=== PATIENT | male | born 1940 | race Hispanic/Latino ===

== ENCOUNTER 2016-09-11 21:43 | Observation (INO) | payer MEDICARE ==
[2016-09-11 21:44] VITALS: BMI 22.4
[2016-09-11] MEDS ORDERED: Sodium Chloride 0.9% 1,000 ML IV STA (21:53)
[2016-09-11 22:41] LABS: BASO % 0.3 % (0.0-2.0); EOS # 0.2 K/uL (0.0-0.7); EOS % 1.5 % (0.0-4.0); HEMATOCRIT 33.7 % (35.0-51.0); LYMPH # 1.1 K/uL (1.0-4.3); MEAN CELL VOLUME 92.2 fl (80.0-94.0); MEAN CORPUSCULAR HEMOGLOBIN 29.7 pg (27.0-31.0); MEAN CORPUSCULAR HGB CONC 32.2 g/dL (33.0-37.0); MEAN PLATELET VOLUME 7.9 fl (7.2-11.7); MONO # 0.4 K/uL (0.0-0.8); MONO % 3.5 % (0.0-10.0); NEUT # 10.5 K/uL (1.8-7.0); NEUT % 85.7 % (50.0-75.0); PLATELET COUNT 216 K/uL (130-400); RED CELL DISTRIBUTION WIDTH 13.9 % (11.5-14.5); WHITE BLOOD COUNT 12.2 K/uL (4.8-10.8)
--- NOTE | 2016-09-11 22:47 | ED PDOC ---
HPI: General Adult Time Seen by Provider: 09/11/16 21:46 Chief Complaint (Nursing): Syncope Chief Complaint (Provider): Syncope History Per: Patient History/Exam Limitations: no limitations Additional Complaint(s): Jonathan Neal is a 75 y/o male with a past medical history of bipolar disorder and vasovagal syncope who presents to the ED via EMS accompanied by his daughter with a chief complaint of a syncope episode that lasted about 3 minutes after using the bathroom. Associated symptoms includes constipation, headache, and some light headedness. Of note, patient reports he attempted to have a bow movement on the toilet earlier today due to constipation and states he took Advil daily for the past 2 weeks to treat the headache. PMD: Dr. Renaldo Pablo Past Medical History Reviewed: Historical Data, Nursing Documentation, Vital Signs Vital Signs: Last Vital Signs Temp 98.1 F 09/11/16 23:56 Pulse 72 09/11/16 23:56 Resp 16 09/11/16 23:56 BP 119/65 09/11/16 23:56 Pulse Ox 96 09/12/16 00:12 - Medical History PMH: Arthritis, Bipolar Disorder, Dementia, Hypercholesterolemia (hyperlipidemia ), Hyperlipidemia Denies: HIV, Chronic Kidney Disease - Surgical History Surgical History: Hernia Repair - Family History Family History: States: Unknown Family Hx - Social History Current smoker - smoking cessation education provided: No Ex-Smoker (has not smoked in the last 12 months): No Alcohol: None Drugs: Denies - Home Medications Home Medications: Ambulatory Orders Medication Instructions Recorded [place] Carbonate [Rapids 150 mg PO TID #90 cap 03/22/15 Carbonate 150MG] Risperidone [Risperdal] 0.25 mg PO BID 09/11/16 - Allergies Allergies/Adverse Reactions: Allergies Allergy/AdvReac Type Severity Reaction Status Date / Time meperidine Allergy Mild RASH Verified 08/15/15 06:33 Review of Systems ROS Statement: Except As Marked, All Systems Reviewed And Found Negative Constitutional: Negative for: Fever Cardiovascular: Negative for: Chest Pain Respiratory: Negative for: Cough, Shortness of Breath Gastrointestinal: Positive for: Constipation. Negative for: Nausea, Vomiting, Diarrhea Neurological: Positive for: Headache, Other (Syncope) Physical Exam - Reviewed Nursing Documentation Reviewed: Yes Vital Signs Reviewed: Yes - Physical Exam Appears: Positive for: Well, Non-toxic, No Acute Distress Head Exam: Positive for: ATRAUMATIC, NORMAL INSPECTION, NORMOCEPHALIC Skin: Positive for: Warm, Dry, Pallor. Negative for: Normal Color Eye Exam: Positive for: Normal appearance, EOMI, PERRL ENT: Positive for: Normal ENT Inspection Neck: Positive for: Normal, Painless ROM, Supple Cardiovascular/Chest: Positive for: Regular Rate, Rhythm. Negative for: Murmur , Tachycardia Respiratory: Positive for: Normal Breath Sounds. Negative for: Wheezing, Respiratory Distress Gastrointestinal/Abdominal: Positive for: Normal Exam, Soft. Negative for: Tenderness Back: Positive for: Other (Kyphosis) Rectal: Positive for: Deferred Extremity: Positive for: Normal ROM Lymphatic: Positive for: Deferred Neurologic/Psych: Positive for: Alert (Awake), Oriented (x3) - Laboratory Results Result Diagrams: 09/11/16 22:14 09/11/16 22:41 - ECG O2 Sat by Pulse Oximetry: 96 (RA) Pulse Ox Interpretation: Normal Medical Decision Making Medical Decision Making: Time : 2145: Initial Impression: 75 y/o male with syncope event in setting of known vasovagal syncope and headache. Initial Plan: * Head CT W/o contrast * EKG * CMP * Lact acid, Plasma * Troponin I Stat * ED U-Dip * EKG-ED * CBC with differentials * PTT * Prothrombin Time COAG Stat * Sodium chloride 1000ml * Heplock insertion IV * Admit to hospital routine * Re-Eval 2334: CT head impression: No CT evidence of acute intracranial abnormality. 0008: Labs reviewed, show no clinically significant abnormalities. Patient will be placed on obs status given age and other risk factors. Case discussed with Dr. Aviles (family practice resident on-call) covering for Dr. Pablo. Dx: syncope fair Scribe Attestation: Documented by Bryanna Casillas acting as a scribe for Kanu Coombs MD. Provider Scribe Attestation: All medical record entries made by the Scribe were at my direction and personally dictated by me. I have reviewed the chart and agree that the record accurately reflects my personal performance of the history, physical exam, medical decision making, and the department course for this patient. I have also personally directed, reviewed, and agree with the discharge instructions and disposition. Time Disposition - Clinical Impression Clinical Impression: Syncope Discussed With : Emilia Aviles - Disposition Disposition Time: 00:08 Condition: FAIR - Pt Status Changed To: Hospital Disposition Of: Observation
[2016-09-11 22:51] LABS: ALB/GLOB RATIO 1.5 (1.0-2.1); ALKALINE PHOSPHATASE 53 U/L (38-126); ALT/SGPT 32 U/L (21-72); AST/SGOT 20 U/L (17-59); BILIRUBIN,TOTAL 0.2 mg/dl (0.2-1.3); BLOOD UREA NITROGEN 30 mg/dl (9-20); CALCIUM 9.8 mg/dL (8.4-10.2); CARBON DIOXIDE 24 mmol/L (22-30); CHLORIDE 107 mmol/L (98-107); GFR AFRICAN-AMERICAN 55; GLUCOSE,RANDOM 116 mg/dL (75-110); POTASSIUM 4.3 MMOL/L (3.6-5.0); SODIUM 137 mmol/l (132-148)
[2016-09-11 23:33] LABS: NEUTROPHIL 87 % (42-75); TOTAL CELLS COUNTED 100
--- NOTE | 2016-09-11 23:35 | CT ---
EXAM: CT Head Without Intravenous Contrast CLINICAL HISTORY: 75 years old, male; Signs and symptoms; Other: Syncopeal episode; Additional info: Headache TECHNIQUE: Axial computed tomography images of the head/brain without intravenous contrast. This CT exam was performed using one or more of the following dose reduction techniques: automated exposure control, adjustment of the mA and/or kV according to patient size, and/or use of iterative reconstruction technique. Coronal and sagittal reformatted images were created and reviewed. COMPARISON: CT - HEAD W/O (CODE STROKE) 03/18/2015 4:04:18 PM FINDINGS: Brain: Atrophy. Evidence of chronic ischemic small vessel changes. Vascular calcification. No hemorrhage. No edema. Ventricles: No hydrocephalus. Bones: Skull is intact. Sinuses: No acute sinusitis. Mastoid air cells: Partial opacification left mastoid air cells. IMPRESSION: No CT evidence of acute intracranial abnormality. Please see additional details/findings as above.
--- NOTE | 2016-09-12 00:23 | CP.PCM.HP ---
History of Present Illness - History of Present Illness History of Present Illness: CC: Unresponsive and daughter present at bedside 75M with a repeat episode of near syncope after straining for a BM. Daughter was present at the time and describes the patient's color changing, eyes rolling up, but continued to mumble incoherently, and that he continued to have respirations. Pt denies SOB or chest pain prior to event. Of note family describes prior event occurring in 2014. 2015 Echo: Borderline LVH, EF wnl, mild septal hypokinesis Holter: No etiology identified for syncope Carotid Duplex: No significant stenosis Adelia Note: not neurological, but recommended ASA/Statin PMH: Arthritis, Hiatal Hernia, Bipolar DO, Dementia (mild), Splenic Aneurysm PSH: LIH Repair, b/l foot surgeries, TURP x2 Smoke: Denies ALL: Meperidine FRANKIE: See Med Rec ED COURSE VSS: 36.9- 63- 95/57- 16- 96% CBC: 12.2>10.8/33.7<216, MCV- 92.2 CMP: 137/4.3- 107/24- 30/1.5, Glu- 116H, TBili- 0.2, AST/ALT- 20/32, ALP- 53, TProt/Alb- 6.0L/3.6 Troponin #1: Neg Lactic Acid: 1.2 Li+: 1.2 CT Head: Negative for ICH, masses, shift NS 1L bolus x1 Present on Admission - Present on Admission Any Indicators Present on Admission: No Review of Systems - Review of Systems All systems: reviewed and no additional remarkable complaints except - Constitutional Constitutional: Headache (chronic) - Cardiovascular Cardiovascular: Lightheadedness Past Patient History - Past Medical History & Family History Past Medical History?: Yes - Past Social History Alcohol: None Drugs: Denies - CARDIAC Hx Hypercholesterolemia: Yes (hyperlipidemia) - PULMONARY Hx Respiratory Disorders: No Other/Comment: COPD? as per Luanne. denies pt having COPD - NEUROLOGICAL Hx Dementia: Yes - HEENT Hx HEENT Problems: No - RENAL Hx Chronic Kidney Disease: No - ENDOCRINE/METABOLIC Hx Endocrine Disorders: No - HEMATOLOGICAL/ONCOLOGICAL Hx Human Immunodeficiency Virus (HIV): No - INTEGUMENTARY Hx Dermatological Problems: No - MUSCULOSKELETAL/RHEUMATOLOGICAL Hx Arthritis: Yes - GASTROINTESTINAL Hx Gastrointestinal Disorders: No - GENITOURINARY/GYNECOLOGICAL Hx Genitourinary Disorders: Yes Other/Comment: BPH with TURP x2 - PSYCHIATRIC Hx Bipolar Disorder: Yes - SURGICAL HISTORY Hx Surgeries: Yes Hx Herniorrhaphy: Yes Other/Comment: TURP X2, small spleen aneurysm. Feet surgery([place] and hammer toes sx) - ANESTHESIA Hx Anesthesia: Yes Hx Anesthesia Reactions: No Hx Malignant Hyperthermia: No Meds Allergies/Adverse Reactions: Allergies Allergy/AdvReac Type Severity Reaction Status Date / Time meperidine Allergy Mild RASH Verified 08/15/15 06:33 Physical Exam - Constitutional Appears: Well, Non-toxic, No Acute Distress - Head Exam Head Exam: ATRAUMATIC, NORMAL INSPECTION - Eye Exam Eye Exam: EOMI (Intact but cannot sustain eye position), Normal appearance ( eyelids are red), PERRL - ENT Exam ENT Exam: Mucous Membranes Moist, Normal Exam - Neck Exam Neck exam: Negative for: Full Rom (Limited due to kyphosis), Normal Inspection - Respiratory Exam Respiratory Exam: Clear to Auscultation Bilateral, NORMAL BREATHING PATTERN. absent: Rales, Wheezes - Cardiovascular Exam Cardiovascular Exam: REGULAR RHYTHM. absent: JVD - GI/Abdominal Exam GI & Abdominal Exam: Normal Bowel Sounds, Soft. absent: Tenderness - Extremities Exam Extremities exam: Positive for: normal capillary refill, pedal pulses present. Negative for: calf tenderness, normal inspection (multiple b/l foot sugeries), pedal edema - Neurological Exam Neurological exam: Alert - Psychiatric Exam Psychiatric exam: Normal Affect, Normal Mood - Skin Skin Exam: Normal Color, Warm Results - Vital Signs Recent Vital Signs: Last Vital Signs Temp 36.7 C 09/11/16 23:56 Pulse 72 09/11/16 23:56 Resp 16 09/11/16 23:56 BP 119/65 09/11/16 23:56 Pulse Ox 96 09/12/16 00:12 - Labs Result Diagrams: 09/11/16 22:14 09/11/16 22:41 Labs: Laboratory Results - last 24 hr 09/11/16 09/11/16 09/11/16 22:14 22:41 22:41 WBC 12.2 H D RBC 3.65 L Hgb 10.8 L Hct 33.7 L MCV 92.2 D MCH 29.7 MCHC 32.2 L RDW 13.9 Plt Count 216 MPV 7.9 Neut % (Auto) 85.7 H Lymph % (Auto) 9.0 L [place] % (Auto) 3.5 Eos % (Auto) 1.5 Baso % (Auto) 0.3 Neut # 10.5 H Lymph # 1.1 [place] # 0.4 Eos # 0.2 Baso # 0.0 Neutrophils % (Manual) 87 H Lymphocytes % (Manual) 10 L Monocytes % (Manual) 3 Platelet Estimate Normal PT 11.2 INR 1.0 APTT 26.0 Sodium 137 Potassium 4.3 Chloride 107 Carbon Dioxide 24 Anion Gap 9 L BUN 30 H Creatinine 1.5 Est GFR ( Amer) 55 Est GFR (Non-Af Amer) 45 Random Glucose 116 H Lactic Acid Calcium 9.8 Total Bilirubin 0.2 AST 20 ALT 32 Alkaline Phosphatase 53 Troponin I < 0.0120 Total Protein 6.0 L Albumin 3.6 Globulin 2.5 Albumin/Globulin Ratio 1.5 09/11/16 22:41 WBC RBC Hgb Hct MCV MCH MCHC RDW Plt Count MPV Neut % (Auto) Lymph % (Auto) [place] % (Auto) Eos % (Auto) Baso % (Auto) Neut # Lymph # [place] # Eos # Baso # Neutrophils % (Manual) Lymphocytes % (Manual) Monocytes % (Manual) Platelet Estimate PT INR APTT Sodium Potassium Chloride Carbon Dioxide Anion Gap BUN Creatinine Est GFR ( Amer) Est GFR (Non-Af Amer) Random Glucose Lactic Acid 1.2 Calcium Total Bilirubin AST ALT Alkaline Phosphatase Troponin I Total Protein Albumin Globulin Albumin/Globulin Ratio Assessment & Plan (1) Syncope Assessment and Plan: Recurrent and history c/w likely vasovagal syncope may be exacerbated by anemia. CT negative for acute ICH or shift. Prior work-up in 2014 was negative for neurological and cardiac etiology. - Admit to Telemetry - Bedside swallow as a precaution Status: Acute (2) Anemia Assessment and Plan: This appears to be new as last H/H was 13.3/41.3, however no noted hematuria or dark stools. - Iron and B12 work-up - Fecal occult blood Status: Acute (3) LEA (acute kidney injury) Assessment and Plan: Most c/w pre-renal secondary to volume depletion. Likely contributing to pseudo leukocytosis due to hemoconcentration, but will continue to monitor. - IVF overnight - Repeat BMP in AM Status: Acute (4) Bipolar disorder Assessment and Plan: Chronic, stable. [place]- 1.2 (wnl) - Resume Risperidone - Resume [place] Status: Chronic Priority: Low (5) DVT prophylaxis Assessment and Plan: Lovenox 40mg, SC, Daily Status: Acute
[2016-09-12 04:52] LABS: RBC URINE < 1 /hpf (0-3); URINE BILIRUBIN NEGATIVE (NEGATIVE); URINE BLOOD NEGATIVE (NEGATIVE); URINE COLOR STRAW (YELLOW); URINE GLUCOSE (UA) NEG (Normal); URINE KETONE NEGATIVE (NEGATIVE); URINE LEUKOCYTE ESTERASE NEG Leu/uL (Negative); URINE PROTEIN NEGATIVE (NEGATIVE); URINE UROBILINOGEN 0.2-1.0 mg/dL (0.2-1.0); WBC URINE 2 /hpf (0-5)
[2016-09-12 07:21] LABS: BASO % 0.6 % (0.0-2.0); EOS # 0.2 K/uL (0.0-0.7); HEMATOCRIT 35.5 % (35.0-51.0); LYMPH # 1.7 K/uL (1.0-4.3); LYMPH % 23.5 % (20.0-40.0); MEAN CELL VOLUME 91.7 fl (80.0-94.0); MEAN CORPUSCULAR HEMOGLOBIN 29.9 pg (27.0-31.0); MEAN CORPUSCULAR HGB CONC 32.6 g/dL (33.0-37.0); MEAN PLATELET VOLUME 7.8 fl (7.2-11.7); MONO # 0.4 K/uL (0.0-0.8); MONO % 6.3 % (0.0-10.0); NEUT # 4.7 K/uL (1.8-7.0); NEUT % 66.6 % (50.0-75.0); RED CELL DISTRIBUTION WIDTH 13.5 % (11.5-14.5); WHITE BLOOD COUNT 7.1 K/uL (4.8-10.8)
[2016-09-12 07:37] LABS: BLOOD UREA NITROGEN 26 mg/dl (9-20); CALCIUM 10.5 mg/dL (8.4-10.2); CARBON DIOXIDE 25 mmol/L (22-30); CHLORIDE 111 mmol/L (98-107); GFR AFRICAN-AMERICAN > 60; GLUCOSE,RANDOM 88 mg/dL (75-110); POTASSIUM 4.6 MMOL/L (3.6-5.0); SODIUM 142 mmol/l (132-148)
[2016-09-12 07:42] LABS: IRON 51 ug/dL (49-181)
[2016-09-12] MEDS ORDERED: Enoxaparin 40 mg Syringe SC SCH (09:00)
[2016-09-12] MEDS: Lithium Carbonate 150 MG CAP PO SCH ×2 (09:20→12:37)
[2016-09-12 11:50] LABS: THYROID STIMULATING HORMONE 3.27 mIU/ML (0.46-4.68)
[2016-09-12 12:32] VITALS: BP 138/76; PULSE 67; RESP 20; TEMP 97.6; O2SAT 95
--- NOTE | 2016-09-12 13:47 | CP.PCM.DIS ---
<Archie Stout - Last Filed: 09/12/16 13:57> Provider - Provider Date of Admission: 09/11/16 22:09 Attending physician: Renaldo Pablo MD Time Spent in preparation of Discharge (in minutes): 35 Diagnosis - Discharge Diagnosis (1) Vasovagal syncope Status: Acute Hospital Course - Lab Results Lab Results: Most Recent Lab Values WBC 7.1 K/uL (4.8-10.8) 09/12/16 06:30 RBC 3.87 Mil/uL (4.40-5.90) L 09/12/16 06:30 Hgb 11.6 g/dL (12.0-18.0) L 09/12/16 06:30 Hct 35.5 % (35.0-51.0) 09/12/16 06:30 MCV 91.7 fl (80.0-94.0) 09/12/16 06:30 MCH 29.9 pg (27.0-31.0) 09/12/16 06:30 MCHC 32.6 g/dL (33.0-37.0) L 09/12/16 06:30 RDW 13.5 % (11.5-14.5) 09/12/16 06:30 Plt Count 215 K/uL (130-400) 09/12/16 06:30 MPV 7.8 fl (7.2-11.7) 09/12/16 06:30 Neut % (Auto) 66.6 % (50.0-75.0) 09/12/16 06:30 Lymph % (Auto) 23.5 % (20.0-40.0) 09/12/16 06:30 [place] % (Auto) 6.3 % (0.0-10.0) 09/12/16 06:30 Eos % (Auto) 3.0 % (0.0-4.0) 09/12/16 06:30 Baso % (Auto) 0.6 % (0.0-2.0) 09/12/16 06:30 Neut # 4.7 K/uL (1.8-7.0) 09/12/16 06:30 Lymph # 1.7 K/uL (1.0-4.3) 09/12/16 06:30 [place] # 0.4 K/uL (0.0-0.8) 09/12/16 06:30 Eos # 0.2 K/uL (0.0-0.7) 09/12/16 06:30 Baso # 0.0 K/uL (0.0-0.2) 09/12/16 06:30 Neutrophils % (Manual) 87 % (42-75) H 09/11/16 22:14 Lymphocytes % (Manual) 10 % (20-50) L 09/11/16 22:14 Monocytes % (Manual) 3 % (0-10) 09/11/16 22:14 Platelet Estimate Normal (NORMAL) 09/11/16 22:14 Retic Count 0.5 % (0.5-1.5) 09/12/16 06:30 PT 11.2 Seconds (9.8-13.1) 09/11/16 22:41 INR 1.0 (0.9-1.2) 09/11/16 22:41 APTT 26.0 Seconds (25.6-37.1) 09/11/16 22:41 Sodium 142 mmol/l (132-148) 09/12/16 06:30 Potassium 4.6 MMOL/L (3.6-5.0) 09/12/16 06:30 Chloride 111 mmol/L (98-107) H 09/12/16 06:30 Carbon Dioxide 25 mmol/L (22-30) 09/12/16 06:30 Anion Gap 11 (10-20) 09/12/16 06:30 BUN 26 mg/dl (9-20) H 09/12/16 06:30 Creatinine 1.3 mg/dL (0.8-1.5) 09/12/16 06:30 Est GFR ( Amer) > 60 09/12/16 06:30 Est GFR (Non-Af Amer) 54 09/12/16 06:30 Random Glucose 88 mg/dL (75-110) 09/12/16 06:30 Lactic Acid 1.2 MMOL/L (0.7-2.1) 09/11/16 22:41 Calcium 10.5 mg/dL (8.4-10.2) H 09/12/16 06:30 Iron 51 ug/dL (49-181) 09/12/16 06:30 TIBC 269 ug/dL (250-450) 09/12/16 06:30 % Saturation 19 % (20-55) L 09/12/16 06:30 Ferritin 174.0 ng/mL 09/12/16 06:30 Total Bilirubin 0.2 mg/dl (0.2-1.3) 09/11/16 22:41 AST 20 U/L (17-59) 09/11/16 22:41 ALT 32 U/L (21-72) 09/11/16 22:41 Alkaline Phosphatase 53 U/L (38-126) 09/11/16 22:41 Troponin I 0.0130 ng/mL (0.00-0.120) 09/12/16 12:15 Total Protein 6.0 G/DL (6.3-8.2) L 09/11/16 22:41 Albumin 3.6 g/dL (3.5-5.0) 09/11/16 22:41 Globulin 2.5 gm/dL (2.2-3.9) 09/11/16 22:41 Albumin/Globulin Ratio 1.5 (1.0-2.1) 09/11/16 22:41 Vitamin B12 661 pg/mL (239-931) 09/12/16 06:30 TSH 3rd Generation 3.27 mIU/ML (0.46-4.68) 09/12/16 06:30 Urine Color Straw (YELLOW) 09/12/16 03:30 Urine Clarity Clear (Clear) 09/12/16 03:30 Urine pH 6.0 (5.0-8.0) 09/12/16 03:30 Ur Specific [place] 1.010 (1.003-1.030) 09/12/16 03:30 Urine Protein Negative mg/dL (NEGATIVE) 09/12/16 03:30 Urine Glucose (UA) Neg mg/dL (Normal) 09/12/16 03:30 Urine Ketones Negative mg/dL (NEGATIVE) 09/12/16 03:30 Urine Blood Negative (NEGATIVE) 09/12/16 03:30 Urine Nitrate Negative (NEGATIVE) 09/12/16 03:30 Urine Bilirubin Negative (NEGATIVE) 09/12/16 03:30 Urine Urobilinogen 0.2-1.0 mg/dL (0.2-1.0) 09/12/16 03:30 Ur Leukocyte Esterase Neg [place]/uL (Negative) 09/12/16 03:30 Urine RBC (Auto) < 1 /hpf (0-3) 09/12/16 03:30 Urine Microscopic WBC 2 /hpf (0-5) 09/12/16 03:30 Ur Squamous Epith Cells < 1 /hpf (0-5) 09/12/16 03:30 [place] 1.2 MMOL/L (0.6-1.2) 09/11/16 23:59 - Hospital Course Hospital Course: 75 year old male with pmh of arthritis, Hiatal Hernia, Bipolar DO, Dementia, patient suffered vasovagal syncopal episode, admitted for observation. Patient has hx of constipation and reports symptoms occurred after straining to have BM. Patients labs revealed mild anemia, hg 11.6, TSH WNL, [place] within therapeutic range. CT Head: No CT evidence of acute intracranial abnormality. Patient is stable for discharge home. Start colace 100mg daily, hold for diarrhea. - Date & Time of H&P Date of H&P: 09/12/16 Time of H&P: 00:22 Discharge Exam - Head Exam Head Exam: ATRAUMATIC, NORMAL INSPECTION - Eye Exam Pupil Exam: PERRL - Respiratory Exam Respiratory Exam: UNREMARKABLE - Cardiovascular Exam Cardiovascular Exam: REGULAR RHYTHM, +S1, +S2 - GI/Abdominal Exam GI & Abdominal Exam: Distended (mildly, +BS). absent: Tenderness - Neurological Exam Neurological exam: Alert, CN II-XII Intact - Psychiatric Exam Psychiatric exam: Normal Affect, Normal Mood - Skin Skin Exam: Dry, Intact, Normal Color Discharge Plan - Discharge Medications Prescriptions: Docusate Sodium [Colace] 100 mg PO DAILY #30 capsule - Follow Up Plan Condition: FAIR Disposition: HOME/ ROUTINE Instructions: Constipation (DC), High Fiber Diet (DC), Syncope (DC) <Sean Weber - Last Filed: 09/14/16 06:51> Provider - Provider Date of Admission: 09/11/16 22:09 Attending physician: Renaldo Pablo MD Hospital Course - Lab Results Lab Results: Most Recent Lab Values WBC 7.1 K/uL (4.8-10.8) 09/12/16 06:30 RBC 3.87 Mil/uL (4.40-5.90) L 09/12/16 06:30 Hgb 11.6 g/dL (12.0-18.0) L 09/12/16 06:30 Hct 35.5 % (35.0-51.0) 09/12/16 06:30 MCV 91.7 fl (80.0-94.0) 09/12/16 06:30 MCH 29.9 pg (27.0-31.0) 09/12/16 06:30 MCHC 32.6 g/dL (33.0-37.0) L 09/12/16 06:30 RDW 13.5 % (11.5-14.5) 09/12/16 06:30 Plt Count 215 K/uL (130-400) 09/12/16 06:30 MPV 7.8 fl (7.2-11.7) 09/12/16 06:30 Neut % (Auto) 66.6 % (50.0-75.0) 09/12/16 06:30 Lymph % (Auto) 23.5 % (20.0-40.0) 09/12/16 06:30 [place] % (Auto) 6.3 % (0.0-10.0) 09/12/16 06:30 Eos % (Auto) 3.0 % (0.0-4.0) 09/12/16 06:30 Baso % (Auto) 0.6 % (0.0-2.0) 09/12/16 06:30 Neut # 4.7 K/uL (1.8-7.0) 09/12/16 06:30 Lymph # 1.7 K/uL (1.0-4.3) 09/12/16 06:30 [place] # 0.4 K/uL (0.0-0.8) 09/12/16 06:30 Eos # 0.2 K/uL (0.0-0.7) 09/12/16 06:30 Baso # 0.0 K/uL (0.0-0.2) 09/12/16 06:30 Neutrophils % (Manual) 87 % (42-75) H 09/11/16 22:14 Lymphocytes % (Manual) 10 % (20-50) L 09/11/16 22:14 Monocytes % (Manual) 3 % (0-10) 09/11/16 22:14 Platelet Estimate Normal (NORMAL) 09/11/16 22:14 Retic Count 0.5 % (0.5-1.5) 09/12/16 06:30 PT 11.2 Seconds (9.8-13.1) 09/11/16 22:41 INR 1.0 (0.9-1.2) 09/11/16 22:41 APTT 26.0 Seconds (25.6-37.1) 09/11/16 22:41 Sodium 142 mmol/l (132-148) 09/12/16 06:30 Potassium 4.6 MMOL/L (3.6-5.0) 09/12/16 06:30 Chloride 111 mmol/L (98-107) H 09/12/16 06:30 Carbon Dioxide 25 mmol/L (22-30) 09/12/16 06:30 Anion Gap 11 (10-20) 09/12/16 06:30 BUN 26 mg/dl (9-20) H 09/12/16 06:30 Creatinine 1.3 mg/dL (0.8-1.5) 09/12/16 06:30 Est GFR ( Amer) > 60 09/12/16 06:30 Est GFR (Non-Af Amer) 54 09/12/16 06:30 Random Glucose 88 mg/dL (75-110) 09/12/16 06:30 Lactic Acid 1.2 MMOL/L (0.7-2.1) 09/11/16 22:41 Calcium 10.5 mg/dL (8.4-10.2) H 09/12/16 06:30 Iron 51 ug/dL (49-181) 09/12/16 06:30 TIBC 269 ug/dL (250-450) 09/12/16 06:30 % Saturation 19 % (20-55) L 09/12/16 06:30 Ferritin 174.0 ng/mL 09/12/16 06:30 Total Bilirubin 0.2 mg/dl (0.2-1.3) 09/11/16 22:41 AST 20 U/L (17-59) 09/11/16 22:41 ALT 32 U/L (21-72) 09/11/16 22:41 Alkaline Phosphatase 53 U/L (38-126) 09/11/16 22:41 Troponin I 0.0130 ng/mL (0.00-0.120) 09/12/16 12:15 Total Protein 6.0 G/DL (6.3-8.2) L 09/11/16 22:41 Albumin 3.6 g/dL (3.5-5.0) 09/11/16 22:41 Globulin 2.5 gm/dL (2.2-3.9) 09/11/16 22:41 Albumin/Globulin Ratio 1.5 (1.0-2.1) 09/11/16 22:41 Vitamin B12 661 pg/mL (239-931) 09/12/16 06:30 Folate > 20.0 ng/mL 09/12/16 06:30 TSH 3rd Generation 3.27 mIU/ML (0.46-4.68) 09/12/16 06:30 Urine Color Straw (YELLOW) 09/12/16 03:30 Urine Clarity Clear (Clear) 09/12/16 03:30 Urine pH 6.0 (5.0-8.0) 09/12/16 03:30 Ur Specific [place] 1.010 (1.003-1.030) 09/12/16 03:30 Urine Protein Negative mg/dL (NEGATIVE) 09/12/16 03:30 Urine Glucose (UA) Neg mg/dL (Normal) 09/12/16 03:30 Urine Ketones Negative mg/dL (NEGATIVE) 09/12/16 03:30 Urine Blood Negative (NEGATIVE) 09/12/16 03:30 Urine Nitrate Negative (NEGATIVE) 09/12/16 03:30 Urine Bilirubin Negative (NEGATIVE) 09/12/16 03:30 Urine Urobilinogen 0.2-1.0 mg/dL (0.2-1.0) 09/12/16 03:30 Ur Leukocyte Esterase Neg [place]/uL (Negative) 09/12/16 03:30 Urine RBC (Auto) < 1 /hpf (0-3) 09/12/16 03:30 Urine Microscopic WBC 2 /hpf (0-5) 09/12/16 03:30 Ur Squamous Epith Cells < 1 /hpf (0-5) 09/12/16 03:30 [place] 1.2 MMOL/L (0.6-1.2) 09/11/16 23:59 Attending/Attestation - Attestation I have fully participated in the care of the patient.: Yes I have reviewed all pertinent clinical information, including history, physical exam and plan: Yes
[2016-09-12 19:13] LABS: FOLATE > 20.0 ng/mL
--- NOTE | 2016-09-13 14:47 | CARD ---
APPROVED REPORT EKG Measurement Heart [id number] <Conclusion> Wide QRS rhythm Left axis deviation Nonspecific intraventricular block Abnormal ECG
== END 2016-09-12 14:20 | disposition home or self-care (01) ==
LOC: H.ER 21:43 → H.ERHOLD 22:09 → H.TEL 09-12 00:32
PROVIDERS: ADMIT Family Medicine; ATTEND Family Medicine
DX: R55 Syncope and collapse (principal); D64.9 Anemia, unspecified; E78.00 Pure hypercholesterolemia, unspecified; E78.5 Hyperlipidemia, unspecified; F03.90 Unspecified dementia, unspecified severity, without behavioral disturbance, psychotic disturbance, mood disturbance, and anxiety; M19.90 Unspecified osteoarthritis, unspecified site; F31.9 Bipolar disorder, unspecified; K59.00 Constipation, unspecified; N17.9 Acute kidney failure, unspecified
CPT/HCPCS: 36415; 70450; 80048; 80053; 80178; 81003; 82607; 82728; 82746; 83540; 83550; 83605; 84443; 84484; 85025; 85044; 85610; 85730; 93005; 96360; 96361; 99285; G0378; J1650; J7040

== ENCOUNTER 2016-11-20 15:09 | Inpatient (IN) | payer MEDICARE ==
[2016-11-20 15:09] VITALS: BMI 22.4
[2016-11-20] MEDS ORDERED: Sodium Chloride 0.9% 1,000 ML IV STA (15:49)
--- NOTE | 2016-11-20 15:53 | ED PDOC ---
Syncope/Near Syncope/Dizziness Time Seen by Provider: 11/20/16 15:29 Chief Complaint (Nursing): Dizziness/Lightheaded Chief Complaint (Provider): Dizziness History Per: Patient History/Exam Limitations: no limitations Current Symptoms Are (Timing): Still Present Number Of Syncopal Episodes: 1 Additional Complaint(s): Patient is a 76 year old male with a past medical history of vasovagal syncope, hernia, spinal stenosis, and arthritis who was brought to the emergency department for dizziness, headache, and near-syncope associated with having a bowel movement. Also reports mild abdominal cramps, shoulder, neck, and leg pain. Denies chest pain, shortness of breath, or history of cardiac disease. Of note, patient presented to the ED in September 2016 for a complaint of syncope associated with a bowel movement, for which he was kept overnight. PCP: Dr. Blake Pablo. Past Medical History Reviewed: Historical Data, Nursing Documentation, Vital Signs Vital Signs: Last Vital Signs Temp 98.3 F 11/20/16 15:11 Pulse 72 11/20/16 15:11 Resp 18 11/20/16 15:11 BP 104/61 11/20/16 15:11 Pulse Ox 97 11/20/16 15:11 - Medical History PMH: Arthritis, Bipolar Disorder, Dementia, Hypercholesterolemia (hyperlipidemia ), Hyperlipidemia Denies: HIV, Chronic Kidney Disease Other PMH: Spinal stenosis, vasovagal syncope - Surgical History Surgical History: Hernia Repair Other surgeries: Foot operations - Family History Family History: States: Unknown Family Hx - Social History Current smoker - smoking cessation education provided: No Ex-Smoker (has not smoked in the last 12 months): No Alcohol: None Drugs: Denies - Home Medications Home Medications: Ambulatory Orders Medication Instructions Recorded Risperidone [Risperdal] 0.25 mg PO BID 09/11/16 Ferrous Sulfate [Feosol] 1 tab PO DAILY 11/20/16 [place] Carbonate [[place] 150 mg PO TID 11/20/16 Carbonate 150MG] Multivitamin/Iron/Folic Acid 1 tab PO DAILY 11/20/16 [Centrum Complete Multivit Tab] Vitamin B Complex [Super B-50 1 cap PO DAILY 11/20/16 Complex] - Allergies Allergies/Adverse Reactions: Allergies Allergy/AdvReac Type Severity Reaction Status Date / Time meperidine Allergy Mild RASH Verified 08/15/15 06:33 Review of Systems ROS Statement: Except As Marked, All Systems Reviewed And Found Negative Constitutional: Positive for: Other (near syncope) Cardiovascular: Negative for: Chest Pain Respiratory: Negative for: Shortness of Breath Gastrointestinal: Positive for: Abdominal Pain (mild abdominal cramps) Musculoskeletal: Positive for: Neck Pain, Shoulder Pain, Leg Pain Neurological: Positive for: Headache, Dizziness Physical Exam - Reviewed Nursing Documentation Reviewed: Yes Vital Signs Reviewed: Yes - Physical Exam Appears: Positive for: Well, Non-toxic, No Acute Distress Head Exam: Positive for: ATRAUMATIC, NORMAL INSPECTION, NORMOCEPHALIC Skin: Positive for: Normal Color, Warm, Dry Eye Exam: Positive for: Normal appearance, PERRL. Negative for: Scleral icterus ENT: Positive for: Normal ENT Inspection, Other (Moist mucous membranes) Neck: Positive for: Normal, Painless ROM, Supple Cardiovascular/Chest: Positive for: Regular Rate, Rhythm. Negative for: Murmur Respiratory: Positive for: Normal Breath Sounds. Negative for: Accessory Muscle Use, Respiratory Distress Gastrointestinal/Abdominal: Positive for: Tenderness (RUQ abdominal tenderness) Extremity: Negative for: Pedal Edema, Swelling Neurologic/Psych: Positive for: Alert, Oriented. Negative for: Motor/Sensory Deficits - Laboratory Results Result Diagrams: 11/20/16 16:00 11/20/16 16:00 - ECG ECG: Positive for: Interpreted By Me Interpretation Of ECG: Normal sinus rhythm and normal axis at a rate of 72 bpm. O2 Sat by Pulse Oximetry: 97 (RA) Pulse Ox Interpretation: Normal Medical Decision Making Medical Decision Making: Time: 15:47 Initial impression: Dizziness Initial plan: EKG Labs Normal Saline 1 L IV Insertion Glucose, blood, and POC stat Reevaluation 16:48 EKG reviewed and findings noted in Course/Tx. 5.00p - labs reviewed. mildly abnormal CO2. Patient is still feeling dizzy. His is worried that he will fall again. Also there has been a change in his dosing of lithium and risperdal. Will admit for observation and monitoring. Scribe Attestation: Documented by Becca Waddell, acting as a scribe for Radha Goldberg MD. Provider Scribe Attestation: All medical record entries made by the Scribe were at my direction and personally dictated by me. I have reviewed the chart and agree that the record accurately reflects my personal performance of the history, physical exam, medical decision making, and the department course for this patient. I have also personally directed, reviewed, and agree with the discharge instructions and disposition. ED OBSERVATION Date of observation admission: 11/20/16 Time of observation admission: 16:45 Disposition - Clinical Impression Clinical Impression: Near syncope, Dizziness - Patient ED Disposition Is Patient to be Admitted: Yes Doctor Will See Patient In The: Hospital - Disposition Disposition: Transfer of Care Disposition Time: 16:45 Condition: GUARDED Forms: [employer] (Gabonese) - Pt Status Changed To: Hospital Disposition Of: Observation - POA Present On Arrival: None
[2016-11-20 16:17] LABS: BASO % 0.7 % (0.0-2.0); EOS # 0.1 K/uL (0.0-0.7); EOS % 1.8 % (0.0-4.0); HEMATOCRIT 33.4 % (35.0-51.0); LYMPH # 1.2 K/uL (1.0-4.3); MEAN CELL VOLUME 91.7 fl (80.0-94.0); MEAN CORPUSCULAR HEMOGLOBIN 31.2 pg (27.0-31.0); MEAN CORPUSCULAR HGB CONC 34.1 g/dL (33.0-37.0); MONO # 0.3 K/uL (0.0-0.8); MONO % 4.6 % (0.0-10.0); NEUT # 4.1 K/uL (1.8-7.0); NEUT % 71.9 % (50.0-75.0); NRBC % 0.1 % (0.0-0.0); RED CELL DISTRIBUTION WIDTH 13.8 % (11.5-14.5); WHITE BLOOD COUNT 5.8 K/uL (4.8-10.8)
[2016-11-20 16:20] LABS: BLOOD UREA NITROGEN 27 mg/dl (9-20); CALCIUM 10.4 mg/dL (8.4-10.2); CARBON DIOXIDE 21 mmol/L (22-30); CHLORIDE 109 mmol/L (98-107); GFR AFRICAN-AMERICAN > 60; GLUCOSE,RANDOM 138 mg/dL (75-110); POTASSIUM 4.4 MMOL/L (3.6-5.0); SODIUM 138 mmol/l (132-148)
--- NOTE | 2016-11-20 19:07 | CP.PCM.HP ---
History of Present Illness - History of Present Illness History of Present Illness: 76 year old male with a past medical history of vasovagal syncope, hernia, spinal stenosis, and arthritis presented to [facility] with an episode of near- syncope associated with the valsalva maneuver. No previous h/o cardiac dx, stroke reported. Ambulates with cane out of home but able to walk without assistance at home. Denies recent trauma, hospitalizations, did not start any new medications, no dyspnea, chest pain, parasthesias or focal weakness. Of note, patient presented to the ED in September 2016 for a complaint of syncope associated with a bowel movement, for which he was kept overnight. PCP: Dr. Blake Pablo Psych: Dr Campbell PMH: depression, schizoaffective dx PSH: hernia repair Meds: risperdal, lithuim Allergies: meperidine ED Course: EKG - NSR, labs, lithuim level, IVF Present on Admission - Present on Admission Any Indicators Present on Admission: No Review of Systems - Review of Systems Review of Systems: see hpi Past Patient History - Past Medical History & Family History Past Medical History?: Yes - Past Social History Alcohol: None Drugs: Denies - CARDIAC Hx Hypercholesterolemia: Yes (hyperlipidemia) - PULMONARY Hx Respiratory Disorders: Yes - NEUROLOGICAL Hx Dementia: Yes - HEENT Hx HEENT Problems: No - RENAL Hx Chronic Kidney Disease: No - ENDOCRINE/METABOLIC Hx Endocrine Disorders: No - HEMATOLOGICAL/ONCOLOGICAL Hx Human Immunodeficiency Virus (HIV): No - INTEGUMENTARY Hx Dermatological Problems: No - MUSCULOSKELETAL/RHEUMATOLOGICAL Hx Arthritis: Yes - GASTROINTESTINAL Hx Gastrointestinal Disorders: No - GENITOURINARY/GYNECOLOGICAL Hx Genitourinary Disorders: Yes - PSYCHIATRIC Hx Bipolar Disorder: Yes - SURGICAL HISTORY Hx Surgeries: Yes Hx Herniorrhaphy: Yes Other/Comment: TURP X2, small spleen aneurysm. Feet surgery(Bunnion and hammer toes sx) - ANESTHESIA Hx Anesthesia: Yes Hx Anesthesia Reactions: No Hx Malignant Hyperthermia: No Meds Allergies/Adverse Reactions: Allergies Allergy/AdvReac Type Severity Reaction Status Date / Time meperidine Allergy Mild RASH Verified 08/15/15 06:33 Physical Exam - Constitutional Appears: Non-toxic, No Acute Distress, Older Than Stated Age - Head Exam Head Exam: ATRAUMATIC, NORMOCEPHALIC - Eye Exam Eye Exam: EOMI Pupil Exam: PERRL - ENT Exam ENT Exam: Mucous Membranes Moist - Neck Exam Neck exam: Positive for: Full Rom - Respiratory Exam Respiratory Exam: Clear to Auscultation Bilateral - Cardiovascular Exam Cardiovascular Exam: +S1, +S2 - GI/Abdominal Exam GI & Abdominal Exam: Normal Bowel Sounds, Soft. absent: Tenderness - Extremities Exam Extremities exam: Positive for: normal inspection, pedal pulses present. Negative for: pedal edema - Neurological Exam Neurological exam: Alert, CN II-XII Intact, Oriented x3 - Psychiatric Exam Psychiatric exam: Normal Affect, Normal Mood - Skin Skin Exam: Dry, Normal Color, Warm Results - Vital Signs Recent Vital Signs: Last Vital Signs Temp 98.3 F 11/20/16 15:11 Pulse 72 11/20/16 15:11 Resp 18 11/20/16 15:11 BP 104/61 11/20/16 15:11 Pulse Ox 97 11/20/16 17:37 - Labs Result Diagrams: 11/20/16 16:00 11/20/16 16:00 Assessment & Plan - Assessment and Plan (Free Text) Plan: 76 year old male with a past medical history of vasovagal syncope, hernia, spinal stenosis, and arthritis presented to [facility] with an episode of near- syncope associated with the valsalva maneuver. Near Syncope ED Course: EKG - NSR, labs, troponin x 1 negative, lithuim level WNL, IVF admit to telemetry IVF - NS at 100ml/hr gambling monitor cont. repeat labs in AM Schizoaffective Dx c/w home meds lithium and risperdal as directed DVT PPx SCDs Diet Heart Healthy
[2016-11-20] MEDS: Lithium Carbonate 150 MG CAP PO SCH (21:15)
[2016-11-20] MEDS: Sodium Chloride 0.9% 1,000 ML IV SCH (21:18)
[2016-11-21 08:10] LABS: BLOOD UREA NITROGEN 19 mg/dl (9-20); CALCIUM 10.6 mg/dL (8.4-10.2); CARBON DIOXIDE 22 mmol/L (22-30); CHLORIDE 113 mmol/L (98-107); GFR AFRICAN-AMERICAN > 60; GLUCOSE,RANDOM 87 mg/dL (75-110); MAGNESIUM 2.1 MG/DL (1.6-2.3); PHOSPHOROUS 2.4 mg/dl (2.5-4.5); POTASSIUM 4.1 MMOL/L (3.6-5.0); SODIUM 144 mmol/l (132-148)
[2016-11-21 08:15] LABS: HEMATOCRIT 37.3 % (35.0-51.0); MEAN CELL VOLUME 91.9 fl (80.0-94.0); MEAN CORPUSCULAR HEMOGLOBIN 30.5 pg (27.0-31.0); MEAN CORPUSCULAR HGB CONC 33.1 g/dL (33.0-37.0); RED CELL DISTRIBUTION WIDTH 13.6 % (11.5-14.5); WHITE BLOOD COUNT 7.2 K/uL (4.8-10.8)
[2016-11-21] MEDS ORDERED: Multivitamin Vitamin B Complex (Nephro-Vite) Tab PO SCH (09:00)
[2016-11-21] MEDS: Sodium Chloride 0.9% 1,000 ML IV SCH (09:12)
[2016-11-21] MEDS: Multivitamin With Minerals Tab PO SCH (09:15)
[2016-11-21] MEDS: Lithium Carbonate 150 MG CAP PO SCH ×3 (09:15→16:57)
--- NOTE | 2016-11-21 09:56 | CARD ---
APPROVED REPORT EKG Measurement Heart [id number] <Conclusion> Baseline artefacts P waves difficult to identifySinus rhythm with 1st degree AV block Left axis deviation LBBB Abnormal ECG
--- NOTE | 2016-11-21 10:42 | CP.PCM.PN ---
Subjective - Date & Time of Evaluation Date of Evaluation: 11/21/16 Time of Evaluation: 08:30 - Subjective Subjective: No acute events overnight. Patient seen and examined bedside with senior resident. Feels better would like to go home. is bedside, notes patient is weaker since PT stopped 2 weeks ago. She stopped colace due to diarrhea. Will get PT/OT eval. Will restart colace to avoid straining. Psych consult due to recent change in medications as well as SI and increase in auditory/visual hallucinations. Objective - Vital Signs/Intake and Output Vital Signs (last 24 hours): Temp Pulse Resp BP Pulse Ox 98.1 F 79 18 152/82 H 96 11/21/16 08:00 11/21/16 08:00 11/21/16 08:00 11/21/16 08:00 11/21/16 08:00 - Medications Medications: Current Medications Ferrous Sulfate (Feosol) 325 mg PO DAILY [facility] Last Admin: 11/21/16 09:54 Dose: 325 mg Home Med (Vitamin B Complex [Super B-50 Complex]) 1 cap PO DAILY [facility] Sodium Chloride (Sodium Chloride 0.9%) 1,000 mls @ 100 mls/hr IV .Q10H [facility] Stop: 11/21/16 19:22 Last Admin: 11/21/16 09:12 Dose: 100 mls/hr [place] Carbonate ([place] Carbonate 150mg) 150 mg PO TID [facility] Last Admin: 11/21/16 09:15 Dose: 150 mg Multivitamins/Minerals (Therapeutic-M Tab) 1 tab PO DAILY [facility] Last Admin: 11/21/16 09:15 Dose: 1 tab Risperidone (Risperdal Tab) 0.25 mg PO TID [facility] Last Admin: 11/21/16 09:15 Dose: 0.25 mg - Labs Labs: 11/21/16 06:00 11/21/16 06:00 - Constitutional Appears: Non-toxic, In Acute Distress, Other (thin elderly male ) - Head Exam Head Exam: NORMOCEPHALIC - Eye Exam Eye Exam: Normal appearance - ENT Exam ENT Exam: Mucous Membranes Moist - Respiratory Exam Respiratory Exam: Clear to Ausculation Bilateral, NORMAL BREATHING PATTERN. absent: Rales, Rhonchi, Wheezes - Cardiovascular Exam Cardiovascular Exam: REGULAR RHYTHM, +S1, +S2 - GI/Abdominal Exam GI & Abdominal Exam: Soft, Hypoactive Bowel Sounds. absent: Distended, Guarding , Rebound - Rectal Exam Rectal Exam: absent: Deferred - Back Exam Additional comments: very kyphotic - Neurological Exam Neurological Exam: Alert, Awake, CN II-XII Intact Additional comments: gait not assessed - Psychiatric Exam Psychiatric exam: Flat Affect - Skin Skin Exam: Dry, Intact, Warm Assessment and Plan - Assessment and Plan (Free Text) Assessment: 76 year old male with a past medical history of vasovagal syncope, hernia, spinal stenosis and schizoaffective disorder, presented to [facility] ER with an episode of near-syncope associated with the valsalva maneuver while straining during a bowel movement. Patient reported dizziness at that time, no LOC. Patient is bedside. He was discharged previously on Colace but endorses that she stopped it due to loose stools. This is likely secondary to vasovagal response vs medication, unlikely cardiac in etiology given no changes noted on EKG, first troponin was negative. Will repeat troponin. Continue monitoring on telemetry for now Psychiatry consult due to SI and auditory and visual hallucinations despite current medical management. Near Syncope -likley vasovagal possibly secondary to recent change in medication -1st degree block on EKG, noted on multiple previous ekgs. troponin negative x 1 , will repeat. Last echo in 2014 did not reveal any aortic stenosis, and EF was WNL, unlikely cardiac in nature. Schizoaffective Dx c/w home meds lithium and risperdal as directed -psych consult, recommendations appreciated. Bone pain -hx of elevated Ca, rule out multiple myeloma -follow up SPEP/UPEP DVT PPx SCDs
--- NOTE | 2016-11-21 11:48 | CP.PCM.CON ---
History of Present Illness - History of Present Illness History of Present Illness: This is a 76 year old male with h/o bipolar disorder and admitted medically for vasovagal syncope and dizziness and psych consult called for adjustment of psych meds.pt is on lithium 150 mg bid and level is 1.1and risperdal 0.25 mg bid As per pt's psychiatric condition deteriorated due to medical problems and pt has been having the visions seeing people committing suicide .pt denies suicidal ideation.pt's meds were adjusted and increased to 150 mg tid but the lithium level has gone up and dose decreased to 150 mg bid Past Patient History - Past Medical History & Family History Past Medical History?: Yes - Past Social History Smoking Status: Never Smoked - CARDIAC Hx Hypercholesterolemia: Yes (hyperlipidemia) - PULMONARY Hx Respiratory Disorders: Yes - NEUROLOGICAL Hx Dementia: Yes - HEENT Hx HEENT Problems: No - RENAL Hx Chronic Kidney Disease: No - ENDOCRINE/METABOLIC Hx Endocrine Disorders: No - HEMATOLOGICAL/ONCOLOGICAL Hx Human Immunodeficiency Virus (HIV): No - INTEGUMENTARY Hx Dermatological Problems: No - MUSCULOSKELETAL/RHEUMATOLOGICAL Hx Falls: No - GASTROINTESTINAL Hx Gastrointestinal Disorders: No - GENITOURINARY/GYNECOLOGICAL Hx Genitourinary Disorders: Yes - PSYCHIATRIC Hx Substance Use: No - SURGICAL HISTORY Hx Surgeries: Yes Hx Herniorrhaphy: Yes Other/Comment: TURP X2, small spleen aneurysm. Feet surgery(Bunnion and hammer toes sx) - ANESTHESIA Hx Anesthesia: Yes Hx Anesthesia Reactions: No Hx Malignant Hyperthermia: No Meds Allergies/Adverse Reactions: Allergies Allergy/AdvReac Type Severity Reaction Status Date / Time meperidine Allergy Mild RASH Verified 08/15/15 06:33 - Medications Medications: Current Medications Ferrous Sulfate (Feosol) 325 mg PO DAILY [facility] Last Admin: 11/21/16 09:54 Dose: 325 mg Home Med (Vitamin B Complex [Super B-50 Complex]) 1 cap PO DAILY [facility] Sodium Chloride (Sodium Chloride 0.9%) 1,000 mls @ 100 mls/hr IV .Q10H [facility] Stop: 11/21/16 19:22 Last Admin: 11/21/16 09:12 Dose: 100 mls/hr [place] Carbonate ([place] Carbonate 150mg) 150 mg PO TID [facility] Last Admin: 11/21/16 09:15 Dose: 150 mg Multivitamins/Minerals (Therapeutic-M Tab) 1 tab PO DAILY [facility] Last Admin: 11/21/16 09:15 Dose: 1 tab Risperidone (Risperdal Tab) 0.25 mg PO TID [facility] Last Admin: 11/21/16 09:15 Dose: 0.25 mg Physical Exam - Psychiatric Exam Psychiatric exam: Anxious Additional comments: pt is anxious with irritible mood.pt c/o vusual hallucinations seeing visions seeing people committing suicide ..pt denies suicudal and homicidal ideation pt is alert and orientedx2 with poor concentation and poor insight and poor judgement - Expanded Psychiatric Exam Expanded Focused psych exam: Internal Stimuli, Paranoid Results - Vital Signs Recent Vital Signs: Last Vital Signs Temp 98.1 F 11/21/16 08:00 Pulse 79 11/21/16 09:00 Resp 18 11/21/16 08:00 BP 152/82 H 11/21/16 08:00 Pulse Ox 96 11/21/16 08:00 - Labs Result Diagrams: 11/21/16 06:00 11/21/16 06:00 Labs: Laboratory Results - last 24 hr 11/21/16 11/21/16 06:00 06:00 WBC 7.2 RBC 4.06 L Hgb 12.4 Hct 37.3 MCV 91.9 MCH 30.5 MCHC 33.1 RDW 13.6 Plt Count 217 Sodium 144 Potassium 4.1 Chloride 113 H Carbon Dioxide 22 Anion Gap 13 BUN 19 Creatinine 1.1 Est GFR ( Amer) > 60 Est GFR (Non-Af Amer) > 60 Random Glucose 87 Calcium 10.6 H Phosphorus 2.4 L Magnesium 2.1 Assessment & Plan - Assessment and Plan (Free Text) Assessment: Bipolar disorder ,most recent mixed type with psychosis Plan: plan : pt and agreed to increase risperdal to 0.5 mg hs and 0.25 mg in am to address the psychosis will check the lithium level in am and titrate the dose nephrology consult to see if pt can continue lithium as it is causing renal isufficiency leading to higher blood evel with smaller dose with higher risk of lithium toxicity and decrease in the efficacy of lithium . call psychiatry for reevaluation when pt is more medically stable for disposition
--- NOTE | 2016-11-21 17:39 | CP.PCM.PN ---
Subjective - Date & Time of Evaluation Date of Evaluation: 11/21/16 Time of Evaluation: 17:38 - Subjective Subjective: consult dictated creat down to normal at 1.1 ok to continue lithium work up ckd 3 eval hypercalcemia. Objective - Vital Signs/Intake and Output Vital Signs (last 24 hours): Temp Pulse Resp BP Pulse Ox 98.4 F 98 H 20 133/68 99 11/21/16 17:09 11/21/16 17:09 11/21/16 17:09 11/21/16 17:09 11/21/16 17:09 - Medications Medications: Current Medications Docusate Sodium (Colace) 100 mg PO DAILY [facility] Ferrous Sulfate (Feosol) 325 mg PO DAILY [facility] Last Admin: 11/21/16 09:54 Dose: 325 mg [place] Carbonate ([place] Carbonate 150mg) 150 mg PO TID [facility] Last Admin: 11/21/16 16:57 Dose: 150 mg Multivitamins/Minerals (Therapeutic-M Tab) 1 tab PO DAILY [facility] Last Admin: 11/21/16 09:15 Dose: 1 tab Risperidone (Risperdal Tab) 0.25 mg PO TID [facility] Last Admin: 11/21/16 16:57 Dose: 0.25 mg
[2016-11-22] MEDS: Lithium Carbonate 150 MG CAP PO SCH ×3 (08:27→16:56)
[2016-11-22] MEDS: Multivitamin With Minerals Tab PO SCH (08:28)
--- NOTE | 2016-11-22 09:06 | CP.PCM.PN ---
Subjective - Date & Time of Evaluation Date of Evaluation: 11/22/16 Time of Evaluation: 08:04 - Subjective Subjective: Patient seen and examined at bedside. Spoke with nursing staff. Patient sitting upright in preparation of breakfast. Patient accompanied by daughter. Patient states he feels well though sleepless overnight due to telemetry floor. Patient participated in PT yesterday. Psych and Nephro evaluated patient yesterday as well. No complaints at this time. No complaints of abdominal pain, constipation , urinary symptoms, chest pain, sob, or fever/chills. Objective - Vital Signs/Intake and Output Vital Signs (last 24 hours): Temp Pulse Resp BP Pulse Ox 98.1 F 82 18 163/88 H 100 11/22/16 08:00 11/22/16 08:00 11/22/16 08:00 11/22/16 08:00 11/22/16 08:00 - Medications Medications: Current Medications Camphor/Menthol ([place]) 1 applic TOP QID PRN PRN Reason: Muscleaches Docusate Sodium (Colace) 100 mg PO DAILY [facility] Last Admin: 11/22/16 08:27 Dose: 100 mg Ferrous Sulfate (Feosol) 325 mg PO DAILY [facility] Last Admin: 11/22/16 08:27 Dose: 325 mg [place] Carbonate ([place] Carbonate 150mg) 150 mg PO TID [facility] Last Admin: 11/22/16 08:27 Dose: 150 mg Multivitamins/Minerals (Therapeutic-M Tab) 1 tab PO DAILY [facility] Last Admin: 11/22/16 08:28 Dose: 1 tab Risperidone (Risperdal Tab) 0.25 mg PO TID [facility] Last Admin: 11/22/16 08:28 Dose: 0.25 mg - Constitutional Appears: Non-toxic, No Acute Distress - Head Exam Head Exam: NORMAL INSPECTION - Eye Exam Eye Exam: Normal appearance - Respiratory Exam Respiratory Exam: Clear to Ausculation Bilateral, NORMAL BREATHING PATTERN. absent: Decreased Breath Sounds, Rhonchi, Wheezes - Cardiovascular Exam Cardiovascular Exam: REGULAR RHYTHM, +S1, +S2 - GI/Abdominal Exam GI & Abdominal Exam: Soft, Normal Bowel Sounds. absent: Tenderness - Extremities Exam Extremities Exam: Normal Inspection - Back Exam Additional comments: kyphotic - Neurological Exam Neurological Exam: Alert, Awake - Psychiatric Exam Psychiatric exam: Normal Affect, Normal Mood - Skin Skin Exam: Dry, Normal Color, Warm Assessment and Plan - Assessment and Plan (Free Text) Assessment: 76 year old male with a past medical history of vasovagal syncope, hernia, spinal stenosis and schizoaffective disorder, presented to [facility] ER with an episode of near-syncope associated with the valsalva maneuver while straining during a bowel movement. Patient reported dizziness at that time, no LOC. This is likely secondary to vasovagal response vs medication, unlikely cardiac in etiology given no changes noted on EKG, troponin x2 negative. Near Syncope -likley vasovagal possibly secondary to recent change in medication -1st degree block on EKG, noted on multiple previous ekgs. troponin negative x 2. Last echo in 2014 did not reveal any aortic stenosis, and EF was WNL, unlikely cardiac in nature. -PT/OT eval, recommends TCU Schizoaffective Dx -psych consult, due to SI and auditory and visual hallucinations despite current medical management. Recommendations appreciated. -Dr. Walt Campbell (outpt psych) [phone], called for further clarification of medication/dosage and possible changes Bone pain -hx of elevated Ca, rule out multiple myeloma -follow up SPEP/UPEP DVT PPx SCDs
--- NOTE | 2016-11-22 13:00 | CON ---
DATE: 11/21/2016 REQUESTING PHYSICIAN: Renaldo Pablo MD HISTORY OF PRESENT ILLNESS: This 76-year-old gentleman is being seen in renal consultation because of increased serum creatinine of 1.3 giving him an MDRD clearance of 53 mL per minute, stage III CKD. The history is obtained from review of the present chart, interviewing the patient and his at the bedside. The patient has a longstanding history of bipolar disease and has been on lithium for over 30 years. He has been well-controlled on this medication along with Risperdal. His psychiatrist is Dr. Campbell, who is following him closely. Further chemistry shows mild metabolic acidosis on admission with a bicarbonate of 21, BUN of 27, calcium 10.4, which is elevated. The patient's family noted no other prior history or knowledge of kidney disease. They denied any history of nephritis, nephrosis, disease. They deny chronic urinary tract infection, bladder infection, cystitis, or pyelonephritis. They deny frequency, urgency, or hesitancy, but does have nocturia 2 times per night. He has had some problems with urinary flow, better after TURP. There is no history of hypertension or diabetes mellitus, but there is a family history diabetes. He has had 1 to 2 urinary tract infections in the past also. He presented with an episode of near syncope associated with Valsalva. He has a history of hernias, spinal stenosis, and arthritis. He ambulates with assistance, but very slowly. He also carries a diagnosis of schizoaffective disorder. ALLERGIES: MEPERIDINE. FAMILY HISTORY: No family history of kidney disease. SOCIAL HISTORY: Nonsmoker and nondrinker. PHYSICAL EXAMINATION: GENERAL: Shows a thin, frail, chronically ill-appearing male, quite stiff, but ambulates with assistance. HEENT: Head is normocephalic, atraumatic. Eyes: Ocular field movements full and well-visualized fundi.. NECK: Supple. Neck veins flat from above. No bruits. Thyroid is not enlarged. Thorax symmetric. LUNGS: Decreased breath sounds, but clear to percussion and auscultation. CARDIAC: Also decreased heart sounds, distant, without significant murmur, gallop, or rub. ABDOMEN: Soft, scaphoid, nontender. No gross organomegaly. No mass. No bruits. EXTREMITIES: No edema. Pulses equal and intact. NEUROLOGIC: Oriented to time, place, and person. Gross motor, sensory, and coordination within normal limits. No focal findings. IMPRESSION AND PLAN: Further chart review shows improvement in the serum creatinine with some IV hydration. Indeed serum creatinine has come down to normal at 1.1. As outlined with his , there have been studies and literature indicating that lithium may lead to chronic kidney disease, but further followup studies have shown that there may be less of a cause and effect than previously noted. Presently, with the serum creatinine coming down to 1.1, I see no reason to change medications at this time. I will continue along with the lithium therapy along with assessing and adjusting lithium levels. I would be careful with nephrotoxic drugs that may worsen kidney function. We will keep him well hydrated. We will follow serial chemistries. Outpatient followup can also be done as per family wishes. He might need assessment for metabolic derangements associated with stage III chronic kidney disease. He will also need workup and evaluation for the hypercalcemia that was initiated today. Thank you for involving me in the patient's care. Olaf Fraser MD
[2016-11-22] MEDS: Menthol/Methyl Salicylate Oinment TOP PRN (13:13)
[2016-11-23 03:51] VITALS: RESP 20
[2016-11-23] MEDS: Multivitamin With Minerals Tab PO SCH (08:27)
[2016-11-23] MEDS: Lithium Carbonate 150 MG CAP PO SCH ×3 (08:27→17:14)
--- NOTE | 2016-11-23 10:56 | CP.PCM.PN ---
<Nickolas Stoutda - Last Filed: 11/23/16 16:16> Subjective - Date & Time of Evaluation Date of Evaluation: 11/23/16 Time of Evaluation: 16:07 - Subjective Subjective: No acute overnight events. Patient seen and examined bedside, seen lying in bed comfortably. Asking for his . No complaints offered. Patient is partcipating in physical therapy. Continues to have visual hallucinations, denies auditory hallucinations. Patients risperdal recently increased to TID, patient follows up with outpatient psychiatrist. Dr. Campbell: ([phone]). Left voicemail. Will try to reach out again this afternoon. Objective - Vital Signs/Intake and Output Vital Signs (last 24 hours): Temp Pulse Resp BP Pulse Ox 98.2 F 79 20 115/77 97 11/23/16 08:01 11/23/16 08:01 11/23/16 08:01 11/23/16 08:01 11/23/16 08:01 - Medications Medications: Current Medications Acetaminophen (Tylenol 325mg Tab) 650 mg PO Q4 PRN PRN Reason: Headache Camphor/Menthol (Bengay) 1 applic TOP QID PRN PRN Reason: Muscleaches Last Admin: 11/22/16 13:13 Dose: 1 applic Docusate Sodium (Colace) 100 mg PO DAILY [facility] Last Admin: 11/23/16 08:26 Dose: 100 mg Ferrous Sulfate (Feosol) 325 mg PO DAILY [facility] Last Admin: 11/23/16 08:27 Dose: 325 mg [place] Carbonate ([place] Carbonate 150mg) 150 mg PO TID [facility] Last Admin: 11/23/16 08:27 Dose: 150 mg Multivitamins/Minerals (Therapeutic-M Tab) 1 tab PO DAILY [facility] Last Admin: 11/23/16 08:27 Dose: 1 tab Risperidone (Risperdal Tab) 0.25 mg PO TID [facility] Last Admin: 11/23/16 08:27 Dose: 0.25 mg - Constitutional Appears: No Acute Distress, Chronically Ill - Head Exam Head Exam: NORMAL INSPECTION - Eye Exam Eye Exam: Normal appearance - ENT Exam ENT Exam: Mucous Membranes Moist - Respiratory Exam Respiratory Exam: NORMAL BREATHING PATTERN. absent: Rales, Rhonchi, Wheezes, Respiratory Distress - Cardiovascular Exam Cardiovascular Exam: REGULAR RHYTHM. absent: Tachycardia, Clicks, Gallop, Rubs - GI/Abdominal Exam GI & Abdominal Exam: absent: Distended, Guarding, Tenderness - Extremities Exam Extremities Exam: absent: Pedal Edema, Tenderness - Back Exam Additional comments: severe kyphosis. - Neurological Exam Additional comments: muscle weakness, difficulty standing, needs assistance. - Psychiatric Exam Psychiatric exam: Flat Affect - Skin Skin Exam: Dry, Intact, Normal Color Assessment and Plan - Assessment and Plan (Free Text) Assessment: 76 year old male with a past medical history of vasovagal syncope, hernia, spinal stenosis and schizoaffective disorder admitted for near syncopal episode likely vasovagal response to straining. Patient would benefit from continued PT/ OT. Psych consult appreciated. Nephro consult appreciated. Near Syncope -likely vasovagal possibly secondary to recent change in medication -no episodes since admission -continue with colace to prevent straining Schizoaffective Dx -psych consult, due to SI and auditory and visual hallucinations despite current medical management. Recommendations appreciated. -Dr. Walt Campbell (outpt psych) [phone], called for further clarification of medication/dosage and possible changes. -will try and reach out again tomorrow. Bone pain -hx of elevated Ca, rule out multiple myeloma -workup ordered by nephro -follow results. DVT PPx SCDs, ambulation with assistance <Renaldo Pablo - Last Filed: 11/25/16 07:03> Objective - Vital Signs/Intake and Output Vital Signs (last 24 hours): Temp Pulse Resp BP Pulse Ox 97.3 F L 72 20 108/63 97 11/24/16 09:00 11/24/16 09:00 11/24/16 09:00 11/24/16 09:00 11/24/16 09:00 Attending/Attestation - Attestation I have personally seen and examined this patient.: Yes I have fully participated in the care of the patient.: Yes I have reviewed all pertinent clinical information, including history, physical exam and plan: Yes
[2016-11-23 19:22] LABS: CALCIUM 10.2 mg/dL (8.6-10.3)
[2016-11-24 01:26] VITALS: O2SAT 97
[2016-11-24] MEDS: Menthol/Methyl Salicylate Oinment TOP PRN ×2 (03:53→10:37)
[2016-11-24 07:55] VITALS: BP 108/63; PULSE 72; TEMP 97.3
[2016-11-24] MEDS: Lithium Carbonate 150 MG CAP PO SCH ×2 (08:59→12:39)
[2016-11-24] MEDS: Multivitamin With Minerals Tab PO SCH (09:00)
--- NOTE | 2016-11-24 13:20 | CP.PCM.DIS ---
<Archie Stout - Last Filed: 11/24/16 13:22> Provider - Provider Date of Admission: 11/21/16 12:16 Attending physician: Renaldo Pablo MD Primary care physician: Fritz Vasquez Time Spent in preparation of Discharge (in minutes): 35 Diagnosis - Discharge Diagnosis (1) Near syncope Status: Resolved Comment: Likely vasovagal due to straining during BM. Orthostatics negative. Patient stable for transfer to TCU and for participation in rehabilitation. (2) Psychiatric disorder Status: Chronic Comment: continue lithium 150mg TID and risperdal 0.25mg TID. Pt follows up outpatient with Dr. Campbell, will try and speak to Dr. Campbell regarding managment (3) Musculoskeletal pain Status: Acute Comment: workup for multiple myeloma pending Hospital Course - Lab Results Lab Results: Most Recent Lab Values WBC 7.2 K/uL (4.8-10.8) 11/21/16 06:00 RBC 4.06 Mil/uL (4.40-5.90) L 11/21/16 06:00 Hgb 12.4 g/dL (12.0-18.0) 11/21/16 06:00 Hct 37.3 % (35.0-51.0) 11/21/16 06:00 MCV 91.9 fl (80.0-94.0) 11/21/16 06:00 MCH 30.5 pg (27.0-31.0) 11/21/16 06:00 MCHC 33.1 g/dL (33.0-37.0) 11/21/16 06:00 RDW 13.6 % (11.5-14.5) 11/21/16 06:00 Plt Count 217 K/uL (130-400) 11/21/16 06:00 MPV 9.0 fl (7.2-11.7) 11/20/16 16:00 Neut % (Auto) 71.9 % (50.0-75.0) 11/20/16 16:00 Lymph % (Auto) 21.0 % (20.0-40.0) 11/20/16 16:00 [place] % (Auto) 4.6 % (0.0-10.0) 11/20/16 16:00 Eos % (Auto) 1.8 % (0.0-4.0) 11/20/16 16:00 Baso % (Auto) 0.7 % (0.0-2.0) 11/20/16 16:00 Neut # 4.1 K/uL (1.8-7.0) 11/20/16 16:00 Lymph # 1.2 K/uL (1.0-4.3) 11/20/16 16:00 [place] # 0.3 K/uL (0.0-0.8) 11/20/16 16:00 Eos # 0.1 K/uL (0.0-0.7) 11/20/16 16:00 Baso # 0.0 K/uL (0.0-0.2) 11/20/16 16:00 Sodium 144 mmol/l (132-148) 11/21/16 06:00 Potassium 4.1 MMOL/L (3.6-5.0) 11/21/16 06:00 Chloride 113 mmol/L (98-107) H 11/21/16 06:00 Carbon Dioxide 22 mmol/L (22-30) 11/21/16 06:00 Anion Gap 13 (10-20) 11/21/16 06:00 BUN 19 mg/dl (9-20) 11/21/16 06:00 Creatinine 1.1 mg/dL (0.8-1.5) 11/21/16 06:00 Est GFR ( Amer) > 60 11/21/16 06:00 Est GFR (Non-Af Amer) > 60 11/21/16 06:00 POC Glucose (mg/dL) 183 mg/dL (65-110) H 11/20/16 15:53 Random Glucose 87 mg/dL (75-110) 11/21/16 06:00 Calcium 10.6 mg/dL (8.4-10.2) H 11/21/16 06:00 Phosphorus 2.4 mg/dl (2.5-4.5) L 11/21/16 06:00 Magnesium 2.1 MG/DL (1.6-2.3) 11/21/16 06:00 Troponin I < 0.0120 ng/mL (0.00-0.120) 11/21/16 14:30 25-OH Vitamin D Total 30.4 NG/ML (30.0-100.0) 11/21/16 20:00 Calcium (PTH Intact) 10.2 mg/dL (8.6-10.3) 11/21/16 20:00 PTH w/Ion &Tot Calcium 97 pg/mL (14-64) H 11/21/16 20:00 [place] 0.7 MMOL/L (0.6-1.2) 11/22/16 06:00 - Hospital Course Hospital Course: 76 year old male admitted for near syncope likely secondary to vasovagal episode due to straining during a bowel movement. Patient restarted on colace, has not had syncopal episode here in the hospital. Orthostatics this afternoon were within normal limits. He is able to participate in physical therapy. He was seen and evaluated by psychiatry and nephrology. He is being worked up for multiple myeloma. His renal function has improved and there is no evidence of LEA. Patient to be transferred to TCU for further rehabilitation. - Date & Time of H&P Date of H&P: 11/20/16 Time of H&P: 19:06 Discharge Exam - Head Exam Head Exam: NORMAL INSPECTION - Eye Exam Eye Exam: Conjunctival injection - ENT Exam ENT Exam: Mucous Membranes Moist - Respiratory Exam Respiratory Exam: NORMAL BREATHING PATTERN - Cardiovascular Exam Cardiovascular Exam: REGULAR RHYTHM, +S1, +S2 - GI/Abdominal Exam GI & Abdominal Exam: Unremarkable - Extremities Exam Additional comments: no pedal edema or tenderness, very thin lower extremities - Neurological Exam Neurological exam: Abnormal Gait (difficulty with standing or walking), Alert, CN II-XII Intact, Oriented x3 - Psychiatric Exam Psychiatric exam: Flat Affect - Skin Skin Exam: Dry, Intact Discharge Plan - Follow Up Plan Condition: GUARDED Disposition: TRANSF TO SNF Instructions: Near Syncope (ED) <Sean Weber - Last Filed: 11/26/16 06:38> Provider - Provider Date of Admission: 11/21/16 12:16 Attending physician: Renaldo Pablo MD Hospital Course - Lab Results Lab Results: Most Recent Lab Values WBC 7.2 K/uL (4.8-10.8) 11/21/16 06:00 RBC 4.06 Mil/uL (4.40-5.90) L 11/21/16 06:00 Hgb 12.4 g/dL (12.0-18.0) 11/21/16 06:00 Hct 37.3 % (35.0-51.0) 11/21/16 06:00 MCV 91.9 fl (80.0-94.0) 11/21/16 06:00 MCH 30.5 pg (27.0-31.0) 11/21/16 06:00 MCHC 33.1 g/dL (33.0-37.0) 11/21/16 06:00 RDW 13.6 % (11.5-14.5) 11/21/16 06:00 Plt Count 217 K/uL (130-400) 11/21/16 06:00 MPV 9.0 fl (7.2-11.7) 11/20/16 16:00 Neut % (Auto) 71.9 % (50.0-75.0) 11/20/16 16:00 Lymph % (Auto) 21.0 % (20.0-40.0) 11/20/16 16:00 [place] % (Auto) 4.6 % (0.0-10.0) 11/20/16 16:00 Eos % (Auto) 1.8 % (0.0-4.0) 11/20/16 16:00 Baso % (Auto) 0.7 % (0.0-2.0) 11/20/16 16:00 Neut # 4.1 K/uL (1.8-7.0) 11/20/16 16:00 Lymph # 1.2 K/uL (1.0-4.3) 11/20/16 16:00 [place] # 0.3 K/uL (0.0-0.8) 11/20/16 16:00 Eos # 0.1 K/uL (0.0-0.7) 11/20/16 16:00 Baso # 0.0 K/uL (0.0-0.2) 11/20/16 16:00 Sodium 144 mmol/l (132-148) 11/21/16 06:00 Potassium 4.1 MMOL/L (3.6-5.0) 11/21/16 06:00 Chloride 113 mmol/L (98-107) H 11/21/16 06:00 Carbon Dioxide 22 mmol/L (22-30) 11/21/16 06:00 Anion Gap 13 (10-20) 11/21/16 06:00 BUN 19 mg/dl (9-20) 11/21/16 06:00 Creatinine 1.1 mg/dL (0.8-1.5) 11/21/16 06:00 Est GFR ( Amer) > 60 11/21/16 06:00 Est GFR (Non-Af Amer) > 60 11/21/16 06:00 POC Glucose (mg/dL) 183 mg/dL (65-110) H 11/20/16 15:53 Random Glucose 87 mg/dL (75-110) 11/21/16 06:00 Calcium 10.6 mg/dL (8.4-10.2) H 11/21/16 06:00 Phosphorus 2.4 mg/dl (2.5-4.5) L 11/21/16 06:00 Magnesium 2.1 MG/DL (1.6-2.3) 11/21/16 06:00 Troponin I < 0.0120 ng/mL (0.00-0.120) 11/21/16 14:30 Total Protein (PEP) 5.9 g/dL (6.1-8.1) L 11/21/16 14:30 25-OH Vitamin D Total 30.4 NG/ML (30.0-100.0) 11/21/16 20:00 Calcium (PTH Intact) 10.2 mg/dL (8.6-10.3) 11/21/16 20:00 PTH w/Ion &Tot Calcium 97 pg/mL (14-64) H 11/21/16 20:00 [place] 0.7 MMOL/L (0.6-1.2) 11/22/16 06:00 Urine Immunofixation Not detected (Not Detected) 11/21/16 21:45 Attending/Attestation - Attestation I have personally seen and examined this patient.: Yes I have fully participated in the care of the patient.: Yes I have reviewed all pertinent clinical information, including history, physical exam and plan: Yes
[2016-11-25 06:23] LABS: TOTAL PROTEIN, SERUM 5.9 g/dL (6.1-8.1)
[2016-11-27 11:55] LABS: BETA 1 GLOBULIN 0.4 g/dL (0.4-0.6); BETA 2 GLOBULIN 0.2 g/dL (0.2-0.5); GAMMA GLOBULIN 0.6 g/dL (0.8-1.7)
== END 2016-11-24 15:49 | DRG 312 ==
LOC: H.ER 15:09 → H.ERHOLD 17:17 → H.TEL 20:23 → OBSVTOIN 11-21 12:16 → H.MEDSURG1 11-22 14:42
PROVIDERS: ADMIT Family Medicine; ATTEND Family Medicine
DX: R55 Syncope and collapse (principal); E87.2 Acidosis; F03.90 Unspecified dementia, unspecified severity, without behavioral disturbance, psychotic disturbance, mood disturbance, and anxiety; N18.3 Chronic kidney disease, stage 3 (moderate); F31.60 Bipolar disorder, current episode mixed, unspecified; E78.00 Pure hypercholesterolemia, unspecified; E83.52 Hypercalcemia; E78.5 Hyperlipidemia, unspecified; F28 Other psychotic disorder not due to a substance or known physiological condition; F25.9 Schizoaffective disorder, unspecified; F32.9 Major depressive disorder, single episode, unspecified; M19.90 Unspecified osteoarthritis, unspecified site; M48.00 Spinal stenosis, site unspecified; M79.1 Myalgia; R35.1 Nocturia; Z87.440 Personal history of urinary (tract) infections; T43.595A Adverse effect of other antipsychotics and neuroleptics, initial encounter; Y92.9 Unspecified place or not applicable

== ENCOUNTER 2016-11-24 15:55 | Inpatient (IN) | payer OTHER, BC ==
[2016-11-24 16:33] VITALS: BMI 21.4
[2016-11-24] MEDS ORDERED: Menthol/Methyl Salicylate Oinment TOP PRN (16:54)
[2016-11-24] MEDS ORDERED: Lactulose 10 gm/15 ml Syrup PO ONE (16:56)
[2016-11-24] MEDS: Lithium Carbonate 150 MG CAP PO SCH (17:38)
[2016-11-24 20:14] VITALS: RESP 20
--- NOTE | 2016-11-25 06:53 | CP.PCM.HP ---
<Stout,Nickolasda - Last Filed: 11/25/16 11:27> History of Present Illness - History of Present Illness History of Present Illness: 76 year old male with hx of schizoaffective disorrder and constipation admitted to TCU for rehabilitation. Patient was initially admitted for vasovagal episode while straining during a bowel movement. He is on lithium and risperdal for his schizoaffective disorder. For his constipation he is on colace. Asking for his eye drops this AM. Difficulty getting out of bed. Encouraged participation in PT. No headache, chest pain, dyspnea, abdominal pain, nausea, vomiting or pedal edema. Present on Admission - Present on Admission Any Indicators Present on Admission: No Review of Systems - Constitutional Constitutional: absent: Fever, Headache - EENT Eyes: absent: Blurred Vision, Change in Vision, Loss of Vision Ears: absent: Decreased Hearing Nose/Mouth/Throat: absent: Epistaxis, Nasal Congestion - Cardiovascular Cardiovascular: absent: Chest Pain, Chest Pain at Rest, Diaphoresis, Dyspnea, Dyspnea on Exertion, Leg Edema, Palpitations - Respiratory Respiratory: absent: Cough, Dyspnea - Gastrointestinal Gastrointestinal: Constipation - Genitourinary Genitourinary: absent: Difficulty Urinating, Dysuria, Hematuria, Urinary Incontinence - Psychiatric Psychiatric: Visual Hallucinations. absent: Auditory Hallucinations - Hematologic/Lymphatic Hematologic: absent: Easy Bleeding, Easy Bruising Past Patient History - Past Medical History & Family History Past Medical History?: Yes - Past Social History Smoking Status: Never Smoked - CARDIAC Hx Hypercholesterolemia: Yes (hyperlipidemia) - PULMONARY Hx Respiratory Disorders: Yes - NEUROLOGICAL Hx Dementia: Yes - HEENT Hx HEENT Problems: No - RENAL Hx Chronic Kidney Disease: No - ENDOCRINE/METABOLIC Hx Endocrine Disorders: No - HEMATOLOGICAL/ONCOLOGICAL Hx Human Immunodeficiency Virus (HIV): No - INTEGUMENTARY Hx Dermatological Problems: No - MUSCULOSKELETAL/RHEUMATOLOGICAL Hx Arthritis: Yes Hx Falls: Yes Hx Spinal Stenosis: Yes - GASTROINTESTINAL Hx Gastrointestinal Disorders: No Other/Comment: Spleen aneurysm - GENITOURINARY/GYNECOLOGICAL Hx Genitourinary Disorders: Yes - PSYCHIATRIC Hx Bipolar Disorder: Yes Hx Depression: Yes Hx Substance Use: No - SURGICAL HISTORY Hx Surgeries: Yes Hx Herniorrhaphy: Yes Other/Comment: TURP X2, small spleen aneurysm. Feet surgery(Bunnion and hammer toes sx) - ANESTHESIA Hx Anesthesia: Yes Hx Anesthesia Reactions: No Hx Malignant Hyperthermia: No Meds Allergies/Adverse Reactions: Allergies Allergy/AdvReac Type Severity Reaction Status Date / Time meperidine Allergy Mild RASH Verified 11/24/16 16:33 Physical Exam - Constitutional Appears: Non-toxic, No Acute Distress, Chronically Ill - Head Exam Head Exam: ATRAUMATIC, NORMAL INSPECTION, NORMOCEPHALIC - Eye Exam Eye Exam: Conjunctival injection - ENT Exam ENT Exam: Mucous Membranes Moist, Normal Exam - Neck Exam Neck exam: Positive for: Normal Inspection - Respiratory Exam Respiratory Exam: Decreased Breath Sounds, Clear to Auscultation Bilateral, NORMAL BREATHING PATTERN - Cardiovascular Exam Cardiovascular Exam: REGULAR RHYTHM, +S1, +S2 - GI/Abdominal Exam GI & Abdominal Exam: Normal Bowel Sounds, Soft. absent: Tenderness - Rectal Exam Rectal Exam: Deferred - Extremities Exam Extremities exam: Positive for: normal inspection - Back Exam Additional comments: kyphotic - Neurological Exam Neurological exam: Alert, CN II-XII Intact, Reflexes Normal - Psychiatric Exam Psychiatric exam: Normal Affect, Normal Mood - Skin Skin Exam: Dry, Intact, Normal Color, Warm Results - Vital Signs Recent Vital Signs: Last Vital Signs Temp 97.5 F L 11/24/16 20:14 Pulse 74 11/24/16 20:14 Resp 20 11/24/16 20:14 BP 108/64 11/24/16 20:14 Pulse Ox 98 11/24/16 20:14 Assessment & Plan - Assessment and Plan (Free Text) Assessment: 76 year old male admitted to TCU for rehabilitation due to deconditioning. Continue with PT as tolerated. Monitor for constipation, BID colace. Deconditioning PT/OT Constipation -avoid straining -colace bid Schizoaffective Dx -psych consult, due to SI and auditory and visual hallucinations despite current medical management. Recommendations appreciated. -Dr. Walt Campbell (outpt psych) [phone] unable to reach. -will monitor. Bone pain -hx of elevated Ca, rule out multiple myeloma -workup ordered by nephro: Dr. Fraser -follow results. DVT Prophylaxis SCDS and lovenox <Renaldo Pablo - Last Filed: 11/27/16 06:54> Results - Vital Signs Recent Vital Signs: Last Vital Signs Temp 98.1 F 11/26/16 21:01 Pulse 84 11/26/16 21:01 Resp 20 11/26/16 21:01 BP 128/57 L 11/26/16 21:01 Pulse Ox 97 11/26/16 21:01 Attending/Attestation - Attestation I have personally seen and examined this patient.: Yes I have fully participated in the care of the patient.: Yes I have reviewed all pertinent clinical information: Yes
[2016-11-25] MEDS ORDERED: Patient's Own Med (Vitamin B Complex [Super B-50 Complex] 1 CAP) PO SCH (09:00)
[2016-11-25] MEDS: Multivitamin With Minerals Tab PO SCH (09:24)
[2016-11-25] MEDS: Lithium Carbonate 150 MG CAP PO SCH ×3 (09:25→17:48)
[2016-11-25] MEDS ORDERED: Benzocaine/Menthol SPRAY TOP PRN (17:29)
--- NOTE | 2016-11-26 08:30 | CP.PCM.PN ---
<Archie Stout - Last Filed: 11/26/16 16:24> Subjective - Date & Time of Evaluation Date of Evaluation: 11/26/16 Time of Evaluation: 07:05 - Subjective Subjective: PAtient seen and examined bedside. Patient states he needs eye drops, his was supposed to bring in eye drops. Artificial tears ordered. Complaining of rectal irritation secondary to multiple bowel movements. Proctofoam ordered. Continue with PT. will check iron level given patients constipation and hg is stable, no anemia. Objective - Vital Signs/Intake and Output Vital Signs (last 24 hours): Temp Pulse Resp BP Pulse Ox 97.9 F 69 20 120/64 99 11/26/16 08:18 11/26/16 08:18 11/26/16 08:18 11/26/16 08:18 11/26/16 08:18 - Medications Medications: Current Medications Acetaminophen (Tylenol 325mg Tab) 650 mg PO Q4 [facility] Benzocaine/Menthol (Dermoplast) 1 sprays TOP PRN PRN PRN Reason: Hemorrhoids Camphor/Menthol (Bengay) 1 applic TOP QID [facility] Docusate Sodium (Colace) 100 mg PO BID [facility] Last Admin: 11/25/16 17:48 Dose: 100 mg Ferrous Sulfate (Feosol) 325 mg PO DAILY [facility] Last Admin: 11/25/16 09:25 Dose: 325 mg Hydrocortisone/Pramoxine (Proctofoam) 1 applic EXT Q6 [facility] Blyn Carbonate (Blyn Carbonate 150mg) 150 mg PO TID [facility] Last Admin: 11/25/16 17:48 Dose: 150 mg Multivitamins/Minerals (Therapeutic-M Tab) 1 tab PO DAILY [facility] Last Admin: 11/25/16 09:24 Dose: 1 tab Risperidone (Risperdal Tab) 0.25 mg PO TID [facility] Last Admin: 11/25/16 17:48 Dose: 0.25 mg - Constitutional Appears: Non-toxic - Head Exam Head Exam: ATRAUMATIC, NORMAL INSPECTION, NORMOCEPHALIC - Eye Exam Eye Exam: Conjunctival injection, EOMI, Normal appearance, PERRL - ENT Exam ENT Exam: Mucous Membranes Moist, Normal Exam - Neck Exam Neck Exam: Full ROM, Normal Inspection. absent: Lymphadenopathy - Respiratory Exam Respiratory Exam: Decreased Breath Sounds, NORMAL BREATHING PATTERN - Cardiovascular Exam Cardiovascular Exam: REGULAR RHYTHM, +S1, +S2, Murmur - GI/Abdominal Exam GI & Abdominal Exam: Soft, Normal Bowel Sounds. absent: Tenderness - Extremities Exam Extremities Exam: absent: Pedal Edema, Tenderness - Neurological Exam Neurological Exam: Awake, CN II-XII Intact, Oriented x3 - Psychiatric Exam Psychiatric exam: Flat Affect - Skin Skin Exam: Dry, Intact Assessment and Plan - Assessment and Plan (Free Text) Assessment: 76 year old male admitted to TCU for rehabilitation due to deconditioning. Continue with PT as tolerated. Monitor for constipation, BID colace. Has eye irritation, monitor, start natural tears prn Monitor bowel movements. Deconditioning PT/OT Constipation -avoid straining, on feosol once daily -colace bid -enema Schizoaffective Dx -continue with home medications lithium/risperdal -will monitor. Bone pain -hx of elevated Ca, rule out multiple myeloma -workup ordered by nephro: Dr. Fraser -PTH slightly elevated ca nl, await further input DVT Prophylaxis SCDs/ambulation <Sean Weber - Last Filed: 11/30/16 06:47> Objective - Vital Signs/Intake and Output Vital Signs (last 24 hours): Temp Pulse Resp BP Pulse Ox 97.3 F L 79 20 120/71 98 11/29/16 17:05 11/29/16 17:05 11/29/16 17:05 11/29/16 17:05 11/29/16 17:05 - Medications Medications: Current Medications Acetaminophen (Tylenol 325mg Tab) 650 mg PO Q4 [facility] Last Admin: 11/30/16 02:14 Dose: Not Given Al Hydrox/Mg Hydrox/Simethicone (Maalox Plus 30 Ml) 30 ml PO Q6 PRN PRN Reason: Indigestion / Heartburn Last Admin: 11/29/16 16:58 Dose: 30 ml Artificial Tears (Artificial Tears) 2 drop OU Q4 PRN PRN Reason: Dry eyes Last Admin: 11/28/16 05:59 Dose: 2 drop Camphor/Menthol (Bengay) 1 applic TOP QID [facility] Last Admin: 11/29/16 22:20 Dose: 1 applic Docusate Sodium (Colace) 100 mg PO BID [facility] Last Admin: 11/29/16 16:58 Dose: 100 mg Glycerin (Glycerin Adult Suppository) 1 sup MT DAILY PRN PRN Reason: Constipation Hydrocortisone/Pramoxine (Proctofoam) 1 applic EXT Q6 [facility] Last Admin: 11/30/16 04:23 Dose: Not Given Blyn Carbonate (Blyn Carbonate 150mg) 150 mg PO TID [facility] Last Admin: 11/29/16 16:58 Dose: 150 mg Multivitamins/Minerals (Therapeutic-M Tab) 1 tab PO DAILY [facility] Last Admin: 11/29/16 09:31 Dose: 1 tab Neomycin/Polymyxin/Dexamethasone (Maxitrol Opth Oint) 1 applic OU TID [facility] Last Admin: 11/29/16 17:07 Dose: 1 applic Risperidone (Risperdal Tab) 0.25 mg PO TID [facility] Last Admin: 11/29/16 16:58 Dose: 0.25 mg Tobramycin Sulfate (Tobrex 0.3% Oph Soln) 1 drop OU QID [facility] Last Admin: 11/29/16 21:30 Dose: 1 drop Attending/Attestation - Attestation I have personally seen and examined this patient.: Yes I have fully participated in the care of the patient.: Yes I have reviewed all pertinent clinical information, including history, physical exam and plan: Yes
[2016-11-26] MEDS ORDERED: Hydrocortisone-Pramoxine(Proctofoam HC) EXT SCH (09:00)
[2016-11-26] MEDS: Lithium Carbonate 150 MG CAP PO SCH ×3 (09:05→17:22)
[2016-11-26] MEDS: Multivitamin With Minerals Tab PO SCH (09:05)
[2016-11-26] MEDS: Menthol/Methyl Salicylate Oinment TOP SCH ×4 (10:16→21:17)
[2016-11-26] MEDS: Hydrocortisone-Pramoxine(Proctofoam HC) EXT SCH ×3 (10:16→21:18)
[2016-11-26] MEDS: Alum-Mag Hydrox-Simethicone Susp (30 mL) PO PRN (15:56)
[2016-11-26] MEDS: Artificial Tears Opht Soln OU PRN (17:22)
[2016-11-27] MEDS: Hydrocortisone-Pramoxine(Proctofoam HC) EXT SCH ×4 (05:10→23:21)
[2016-11-27] MEDS: Artificial Tears Opht Soln OU PRN ×2 (05:16→16:59)
[2016-11-27] MEDS: Menthol/Methyl Salicylate Oinment TOP SCH ×4 (08:29→23:20)
[2016-11-27] MEDS: Lithium Carbonate 150 MG CAP PO SCH ×3 (08:31→16:59)
[2016-11-27] MEDS: Multivitamin With Minerals Tab PO SCH (08:31)
--- NOTE | 2016-11-27 13:46 | CP.PCM.PN ---
<Archie Stout - Last Filed: 11/27/16 14:54> Subjective - Date & Time of Evaluation Date of Evaluation: 11/27/16 Time of Evaluation: 07:25 - Subjective Subjective: No acute events overnight. Patient feels well. Eyes are less irritated today. Tolerating diet well. Complaining of pain on foot callus. Continue with PT. Seen and examined with Dr. Ojeda. Objective - Vital Signs/Intake and Output Vital Signs (last 24 hours): Temp Pulse Resp BP Pulse Ox 97.3 F L 71 20 111/64 97 11/27/16 09:04 11/27/16 09:04 11/27/16 09:04 11/27/16 09:04 11/27/16 09:04 - Medications Medications: Current Medications Acetaminophen (Tylenol 325mg Tab) 650 mg PO Q4 [facility] Last Admin: 11/27/16 12:08 Dose: 650 mg Al Hydrox/Mg Hydrox/Simethicone (Maalox Plus 30 Ml) 30 ml PO Q6 PRN PRN Reason: Indigestion / Heartburn Last Admin: 11/26/16 15:56 Dose: 30 ml Artificial Tears (Artificial Tears) 2 drop OU Q4 PRN PRN Reason: Dry eyes Last Admin: 11/27/16 05:16 Dose: 2 drop Camphor/Menthol (Bengay) 1 applic TOP QID [facility] Last Admin: 11/27/16 12:05 Dose: 1 applic Docusate Sodium (Colace) 100 mg PO BID [facility] Last Admin: 11/27/16 08:31 Dose: Not Given Hydrocortisone/Pramoxine (Proctofoam) 1 applic EXT Q6 [facility] Last Admin: 11/27/16 10:05 Dose: Not Given [place] Carbonate ([place] Carbonate 150mg) 150 mg PO TID [facility] Last Admin: 11/27/16 12:05 Dose: 150 mg Multivitamins/Minerals (Therapeutic-M Tab) 1 tab PO DAILY [facility] Last Admin: 11/27/16 08:31 Dose: 1 tab Risperidone (Risperdal Tab) 0.25 mg PO TID [facility] Last Admin: 11/27/16 12:05 Dose: 0.25 mg - Constitutional Appears: Well - Head Exam Head Exam: ATRAUMATIC, NORMAL INSPECTION, NORMOCEPHALIC - Eye Exam Eye Exam: Conjunctival injection (mild), EOMI, PERRL - Respiratory Exam Respiratory Exam: Decreased Breath Sounds, Clear to Ausculation Bilateral, NORMAL BREATHING PATTERN - Cardiovascular Exam Cardiovascular Exam: REGULAR RHYTHM, +S1, +S2 - GI/Abdominal Exam GI & Abdominal Exam: Soft. absent: Tenderness - Extremities Exam Extremities Exam: absent: Pedal Edema, Tenderness - Neurological Exam Neurological Exam: Alert, Awake, Oriented x3 - Psychiatric Exam Psychiatric exam: Flat Affect Assessment and Plan - Assessment and Plan (Free Text) Assessment: 76 year old male admitted to TCU for rehabilitation due to deconditioning. Continue with PT as tolerated. Iron d/c due to constipation. Will monitor. Stable Hg. Podiatry to see pt. Deconditioning PT/OT Constipation -avoid straining, d/c feosol - colace bid Schizoaffective Dx -continue with home medications lithium/risperdal Bone pain -hx of elevated Ca, rule out multiple myeloma -workup ordered by nephro: Dr. Fraser -PTH slightly elevated ca nl, await further input DVT Prophylaxis SCDs/ambulation <Renaldo Ojeda - Last Filed: 12/02/16 07:03> Objective - Vital Signs/Intake and Output Vital Signs (last 24 hours): Temp Pulse Resp BP Pulse Ox 97.9 F 80 20 119/63 96 12/01/16 21:13 12/01/16 21:13 12/01/16 21:13 12/01/16 21:13 12/01/16 21:13 - Medications Medications: Current Medications Acetaminophen (Tylenol 325mg Tab) 650 mg PO Q4 [facility] Last Admin: 12/02/16 05:00 Dose: Not Given Al Hydrox/Mg Hydrox/Simethicone (Maalox Plus 30 Ml) 30 ml PO Q6 PRN PRN Reason: Indigestion / Heartburn Last Admin: 11/29/16 16:58 Dose: 30 ml Artificial Tears (Artificial Tears) 2 drop OU Q4 PRN PRN Reason: Dry eyes Last Admin: 11/28/16 05:59 Dose: 2 drop Bisacodyl (Dulcolax) 5 mg PO DAILY [facility] Last Admin: 12/01/16 17:08 Dose: 5 mg Camphor/Menthol (Bengay) 1 applic TOP QID [facility] Last Admin: 12/01/16 21:54 Dose: 1 applic Docusate Sodium (Colace) 100 mg PO BID [facility] Last Admin: 12/01/16 17:04 Dose: 100 mg Glycerin (Glycerin Adult Suppository) 1 sup [place] DAILY PRN PRN Reason: Constipation Hydrocortisone/Pramoxine (Proctofoam) 1 applic EXT Q6 PRN PRN Reason: Inflammation [place] Carbonate ([place] Carbonate 150mg) 150 mg PO TID [facility] Last Admin: 12/01/16 17:03 Dose: 150 mg Meclizine HCl (Antivert) 12.5 mg PO DAILY PRN PRN Reason: Dizziness Multivitamins/Minerals (Therapeutic-M Tab) 1 tab PO DAILY [facility] Last Admin: 12/01/16 08:53 Dose: 1 tab Neomycin/Polymyxin/Dexamethasone (Maxitrol Opth Oint) 1 applic OU TID [facility] Last Admin: 12/01/16 17:03 Dose: 1 applic Risperidone (Risperdal Tab) 0.25 mg PO TID [facility] Last Admin: 12/01/16 17:04 Dose: 0.25 mg Tobramycin Sulfate (Tobrex 0.3% [facility]) 1 drop OU QID [facility] Last Admin: 12/01/16 21:54 Dose: 1 drop - Labs Labs: 12/01/16 14:24 12/01/16 14:24 Attending/Attestation - Attestation I have personally seen and examined this patient.: Yes I have fully participated in the care of the patient.: Yes I have reviewed all pertinent clinical information, including history, physical exam and plan: Yes
[2016-11-27] MEDS: Alum-Mag Hydrox-Simethicone Susp (30 mL) PO PRN (16:59)
--- NOTE | 2016-11-27 21:05 | CP.PCM.CON ---
History of Present Illness - History of Present Illness History of Present Illness: Patient is a 76 year old male seen for b/l foot pain. Patient states that he sees Dr. Odonnell regularly. He states that he has been walking regularly with physical therapy but still experiences pain to both feet with walking. Patient clementina any further pedal complaints at this time. Patient denies N/V/F/C/CP/SOB Review of Systems - Review of Systems Review of Systems: ROS unremarkable outside of HPI Past Patient History - Past Medical History & Family History Past Medical History?: Yes - Past Social History Smoking Status: Never Smoked - CARDIAC Hx Hypercholesterolemia: Yes - PULMONARY Hx Respiratory Disorders: Yes - NEUROLOGICAL Hx Dementia: Yes - HEENT Hx HEENT Problems: No - RENAL Hx Chronic Kidney Disease: No - ENDOCRINE/METABOLIC Hx Endocrine Disorders: No - HEMATOLOGICAL/ONCOLOGICAL Hx Human Immunodeficiency Virus (HIV): No - INTEGUMENTARY Hx Dermatological Problems: No - MUSCULOSKELETAL/RHEUMATOLOGICAL Hx Arthritis: Yes - GASTROINTESTINAL Hx Gastrointestinal Disorders: No Other/Comment: Spleen aneurysm - GENITOURINARY/GYNECOLOGICAL Hx Genitourinary Disorders: Yes - PSYCHIATRIC Hx Bipolar Disorder: Yes Hx Depression: Yes Hx Substance Use: No - SURGICAL HISTORY Hx Surgeries: Yes Hx Herniorrhaphy: Yes Other/Comment: TURP X2, small spleen aneurysm. Feet surgery(Bunnion and hammer toes sx) - ANESTHESIA Hx Anesthesia: Yes Hx Anesthesia Reactions: No Hx Malignant Hyperthermia: No Meds Allergies/Adverse Reactions: Allergies Allergy/AdvReac Type Severity Reaction Status Date / Time meperidine Allergy Mild RASH Verified 11/24/16 16:33 - Medications Medications: Current Medications Acetaminophen (Tylenol 325mg Tab) 650 mg PO Q4 [facility] Last Admin: 11/27/16 17:07 Dose: 650 mg Al Hydrox/Mg Hydrox/Simethicone (Maalox Plus 30 Ml) 30 ml PO Q6 PRN PRN Reason: Indigestion / Heartburn Last Admin: 11/27/16 16:59 Dose: 30 ml Artificial Tears (Artificial Tears) 2 drop OU Q4 PRN PRN Reason: Dry eyes Last Admin: 11/27/16 16:59 Dose: 2 drop Camphor/Menthol (Bengay) 1 applic TOP QID [facility] Last Admin: 11/27/16 16:59 Dose: 1 applic Docusate Sodium (Colace) 100 mg PO BID [facility] Last Admin: 11/27/16 16:52 Dose: Not Given Hydrocortisone/Pramoxine (Proctofoam) 1 applic EXT Q6 [facility] Last Admin: 11/27/16 16:59 Dose: 1 applic [place] Carbonate ([place] Carbonate 150mg) 150 mg PO TID [facility] Last Admin: 11/27/16 16:59 Dose: 150 mg Multivitamins/Minerals (Therapeutic-M Tab) 1 tab PO DAILY [facility] Last Admin: 11/27/16 08:31 Dose: 1 tab Risperidone (Risperdal Tab) 0.25 mg PO TID [facility] Last Admin: 11/27/16 16:59 Dose: 0.25 mg Physical Exam - Constitutional Appears: Well, Non-toxic, No Acute Distress - Extremities Exam Additional comments: LE focused exam: Vasc: DP/PT pulses 2/4 b/l. CFT < 3 seconds to all digits b/l. Skin temperature warm to warm from proximal to distal. Neuro: Epicritic and protective sensation grossly intact b/l Derm: No open lesions, wounds, maceration, xerosis, abnormal pigmentation or abnormal growths noted at this time MSK: Prominently plantarflexed metatarsal heads seen b/l. B/l plantar fat pad atrophy appreciated b/l - Neurological Exam Neurological exam: Alert, Oriented x3 - Psychiatric Exam Psychiatric exam: Normal Affect, Normal Mood Results - Vital Signs Recent Vital Signs: Last Vital Signs Temp 90.5 F L 11/27/16 17:24 Pulse 81 11/27/16 17:24 Resp 20 11/27/16 17:24 BP 100/68 11/27/16 17:24 Pulse Ox 99 11/27/16 17:24 Assessment & Plan - Assessment and Plan (Free Text) Assessment: 76 year old male wiht b/l foot pain secondary to plantarflexed metatarsals and plantar fat pad atrophy Plan: Patient seen and evaluated Foam padding applied to plantar bony prominences Padding taped into place Patient advised to continue with PT Podiatry will sign off at this time Thank you for consult, please reconsult as needed - Date & Time Date: 11/27/16 Time: 19:12
[2016-11-28] MEDS: Hydrocortisone-Pramoxine(Proctofoam HC) EXT SCH ×4 (05:52→22:04)
[2016-11-28] MEDS: Artificial Tears Opht Soln OU PRN (05:59)
[2016-11-28] MEDS: Menthol/Methyl Salicylate Oinment TOP SCH ×4 (09:01→22:03)
[2016-11-28] MEDS: Lithium Carbonate 150 MG CAP PO SCH ×3 (09:02→17:12)
[2016-11-28] MEDS: Multivitamin With Minerals Tab PO SCH (09:03)
--- NOTE | 2016-11-28 12:08 | CP.PCM.PN ---
<Archie Stout - Last Filed: 11/28/16 13:02> Subjective - Date & Time of Evaluation Date of Evaluation: 11/28/16 Time of Evaluation: 10:45 - Subjective Subjective: No acute overnight events. Patient complaining of eye irritation, more than usual, with crusting of his eyes. Uses natural tears. No other complaints offered. Seen by podiatry. Continue with PT/OT. Last BM 2 days ago, unable to have BM today. Will give glycerin suppository PRN. Objective - Vital Signs/Intake and Output Vital Signs (last 24 hours): Temp Pulse Resp BP Pulse Ox 97.7 F 81 20 117/68 98 11/28/16 08:59 11/28/16 08:59 11/28/16 08:59 11/28/16 08:59 11/28/16 08:59 - Medications Medications: Current Medications Acetaminophen (Tylenol 325mg Tab) 650 mg PO Q4 [facility] Last Admin: 11/28/16 09:01 Dose: Not Given Al Hydrox/Mg Hydrox/Simethicone (Maalox Plus 30 Ml) 30 ml PO Q6 PRN PRN Reason: Indigestion / Heartburn Last Admin: 11/27/16 16:59 Dose: 30 ml Artificial Tears (Artificial Tears) 2 drop OU Q4 PRN PRN Reason: Dry eyes Last Admin: 11/28/16 05:59 Dose: 2 drop Camphor/Menthol (Bengay) 1 applic TOP QID [facility] Last Admin: 11/28/16 09:01 Dose: 1 applic Docusate Sodium (Colace) 100 mg PO BID [facility] Last Admin: 11/28/16 09:03 Dose: 100 mg Hydrocortisone/Pramoxine (Proctofoam) 1 applic EXT Q6 [facility] Last Admin: 11/28/16 09:03 Dose: 1 applic [place] Carbonate ([place] Carbonate 150mg) 150 mg PO TID [facility] Last Admin: 11/28/16 09:02 Dose: 150 mg Multivitamins/Minerals (Therapeutic-M Tab) 1 tab PO DAILY [facility] Last Admin: 11/28/16 09:03 Dose: 1 tab Risperidone (Risperdal Tab) 0.25 mg PO TID [facility] Last Admin: 11/28/16 09:02 Dose: 0.25 mg - Constitutional Appears: Well - Eye Exam Eye Exam: Conjunctival injection, PERRL. absent: Nystagmus - ENT Exam ENT Exam: Mucous Membranes Moist - Neck Exam Neck Exam: Full ROM - Respiratory Exam Respiratory Exam: Decreased Breath Sounds, NORMAL BREATHING PATTERN. absent: Rales, Rhonchi, Wheezes, Respiratory Distress - Cardiovascular Exam Cardiovascular Exam: REGULAR RHYTHM, +S1, +S2 - GI/Abdominal Exam GI & Abdominal Exam: Normal Bowel Sounds. absent: Distended, Guarding, Tenderness - Extremities Exam Extremities Exam: absent: Pedal Edema - Back Exam Additional comments: kyphotic - Neurological Exam Neurological Exam: Alert, Awake, CN II-XII Intact, Oriented x3 - Psychiatric Exam Psychiatric exam: Flat Affect - Skin Skin Exam: Dry, Intact, Normal Color Assessment and Plan - Assessment and Plan (Free Text) Assessment: 76 year old male admitted to TCU for rehabilitation due to deconditioning. Continue with PT as tolerated. Glycerin suppository PRN Complaints of more irritation of eyes and crusting. Will consult ophthalmology : Dr. Larsen, recommendations appreciated ?Blepharitis vs conjunctivitis -optho consult -warm compresses -artificial tears Deconditioning PT/OT Constipation - colace bid Schizoaffective Dx -continue with home medications lithium/risperdal Bone pain -hx of elevated Ca, rule out multiple myeloma -workup ordered by nephro: Dr. Fraser -PTH slightly elevated ca nl, await further input, pending recommendations DVT Prophylaxis SCDs/ambulation <Katelynn Horton - Last Filed: 11/29/16 09:22> Objective - Vital Signs/Intake and Output Vital Signs (last 24 hours): Temp Pulse Resp BP Pulse Ox 97.3 F L 81 20 123/76 98 11/29/16 09:08 11/29/16 09:08 11/29/16 09:08 11/29/16 09:08 11/29/16 09:08 - Medications Medications: Current Medications Acetaminophen (Tylenol 325mg Tab) 650 mg PO Q4 [facility] Last Admin: 11/29/16 05:12 Dose: 650 mg Al Hydrox/Mg Hydrox/Simethicone (Maalox Plus 30 Ml) 30 ml PO Q6 PRN PRN Reason: Indigestion / Heartburn Last Admin: 11/28/16 23:42 Dose: 30 ml Artificial Tears (Artificial Tears) 2 drop OU Q4 PRN PRN Reason: Dry eyes Last Admin: 11/28/16 05:59 Dose: 2 drop Camphor/Menthol (Bengay) 1 applic TOP QID [facility] Last Admin: 11/28/16 22:03 Dose: 1 applic Docusate Sodium (Colace) 100 mg PO BID [facility] Last Admin: 11/28/16 17:12 Dose: 100 mg Glycerin (Glycerin Adult Suppository) 1 sup [place] DAILY PRN PRN Reason: Constipation Hydrocortisone/Pramoxine (Proctofoam) 1 applic EXT Q6 [facility] Last Admin: 11/29/16 04:15 Dose: Not Given [place] Carbonate ([place] Carbonate 150mg) 150 mg PO TID [facility] Last Admin: 11/28/16 17:12 Dose: 150 mg Multivitamins/Minerals (Therapeutic-M Tab) 1 tab PO DAILY [facility] Last Admin: 11/28/16 09:03 Dose: 1 tab Neomycin/Polymyxin/Dexamethasone (Maxitrol Opth Oint) 1 applic OU TID [facility] Last Admin: 11/28/16 17:12 Dose: 1 applic Risperidone (Risperdal Tab) 0.25 mg PO TID [facility] Last Admin: 11/28/16 17:12 Dose: 0.25 mg Tobramycin Sulfate (Tobrex 0.3% Oph Soln) 1 drop OU QID [facility] Last Admin: 11/28/16 22:05 Dose: 1 drop - Skin Additional comments: ADDENDUM ATTENDING NOTE PATIENT SEEN AND EXAMINED. CASE DISCUSSED WITH RESIDENT. AGREE WITH FINDINGS AND PLAN.
[2016-11-28] MEDS: Tobramycin 0.3% OPHT SOLN OU SCH ×2 (17:13→22:05)
[2016-11-28] MEDS: Alum-Mag Hydrox-Simethicone Susp (30 mL) PO PRN (23:42)
[2016-11-29] MEDS: Hydrocortisone-Pramoxine(Proctofoam HC) EXT SCH ×4 (04:15→22:22)
[2016-11-29] MEDS: Multivitamin With Minerals Tab PO SCH (09:31)
[2016-11-29] MEDS: Menthol/Methyl Salicylate Oinment TOP SCH ×4 (09:31→22:20)
[2016-11-29] MEDS: Lithium Carbonate 150 MG CAP PO SCH ×3 (09:31→16:58)
[2016-11-29] MEDS: Tobramycin 0.3% OPHT SOLN OU SCH ×4 (09:47→21:30)
--- NOTE | 2016-11-29 13:03 | CP.PCM.PN ---
<Inocencio Claire - Last Filed: 11/29/16 13:01> Subjective - Date & Time of Evaluation Date of Evaluation: 11/29/16 Time of Evaluation: 11:00 - Subjective Subjective: Patient seen and examined at bedside. No acute overnight events. Seen by optho yesterday, started on eye drops. Patient states minimal improvement of discomfort. Denies fever, chills, abdominal pain, chest pain, or sob. No eye discharge or crusting. Therapy going well, no complaints. Objective - Vital Signs/Intake and Output Vital Signs (last 24 hours): Temp Pulse Resp BP Pulse Ox 97.3 F L 81 20 123/76 98 11/29/16 09:08 11/29/16 09:08 11/29/16 09:08 11/29/16 09:08 11/29/16 09:08 - Medications Medications: Current Medications Acetaminophen (Tylenol 325mg Tab) 650 mg PO Q4 [facility] Last Admin: 11/29/16 12:38 Dose: 650 mg Al Hydrox/Mg Hydrox/Simethicone (Maalox Plus 30 Ml) 30 ml PO Q6 PRN PRN Reason: Indigestion / Heartburn Last Admin: 11/28/16 23:42 Dose: 30 ml Artificial Tears (Artificial Tears) 2 drop OU Q4 PRN PRN Reason: Dry eyes Last Admin: 11/28/16 05:59 Dose: 2 drop Camphor/Menthol (Bengay) 1 applic TOP QID [facility] Last Admin: 11/29/16 12:44 Dose: 1 applic Docusate Sodium (Colace) 100 mg PO BID [facility] Last Admin: 11/29/16 09:31 Dose: 100 mg Glycerin (Glycerin Adult Suppository) 1 sup [place] DAILY PRN PRN Reason: Constipation Hydrocortisone/Pramoxine (Proctofoam) 1 applic EXT Q6 [facility] Last Admin: 11/29/16 09:32 Dose: 1 applic [place] Carbonate ([place] Carbonate 150mg) 150 mg PO TID [facility] Last Admin: 11/29/16 12:36 Dose: 150 mg Multivitamins/Minerals (Therapeutic-M Tab) 1 tab PO DAILY [facility] Last Admin: 11/29/16 09:31 Dose: 1 tab Neomycin/Polymyxin/Dexamethasone (Maxitrol Opth Oint) 1 applic OU TID [facility] Last Admin: 11/29/16 09:32 Dose: 1 applic Risperidone (Risperdal Tab) 0.25 mg PO TID [facility] Last Admin: 11/29/16 12:36 Dose: 0.25 mg Tobramycin Sulfate (Tobrex 0.3% Ophth Soln) 1 drop OU QID [facility] Last Admin: 11/29/16 12:39 Dose: 1 drop - Constitutional Appears: Well, Non-toxic - Head Exam Head Exam: ATRAUMATIC, NORMAL INSPECTION, NORMOCEPHALIC - Eye Exam Eye Exam: Normal appearance - Neck Exam Neck Exam: Normal Inspection - Respiratory Exam Respiratory Exam: NORMAL BREATHING PATTERN. absent: Rhonchi, Wheezes - Cardiovascular Exam Cardiovascular Exam: RRR, +S1, +S2 - GI/Abdominal Exam GI & Abdominal Exam: Soft, Normal Bowel Sounds. absent: Tenderness - Extremities Exam Extremities Exam: Normal Inspection. absent: Pedal Edema - Back Exam Additional comments: kyphotic - Neurological Exam Neurological Exam: Alert, Awake, Oriented x3 - Psychiatric Exam Psychiatric exam: Flat Affect, Normal Mood - Skin Skin Exam: Dry, Normal Color, Warm Assessment and Plan - Assessment and Plan (Free Text) Assessment: 76 year old male admitted to TCU for rehabilitation due to deconditioning. ?Blepharitis vs conjunctivitis -Improving -optho consulted, Dr. Larsen, recommendations appreciated -warm compresses -artificial tears -cont abx drops as prescribed Deconditioning PT/OT Constipation - colace bid - glycerin prn Schizoaffective Dx -continue with home medications lithium/risperdal Bone pain -hx of elevated Ca, rule out multiple myeloma -workup ordered by nephro: Dr. Fraser -PTH slightly elevated ca nl, await further input, pending recommendations DVT Prophylaxis SCDs/ambulation <Katelynn Horton - Last Filed: 11/30/16 07:05> Objective - Vital Signs/Intake and Output Vital Signs (last 24 hours): Temp Pulse Resp BP Pulse Ox 97.3 F L 79 20 120/71 98 11/29/16 17:05 11/29/16 17:05 11/29/16 17:05 11/29/16 17:05 11/29/16 17:05 - Medications Medications: Current Medications Acetaminophen (Tylenol 325mg Tab) 650 mg PO Q4 [facility] Last Admin: 11/30/16 02:14 Dose: Not Given Al Hydrox/Mg Hydrox/Simethicone (Maalox Plus 30 Ml) 30 ml PO Q6 PRN PRN Reason: Indigestion / Heartburn Last Admin: 11/29/16 16:58 Dose: 30 ml Artificial Tears (Artificial Tears) 2 drop OU Q4 PRN PRN Reason: Dry eyes Last Admin: 11/28/16 05:59 Dose: 2 drop Camphor/Menthol (Bengay) 1 applic TOP QID [facility] Last Admin: 11/29/16 22:20 Dose: 1 applic Docusate Sodium (Colace) 100 mg PO BID [facility] Last Admin: 11/29/16 16:58 Dose: 100 mg Glycerin (Glycerin Adult Suppository) 1 sup [place] DAILY PRN PRN Reason: Constipation Hydrocortisone/Pramoxine (Proctofoam) 1 applic EXT Q6 [facility] Last Admin: 11/30/16 04:23 Dose: Not Given [place] Carbonate ([place] Carbonate 150mg) 150 mg PO TID [facility] Last Admin: 11/29/16 16:58 Dose: 150 mg Multivitamins/Minerals (Therapeutic-M Tab) 1 tab PO DAILY [facility] Last Admin: 11/29/16 09:31 Dose: 1 tab Neomycin/Polymyxin/Dexamethasone (Maxitrol Opth Oint) 1 applic OU TID [facility] Last Admin: 11/29/16 17:07 Dose: 1 applic Risperidone (Risperdal Tab) 0.25 mg PO TID [facility] Last Admin: 11/29/16 16:58 Dose: 0.25 mg Tobramycin Sulfate (Tobrex 0.3% Ophth Soln) 1 drop OU QID [facility] Last Admin: 11/29/16 21:30 Dose: 1 drop - Skin Additional comments: ADDENDUM ATTENDING NOTE PATIENT SEEN AND EXAMINED. CASE DISCUSSED WITH RESIDENT. AGREE WITH FINDINGS AND PLAN.
[2016-11-29] MEDS: Alum-Mag Hydrox-Simethicone Susp (30 mL) PO PRN (16:58)
[2016-11-30] MEDS: Hydrocortisone-Pramoxine(Proctofoam HC) EXT SCH ×4 (04:23→22:19)
[2016-11-30] MEDS: Multivitamin With Minerals Tab PO SCH (09:04)
[2016-11-30] MEDS: Lithium Carbonate 150 MG CAP PO SCH ×3 (09:05→17:51)
[2016-11-30] MEDS: Menthol/Methyl Salicylate Oinment TOP SCH ×4 (09:05→22:18)
[2016-11-30] MEDS: Tobramycin 0.3% OPHT SOLN OU SCH ×4 (09:05→22:19)
--- NOTE | 2016-11-30 09:35 | CON ---
DATE: HISTORY OF PRESENT ILLNESS: Mr. Rubi is a 76-year-old white male who was admitted to the [facility] for syncope. I was called in for consultation for red eyes. PHYSICAL EXAMINATION: On physical examination, his visual acuity is 20/40 in both eyes. Lens exam reveals moderate cataracts in both eyes. Lid exam shows blepharitis in both eyes and slight ectropion in both eyes. Conjunctival exam reveals conjunctivitis in both eyes. Fundus exam is normal. Pupillary exam is normal. ASSESSMENT: My assessment is that Mr. Rubi has blepharoconjunctivitis in both eyes. I put him on Maxitrol ointment one application to both lids 3 times a day, TobraDex ophthalmic solution one drop to both eyes 4 times a day and I instructed them to do lid scrubs with Leon's Baby shampoo twice a day. I told the that if there is any problem at the discharge she could call her primary multiskill operator or call my office for followup appointment. Roby Larsen MD
--- NOTE | 2016-11-30 15:15 | CP.PCM.PN ---
<Archie Stout - Last Filed: 11/30/16 16:06> Subjective - Date & Time of Evaluation Date of Evaluation: 11/30/16 Time of Evaluation: 15:09 - Subjective Subjective: No acute events overnight. Patient seen sleeping in bed, comfortably. Patients eyes improved today. No erythema noted. Complaints of dizziness with PT. Has not had BM Encouraged increase of PO fluid intake. VS have been stable during PT. thinks patient appears more fatigued. Objective - Vital Signs/Intake and Output Vital Signs (last 24 hours): Temp Pulse Resp BP Pulse Ox 97.7 F 81 20 109/69 97 11/30/16 08:16 11/30/16 08:16 11/30/16 08:16 11/30/16 08:16 11/30/16 08:16 - Medications Medications: Current Medications Acetaminophen (Tylenol 325mg Tab) 650 mg PO Q4 [facility] Last Admin: 11/30/16 12:57 Dose: Not Given Al Hydrox/Mg Hydrox/Simethicone (Maalox Plus 30 Ml) 30 ml PO Q6 PRN PRN Reason: Indigestion / Heartburn Last Admin: 11/29/16 16:58 Dose: 30 ml Artificial Tears (Artificial Tears) 2 drop OU Q4 PRN PRN Reason: Dry eyes Last Admin: 11/28/16 05:59 Dose: 2 drop Camphor/Menthol (Bengay) 1 applic TOP QID [facility] Last Admin: 11/30/16 13:02 Dose: 1 applic Docusate Sodium (Colace) 100 mg PO BID [facility] Last Admin: 11/30/16 09:05 Dose: 100 mg Glycerin (Glycerin Adult Suppository) 1 sup [place] DAILY PRN PRN Reason: Constipation Hydrocortisone/Pramoxine (Proctofoam) 1 applic EXT Q6 [facility] Last Admin: 11/30/16 09:06 Dose: 1 applic [place] Carbonate ([place] Carbonate 150mg) 150 mg PO TID [facility] Last Admin: 11/30/16 12:58 Dose: 150 mg Multivitamins/Minerals (Therapeutic-M Tab) 1 tab PO DAILY [facility] Last Admin: 11/30/16 09:04 Dose: 1 tab Neomycin/Polymyxin/Dexamethasone (Maxitrol Opth Oint) 1 applic OU TID [facility] Last Admin: 11/30/16 13:26 Dose: 1 applic Risperidone (Risperdal Tab) 0.25 mg PO TID [facility] Last Admin: 11/30/16 12:58 Dose: 0.25 mg Tobramycin Sulfate (Tobrex 0.3% Ophth Soln) 1 drop OU QID [facility] Last Admin: 11/30/16 12:58 Dose: 1 drop - Constitutional Appears: No Acute Distress - Head Exam Head Exam: NORMAL INSPECTION - Eye Exam Eye Exam: Normal appearance. absent: Conjunctival injection - ENT Exam ENT Exam: Mucous Membranes Moist - Respiratory Exam Respiratory Exam: Decreased Breath Sounds, NORMAL BREATHING PATTERN - Cardiovascular Exam Cardiovascular Exam: REGULAR RHYTHM, +S1, +S2 Additional comments: distant heart sound - GI/Abdominal Exam GI & Abdominal Exam: Normal Bowel Sounds. absent: Distended, Tenderness - Extremities Exam Extremities Exam: absent: Pedal Edema, Tenderness - Back Exam Additional comments: kyphosis - Neurological Exam Neurological Exam: CN II-XII Intact, Oriented x3 - Psychiatric Exam Psychiatric exam: Flat Affect - Skin Skin Exam: Dry, Intact, Warm Assessment and Plan - Assessment and Plan (Free Text) Assessment: 76 year old male admitted to TCU for rehabilitation due to deconditioning, now with fatigue. Will monitor. CBC in AM. Blepharoconjunctivitis -Improved -Optho consulted, Dr. Larsen, recommendations appreciated -warm compresses -artificial tears -cont abx drops as prescribed Deconditioning PT/OT Constipation - colace bid - glycerin prn Schizoaffective Dx -continue with home medications lithium/risperdal Bone pain -hx of elevated Ca, rule out multiple myeloma -workup ordered by nephro: Dr. Fraser -PTH slightly elevated ca nl, await further input, pending recommendations DVT Prophylaxis SCDs/ambulation <Renaldo Pablo - Last Filed: 12/02/16 07:05> Objective - Vital Signs/Intake and Output Vital Signs (last 24 hours): Temp Pulse Resp BP Pulse Ox 97.9 F 80 20 119/63 96 12/01/16 21:13 12/01/16 21:13 12/01/16 21:13 12/01/16 21:13 12/01/16 21:13 - Medications Medications: Current Medications Acetaminophen (Tylenol 325mg Tab) 650 mg PO Q4 [facility] Last Admin: 12/02/16 05:00 Dose: Not Given Al Hydrox/Mg Hydrox/Simethicone (Maalox Plus 30 Ml) 30 ml PO Q6 PRN PRN Reason: Indigestion / Heartburn Last Admin: 11/29/16 16:58 Dose: 30 ml Artificial Tears (Artificial Tears) 2 drop OU Q4 PRN PRN Reason: Dry eyes Last Admin: 11/28/16 05:59 Dose: 2 drop Bisacodyl (Dulcolax) 5 mg PO DAILY [facility] Last Admin: 12/01/16 17:08 Dose: 5 mg Camphor/Menthol (Bengay) 1 applic TOP QID [facility] Last Admin: 12/01/16 21:54 Dose: 1 applic Docusate Sodium (Colace) 100 mg PO BID [facility] Last Admin: 12/01/16 17:04 Dose: 100 mg Glycerin (Glycerin Adult Suppository) 1 sup [place] DAILY PRN PRN Reason: Constipation Hydrocortisone/Pramoxine (Proctofoam) 1 applic EXT Q6 PRN PRN Reason: Inflammation [place] Carbonate ([place] Carbonate 150mg) 150 mg PO TID [facility] Last Admin: 12/01/16 17:03 Dose: 150 mg Meclizine HCl (Antivert) 12.5 mg PO DAILY PRN PRN Reason: Dizziness Multivitamins/Minerals (Therapeutic-M Tab) 1 tab PO DAILY [facility] Last Admin: 12/01/16 08:53 Dose: 1 tab Neomycin/Polymyxin/Dexamethasone (Maxitrol Opth Oint) 1 applic OU TID [facility] Last Admin: 12/01/16 17:03 Dose: 1 applic Risperidone (Risperdal Tab) 0.25 mg PO TID [facility] Last Admin: 12/01/16 17:04 Dose: 0.25 mg Tobramycin Sulfate (Tobrex 0.3% Oph Soln) 1 drop OU QID [facility] Last Admin: 12/01/16 21:54 Dose: 1 drop - Labs Labs: 12/01/16 14:24 12/01/16 14:24 Attending/Attestation - Attestation I have personally seen and examined this patient.: Yes I have fully participated in the care of the patient.: Yes I have reviewed all pertinent clinical information, including history, physical exam and plan: Yes
[2016-12-01] MEDS: Hydrocortisone-Pramoxine(Proctofoam HC) EXT SCH ×2 (04:00→12:22)
[2016-12-01] MEDS: Multivitamin With Minerals Tab PO SCH (08:53)
[2016-12-01] MEDS: Lithium Carbonate 150 MG CAP PO SCH ×3 (08:54→17:03)
[2016-12-01] MEDS: Menthol/Methyl Salicylate Oinment TOP SCH ×4 (08:54→21:54)
[2016-12-01] MEDS: Tobramycin 0.3% OPHT SOLN OU SCH ×4 (08:57→21:54)
--- NOTE | 2016-12-01 11:05 | CP.PCM.PN ---
Addendum entered and electronically signed by Archie Stout MD 12/01/16 14: 10: Pt continues to have dizzness, will check CBC, BMP, [place] level. Start meclizine 12.5mg PRN dizziness. Neurology consult: Dr. Abarca for continued dizziness. Dulcolax started for constipation. Case discussed with Dr. Weber, who agrees with the plan delineated above. Original Note: <Archie Stout - Last Filed: 12/01/16 11:11> Subjective - Date & Time of Evaluation Date of Evaluation: 12/01/16 Time of Evaluation: 07:15 - Subjective Subjective: No overnight events. Patient seen and examined bedside with Dr. Weber. No complaints offered. Patient to continue with PT/OT. Dietary referral to educate on high fiber diet, adequate PO intake of fluid to help with constipation. Eyes improved. Continue with present management. Objective - Vital Signs/Intake and Output Vital Signs (last 24 hours): Temp Pulse Resp BP Pulse Ox 97.7 F 74 20 131/75 98 12/01/16 08:23 12/01/16 08:23 12/01/16 08:23 12/01/16 08:23 12/01/16 08:23 - Medications Medications: Current Medications Acetaminophen (Tylenol 325mg Tab) 650 mg PO Q4 [facility] Last Admin: 12/01/16 08:59 Dose: 650 mg Al Hydrox/Mg Hydrox/Simethicone (Maalox Plus 30 Ml) 30 ml PO Q6 PRN PRN Reason: Indigestion / Heartburn Last Admin: 11/29/16 16:58 Dose: 30 ml Artificial Tears (Artificial Tears) 2 drop OU Q4 PRN PRN Reason: Dry eyes Last Admin: 11/28/16 05:59 Dose: 2 drop Camphor/Menthol (Bengay) 1 applic TOP QID [facility] Last Admin: 12/01/16 08:54 Dose: 1 applic Docusate Sodium (Colace) 100 mg PO BID [facility] Last Admin: 12/01/16 08:54 Dose: 100 mg Glycerin (Glycerin Adult Suppository) 1 sup [place] DAILY PRN PRN Reason: Constipation Hydrocortisone/Pramoxine (Proctofoam) 1 applic EXT Q6 [facility] Last Admin: 12/01/16 04:00 Dose: Not Given [place] Carbonate ([place] Carbonate 150mg) 150 mg PO TID [facility] Last Admin: 12/01/16 08:54 Dose: 150 mg Multivitamins/Minerals (Therapeutic-M Tab) 1 tab PO DAILY [facility] Last Admin: 12/01/16 08:53 Dose: 1 tab Neomycin/Polymyxin/Dexamethasone (Maxitrol Opth Oint) 1 applic OU TID [facility] Last Admin: 12/01/16 08:55 Dose: 1 applic Risperidone (Risperdal Tab) 0.25 mg PO TID [facility] Last Admin: 12/01/16 08:53 Dose: 0.25 mg Tobramycin Sulfate (Tobrex 0.3% Ophth Soln) 1 drop OU QID [facility] Last Admin: 12/01/16 08:57 Dose: 1 drop - Constitutional Appears: Well - Head Exam Head Exam: ATRAUMATIC, NORMAL INSPECTION, NORMOCEPHALIC - Eye Exam Eye Exam: Normal appearance, PERRL. absent: Conjunctival injection - ENT Exam ENT Exam: Mucous Membranes Moist, Normal Exam - Respiratory Exam Respiratory Exam: Decreased Breath Sounds, NORMAL BREATHING PATTERN - Cardiovascular Exam Cardiovascular Exam: REGULAR RHYTHM - GI/Abdominal Exam Additional comments: unremarkable - Rectal Exam Rectal Exam: Deferred - Extremities Exam Extremities Exam: absent: Pedal Edema - Neurological Exam Neurological Exam: Awake, CN II-XII Intact - Psychiatric Exam Psychiatric exam: Flat Affect, Normal Affect - Skin Skin Exam: Dry, Intact Assessment and Plan - Assessment and Plan (Free Text) Assessment: 76 year old male admitted to TCU for rehabilitation due to deconditioning. High fiber diet, encourage po intake of fluid. Continue with present management. Blepharoconjunctivitis -resolving -Optho consulted, Dr. Larsen, recommendations appreciated -warm compresses -artificial tears -cont abx drops as prescribed Deconditioning PT/OT as tolerated Constipation - colace bid - glycerin prn - high fiber diet Schizoaffective Dx -continue with home medications lithium/risperdal Bone pain -hx of elevated Ca, rule out multiple myeloma -workup ordered by nephro: Dr. Fraser -PTH slightly elevated ca nl, await further input, pending recommendations DVT Prophylaxis SCDs/ambulation <Sean Weber - Last Filed: 12/03/16 06:19> Objective - Vital Signs/Intake and Output Vital Signs (last 24 hours): Temp Pulse Resp BP Pulse Ox 97.2 F L 86 20 126/72 97 12/02/16 22:00 12/02/16 22:00 12/02/16 22:00 12/02/16 22:00 12/02/16 22:00 - Medications Medications: Current Medications Acetaminophen (Tylenol 325mg Tab) 650 mg PO Q4 [facility] Last Admin: 12/03/16 01:57 Dose: 650 mg Al Hydrox/Mg Hydrox/Simethicone (Maalox Plus 30 Ml) 30 ml PO Q6 PRN PRN Reason: Indigestion / Heartburn Last Admin: 11/29/16 16:58 Dose: 30 ml Artificial Tears (Artificial Tears) 2 drop OU Q4 PRN PRN Reason: Dry eyes Last Admin: 11/28/16 05:59 Dose: 2 drop Bisacodyl (Dulcolax) 5 mg PO DAILY [facility] Last Admin: 12/02/16 12:42 Dose: 5 mg Camphor/Menthol (Bengay) 1 applic TOP QID [facility] Last Admin: 12/02/16 21:42 Dose: 1 applic Docusate Sodium (Colace) 100 mg PO BID [facility] Last Admin: 12/02/16 16:45 Dose: 100 mg Glycerin (Glycerin Adult Suppository) 1 sup [place] DAILY PRN PRN Reason: Constipation Hydrocortisone/Pramoxine (Proctofoam) 1 applic EXT Q6 PRN PRN Reason: Inflammation [place] Carbonate ([place] Carbonate 150mg) 150 mg PO TID [facility] Last Admin: 12/02/16 16:44 Dose: 150 mg Meclizine HCl (Antivert) 12.5 mg PO DAILY PRN PRN Reason: Dizziness Multivitamins/Minerals (Therapeutic-M Tab) 1 tab PO DAILY [facility] Last Admin: 12/02/16 08:26 Dose: 1 tab Neomycin/Polymyxin/Dexamethasone (Maxitrol Opth Oint) 1 applic OU TID [facility] Last Admin: 12/02/16 16:44 Dose: 1 applic Risperidone (Risperdal Tab) 0.25 mg PO TID [facility] Last Admin: 12/02/16 16:44 Dose: 0.25 mg Tobramycin Sulfate (Tobrex 0.3% Ophth Soln) 1 drop OU QID [facility] Last Admin: 12/02/16 21:41 Dose: 1 drop - Labs Labs: 12/01/16 14:24 12/01/16 14:24 Attending/Attestation - Attestation I have personally seen and examined this patient.: Yes I have fully participated in the care of the patient.: Yes I have reviewed all pertinent clinical information, including history, physical exam and plan: Yes
[2016-12-01] MEDS ORDERED: Hydrocortisone-Pramoxine(Proctofoam HC) EXT PRN (13:31)
[2016-12-01] MEDS ORDERED: Bisacodyl 5mg EC Tab PO PRN (13:54)
[2016-12-01 14:27] LABS: HEMATOCRIT 39.5 % (35.0-51.0); MEAN CELL VOLUME 92.2 fl (80.0-94.0); MEAN CORPUSCULAR HEMOGLOBIN 30.5 pg (27.0-31.0); RED CELL DISTRIBUTION WIDTH 14.2 % (11.5-14.5); WHITE BLOOD COUNT 8.9 K/uL (4.8-10.8)
[2016-12-01 14:40] LABS: POTASSIUM 4.3 MMOL/L (3.6-5.0)
[2016-12-01] MEDS: Bisacodyl 5mg EC Tab PO SCH (17:08)
--- NOTE | 2016-12-01 17:49 | CP.PCM.CON ---
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 / PARANEOPLASTIC MRI CERVICAL SPINE AND BRAIN BLOOD WORK UP PT FALL PRECAUTION HYDRATION Past Patient History - Past Medical History & Family History Past Medical History?: Yes - Past Social History Smoking Status: Never Smoked - CARDIAC Hx Hypercholesterolemia: Yes - PULMONARY Hx Respiratory Disorders: Yes - NEUROLOGICAL Hx Dementia: Yes - HEENT Hx HEENT Problems: No - RENAL Hx Chronic Kidney Disease: No - ENDOCRINE/METABOLIC Hx Endocrine Disorders: No - HEMATOLOGICAL/ONCOLOGICAL Hx Human Immunodeficiency Virus (HIV): No - INTEGUMENTARY Hx Dermatological Problems: No - MUSCULOSKELETAL/RHEUMATOLOGICAL Hx Arthritis: Yes - GASTROINTESTINAL Hx Gastrointestinal Disorders: No Other/Comment: Spleen aneurysm - GENITOURINARY/GYNECOLOGICAL Hx Genitourinary Disorders: Yes - PSYCHIATRIC Hx Bipolar Disorder: Yes Hx Depression: Yes Hx Substance Use: No - SURGICAL HISTORY Hx Surgeries: Yes Hx Herniorrhaphy: Yes Other/Comment: TURP X2, small spleen aneurysm. Feet surgery(Bunnion and hammer toes sx) - ANESTHESIA Hx Anesthesia: Yes Hx Anesthesia Reactions: No Hx Malignant Hyperthermia: No Meds Allergies/Adverse Reactions: Allergies Allergy/AdvReac Type Severity Reaction Status Date / Time meperidine Allergy Mild RASH Verified 11/24/16 16:33 - Medications Medications: Current Medications Acetaminophen (Tylenol 325mg Tab) 650 mg PO Q4 [facility] Last Admin: 12/01/16 17:07 Dose: 650 mg Al Hydrox/Mg Hydrox/Simethicone (Maalox Plus 30 Ml) 30 ml PO Q6 PRN PRN Reason: Indigestion / Heartburn Last Admin: 11/29/16 16:58 Dose: 30 ml Artificial Tears (Artificial Tears) 2 drop OU Q4 PRN PRN Reason: Dry eyes Last Admin: 11/28/16 05:59 Dose: 2 drop Bisacodyl (Dulcolax) 5 mg PO DAILY [facility] Last Admin: 12/01/16 17:08 Dose: 5 mg Camphor/Menthol (Bengay) 1 applic TOP QID [facility] Last Admin: 12/01/16 17:03 Dose: 1 applic Docusate Sodium (Colace) 100 mg PO BID [facility] Last Admin: 12/01/16 17:04 Dose: 100 mg Glycerin (Glycerin Adult Suppository) 1 sup [place] DAILY PRN PRN Reason: Constipation Hydrocortisone/Pramoxine (Proctofoam) 1 applic EXT Q6 PRN PRN Reason: Inflammation [place] Carbonate ([place] Carbonate 150mg) 150 mg PO TID [facility] Last Admin: 12/01/16 17:03 Dose: 150 mg Meclizine HCl (Antivert) 12.5 mg PO DAILY PRN PRN Reason: Dizziness Multivitamins/Minerals (Therapeutic-M Tab) 1 tab PO DAILY [facility] Last Admin: 12/01/16 08:53 Dose: 1 tab Neomycin/Polymyxin/Dexamethasone (Maxitrol Opth Oint) 1 applic OU TID [facility] Last Admin: 12/01/16 17:03 Dose: 1 applic Risperidone (Risperdal Tab) 0.25 mg PO TID [facility] Last Admin: 12/01/16 17:04 Dose: 0.25 mg Tobramycin Sulfate (Tobrex 0.3% Oph Soln) 1 drop OU QID [facility] Last Admin: 12/01/16 17:05 Dose: 1 drop Results - Vital Signs Recent Vital Signs: Last Vital Signs Temp 98.4 F 12/01/16 16:25 Pulse 80 12/01/16 16:25 Resp 20 12/01/16 16:25 BP 112/60 12/01/16 16:25 Pulse Ox 96 12/01/16 16:25 - Labs Result Diagrams: 12/01/16 14:24 12/01/16 14:24 Labs: Laboratory Results - last 24 hr 12/01/16 12/01/16 12/01/16 14:24 14:24 14:24 WBC 8.9 RBC 4.28 L Hgb 13.0 Hct 39.5 MCV 92.2 MCH 30.5 MCHC 33.0 RDW 14.2 Plt Count 220 Sodium 140 Potassium 4.3 Chloride 107 Carbon Dioxide 23 Anion Gap 14 BUN 23 H Creatinine 1.4 Est GFR ( Amer) 59 Est GFR (Non-Af Amer) 49 Random Glucose 136 H Calcium 11.0 H [place] 1.1
--- NOTE | 2016-12-02 02:57 | CON ---
DATE: 12/01/2016 ATTENDING PHYSICIAN: Renaldo Pablo MD LOCATION: The patient's room number is 708, bed 1. REASON FOR THE CONSULTATION: Dizziness. HISTORY OF PRESENT ILLNESS: The patient was admitted with history of syncopal attack following a bowel movement at home. From neurologic point of view, I was called in to evaluate him because of his persistent dizziness. The patient is a 76-year-old right-handed male being presenting with dizziness that he described that when he was walking and sometimes he is sitting after taking rest. He feels like he is floating and unsteady in his legs. No history of vertiginous feeling. No history of double vision. No history of loss of vision. No history of bulbar dysfunction. No history of headache. He has been presenting with chronic neck pain with no history of preceding fall or any trauma in the past. No history of bowel or bladder incontinence. No history of seizure activities. PAST MEDICAL HISTORY: Schizoaffective disorder. The patient had a history of respiratory problem, arthritis. PSYCHIATRIC PROBLEM: He has bipolar disorder and schizoaffective disorder. PERSONAL HISTORY: Denies smoking or alcohol use. ALLERGIES: NO KNOWN ALLERGIES. REVIEW OF SYSTEMS: A 12-point review of systems have been reviewed. From neurologic point of view, neurological system, the patient had recurrent dizziness. MEDICATIONS: Meclizine, Bengay, Colace, Dulcolax, glycerin suppositories, lithium, Risperdal, neomycin, hydrocortisone. PHYSICAL EXAMINATION VITAL SIGNS: Blood pressure 112/60, mean arterial pressure of 77, respiratory rate is 16, temperature afebrile. NECK: Supple. Neck has flexed deformity presenting with anterocollis. No carotid bruit. HEART: Sounds irregular. CHEST: Fair air entry. EXTREMITIES: Significant distal muscle atrophy. NEUROLOGIC: MENTAL STATUS EXAMINATION: He is awake, alert, oriented to person, place and time. Speech is clear. Naming, repetition, fluency, comprehension all within normal. No sign of hallucination. No sign of suicidal ideation. CRANIAL NERVE EXAMINATION: Visual field is intact. Pupils reactive to light. Extraocular movement normal. No nystagmus. No facial sensory deficit. No facial asymmetry. Hearing seems to be intact. Tongue is moist and midline. MOTOR EXAMINATION: Outstretched hand with eyes closed, no drift is noted. Significant tremor. No asterixis. Muscle strength is symmetric on either side,m hand territory account executive is 5-/5, all proximal distal muscle groups are 5-/5. Both lower extremities, he could able to bend his leg and keep his leg against the gravity for limited time. Both feet intrinsic muscle groups are atrophied. DEEP TENDON REFLEXES: Biceps, brachialis, and triceps 3+. Left knee 3+, right knee 2+. Both ankles are present. Plantars are upgoing on both sides. SENSORY EXAMINATION: Significantly affected his posterior column. Sensory dysfunction including pinprick, vibration, temperature sense also decreased. COORDINATION: [id number] test is intact. GAIT: Deferred at this time. WORKUP: WBC 8.9, hemoglobin 13.3, hematocrit 39.5, and platelets are 220. Sodium 140, potassium 4.3, chloride 107, bicarbonate 23, BUN 23, creatinine 1.4, GFR of 49,calcium 11, lithium level 1.1. CONCLUSION: 1. 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 2. 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 This is probably secondary to his lithium; however, other possible causes including collagen vascular disease, paraneoplastic, metabolic causes and immunological process. RECOMMENDATIONS: 1. The patient's blood workup as per the order has been requested. 2. MRI of the cervical spine and brain is also scheduled. 3. I do not think meclizine is working empirically, can be continued. If the patient feels sleepy, that should be discontinued. Physical therapy should be entertained, should be kept on fall precaution. The patient was also recommended to have proper hydration. The patient's condition has been well discussed. The patient will be followed with you. Addison Abarca MD
[2016-12-02] MEDS: Lithium Carbonate 150 MG CAP PO SCH ×3 (08:25→16:44)
[2016-12-02] MEDS: Tobramycin 0.3% OPHT SOLN OU SCH ×4 (08:26→21:41)
[2016-12-02] MEDS: Multivitamin With Minerals Tab PO SCH (08:26)
[2016-12-02] MEDS: Menthol/Methyl Salicylate Oinment TOP SCH ×4 (08:27→21:42)
--- NOTE | 2016-12-02 11:51 | CP.PCM.PN ---
<Archie Stout - Last Filed: 12/02/16 11:52> Subjective - Date & Time of Evaluation Date of Evaluation: 12/02/16 Time of Evaluation: 07:05 - Subjective Subjective: Patient seen and examined with Dr. Pablo. Patient continues to have dizziness even while supine. Will change Meclizine to qHS dose. Continues to have mild chronic shoulder pain. Eyes have improved substantially. Patient seen and evaluated by Neurology, Dr. Abarca. Recommendations appreciated , for MRI c-spine and brain today. Objective - Vital Signs/Intake and Output Vital Signs (last 24 hours): Temp Pulse Resp BP Pulse Ox 97.7 F 85 20 140/77 99 12/02/16 08:06 12/02/16 08:06 12/02/16 08:06 12/02/16 08:06 12/02/16 08:06 - Medications Medications: Current Medications Acetaminophen (Tylenol 325mg Tab) 650 mg PO Q4 [facility] Last Admin: 12/02/16 08:29 Dose: 650 mg Al Hydrox/Mg Hydrox/Simethicone (Maalox Plus 30 Ml) 30 ml PO Q6 PRN PRN Reason: Indigestion / Heartburn Last Admin: 11/29/16 16:58 Dose: 30 ml Artificial Tears (Artificial Tears) 2 drop OU Q4 PRN PRN Reason: Dry eyes Last Admin: 11/28/16 05:59 Dose: 2 drop Bisacodyl (Dulcolax) 5 mg PO DAILY [facility] Last Admin: 12/01/16 17:08 Dose: 5 mg Camphor/Menthol (Bengay) 1 applic TOP QID [facility] Last Admin: 12/02/16 08:27 Dose: 1 applic Docusate Sodium (Colace) 100 mg PO BID [facility] Last Admin: 12/02/16 08:26 Dose: 100 mg Glycerin (Glycerin Adult Suppository) 1 sup [place] DAILY PRN PRN Reason: Constipation Hydrocortisone/Pramoxine (Proctofoam) 1 applic EXT Q6 PRN PRN Reason: Inflammation [place] Carbonate ([place] Carbonate 150mg) 150 mg PO TID [facility] Last Admin: 12/02/16 08:25 Dose: 150 mg Meclizine HCl (Antivert) 12.5 mg PO DAILY PRN PRN Reason: Dizziness Multivitamins/Minerals (Therapeutic-M Tab) 1 tab PO DAILY [facility] Last Admin: 12/02/16 08:26 Dose: 1 tab Neomycin/Polymyxin/Dexamethasone (Maxitrol Opth Oint) 1 applic OU TID [facility] Last Admin: 12/02/16 08:26 Dose: 1 applic Risperidone (Risperdal Tab) 0.25 mg PO TID [facility] Last Admin: 12/02/16 08:25 Dose: 0.25 mg Tobramycin Sulfate (Tobrex 0.3% Ophth Soln) 1 drop OU QID [facility] Last Admin: 12/02/16 08:26 Dose: 1 drop - Labs Labs: 12/01/16 14:24 12/01/16 14:24 - Constitutional Appears: Well, No Acute Distress - Head Exam Head Exam: ATRAUMATIC, NORMAL INSPECTION, NORMOCEPHALIC - Eye Exam Eye Exam: EOMI, Normal appearance, PERRL - ENT Exam ENT Exam: Mucous Membranes Moist, Normal Exam - Neck Exam Additional comments: severe kyphosis - Respiratory Exam Respiratory Exam: Decreased Breath Sounds, NORMAL BREATHING PATTERN - Cardiovascular Exam Cardiovascular Exam: REGULAR RHYTHM, +S1, +S2 - GI/Abdominal Exam GI & Abdominal Exam: Soft, Normal Bowel Sounds. absent: Distended, Guarding, Tenderness - Rectal Exam Rectal Exam: Deferred - Extremities Exam Extremities Exam: absent: Pedal Edema, Tenderness - Neurological Exam Neurological Exam: Alert, Awake, CN II-XII Intact, Oriented x3 - Psychiatric Exam Psychiatric exam: Flat Affect - Skin Skin Exam: Dry, Intact, Normal Color Assessment and Plan - Assessment and Plan (Free Text) Assessment: 76 year old male admitted to TCU for rehabilitation due to deconditioning. High fiber diet, encourage PO intake of fluid. Follow MRI, follow pending labs. continue with antibiotic drops as ordered. Meclizine started qhs. Dizziness -Neuro consult: Dr. Abarca -Valentinne -MRI c-spine/brain -follow labs Blepharoconjunctivitis -resolved -Optho consulted, Dr. Larsen, recommendations appreciated -warm compresses -artificial tears -cont abx drops as prescribed Deconditioning improving strength with therapy, but c/o of weaness. PT/OT as tolerated Constipation - colace bid - glycerin prn - high fiber diet Schizoaffective Dx -continue with home medications lithium/risperdal -lithium level WNL Bone pain -hx of elevated Ca, rule out multiple myeloma -workup ordered by nephro: Dr. Fraser -PTH slightly elevated ca nl, await further input, pending recommendations DVT Prophylaxis SCDs/ambulation <Renaldo Pablo - Last Filed: 12/04/16 06:58> Objective - Vital Signs/Intake and Output Vital Signs (last 24 hours): Temp Pulse Resp BP Pulse Ox 98.2 F 92 H 20 114/66 97 12/03/16 20:08 12/03/16 20:08 12/03/16 20:08 12/03/16 20:08 12/03/16 20:08 - Medications Medications: Current Medications Acetaminophen (Tylenol 325mg Tab) 650 mg PO Q4 [facility] Last Admin: 12/04/16 05:00 Dose: Not Given Al Hydrox/Mg Hydrox/Simethicone (Maalox Plus 30 Ml) 30 ml PO Q6 PRN PRN Reason: Indigestion / Heartburn Last Admin: 11/29/16 16:58 Dose: 30 ml Artificial Tears (Artificial Tears) 2 drop OU Q4 PRN PRN Reason: Dry eyes Last Admin: 11/28/16 05:59 Dose: 2 drop Bisacodyl (Dulcolax) 5 mg PO DAILY [facility] Last Admin: 12/03/16 08:59 Dose: 5 mg Camphor/Menthol (Bengay) 1 applic TOP QID [facility] Last Admin: 12/03/16 21:33 Dose: 1 applic Docusate Sodium (Colace) 100 mg PO BID [facility] Last Admin: 12/03/16 17:27 Dose: 100 mg Glycerin (Glycerin Adult Suppository) 1 sup AR DAILY PRN PRN Reason: Constipation Last Admin: 12/03/16 18:09 Dose: 1 sup Hydrocortisone/Pramoxine (Proctofoam) 1 applic EXT Q6 PRN PRN Reason: Inflammation [place] Carbonate ([place] Carbonate 150mg) 150 mg PO TID [facility] Last Admin: 12/03/16 17:28 Dose: 150 mg Meclizine HCl (Antivert) 12.5 mg PO HS [facility] Last Admin: 12/03/16 21:34 Dose: 12.5 mg Multivitamins/Minerals (Therapeutic-M Tab) 1 tab PO DAILY [facility] Last Admin: 12/03/16 08:56 Dose: 1 tab Neomycin/Polymyxin/Dexamethasone (Maxitrol Opth Oint) 1 applic OU TID [facility] Last Admin: 12/03/16 17:28 Dose: 1 applic Risperidone (Risperdal Tab) 0.25 mg PO TID [facility] Last Admin: 12/03/16 17:28 Dose: 0.25 mg Tobramycin Sulfate (Tobrex 0.3% Oph Soln) 1 drop OU QID [facility] Last Admin: 12/03/16 21:34 Dose: 1 drop - Labs Labs: 12/01/16 14:24 12/01/16 14:24 Attending/Attestation - Attestation I have personally seen and examined this patient.: Yes I have fully participated in the care of the patient.: Yes I have reviewed all pertinent clinical information, including history, physical exam and plan: Yes
[2016-12-02] MEDS: Bisacodyl 5mg EC Tab PO SCH (12:42)
--- NOTE | 2016-12-03 07:44 | CP.PCM.PN ---
<Archie Stout - Last Filed: 12/03/16 11:14> Subjective - Date & Time of Evaluation Date of Evaluation: 12/03/16 Time of Evaluation: 06:50 - Subjective Subjective: No overnight events. Patient seen and examined with Dr. Weber. No new complaints offered. Encouraged participation in PT. Awaiting neurology recommendations. MRI brain/c-spine reviewed. Continue with present management. Objective - Vital Signs/Intake and Output Vital Signs (last 24 hours): Temp Pulse Resp BP Pulse Ox 97.2 F L 86 20 126/72 97 12/02/16 22:00 12/02/16 22:00 12/02/16 22:00 12/02/16 22:00 12/02/16 22:00 - Medications Medications: Current Medications Acetaminophen (Tylenol 325mg Tab) 650 mg PO Q4 [facility] Last Admin: 12/03/16 05:00 Dose: Not Given Al Hydrox/Mg Hydrox/Simethicone (Maalox Plus 30 Ml) 30 ml PO Q6 PRN PRN Reason: Indigestion / Heartburn Last Admin: 11/29/16 16:58 Dose: 30 ml Artificial Tears (Artificial Tears) 2 drop OU Q4 PRN PRN Reason: Dry eyes Last Admin: 11/28/16 05:59 Dose: 2 drop Bisacodyl (Dulcolax) 5 mg PO DAILY [facility] Last Admin: 12/02/16 12:42 Dose: 5 mg Camphor/Menthol (Bengay) 1 applic TOP QID [facility] Last Admin: 12/02/16 21:42 Dose: 1 applic Docusate Sodium (Colace) 100 mg PO BID [facility] Last Admin: 12/02/16 16:45 Dose: 100 mg Glycerin (Glycerin Adult Suppository) 1 sup [place] DAILY PRN PRN Reason: Constipation Hydrocortisone/Pramoxine (Proctofoam) 1 applic EXT Q6 PRN PRN Reason: Inflammation [place] Carbonate ([place] Carbonate 150mg) 150 mg PO TID [facility] Last Admin: 12/02/16 16:44 Dose: 150 mg Meclizine HCl (Antivert) 12.5 mg PO DAILY PRN PRN Reason: Dizziness Multivitamins/Minerals (Therapeutic-M Tab) 1 tab PO DAILY [facility] Last Admin: 12/02/16 08:26 Dose: 1 tab Neomycin/Polymyxin/Dexamethasone (Maxitrol Opth Oint) 1 applic OU TID [facility] Last Admin: 12/02/16 16:44 Dose: 1 applic Risperidone (Risperdal Tab) 0.25 mg PO TID [facility] Last Admin: 12/02/16 16:44 Dose: 0.25 mg Tobramycin Sulfate (Tobrex 0.3% Ophth Soln) 1 drop OU QID [facility] Last Admin: 12/02/16 21:41 Dose: 1 drop - Labs Labs: 12/01/16 14:24 12/01/16 14:24 - Constitutional Appears: Non-toxic - Eye Exam Eye Exam: Normal appearance. absent: Conjunctival injection - ENT Exam ENT Exam: Mucous Membranes Moist - Respiratory Exam Respiratory Exam: Decreased Breath Sounds, NORMAL BREATHING PATTERN - Cardiovascular Exam Cardiovascular Exam: REGULAR RHYTHM - GI/Abdominal Exam GI & Abdominal Exam: Soft. absent: Distended, Tenderness - Back Exam Additional comments: severe kyphosis - Neurological Exam Neurological Exam: Alert, Awake, CN II-XII Intact, Oriented x3 - Psychiatric Exam Psychiatric exam: Normal Affect, Normal Mood - Skin Skin Exam: Normal Color, Pallor Assessment and Plan - Assessment and Plan (Free Text) Assessment: 76 year old male admitted to TCU for rehabilitation due to deconditioning. Pt is on high fiber diet, encourage PO intake of fluid for constipation. Awaiting neurology recommendaitons. Patient seen by optho for blepharoconjunctivitis started on abx drops. Pt can follow up outpatient with Dr. Larsen. Start meclizine qhs for dizziness. MRI reviewed: C-spine: Multilevel degenerative disc disease, worse at C5-6, foraminal disc protrustions, spinal canal stenosis, severe b/l nerual foraminal stenosis. No evidence of cord compression. Reversal of normal cervical lordosis with moderate cervical kyphosis. Brain:Mild chronic microangiopathic changes and mild age-related global parenchymal volume loss. 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 Dizziness -Neuro consult: Dr. Abarca, awaiting recs -Meclizine qhs -MRI c-spine/brain -labs: cea/ammonia/lithium wnl Blepharoconjunctivitis -resolved, continue drops as per optho -Optho: Dr. Larsen, recommendations appreciated -warm compresses/artificial tears -cont abx drops as prescribed Deconditioning improving strength with therapy, but continues to c/o he is weak PT/OT as tolerated Constipation - colace bid - glycerin prn - high fiber diet Schizoaffective Dx -continue with home medications lithium/risperdal -lithium level WNL Bone pain -hx of elevated Ca, rule out multiple myeloma -workup ordered by nephro: Dr. Fraser -PTH slightly elevated ca nl, await further input, pending recommendations DVT Prophylaxis SCDs/ambulation <Sean Weber - Last Filed: 12/08/16 06:54> Objective - Vital Signs/Intake and Output Vital Signs (last 24 hours): Temp Pulse Resp BP Pulse Ox 97.7 F 73 20 105/57 L 96 12/07/16 20:31 12/07/16 20:31 12/07/16 20:31 12/07/16 20:31 12/07/16 20:31 - Medications Medications: Current Medications Acetaminophen (Tylenol 325mg Tab) 650 mg PO Q4 [facility] Last Admin: 12/08/16 04:03 Dose: 650 mg Al Hydrox/Mg Hydrox/Simethicone (Maalox Plus 30 Ml) 30 ml PO Q6 PRN PRN Reason: Indigestion / Heartburn Last Admin: 12/07/16 20:35 Dose: 30 ml Artificial Tears (Artificial Tears) 2 drop OU Q4 PRN PRN Reason: Dry eyes Last Admin: 11/28/16 05:59 Dose: 2 drop Camphor/Menthol (Bengay) 1 applic TOP QID [facility] Last Admin: 12/07/16 21:01 Dose: 1 applic Glycerin (Glycerin Adult Suppository) 1 sup LA QOTHERDAY [facility] Last Admin: 12/07/16 13:03 Dose: Not Given Hydrocortisone/Pramoxine (Proctofoam) 1 applic EXT Q6 PRN PRN Reason: Inflammation Lactulose (Enulose) 10 gm PO BID [facility] Last Admin: 12/07/16 17:02 Dose: Not Given Lidocaine (Lidoderm) 1 ea TD DAILY [facility] Last Admin: 12/07/16 08:47 Dose: 1 ea [place] Carbonate ([place] Carbonate 150mg) 150 mg PO TID [facility] Last Admin: 12/07/16 16:57 Dose: 150 mg Meclizine HCl (Antivert) 12.5 mg PO HS [facility] Last Admin: 12/07/16 21:01 Dose: 12.5 mg Multivitamins/Minerals (Therapeutic-M Tab) 1 tab PO DAILY [facility] Last Admin: 12/07/16 08:46 Dose: 1 tab Neomycin/Polymyxin/Dexamethasone (Maxitrol Opth Oint) 1 applic OU TID [facility] Last Admin: 12/07/16 16:57 Dose: 1 applic Risperidone (Risperdal Tab) 0.25 mg PO TID [facility] Last Admin: 12/07/16 16:58 Dose: 0.25 mg Tobramycin Sulfate (Tobrex 0.3% [facility] Soln) 1 drop OU QID [facility] Last Admin: 12/07/16 21:02 Dose: 1 drop - Labs Labs: 12/07/16 06:50 12/06/16 06:00 Attending/Attestation - Attestation I have personally seen and examined this patient.: Yes I have fully participated in the care of the patient.: Yes I have reviewed all pertinent clinical information, including history, physical exam and plan: Yes
[2016-12-03] MEDS: Tobramycin 0.3% OPHT SOLN OU SCH ×4 (08:56→21:34)
[2016-12-03] MEDS: Lithium Carbonate 150 MG CAP PO SCH ×3 (08:56→17:28)
[2016-12-03] MEDS: Multivitamin With Minerals Tab PO SCH (08:56)
[2016-12-03] MEDS: Menthol/Methyl Salicylate Oinment TOP SCH ×4 (08:57→21:33)
[2016-12-03] MEDS: Bisacodyl 5mg EC Tab PO SCH (08:59)
[2016-12-03 18:52] LABS: TOTAL PSA 1.2 ng/mL (<=4.0)
--- NOTE | 2016-12-03 20:39 | CP.PCM.PN ---
Subjective - Date & Time of Evaluation Date of Evaluation: 12/03/16 Time of Evaluation: 20:39 - Subjective Subjective: ALL WORK UP HAVE BEEN REVIEWED HIS DIZZINESS IS PROBABLY RELATED TO EXTENSIVE NEUROPATHY SUPERIMPOSED POSSIBLE DYSAUTONOMIA NEEDS EMG/NCV THAT CAN BE DONE AN OP CONTINUE PHYSICAL THERAPY AND GAIT TRAINING SUGGEST TO SWITCH LITHIUM Objective - Vital Signs/Intake and Output Vital Signs (last 24 hours): Temp Pulse Resp BP Pulse Ox 98.2 F 92 H 20 114/66 97 12/03/16 20:08 12/03/16 20:08 12/03/16 20:08 12/03/16 20:08 12/03/16 20:08 - Medications Medications: Current Medications Acetaminophen (Tylenol 325mg Tab) 650 mg PO Q4 [facility] Last Admin: 12/03/16 17:30 Dose: 650 mg Al Hydrox/Mg Hydrox/Simethicone (Maalox Plus 30 Ml) 30 ml PO Q6 PRN PRN Reason: Indigestion / Heartburn Last Admin: 11/29/16 16:58 Dose: 30 ml Artificial Tears (Artificial Tears) 2 drop OU Q4 PRN PRN Reason: Dry eyes Last Admin: 11/28/16 05:59 Dose: 2 drop Bisacodyl (Dulcolax) 5 mg PO DAILY [facility] Last Admin: 12/03/16 08:59 Dose: 5 mg Camphor/Menthol (Bengay) 1 applic TOP QID [facility] Last Admin: 12/03/16 17:28 Dose: 1 applic Docusate Sodium (Colace) 100 mg PO BID [facility] Last Admin: 12/03/16 17:27 Dose: 100 mg Glycerin (Glycerin Adult Suppository) 1 sup [place] DAILY PRN PRN Reason: Constipation Last Admin: 12/03/16 18:09 Dose: 1 sup Hydrocortisone/Pramoxine (Proctofoam) 1 applic EXT Q6 PRN PRN Reason: Inflammation [place] Carbonate ([place] Carbonate 150mg) 150 mg PO TID [facility] Last Admin: 12/03/16 17:28 Dose: 150 mg Meclizine HCl (Antivert) 12.5 mg PO HS [facility] Multivitamins/Minerals (Therapeutic-M Tab) 1 tab PO DAILY [facility] Last Admin: 12/03/16 08:56 Dose: 1 tab Neomycin/Polymyxin/Dexamethasone (Maxitrol Opth Oint) 1 applic OU TID [facility] Last Admin: 12/03/16 17:28 Dose: 1 applic Risperidone (Risperdal Tab) 0.25 mg PO TID [facility] Last Admin: 12/03/16 17:28 Dose: 0.25 mg Tobramycin Sulfate (Tobrex 0.3% Oph Soln) 1 drop OU QID [facility] Last Admin: 12/03/16 17:28 Dose: 1 drop - Labs Labs: 12/01/16 14:24 12/01/16 14:24
[2016-12-04] MEDS: Menthol/Methyl Salicylate Oinment TOP SCH ×4 (08:48→21:36)
[2016-12-04] MEDS: Lithium Carbonate 150 MG CAP PO SCH ×3 (08:49→17:22)
[2016-12-04] MEDS: Multivitamin With Minerals Tab PO SCH (08:49)
[2016-12-04] MEDS: Tobramycin 0.3% OPHT SOLN OU SCH ×4 (09:17→22:00)
--- NOTE | 2016-12-04 15:58 | CP.PCM.PN ---
<Geetha Rodriguezth - Last Filed: 12/04/16 15:48> Subjective - Date & Time of Evaluation Date of Evaluation: 12/04/16 Time of Evaluation: 07:15 - Subjective Subjective: patient seen and examined with attending in TCU patient still c/o diffuse body aches, and constipation. Patient reports that the last time he had a good bowel movement was 4 days ago. Denies cp, SOB, N/V, abdominal pain afebrile, no events overnight Objective - Vital Signs/Intake and Output Vital Signs (last 24 hours): Temp Pulse Resp BP Pulse Ox 97.9 F 96 H 20 123/94 H 94 L 12/04/16 09:45 12/04/16 09:45 12/04/16 09:45 12/04/16 09:45 12/04/16 09:45 - Medications Medications: Current Medications Acetaminophen (Tylenol 325mg Tab) 650 mg PO Q4 [facility] Last Admin: 12/04/16 13:21 Dose: 650 mg Al Hydrox/Mg Hydrox/Simethicone (Maalox Plus 30 Ml) 30 ml PO Q6 PRN PRN Reason: Indigestion / Heartburn Last Admin: 11/29/16 16:58 Dose: 30 ml Artificial Tears (Artificial Tears) 2 drop OU Q4 PRN PRN Reason: Dry eyes Last Admin: 11/28/16 05:59 Dose: 2 drop Camphor/Menthol ([place]) 1 applic TOP QID [facility] Last Admin: 12/04/16 13:16 Dose: 1 applic Glycerin (Glycerin Adult Suppository) 1 sup [place] DAILY PRN PRN Reason: Constipation Last Admin: 12/03/16 18:09 Dose: 1 sup Hydrocortisone/Pramoxine (Proctofoam) 1 applic EXT Q6 PRN PRN Reason: Inflammation Lactulose (Enulose) 10 gm PO BID [facility] Last Admin: 12/04/16 13:22 Dose: 10 gm [place] Carbonate ([place] Carbonate 150mg) 150 mg PO TID [facility] Last Admin: 12/04/16 13:16 Dose: 150 mg Meclizine HCl (Antivert) 12.5 mg PO HS [facility] Last Admin: 12/03/16 21:34 Dose: 12.5 mg Multivitamins/Minerals (Therapeutic-M Tab) 1 tab PO DAILY [facility] Last Admin: 12/04/16 08:49 Dose: 1 tab Neomycin/Polymyxin/Dexamethasone (Maxitrol Opth Oint) 1 applic OU TID [facility] Last Admin: 12/04/16 13:16 Dose: 1 applic Risperidone (Risperdal Tab) 0.25 mg PO TID [facility] Last Admin: 12/04/16 13:17 Dose: 0.25 mg Tobramycin Sulfate (Tobrex 0.3% Ophth Soln) 1 drop OU QID [facility] Last Admin: 12/04/16 09:17 Dose: Not Given - Labs Labs: 12/01/16 14:24 12/01/16 14:24 - Constitutional Appears: No Acute Distress - ENT Exam ENT Exam: Mucous Membranes Moist - Respiratory Exam Respiratory Exam: Clear to Ausculation Bilateral, NORMAL BREATHING PATTERN. absent: Wheezes, Respiratory Distress - Cardiovascular Exam Cardiovascular Exam: REGULAR RHYTHM, +S1, +S2 - GI/Abdominal Exam GI & Abdominal Exam: Soft, Normal Bowel Sounds. absent: Distended, Guarding, Rigid, Tenderness - Extremities Exam Extremities Exam: Normal Inspection. absent: Calf Tenderness, Pedal Edema - Neurological Exam Neurological Exam: Alert, Awake, Oriented x3 Assessment and Plan - Assessment and Plan (Free Text) Assessment: 76 year old male admitted to TCU for rehabilitation due to deconditioning. Plan: Dizziness as per Neuro,Dr. Abarca, pt's dizziness is probably related to extensive neuropathy superimposed possible dysautonomia -Neuro recommends : EMG/NCV as outpatient -c/w PT and gait training, and to switch lithium -Meclizine qhs -MRI c-spine/brain -labs: cea/ammonia/lithium wnl Blepharoconjunctivitis -resolved, continue drops as per optho -Optho: Dr. Larsen, recommendations appreciated -warm compresses/artificial tears -cont abx drops as prescribed Deconditioning improving strength with therapy, but continues to c/o he is weak PT/OT as tolerated Constipation -start Lactulose 15 ml BID -DC colace and dulcolax - c/w glycerin prn - high fiber diet Schizoaffective Dx -continue with home medications lithium/risperdal -lithium level WNL Bone pain -hx of elevated Ca, rule out multiple myeloma -workup ordered by nephro: Dr. Fraser -PTH slightly elevated ca nl, await further input, pending recommendations DVT Prophylaxis SCDs/ambulation <Blake Pabloaureliano Robles - Last Filed: 12/08/16 07:11> Objective - Vital Signs/Intake and Output Vital Signs (last 24 hours): Temp Pulse Resp BP Pulse Ox 97.7 F 73 20 105/57 L 96 12/07/16 20:31 12/07/16 20:31 12/07/16 20:31 12/07/16 20:31 12/07/16 20:31 - Medications Medications: Current Medications Acetaminophen (Tylenol 325mg Tab) 650 mg PO Q4 [facility] Last Admin: 12/08/16 04:03 Dose: 650 mg Al Hydrox/Mg Hydrox/Simethicone (Maalox Plus 30 Ml) 30 ml PO Q6 PRN PRN Reason: Indigestion / Heartburn Last Admin: 12/07/16 20:35 Dose: 30 ml Artificial Tears (Artificial Tears) 2 drop OU Q4 PRN PRN Reason: Dry eyes Last Admin: 11/28/16 05:59 Dose: 2 drop Camphor/Menthol ([place]) 1 applic TOP QID [facility] Last Admin: 12/07/16 21:01 Dose: 1 applic Glycerin (Glycerin Adult Suppository) 1 sup [place] QOTHERDAY [facility] Last Admin: 12/07/16 13:03 Dose: Not Given Hydrocortisone/Pramoxine (Proctofoam) 1 applic EXT Q6 PRN PRN Reason: Inflammation Lactulose (Enulose) 10 gm PO BID [facility] Last Admin: 12/07/16 17:02 Dose: Not Given Lidocaine (Lidoderm) 1 ea TD DAILY [facility] Last Admin: 12/07/16 08:47 Dose: 1 ea [place] Carbonate ([place] Carbonate 150mg) 150 mg PO TID [facility] Last Admin: 12/07/16 16:57 Dose: 150 mg Meclizine HCl (Antivert) 12.5 mg PO HS [facility] Last Admin: 12/07/16 21:01 Dose: 12.5 mg Multivitamins/Minerals (Therapeutic-M Tab) 1 tab PO DAILY [facility] Last Admin: 12/07/16 08:46 Dose: 1 tab Neomycin/Polymyxin/Dexamethasone (Maxitrol Opth Oint) 1 applic OU TID [facility] Last Admin: 12/07/16 16:57 Dose: 1 applic Risperidone (Risperdal Tab) 0.25 mg PO TID [facility] Last Admin: 12/07/16 16:58 Dose: 0.25 mg Tobramycin Sulfate (Tobrex 0.3% Ophth Soln) 1 drop OU QID [facility] Last Admin: 12/07/16 21:02 Dose: 1 drop - Labs Labs: 12/07/16 06:50 12/06/16 06:00 Attending/Attestation - Attestation I have personally seen and examined this patient.: Yes I have fully participated in the care of the patient.: Yes I have reviewed all pertinent clinical information, including history, physical exam and plan: Yes
[2016-12-05] MEDS: Tobramycin 0.3% OPHT SOLN OU SCH ×4 (08:57→22:11)
[2016-12-05] MEDS: Lithium Carbonate 150 MG CAP PO SCH ×3 (08:58→16:33)
[2016-12-05] MEDS: Multivitamin With Minerals Tab PO SCH (08:59)
[2016-12-05] MEDS: Menthol/Methyl Salicylate Oinment TOP SCH ×4 (08:59→22:11)
[2016-12-05] MEDS: Lidocaine 5% Patch TD SCH (13:29)
[2016-12-05] MEDS: Lactulose 10 gm/15 ml Syrup PO SCH (16:33)
--- NOTE | 2016-12-05 18:04 | CP.PCM.PN ---
Subjective - Date & Time of Evaluation Date of Evaluation: 12/05/16 Time of Evaluation: 09:00 - Subjective Subjective: Patient was seen and examined this morning in TCU unit Denies Cp, SOB, N/V, abdominal pain still c/o constipations and multiple chronic joint pain had an uneventful night Objective - Vital Signs/Intake and Output Vital Signs (last 24 hours): Temp Pulse Resp BP Pulse Ox 97.2 F L 73 20 118/63 97 12/05/16 17:27 12/05/16 17:27 12/05/16 17:27 12/05/16 17:27 12/05/16 17:27 - Medications Medications: Current Medications Acetaminophen (Tylenol 325mg Tab) 650 mg PO Q4 [facility] Last Admin: 12/05/16 16:35 Dose: 650 mg Al Hydrox/Mg Hydrox/Simethicone (Maalox Plus 30 Ml) 30 ml PO Q6 PRN PRN Reason: Indigestion / Heartburn Last Admin: 11/29/16 16:58 Dose: 30 ml Artificial Tears (Artificial Tears) 2 drop OU Q4 PRN PRN Reason: Dry eyes Last Admin: 11/28/16 05:59 Dose: 2 drop Camphor/Menthol (Bengay) 1 applic TOP QID JENNIE Last Admin: 12/05/16 16:33 Dose: 1 applic Glycerin (Glycerin Adult Suppository) 1 sup [place] DAILY PRN PRN Reason: Constipation Last Admin: 12/03/16 18:09 Dose: 1 sup Hydrocortisone/Pramoxine (Proctofoam) 1 applic EXT Q6 PRN PRN Reason: Inflammation Lactulose (Enulose) 10 gm PO BID JENNIE Last Admin: 12/05/16 16:33 Dose: 10 gm Lidocaine (Lidoderm) 1 ea TD DAILY [facility] Last Admin: 12/05/16 13:29 Dose: 1 ea [place] Carbonate ([place] Carbonate 150mg) 150 mg PO TID JENNIE Last Admin: 12/05/16 16:33 Dose: 150 mg Meclizine HCl (Antivert) 12.5 mg PO HS [facility] Last Admin: 12/04/16 22:00 Dose: 12.5 mg Multivitamins/Minerals (Therapeutic-M Tab) 1 tab PO DAILY JENNIE Last Admin: 12/05/16 08:59 Dose: 1 tab Neomycin/Polymyxin/Dexamethasone (Maxitrol Opth Oint) 1 applic OU TID JENNIE Last Admin: 12/05/16 16:33 Dose: 1 applic Risperidone (Risperdal Tab) 0.25 mg PO TID JENNIE Last Admin: 12/05/16 16:33 Dose: 0.25 mg Tobramycin Sulfate (Tobrex 0.3% Ophth Soln) 1 drop OU QID JENNIE Last Admin: 12/05/16 16:34 Dose: 1 drop - Labs Labs: 12/01/16 14:24 12/01/16 14:24 - Constitutional Appears: No Acute Distress - ENT Exam ENT Exam: Mucous Membranes Moist - Respiratory Exam Respiratory Exam: Clear to Ausculation Bilateral, NORMAL BREATHING PATTERN - Cardiovascular Exam Cardiovascular Exam: REGULAR RHYTHM, +S1, +S2 - GI/Abdominal Exam GI & Abdominal Exam: Soft, Normal Bowel Sounds. absent: Distended, Guarding, Rigid, Tenderness - Extremities Exam Extremities Exam: Normal Inspection. absent: Calf Tenderness, Pedal Edema - Neurological Exam Neurological Exam: Alert, Awake, Oriented x3 Assessment and Plan - Assessment and Plan (Free Text) Assessment: 76 year old male admitted to TCU for rehabilitation due to deconditioning. Plan: Dizziness as per Neuro,Dr. Abarca, pt's dizziness is probably related to extensive neuropathy superimposed possible dysautonomia -Neuro recommends : EMG/NCV as outpatient -c/w PT and gait training, and to switch lithium -Meclizine qhs -MRI c-spine/brain -labs: cea/ammonia/lithium wnl Blepharoconjunctivitis -resolved, continue drops as per optho -Optho: Dr. Larsen, recommendations appreciated -warm compresses/artificial tears -cont abx drops as prescribed Deconditioning improving strength with therapy, but continues to c/o he is weak PT/OT as tolerated Constipation -start Lactulose 15 ml BID -DC colace and dulcolax - c/w glycerin prn - high fiber diet Schizoaffective Dx -continue with home medications lithium/risperdal -lithium level WNL Bone pain -hx of elevated Ca, rule out multiple myeloma -workup ordered by nephro: Dr. Fraser -PTH slightly elevated ca nl, await further input, pending recommendations
[2016-12-06 08:26] LABS: HEMATOCRIT 32.1 % (35.0-51.0); MEAN CELL VOLUME 92.3 fl (80.0-94.0); MEAN CORPUSCULAR HEMOGLOBIN 30.7 pg (27.0-31.0); MEAN CORPUSCULAR HGB CONC 33.3 g/dL (33.0-37.0); RED CELL DISTRIBUTION WIDTH 13.8 % (11.5-14.5); WHITE BLOOD COUNT 9.6 K/uL (4.8-10.8)
[2016-12-06 08:31] LABS: BLOOD UREA NITROGEN 22 mg/dl (9-20); CALCIUM 10.7 mg/dL (8.4-10.2); CARBON DIOXIDE 25 mmol/L (22-30); CHLORIDE 109 mmol/L (98-107); GFR AFRICAN-AMERICAN > 60; GLUCOSE,RANDOM 91 mg/dL (75-110); POTASSIUM 4.2 MMOL/L (3.6-5.0); SODIUM 140 mmol/l (132-148)
[2016-12-06] MEDS: Tobramycin 0.3% OPHT SOLN OU SCH ×4 (09:10→21:15)
[2016-12-06] MEDS: Menthol/Methyl Salicylate Oinment TOP SCH ×4 (09:10→21:15)
[2016-12-06] MEDS: Lactulose 10 gm/15 ml Syrup PO SCH ×2 (09:10→17:17)
[2016-12-06] MEDS: Lidocaine 5% Patch TD SCH (09:11)
[2016-12-06] MEDS: Lithium Carbonate 150 MG CAP PO SCH ×3 (09:11→17:15)
[2016-12-06] MEDS: Multivitamin With Minerals Tab PO SCH (09:12)
[2016-12-06] MEDS ORDERED: Chlorhexidine Gluconate 1 APPL/PKT TP ONE (14:59)
[2016-12-07 08:16] LABS: HEMATOCRIT 35.1 % (35.0-51.0); MEAN CELL VOLUME 94.3 fl (80.0-94.0); MEAN CORPUSCULAR HEMOGLOBIN 30.7 pg (27.0-31.0); MEAN CORPUSCULAR HGB CONC 32.5 g/dL (33.0-37.0); WHITE BLOOD COUNT 9.6 K/uL (4.8-10.8)
--- NOTE | 2016-12-07 08:31 | CP.PCM.PN ---
Subjective - Date & Time of Evaluation Date of Evaluation: 12/07/16 Time of Evaluation: 07:55 - Subjective Subjective: Patient seen and examined in TCU units this morning patient sleeping, easy arousable, alert and oriented x 3 Denies Cp, SOB, N/V, abdominal pain Had a large bowel movement yesterday Afebrile Objective - Vital Signs/Intake and Output Vital Signs (last 24 hours): Temp Pulse Resp BP Pulse Ox 98.2 F 76 20 112/57 L 96 12/07/16 07:49 12/07/16 07:49 12/07/16 07:49 12/07/16 07:49 12/07/16 07:49 - Medications Medications: Current Medications Acetaminophen (Tylenol 325mg Tab) 650 mg PO Q4 [facility] Last Admin: 12/07/16 04:16 Dose: 650 mg Al Hydrox/Mg Hydrox/Simethicone (Maalox Plus 30 Ml) 30 ml PO Q6 PRN PRN Reason: Indigestion / Heartburn Last Admin: 11/29/16 16:58 Dose: 30 ml Artificial Tears (Artificial Tears) 2 drop OU Q4 PRN PRN Reason: Dry eyes Last Admin: 11/28/16 05:59 Dose: 2 drop Camphor/Menthol (Bengay) 1 applic TOP QID [facility] Last Admin: 12/06/16 21:15 Dose: 1 applic Glycerin (Glycerin Adult Suppository) 1 sup [place] DAILY PRN PRN Reason: Constipation Last Admin: 12/03/16 18:09 Dose: 1 sup Hydrocortisone/Pramoxine (Proctofoam) 1 applic EXT Q6 PRN PRN Reason: Inflammation Lactulose (Enulose) 10 gm PO BID [facility] Last Admin: 12/06/16 17:17 Dose: 10 gm Lidocaine (Lidoderm) 1 ea TD DAILY [facility] Last Admin: 12/06/16 09:11 Dose: 1 ea [place] Carbonate ([place] Carbonate 150mg) 150 mg PO TID [facility] Last Admin: 12/06/16 17:15 Dose: 150 mg Meclizine HCl (Antivert) 12.5 mg PO HS [facility] Last Admin: 12/06/16 21:06 Dose: 12.5 mg Multivitamins/Minerals (Therapeutic-M Tab) 1 tab PO DAILY [facility] Last Admin: 12/06/16 09:12 Dose: 1 tab Neomycin/Polymyxin/Dexamethasone (Maxitrol Opth Oint) 1 applic OU TID [facility] Last Admin: 12/06/16 17:20 Dose: 1 applic Risperidone (Risperdal Tab) 0.25 mg PO TID [facility] Last Admin: 12/06/16 17:15 Dose: 0.25 mg Tobramycin Sulfate (Tobrex 0.3% Ophth Soln) 1 drop OU QID [facility] Last Admin: 12/06/16 21:15 Dose: 1 drop - Labs Labs: 12/07/16 06:50 12/06/16 06:00 - Constitutional Appears: No Acute Distress - ENT Exam ENT Exam: Mucous Membranes Moist - Respiratory Exam Respiratory Exam: Clear to Ausculation Bilateral, NORMAL BREATHING PATTERN - Cardiovascular Exam Cardiovascular Exam: REGULAR RHYTHM, +S1, +S2 - GI/Abdominal Exam GI & Abdominal Exam: Soft, Normal Bowel Sounds. absent: Guarding, Rigid, Tenderness - Extremities Exam Extremities Exam: Normal Inspection. absent: Calf Tenderness, Pedal Edema - Neurological Exam Neurological Exam: Alert, Awake, Oriented x3 Assessment and Plan - Assessment and Plan (Free Text) Assessment: 76 year old male admitted to TCU for rehabilitation due to deconditioning. Plan: Deconditioning As per PT patient is not making to much progress in physical therapy, and will need subacute rehab patient's continues to c/o he is weaker than previous admission PT/OT as tolerated PT recommends Subacute reahb vs home w/ services Patient's agreed with subacute rehab: [facility] or [facility] ? clinical admissions manager consult for final disposition Dizziness as per Neuro,Dr. Abarca, pt's dizziness is probably related to extensive neuropathy superimposed possible dysautonomia -Neuro recommends : EMG/NCV as outpatient -c/w PT and gait training, and to switch lithium -Meclizine qhs -labs: cea/ammonia/lithium wnl Blepharoconjunctivitis -resolved, continue drops as per optho -Optho: Dr. Larsen, recommendations appreciated -warm compresses/artificial tears -cont abx drops as prescribed Constipation -c/w Lactulose 15 ml BID -Glycerin supp every other day - high fiber diet Schizoaffective Dx -continue with home medications lithium/risperdal -lithium level WNL Bone pain -hx of elevated Ca, rule out multiple myeloma -workup ordered by nephro: Dr. Fraser -PTH slightly elevated ca nl, await further input, pending recommendations DVT Prophylaxis SCDs/ambulation
[2016-12-07] MEDS: Lithium Carbonate 150 MG CAP PO SCH ×3 (08:45→16:57)
[2016-12-07] MEDS: Multivitamin With Minerals Tab PO SCH (08:46)
[2016-12-07] MEDS: Menthol/Methyl Salicylate Oinment TOP SCH ×4 (08:46→21:01)
[2016-12-07] MEDS: Lactulose 10 gm/15 ml Syrup PO SCH ×2 (08:47→17:02)
[2016-12-07] MEDS: Lidocaine 5% Patch TD SCH (08:47)
[2016-12-07] MEDS: Tobramycin 0.3% OPHT SOLN OU SCH ×4 (08:48→21:02)
[2016-12-07] MEDS: Alum-Mag Hydrox-Simethicone Susp (30 mL) PO PRN (20:35)
[2016-12-08] MEDS: Menthol/Methyl Salicylate Oinment TOP SCH ×4 (08:53→21:14)
[2016-12-08] MEDS: Tobramycin 0.3% OPHT SOLN OU SCH ×4 (08:53→21:15)
[2016-12-08] MEDS: Lithium Carbonate 150 MG CAP PO SCH ×3 (08:54→17:19)
[2016-12-08] MEDS: Lidocaine 5% Patch TD SCH (08:54)
[2016-12-08] MEDS: Multivitamin With Minerals Tab PO SCH (08:54)
[2016-12-08] MEDS: Lactulose 10 gm/15 ml Syrup PO SCH ×2 (08:56→17:20)
--- NOTE | 2016-12-08 14:21 | CP.PCM.PN ---
<Nicole Rodriguez - Last Filed: 12/08/16 14:17> Subjective - Date & Time of Evaluation Date of Evaluation: 12/08/16 Time of Evaluation: 07:15 - Subjective Subjective: Patient was seen and examined at bedside this morning with attending Patient denies Cp, SOB, N/V, abdominal pain, diarrheas Last BM was reported on Wednesday Tolerating PO Afebrile, VS stable WNL Objective - Vital Signs/Intake and Output Vital Signs (last 24 hours): Temp Pulse Resp BP Pulse Ox 98.1 F 89 20 137/74 97 12/08/16 08:33 12/08/16 08:33 12/08/16 08:33 12/08/16 08:33 12/08/16 08:33 - Medications Medications: Current Medications Acetaminophen (Tylenol 325mg Tab) 650 mg PO Q4 [facility] Last Admin: 12/08/16 13:15 Dose: 650 mg Al Hydrox/Mg Hydrox/Simethicone (Maalox Plus 30 Ml) 30 ml PO Q6 PRN PRN Reason: Indigestion / Heartburn Last Admin: 12/07/16 20:35 Dose: 30 ml Artificial Tears (Artificial Tears) 2 drop OU Q4 PRN PRN Reason: Dry eyes Last Admin: 11/28/16 05:59 Dose: 2 drop Camphor/Menthol (Bengay) 1 applic TOP QID [facility] Last Admin: 12/08/16 13:12 Dose: 1 applic Glycerin (Glycerin Adult Suppository) 1 sup DC QOTHERDAY [facility] Last Admin: 12/07/16 13:03 Dose: Not Given Hydrocortisone/Pramoxine (Proctofoam) 1 applic EXT Q6 PRN PRN Reason: Inflammation Lactulose (Enulose) 10 gm PO BID [facility] Last Admin: 12/08/16 08:56 Dose: 10 gm Lidocaine (Lidoderm) 1 ea TD DAILY [facility] Last Admin: 12/08/16 08:54 Dose: 1 ea [place] Carbonate ([place] Carbonate 150mg) 150 mg PO TID [facility] Last Admin: 12/08/16 13:12 Dose: 150 mg Meclizine HCl (Antivert) 12.5 mg PO HS [facility] Last Admin: 12/07/16 21:01 Dose: 12.5 mg Multivitamins/Minerals (Therapeutic-M Tab) 1 tab PO DAILY [facility] Last Admin: 12/08/16 08:54 Dose: 1 tab Neomycin/Polymyxin/Dexamethasone (Maxitrol Opth Oint) 1 applic OU TID JENNIE Last Admin: 12/08/16 13:12 Dose: 1 applic Risperidone (Risperdal Tab) 0.25 mg PO TID JENNIE Last Admin: 12/08/16 13:12 Dose: 0.25 mg Tobramycin Sulfate (Tobrex 0.3% Ophth Soln) 1 drop OU QID JENNIE Last Admin: 12/08/16 13:12 Dose: 1 drop - Labs Labs: 12/07/16 06:50 12/06/16 06:00 - Constitutional Appears: No Acute Distress - ENT Exam ENT Exam: Mucous Membranes Moist - Respiratory Exam Respiratory Exam: Clear to Ausculation Bilateral, NORMAL BREATHING PATTERN - Cardiovascular Exam Cardiovascular Exam: REGULAR RHYTHM, +S1, +S2 - GI/Abdominal Exam GI & Abdominal Exam: Soft, Normal Bowel Sounds. absent: Distended, Guarding, Rigid, Tenderness - Extremities Exam Extremities Exam: Normal Inspection. absent: Calf Tenderness, Pedal Edema - Neurological Exam Neurological Exam: Alert, Awake, Oriented x3 Assessment and Plan - Assessment and Plan (Free Text) Assessment: 76 year old male admitted to TCU for rehabilitation due to deconditioning. Plan: Deconditioning As per PT patient is not making to much progress in physical therapy, and will need subacute rehab patient's continues to c/o he is weaker than previous admission PT recommends Subacute reahb vs home w/ services Patient's agreed with subacute rehab: [facility] or [facility] ? visual manager consult for final disposition Dizziness as per Neuro,Dr. Abarca, pt's dizziness is probably related to extensive neuropathy superimposed possible dysautonomia -Neuro recommends : EMG/NCV as outpatient -c/w PT and gait training, and to switch lithium -Meclizine qhs -labs: cea/ammonia/lithium wnl Blepharoconjunctivitis -resolved, continue drops as per optho -Optho: Dr. Larsen, recommendations appreciated -warm compresses/artificial tears -cont abx drops as prescribed Constipation -c/w Lactulose 15 ml BID -Glycerin supp every other day - high fiber diet Schizoaffective Dx -continue with home medications lithium/risperdal -lithium level WNL Bone pain -hx of elevated Ca, rule out multiple myeloma -workup ordered by nephro: Dr. Fraser -PTH slightly elevated ca nl, await further input, pending recommendations DVT Prophylaxis SCDs/ambulation <Sean Weber - Last Filed: 12/10/16 06:51> Objective - Vital Signs/Intake and Output Vital Signs (last 24 hours): Temp Pulse Resp BP Pulse Ox 97.9 F 93 H 20 120/70 99 12/09/16 08:03 12/09/16 08:03 12/09/16 08:03 12/09/16 08:03 12/09/16 08:03 - Labs Labs: 12/09/16 06:15 12/09/16 06:15 Attending/Attestation - Attestation I have personally seen and examined this patient.: Yes I have fully participated in the care of the patient.: Yes I have reviewed all pertinent clinical information, including history, physical exam and plan: Yes
[2016-12-08 20:21] VITALS: TEMP 97.9
[2016-12-09 06:43] LABS: HEMATOCRIT 34.7 % (35.0-51.0); MEAN CELL VOLUME 91.6 fl (80.0-94.0); MEAN CORPUSCULAR HEMOGLOBIN 30.2 pg (27.0-31.0); RED CELL DISTRIBUTION WIDTH 13.4 % (11.5-14.5); WHITE BLOOD COUNT 12.3 K/uL (4.8-10.8)
[2016-12-09 06:54] LABS: BLOOD UREA NITROGEN 23 mg/dl (9-20); CALCIUM 11.3 mg/dL (8.4-10.2); CARBON DIOXIDE 22 mmol/L (22-30); CHLORIDE 109 mmol/L (98-107); GFR AFRICAN-AMERICAN > 60; GLUCOSE,RANDOM 107 mg/dL (75-110); POTASSIUM 4.4 MMOL/L (3.6-5.0); SODIUM 142 mmol/l (132-148)
[2016-12-09 08:04] VITALS: BP 120/70; PULSE 93; O2SAT 99
[2016-12-09] MEDS: Menthol/Methyl Salicylate Oinment TOP SCH ×2 (08:51→13:18)
[2016-12-09] MEDS: Lactulose 10 gm/15 ml Syrup PO SCH (08:51)
[2016-12-09] MEDS: Lidocaine 5% Patch TD SCH (08:52)
[2016-12-09] MEDS: Multivitamin With Minerals Tab PO SCH (08:55)
[2016-12-09] MEDS: Tobramycin 0.3% OPHT SOLN OU SCH ×2 (08:56→13:24)
[2016-12-09] MEDS: Lithium Carbonate 150 MG CAP PO SCH ×2 (09:03→13:18)
[2016-12-09] MEDS: Artificial Tears Opht Soln OU PRN (09:25)
--- NOTE | 2016-12-09 11:50 | RAD ---
HISTORY: COMPARISON: 03/21/2015. TECHNIQUE: Chest PA and lateral FINDINGS: LINES AND TUBES: None. LUNG AND PLEURA: The right lung is well inflated and clear. There is subsegmental atelectasis in the left lower lobe. There is a 5 mm calcified nodule in the left upper lobe. There is blunting of the left costophrenic angle. No large right pleural effusion. No pneumothorax. HEART AND MEDIASTINUM: The heart is not enlarged. The hilar and mediastinal contours are within normal limits. SKELETAL STRUCTURES: The bony structures are within normal limits for the patient's age. VISUALIZED UPPER ABDOMEN: Normal. OTHER FINDINGS: None. IMPRESSION: Blunting of the left costophrenic angle may represent pleural thickening or small pleural effusion. Subsegmental atelectasis in the left lower lobe.
--- NOTE | 2016-12-09 14:50 | CP.PCM.DIS ---
Provider - Provider Date of Admission: 11/24/16 16:34 Attending physician: Renaldo Pablo MD Time Spent in preparation of Discharge (in minutes): 30 Diagnosis - Discharge Diagnosis (1) Physical deconditioning Status: Chronic Comment: c/w PT as outpatient to improve strength and gait training. (2) Psychiatric disorder Status: Chronic (3) Musculoskeletal pain Status: Chronic Hospital Course - Lab Results Lab Results: Most Recent Lab Values WBC 12.3 K/uL (4.8-10.8) H 12/09/16 06:15 RBC 3.79 Mil/uL (4.40-5.90) L 12/09/16 06:15 Hgb 11.5 g/dL (12.0-18.0) L 12/09/16 06:15 Hct 34.7 % (35.0-51.0) L 12/09/16 06:15 MCV 91.6 fl (80.0-94.0) D 12/09/16 06:15 MCH 30.2 pg (27.0-31.0) 12/09/16 06:15 MCHC 33.0 g/dL (33.0-37.0) 12/09/16 06:15 RDW 13.4 % (11.5-14.5) 12/09/16 06:15 Plt Count 305 K/uL (130-400) 12/09/16 06:15 Sodium 142 mmol/l (132-148) 12/09/16 06:15 Potassium 4.4 MMOL/L (3.6-5.0) 12/09/16 06:15 Chloride 109 mmol/L (98-107) H 12/09/16 06:15 Carbon Dioxide 22 mmol/L (22-30) 12/09/16 06:15 Anion Gap 15 (10-20) 12/09/16 06:15 BUN 23 mg/dl (9-20) H 12/09/16 06:15 Creatinine 1.3 mg/dL (0.8-1.5) 12/09/16 06:15 Est GFR ( Amer) > 60 12/09/16 06:15 Est GFR (Non-Af Amer) 53 12/09/16 06:15 Random Glucose 107 mg/dL (75-110) 12/09/16 06:15 Calcium 11.3 mg/dL (8.4-10.2) H 12/09/16 06:15 Ammonia < 9 umo/L (16-60) L 12/02/16 08:45 Carcinoembryonic Ag 2.2 ng/mL (0-3.0) 12/02/16 08:20 Free PSA 0.3 ng/mL 12/02/16 08:20 % Free PSA 25 Percent (>25) L 12/02/16 08:20 Total PSA 1.2 ng/mL (<=4.0) 12/02/16 08:20 Prostate Cancer Risk 1 Percent 12/02/16 08:20 [place] 1.1 MMOL/L (0.6-1.2) 12/01/16 14:24 Anti-HU Antibody Titer TNP 12/02/16 08:20 Anti-Hu Antibody Negative (NEGATIVE) 12/02/16 08:20 Anti-Hu Ab ([place]) TNP 12/02/16 08:20 - Hospital Course Hospital Course: 76 year old male admitted for near syncope likely secondary to vasovagal episode due to straining during a bowel movement. Patient yesterday had an episode of Orthostatic hypotension when he was trying to stand up by himself ( SBP standins, and layins). He was seen and evaluated by psychiatry and nephrology. Patient was transferred to TCU. After PT evaluation and treatment during TCU admission, was recommended transfer to subacute rehab to continue management of deconditioning. Today patient was seen and examined this morning with attending in TCU unit. Denies Cp, cough, SOB, N/V, abdominal pain, dizziness, or other complains at the time of evaluation. BP stable WNL. CXR did not showed evidence of acute infiltrate. - Date & Time of H&P Date of H&P: 11/25/16 Time of H&P: 06:50 Discharge Exam - Head Exam Head Exam: ATRAUMATIC, NORMAL INSPECTION, NORMOCEPHALIC - Eye Exam Eye Exam: Normal appearance - ENT Exam ENT Exam: Mucous Membranes Moist - Respiratory Exam Respiratory Exam: Clear to PA & Lateral, NORMAL BREATHING PATTERN - Cardiovascular Exam Cardiovascular Exam: REGULAR RHYTHM, +S1, +S2 - GI/Abdominal Exam GI & Abdominal Exam: Normal Bowel Sounds, Soft. absent: Distended, Guarding, Tenderness - Extremities Exam Extremities exam: normal inspection Additional comments: no calves tenderness, no edema in [place] - Neurological Exam Neurological exam: Alert, Oriented x3 Discharge Plan - Follow Up Plan Condition: GOOD Disposition: TRANSF TO SNF Instructions: Syncope (DC) Additional Instructions: Patient will be transfer to subacute rehab F/u with PMD in 1 week
[2016-12-09 20:50] LABS: RBC URINE 2 /hpf (0-3); URINE BILIRUBIN NEGATIVE (NEGATIVE); URINE BLOOD NEGATIVE (NEGATIVE); URINE COLOR YELLOW (YELLOW); URINE GLUCOSE (UA) NEG (Normal); URINE KETONE NEGATIVE (NEGATIVE); URINE LEUKOCYTE ESTERASE NEG Leu/uL (Negative); URINE PROTEIN NEGATIVE (NEGATIVE); URINE UROBILINOGEN 0.2-1.0 mg/dL (0.2-1.0); WBC URINE 2 /hpf (0-5)
[2016-12-11 00:07] LABS: VGCC ANTIBODY ASSAY <30 pmol/L (<30)
== END 2016-12-09 15:25 | DRG 312 ==
LOC: H.TCU 16:34
PROVIDERS: ADMIT Family Medicine; ATTEND Family Medicine
PROC: F07Z9FZ Gait Training/Functional Ambulation Treatment using Assistive, Adaptive, Supportive or Protective Equipment (ICD-10-PCS; principal; 2016-11-24)
PROC: F08Z4FZ Home Management Treatment using Assistive, Adaptive, Supportive or Protective Equipment (ICD-10-PCS; 2016-11-24)
PROC: F07M6FZ Therapeutic Exercise Treatment of Musculoskeletal System - Whole Body using Assistive, Adaptive, Supportive or Protective Equipment (ICD-10-PCS; 2016-11-25)
DX: I95.1 Orthostatic hypotension (principal); G62.9 Polyneuropathy, unspecified; F03.90 Unspecified dementia, unspecified severity, without behavioral disturbance, psychotic disturbance, mood disturbance, and anxiety; G89.29 Other chronic pain; M48.02 Spinal stenosis, cervical region; M40.202 Unspecified kyphosis, cervical region; F25.9 Schizoaffective disorder, unspecified; F31.9 Bipolar disorder, unspecified; E78.5 Hyperlipidemia, unspecified; K59.00 Constipation, unspecified; L84 Corns and callosities; M79.672 Pain in left foot; M79.671 Pain in right foot; H10.503 Unspecified blepharoconjunctivitis, bilateral; M89.8X0 Other specified disorders of bone, multiple sites; M19.90 Unspecified osteoarthritis, unspecified site

== ENCOUNTER 2017-02-26 11:50 | Emergency (ER) | payer BC, MEDICARE ==
[2017-02-26 11:50] VITALS: BMI 21.4
[2017-02-26 12:00] VITALS: BP 114/68; PULSE 67; RESP 20; TEMP 97.4; O2SAT 99
--- NOTE | 2017-02-26 12:31 | ED PDOC ---
HPI: Headache Time Seen by Provider: 02/26/17 12:05 Chief Complaint (Nursing): Headache History Per: Patient, Family Onset/Duration Of Symptoms: Days (3) Current Symptoms Are (Timing): Still Present Severity: Mild Pain Scale Rating Of: 2 Quality: Aching Preceeding Symptoms: None Associated Symptoms: denies: Photophobia, Blurred Vision, Extremity Weakness Additional History Per: Family Additional Complaint(s): Frontal headache x 3 days. No fever. No trauma. Assoc with dizziness. concerned pt has sinus infection. No peripheral weakness or parasthesias. Past Medical History Vital Signs: Last Vital Signs Temp 97.4 F L 02/26/17 11:58 Pulse 67 02/26/17 11:58 Resp 20 02/26/17 11:58 BP 114/68 02/26/17 11:58 Pulse Ox 99 02/26/17 11:58 - Medical History PMH: Arthritis, Bipolar Disorder, Dementia, Depression, Hypercholesterolemia, Hyperlipidemia Denies: HIV, Chronic Kidney Disease - Surgical History Surgical History: Hernia Repair - Family History Family History: States: Unknown Family Hx - Home Medications Home Medications: Ambulatory Orders Medication Instructions Recorded Risperidone [Risperdal] 0.25 mg PO TID 09/11/16 [employer] [place] [employer] Carbonate [[employer] 150 mg PO TID 11/20/16 Carbonate 150MG] Multivitamin/Iron/Folic Acid 1 tab PO DAILY 11/20/16 [[place]rum Complete Multivit Tab] Menthol/Methyl Salicylate [BenGay] 1 applic TOP QID PRN 11/24/16 Acetaminophen [Tylenol 325mg tab] 650 mg PO Q4 tab 12/09/16 Aluminum Hydroxide/Magnesium 30 ml PO Q6 PRN 12/09/16 [Maalox Plus 30 ml] Glycerin [Glycerin Adult 1 sup [place] QOTHERDAY sup 12/09/16 Suppository] Hydrocortisone-Pramoxine 1%-1% 1 applic EXT Q6 PRN aer 12/09/16 [Proctofoam] Lactulose [Enulose] 10 gm PO BID 12/09/16 Lidocaine 5% [Lidoderm] 1 ea TD DAILY patch 12/09/16 Meclizine [Antivert] 12.5 mg PO HS tab 12/09/16 Neomycin/Polymyxin/Dexamethaso 1 applic OU TID 12/09/16 [Maxitrol Opth Oint] Polyethylene Glycol/Polyvinyl 2 drop OU Q4 PRN bottle 12/09/16 [Artificial Tears] Tobramycin 0.3% [Tobrex 0.3% Ophth 1 drop OU QID bottle 12/09/16 Soln] Fluticasone Nasal [Flonase] 1 actuation NS DAILY #1 spr 02/26/17 Naproxen [Naprosyn] 500 mg PO Q12H #20 tab 02/26/17 - Allergies Allergies/Adverse Reactions: Allergies Allergy/AdvReac Type Severity Reaction Status Date / Time meperidine Allergy Mild RASH Verified 11/24/16 16:33 Review of Systems ROS Statement: Except As Marked, All Systems Reviewed And Found Negative Neurological: Positive for: Headache Physical Exam - Physical Exam Appears: Positive for: Non-toxic, No Acute Distress Head Exam: Positive for: ATRAUMATIC, NORMAL INSPECTION, NORMOCEPHALIC Skin: Positive for: Normal Color, Warm, DRY Eye Exam: Positive for: EOMI, PERRL ENT: Positive for: Sinus Pain/Drainage (Right frontal) Neck: Positive for: Normal, Painless ROM Cardiovascular/Chest: Positive for: Regular Rate, Rhythm Respiratory: Positive for: CNT, Normal Breath Sounds Neurologic/Psych: Positive for: Alert, Oriented. Negative for: Motor/Sensory Deficits - ECG O2 Sat by Pulse Oximetry: 99 Disposition - Clinical Impression Clinical Impression: Headache - Patient ED Disposition Is Patient to be Admitted: No Counseled Patient/Family Regarding: Studies Performed, Diagnosis, Need For Followup, Rx Given - Disposition Referrals: Renaldo Pablo MD [Staff Provider] - Disposition: Routine/Home Disposition Time: 13:39 Condition: STABLE Prescriptions: Fluticasone Nasal [Flonase] 1 actuation NS DAILY #1 spr Naproxen [Naprosyn] 500 mg PO Q12H #20 tab Instructions: Rhinosinusitis (ED), Acute Headache (ED) Forms: [employer] ([place])
--- NOTE | 2017-02-26 13:03 | CT ---
PROCEDURE: CT HEAD WITHOUT CONTRAST. HISTORY: r/o bleed COMPARISON: MRI brain dated 12/02/2016. TECHNIQUE: Axial computed tomography images were obtained through the head/brain without intravenous contrast. Radiation dose: Total exam DLP = 1450.8 mGy-cm. This CT exam was performed using one or more of the following dose reduction techniques: Automated exposure control, adjustment of the mA and/or kV according to patient size, and/or use of iterative reconstruction technique. FINDINGS: HEMORRHAGE: No intracranial hemorrhage. BRAIN: No mass effect or edema. Old left basal ganglia lacune or infarcts. VENTRICLES: Unremarkable. No hydrocephalus. CALVARIUM: Unremarkable. PARANASAL SINUSES: Unremarkable as visualized. No significant inflammatory changes. MASTOID AIR CELLS: Unremarkable as visualized. No inflammatory changes. OTHER FINDINGS: None. IMPRESSION: No acute intracranial pathology.
== END 2017-02-26 14:01 | disposition home or self-care (01) ==
LOC: H.ER 11:50
DX: R51 Headache (principal); E78.00 Pure hypercholesterolemia, unspecified; F03.90 Unspecified dementia, unspecified severity, without behavioral disturbance, psychotic disturbance, mood disturbance, and anxiety; F31.9 Bipolar disorder, unspecified

== ENCOUNTER 2017-07-30 04:22 | Observation (INO) | payer MEDICARE, BC ==
[2017-07-30 04:23] VITALS: BMI 21.4
--- NOTE | 2017-07-30 05:18 | ED PDOC ---
HPI: Abdomen Time Seen by Provider: 07/30/17 04:30 Chief Complaint (Nursing): GI Problem History Per: Patient, Family History/Exam Limitations: no limitations Onset/Duration Of Symptoms: Days Outside of [place] travel?: No Additional Complaint(s): Hx of HTN, HLD, CVA, CAD, manic depression presenting with episode of GI bleed, according to , he has been constipated for the past 3 days and was giving miralax, approximately 1 hour prior to arrival, he had one bloody bowel movement and inability to pass urine. Denies nausea, vomiting, or abdominal pain , states he feels pressure in his suprapubic area. Past Medical History Reviewed: Historical Data, Nursing Documentation, Vital Signs Vital Signs: Last Vital Signs Temp 99.0 F 07/30/17 04:30 Pulse 83 07/30/17 04:30 Resp 17 07/30/17 04:30 BP 115/73 07/30/17 04:30 Pulse Ox 98 07/30/17 04:30 - Medical History PMH: Arthritis, Bipolar Disorder, Dementia, Depression, Hypercholesterolemia, Hyperlipidemia, TIA Denies: HIV, Chronic Kidney Disease - Surgical History Surgical History: Hernia Repair - Family History Family History: States: Unknown Family Hx - Home Medications Home Medications: Ambulatory Orders Medication Instructions Recorded Risperidone [Risperdal] 0.25 mg PO TID 09/11/16 [place] Carbonate [[place] 150 mg PO TID 11/20/16 Carbonate 150MG] Multivitamin/Iron/Folic Acid 1 tab PO DAILY 11/20/16 [Centrum Complete Multivit Tab] Menthol/Methyl Salicylate [BenGay] 1 applic TOP QID PRN 11/24/16 Acetaminophen [Tylenol 325mg tab] 650 mg PO Q4 tab 12/09/16 Aluminum Hydroxide/Magnesium 30 ml PO Q6 PRN 12/09/16 [Maalox Plus 30 ml] Glycerin [Glycerin Adult 1 sup MI QOTHERDAY sup 12/09/16 Suppository] Hydrocortisone-Pramoxine 1%-1% 1 applic EXT Q6 PRN aer 12/09/16 [Proctofoam] Lactulose [Enulose] 10 gm PO BID 12/09/16 Lidocaine 5% [Lidoderm] 1 ea TD DAILY patch 12/09/16 Meclizine [Antivert] 12.5 mg PO HS tab 12/09/16 Neomycin/Polymyxin/Dexamethaso 1 applic OU TID 12/09/16 [Maxitrol Opth Oint] Polyethylene Glycol/Polyvinyl 2 drop OU Q4 PRN bottle 12/09/16 [Artificial Tears] Tobramycin 0.3% [Tobrex 0.3% Ophth 1 drop OU QID bottle 12/09/16 Soln] Fluticasone Nasal [Flonase] 1 actuation NS DAILY #1 spr 02/26/17 Naproxen [Naprosyn] 500 mg PO Q12H #20 tab 02/26/17 - Allergies Allergies/Adverse Reactions: Allergies Allergy/AdvReac Type Severity Reaction Status Date / Time meperidine Allergy Mild RASH Verified 11/24/16 16:33 Review of Systems ROS Statement: Except As Marked, All Systems Reviewed And Found Negative Gastrointestinal: Positive for: Constipation Physical Exam - Reviewed Nursing Documentation Reviewed: Yes Vital Signs Reviewed: Yes - Physical Exam Appears: Positive for: Well, Non-toxic, No Acute Distress Head Exam: Positive for: ATRAUMATIC, NORMAL INSPECTION, NORMOCEPHALIC Skin: Positive for: Normal Color, Warm, DRY Eye Exam: Positive for: EOMI, Normal appearance, PERRL ENT: Positive for: Normal ENT Inspection Neck: Positive for: Normal, Painless ROM Cardiovascular/Chest: Positive for: Regular Rate, Rhythm Respiratory: Positive for: CNT, Normal Breath Sounds Gastrointestinal/Abdominal: Positive for: Normal Exam, Soft Back: Positive for: Normal Inspection Extremity: Positive for: Normal ROM Neurologic/Psych: Positive for: Alert, Oriented - ECG O2 Sat by Pulse Oximetry: 98 Disposition - Disposition
[2017-07-30 06:01] LABS: BASO % 0.3 % (0.0-2.0); EOS # 0.1 K/uL (0.0-0.7); HEMOGLOBIN 11.7 g/dL (12.0-18.0); LYMPH % 12.6 % (20.0-40.0); MEAN CORPUSCULAR HEMOGLOBIN 30.8 pg (27.0-31.0); MEAN CORPUSCULAR HGB CONC 33.1 g/dL (33.0-37.0); MEAN PLATELET VOLUME 8.2 fl (7.2-11.7); MONO # 0.4 K/uL (0.0-0.8); MONO % 4.8 % (0.0-10.0); NEUT # 6.5 K/uL (1.8-7.0); NEUT % 81.3 % (50.0-75.0); RBC 3.8 Mil/uL (4.40-5.90); RED CELL DISTRIBUTION WIDTH 13.8 % (11.5-14.5)
[2017-07-30 06:11] LABS: ALB/GLOB RATIO 1.3 (1.0-2.1); ALBUMIN 3.9 g/dL (3.5-5.0); ALT/SGPT 35 U/L (21-72); AST/SGOT 25 U/L (17-59); BLOOD UREA NITROGEN 34 mg/dl (9-20); CALCIUM 11.2 mg/dL (8.4-10.2); GFR AFRICAN-AMERICAN > 60; GFR NON-AFRICAN AMERICAN 53
[2017-07-30 06:15] LABS: SQUAMOUS EPITHIAL < 1 /hpf (0-5); URINE BILIRUBIN NEGATIVE (NEGATIVE); URINE BLOOD NEGATIVE (NEGATIVE); URINE CLARITY SLIGHTY-CLOUDY (Clear); URINE COLOR YELLOW (YELLOW); URINE GLUCOSE (UA) NEG (Normal); URINE LEUKOCYTE ESTERASE NEG Leu/uL (Negative); URINE PROTEIN NEGATIVE (NEGATIVE); URINE UROBILINOGEN 0.2-1.0 mg/dL (0.2-1.0)
--- NOTE | 2017-07-30 07:29 | ED PDOC ---
- Laboratory Results Result Diagrams: 07/30/17 05:55 07/30/17 05:55 - ECG O2 Sat by Pulse Oximetry: 98 (RA) Pulse Ox Interpretation: Normal Medical Decision Making Medical Decision Making: Time: 699 Patient signed out to me by Dr. Wei pending reevaluation and Dr. Pablo. Time: [address] Pablo 2 times. Patient feels weak and had bloody bowel movement earlier. Has mild anemia and repeat hemoglobin. Discussed with family resident. Scribe Attestation: Documented by Kg Roberts, acting as a scribe for Wander Anguiano III, DO. Provider Scribe Attestation: All medical record entries made by the Scribe were at my direction and personally dictated by me. I have reviewed the chart and agree that the record accurately reflects my personal performance of the history, physical exam, medical decision making, and the department course for this patient. I have also personally directed, reviewed, and agree with the discharge instructions and disposition. Disposition - Disposition Referrals: Renaldo Pablo MD [Primary Care Provider] - Forms: Avisena (Ecuadorean)
--- NOTE | 2017-07-30 11:45 | CP.PCM.HP ---
Addendum entered and electronically signed by Sue Whitaker MD 07/30/17 14: 41: PE: ARABELLA no anal fissures or external hemorrhoids noted, adequate sphincter tone no masses palpated nor bleeding noted. Original Note: <Sue Whitaker - Last Filed: 07/30/17 12:40> History of Present Illness - History of Present Illness History of Present Illness: 76 year old male with a past medical history of vasovagal syncope, hernia, spinal stenosis, and arthritis presenting with episode of GI bleed. History taken meanly by , according her, he has been constipated for the past 3 days and has been using miralax, approximately 3 am he had one bloody bowel movement and inability to pass urine. Associated mild abdominal diffuse abdominal pain. Per she notice small amount of bright red blood in the diaper and 2 drops in the toilet. reports that as per home nurse he has one small hemorrhoid coming out but she said never seen it before. Otherwise patient denies nausea, vomiting/hematemesis, no recent fever, diarrhea, dizziness, blurred vision, no recent trauma, did not start any new medications, no dyspnea, chest pain, parasthesias or focal weakness. PCP: Dr. Renaldo Pablo Psych: Dr Campbell PMH: Arthritis, Dementia, HLD, TIA Depression, Schizoaffective dx PSH: hernia repair Meds: risperdal, lithuim Allergies: meperidine. ED Course: -VS: T 99.0, BP 115/73, HR 83, RR 17, sat 98 RA. -EKG - NSR -labs, lithuim level -IVF. Present on Admission - Present on Admission Any Indicators Present on Admission: No Review of Systems - Review of Systems All systems: reviewed and no additional remarkable complaints except (HPI) Past Patient History - Past Medical History & Family History Past Medical History?: Yes - Past Social History Smoking Status: Never Smoked - CARDIAC Hx Hypercholesterolemia: Yes - PULMONARY Hx Respiratory Disorders: Yes - NEUROLOGICAL Hx Dementia: Yes Hx Transient Ischemic Attacks (TIA): Yes - HEENT Hx HEENT Problems: No - RENAL Hx Chronic Kidney Disease: No - ENDOCRINE/METABOLIC Hx Endocrine Disorders: No - HEMATOLOGICAL/ONCOLOGICAL Hx Human Immunodeficiency Virus (HIV): No - INTEGUMENTARY Hx Dermatological Problems: No - MUSCULOSKELETAL/RHEUMATOLOGICAL Hx Arthritis: Yes - GASTROINTESTINAL Hx Gastrointestinal Disorders: No Other/Comment: Spleen aneurysm - GENITOURINARY/GYNECOLOGICAL Hx Genitourinary Disorders: Yes - PSYCHIATRIC Hx Bipolar Disorder: Yes Hx Depression: Yes - SURGICAL HISTORY Hx Surgeries: Yes Hx Herniorrhaphy: Yes Other/Comment: TURP X2, small spleen aneurysm. Feet surgery(Bunnion and hammer toes sx) - ANESTHESIA Hx Anesthesia: Yes Hx Anesthesia Reactions: No Hx Malignant Hyperthermia: No Meds Home Medications: Home Medication List Medication Instructions Recorded Confirmed Type Acetaminophen [Tylenol 325mg tab] 650 mg PO Q4 PRN 30 Days #60 tab 07/31/17 Rx Aluminum Hydroxide/Magnesium 30 ml PO PRN PRN 30 Days #1 udc 07/31/17 Rx [Maalox Plus 30 ml] B-Complex with Vitamin C 1 tab PO DAILY 30 Days #30 tablet 07/31/17 Rx [B-Complex with C] Docusate Sodium [Colace] 100 mg PO BID 30 Days #60 capsule 07/31/17 Rx Fluticasone Nasal [Flonase] 1 actuation NS DAILY #1 spr 07/31/17 Rx Folic Acid 0.4 mg PO DAILY 30 Days #30 tablet 07/31/17 Rx Hydrocortisone-Pramoxine 1%-1% 1 applic EXT Q6 PRN 30 Days #1 aer 07/31/17 Rx [Proctofoam] Lidocaine 5% [Lidoderm] 1 ea TD DAILY 30 Days #30 patch 07/31/17 Rx [employer] [place] Carbonate [[facility] [place] 150 mg PO BID 30 Days #60 cap 07/31/17 Rx Carbonate 150MG] Meclizine [Antivert] 12.5 mg PO PRN PRN 30 Days #30 tab 07/31/17 Rx Polyethylene Glycol 3350 [Miralax] 17 packet PO DAILY 30 Days #30 ml 07/31/17 Rx Allergies/Adverse Reactions: Allergies Allergy/AdvReac Type Severity Reaction Status Date / Time meperidine Allergy Mild RASH Verified 11/24/16 16:33 Physical Exam - Constitutional Appears: No Acute Distress - Head Exam Head Exam: NORMAL INSPECTION - Eye Exam Eye Exam: EOMI, PERRL - Respiratory Exam Respiratory Exam: Clear to Auscultation Bilateral, NORMAL BREATHING PATTERN. absent: Rales, Wheezes - Cardiovascular Exam Cardiovascular Exam: REGULAR RHYTHM, +S1, +S2 - GI/Abdominal Exam GI & Abdominal Exam: Normal Bowel Sounds, Soft. absent: Distended, Tenderness - Extremities Exam Extremities exam: Negative for: calf tenderness - Neurological Exam Neurological exam: Alert, CN II-XII Intact, Oriented x3 - Skin Skin Exam: Dry, Warm Results - Vital Signs Recent Vital Signs: Last Vital Signs Temp 98.4 F 07/30/17 08:34 Pulse 70 07/30/17 11:09 Resp 16 07/30/17 11:09 BP 111/65 07/30/17 11:09 Pulse Ox 100 07/30/17 10:38 - Labs Result Diagrams: 07/30/17 05:55 07/30/17 05:55 Labs: Laboratory Results - last 24 hr 07/30/17 07/30/17 07/30/17 05:55 05:55 05:55 WBC 8.0 RBC 3.80 L Hgb 11.7 L Hct 35.4 MCV 93.0 MCH 30.8 MCHC 33.1 RDW 13.8 Plt Count 201 D MPV 8.2 Neut % (Auto) 81.3 H Lymph % (Auto) 12.6 L [place] % (Auto) 4.8 Eos % (Auto) 1.0 Baso % (Auto) 0.3 Neut # (Auto) 6.5 Lymph # (Auto) 1.0 [place] # (Auto) 0.4 Eos # (Auto) 0.1 Baso # (Auto) 0.0 Sodium 148 Potassium 4.2 Chloride 111 H Carbon Dioxide 24 Anion Gap 17 BUN 34 H Creatinine 1.3 Est GFR ( Amer) > 60 Est GFR (Non-Af Amer) 53 Random Glucose 102 Calcium 11.2 H Total Bilirubin 0.4 AST 25 ALT 35 Alkaline Phosphatase 48 Total Protein 6.8 Albumin 3.9 Globulin 2.9 Albumin/Globulin Ratio 1.3 Urine Color Urine Clarity Urine pH Ur Specific [place] Urine Protein Urine Glucose (UA) Urine Ketones Urine Blood Urine Nitrate Urine Bilirubin Urine Urobilinogen Ur Leukocyte Esterase Urine RBC (Auto) Urine Microscopic WBC Ur Squamous Epith Cells Stool Occult Blood Positive H 07/30/17 06:06 WBC RBC Hgb Hct MCV MCH MCHC RDW Plt Count MPV Neut % (Auto) Lymph % (Auto) [place] % (Auto) Eos % (Auto) Baso % (Auto) Neut # (Auto) Lymph # (Auto) [place] # (Auto) Eos # (Auto) Baso # (Auto) Sodium Potassium Chloride Carbon Dioxide Anion Gap BUN Creatinine Est GFR ( Amer) Est GFR (Non-Af Amer) Random Glucose Calcium Total Bilirubin AST ALT Alkaline Phosphatase Total Protein Albumin Globulin Albumin/Globulin Ratio Urine Color Yellow Urine Clarity Slighty-cloudy Urine pH 6.0 Ur Specific [place] 1.015 Urine Protein Negative Urine Glucose (UA) Neg Urine Ketones Negative Urine Blood Negative Urine Nitrate Negative Urine Bilirubin Negative Urine Urobilinogen 0.2-1.0 Ur Leukocyte Esterase Neg Urine RBC (Auto) 1 Urine Microscopic WBC < 1 Ur Squamous Epith Cells < 1 Stool Occult Blood Assessment & Plan - Assessment and Plan (Free Text) Assessment: 76 yo M patient with PMHx of HLD, TIA and maniac depression admitted due to rectal bleeding. Plan: 1- Lower GI bleeding - likely 2/2 internal hemorrhoids - admit to med/surg - NPO - GI consulted Dr Angeles, recs appreciated - H/H 11.7/37.5 - pos FOBT - c/w Protonix 40mg daily. - f/u cbc, cmp - f/u abd xrays. 2- Hyperlipidemia - no on medications - f/u lipid panel 3- Depression - stable - c/w Risperidone 0.25 mg TID 4- DVT prophylaxis - SCD for now due to bleeding. <Sean Weber - Last Filed: 08/02/17 06:52> Results - Vital Signs Recent Vital Signs: Last Vital Signs Temp 98.3 F 07/31/17 08:40 Pulse 71 07/31/17 09:55 Resp 20 07/31/17 08:40 BP 129/76 07/31/17 08:40 Pulse Ox 99 07/31/17 09:55 - Labs Result Diagrams: 07/31/17 11:00 07/31/17 11:00 Attending/Attestation - Attestation I have personally seen and examined this patient.: Yes I have fully participated in the care of the patient.: Yes I have reviewed all pertinent clinical information: Yes
[2017-07-30] MEDS ORDERED: Alum-Mag Hydrox-Simethicone Susp (30 mL) PO PRN (12:30)
[2017-07-30] MEDS: Sodium Chloride 0.9% 1,000 ML IV SCH ×2 (14:00→22:58)
[2017-07-30] MEDS ORDERED: Chlorhexidine Gluconate 1 APPL/PKT TP ONE (14:19)
--- NOTE | 2017-07-30 14:48 | RAD ---
HISTORY: abdominal discomfort, constipation. COMPARISON: CT scan of the abdomen and pelvis dated 05/01/2013. FINDINGS: BOWEL: Prominent amount of retained colonic stool ball. No obstruction. No free air. BONES: Degenerative changes. OTHER FINDINGS: None. IMPRESSION: Prominent amount of retained colonic stool.
[2017-07-30 15:55] VITALS: RESP 20
[2017-07-30] MEDS: Lithium Carbonate 150 MG CAP PO SCH (16:42)
[2017-07-30] MEDS ORDERED: Patient's Own Med (Lactulose 10 GM) PO SCH (17:00)
--- NOTE | 2017-07-30 17:35 | CP.PCM.CON ---
History of Present Illness - History of Present Illness History of Present Illness: 76 y/o male admitted to hospital for bloody stool seen on floor with daughter at [facility]. Patient presents with painful calluses to the bottom of his feet bilaterally. Patient is admitted for a GI bleed vs. hemmorhoids. Patient states the calluses have been present for many years, and are painful during ambulation. Patient sees a regular configuration analyst, who manages the calluses with debridement and off-loading. Patient states he last saw him several weeks ago, and had an appointment today which he was unable to make. Patient denies N/V/F/C /SOB/CP. Review of Systems - Review of Systems Review of Systems: ROS as per HPI - Constitutional Constitutional: As Per HPI - Neurological Neurological: As Per HPI - Psychiatric Psychiatric: As Per HPI Past Patient History - Past Medical History & Family History Past Medical History?: Yes - Past Social History Smoking Status: Never Smoked - CARDIAC Hx Hypercholesterolemia: Yes - PULMONARY Hx Respiratory Disorders: Yes - NEUROLOGICAL Hx Dementia: Yes Hx Transient Ischemic Attacks (TIA): Yes - HEENT Hx HEENT Problems: No - RENAL Hx Chronic Kidney Disease: No - ENDOCRINE/METABOLIC Hx Endocrine Disorders: No - HEMATOLOGICAL/ONCOLOGICAL Hx Human Immunodeficiency Virus (HIV): No - INTEGUMENTARY Hx Dermatological Problems: No - MUSCULOSKELETAL/RHEUMATOLOGICAL Hx Arthritis: Yes - GASTROINTESTINAL Hx Gastrointestinal Disorders: No Other/Comment: Spleen aneurysm - GENITOURINARY/GYNECOLOGICAL Hx Genitourinary Disorders: Yes - PSYCHIATRIC Hx Bipolar Disorder: Yes Hx Depression: Yes - SURGICAL HISTORY Hx Surgeries: Yes Hx Herniorrhaphy: Yes Other/Comment: TURP X2, small spleen aneurysm. Feet surgery(Bunnion and hammer toes sx) - ANESTHESIA Hx Anesthesia: Yes Hx Anesthesia Reactions: No Hx Malignant Hyperthermia: No Meds Allergies/Adverse Reactions: Allergies Allergy/AdvReac Type Severity Reaction Status Date / Time meperidine Allergy Mild RASH Verified 11/24/16 16:33 - Medications Medications: Current Medications Al Hydrox/Mg Hydrox/Simethicone (Maalox Plus 30 Ml) 30 ml PO PRN PRN PRN Reason: Indigestion / Heartburn Fluticasone Propionate (Flonase) 1 spr [place] DAILY JENNIE Sodium Chloride (Sodium Chloride 0.9%) 1,000 mls @ 100 mls/hr IV .Q10H JENNIE Stop: 07/31/17 12:09 Lactulose (Enulose) 10 gm PO HS [facility] Lidocaine (Lidoderm) 1 ea TD DAILY [facility] [place] Carbonate ([place] Carbonate 150mg) 150 mg PO BID [facility] Last Admin: 07/30/17 16:42 Dose: 150 mg Meclizine HCl (Antivert) 12.5 mg PO PRN PRN PRN Reason: Dizziness Pantoprazole Sodium (Protonix Inj) 40 mg IVP DAILY [facility] Last Admin: 07/30/17 16:49 Dose: 40 mg Risperidone (Risperdal Tab) 0.25 mg PO TID [facility] Last Admin: 07/30/17 16:42 Dose: 0.25 mg Physical Exam - Constitutional Appears: Well, Non-toxic, No Acute Distress - Extremities Exam Additional comments: LE Focused Exam: VASC:DP and PT 2/4 bilaterally; CFT less than 3 seconds X 10; TG warm to cool; no edema NEURO: grossly intact DERM: hyperkeratotic lesions to submetatarsal 2 bilaterally, painful to palpation; hyperkeratotic lesions to the medial aspect of the right navicular, no open lesions, no interdigital maceration, no clinical signs of infection MSK: plantarflexed metatarsals noted bilaterally, no pain with ankle joint, STJ or MTJ ranges of motion, muscle strength 5/5 bilaterally - Neurological Exam Neurological exam: Alert, Oriented x3 - Psychiatric Exam Psychiatric exam: Normal Affect, Normal Mood Results - Vital Signs Recent Vital Signs: Last Vital Signs Temp 97.9 F 07/30/17 15:54 Pulse 72 07/30/17 15:54 Resp 20 07/30/17 15:54 BP 116/69 07/30/17 15:54 Pulse Ox 99 07/30/17 15:54 - Labs Result Diagrams: 07/30/17 05:55 07/30/17 05:55 Labs: Laboratory Results - last 24 hr 07/30/17 07/30/17 07/30/17 05:55 05:55 05:55 WBC 8.0 RBC 3.80 L Hgb 11.7 L Hct 35.4 MCV 93.0 MCH 30.8 MCHC 33.1 RDW 13.8 Plt Count 201 D MPV 8.2 Neut % (Auto) 81.3 H Lymph % (Auto) 12.6 L [place] % (Auto) 4.8 Eos % (Auto) 1.0 Baso % (Auto) 0.3 Neut # (Auto) 6.5 Lymph # (Auto) 1.0 [place] # (Auto) 0.4 Eos # (Auto) 0.1 Baso # (Auto) 0.0 Sodium 148 Potassium 4.2 Chloride 111 H Carbon Dioxide 24 Anion Gap 17 BUN 34 H Creatinine 1.3 Est GFR ( Amer) > 60 Est GFR (Non-Af Amer) 53 Random Glucose 102 Calcium 11.2 H Total Bilirubin 0.4 AST 25 ALT 35 Alkaline Phosphatase 48 Total Protein 6.8 Albumin 3.9 Globulin 2.9 Albumin/Globulin Ratio 1.3 Urine Color Urine Clarity Urine pH Ur Specific [place] Urine Protein Urine Glucose (UA) Urine Ketones Urine Blood Urine Nitrate Urine Bilirubin Urine Urobilinogen Ur Leukocyte Esterase Urine RBC (Auto) Urine Microscopic WBC Ur Squamous Epith Cells Stool Occult Blood Positive H 07/30/17 06:06 WBC RBC Hgb Hct MCV MCH MCHC RDW Plt Count MPV Neut % (Auto) Lymph % (Auto) [place] % (Auto) Eos % (Auto) Baso % (Auto) Neut # (Auto) Lymph # (Auto) [place] # (Auto) Eos # (Auto) Baso # (Auto) Sodium Potassium Chloride Carbon Dioxide Anion Gap BUN Creatinine Est GFR ( Amer) Est GFR (Non-Af Amer) Random Glucose Calcium Total Bilirubin AST ALT Alkaline Phosphatase Total Protein Albumin Globulin Albumin/Globulin Ratio Urine Color Yellow Urine Clarity Slighty-cloudy Urine pH 6.0 Ur Specific [place] 1.015 Urine Protein Negative Urine Glucose (UA) Neg Urine Ketones Negative Urine Blood Negative Urine Nitrate Negative Urine Bilirubin Negative Urine Urobilinogen 0.2-1.0 Ur Leukocyte Esterase Neg Urine RBC (Auto) 1 Urine Microscopic WBC < 1 Ur Squamous Epith Cells < 1 Stool Occult Blood Assessment & Plan - Assessment and Plan (Free Text) Assessment: 76 male consulted upon due to painful submetatarsal calluses bilaterally Plan: Pt seen and evaluated at bedside Charts, Vitals, Labs reviewed Plan discussed with attending Dr. Odonnell Aseptic debridement of calluses with #15 blade to appropriate epidermal level without incident Patient tolerated the procedure well Off-loading pads applied bilaterally Patient educated on conservative vs. surgical treatment All patient questions answered to satisfaction No plan for surgical intervention at this time PT orders placed for weight bearing as tolerated b/l Podiatry will sign off at this time, please reconsult in future as needed - Date & Time Date: 07/30/17 Time: 17:45
[2017-07-30] MEDS ORDERED: Lactulose 10 gm/15 ml Syrup PO SCH (22:00)
--- NOTE | 2017-07-31 07:56 | CON ---
DATE: 07/30/2017 REFERRING PHYSICIAN: Renaldo Pablo MD. REASON FOR CONSULTATION: Rectal bleeding. HISTORY OF PRESENT ILLNESS: This is a pleasant 76-year-old man initially had some blood in bowel movement, had a bowel movement yesterday after straining. The patient has been constipated currently and has no complaints. He is lying in bed comfortable and in no apparent distress. PAST MEDICAL HISTORY: As above. PAST SURGICAL HISTORY: As above. MEDICATIONS: Reviewed. REVIEW OF SYSTEMS: All other systems have been reviewed and negative apart from the HPI. PHYSICAL EXAMINATION: VITAL SIGNS: Here in the hospital are grossly unremarkable. GENERAL: This is a pleasant elderly-appearing male, lying in bed comfortable, in no apparent distress. HEENT: Head is normocephalic and atraumatic. Eyes; pupils are equally and reactive to light bilaterally. No conjunctival pallor or icterus. NECK: Supple. Normal range of motion. No lymphadenopathy appreciated. LUNGS: Coarse breath sounds bilaterally. HEART: S1 and S2, regular rate and rhythm. No murmurs appreciated. ABDOMEN: Soft and some discomfort. Bowel sounds are present. No rebound. No guarding. RECTAL: Deferred. EXTREMITIES: Pulses present bilaterally. SKIN: Warm, dry and intact. NEUROLOGIC: A and O x2. LABORATORY DATA: Include WBC of 8.9, hemoglobin of 9.7, and hematocrit 35.4. LFTs are essentially unremarkable. KUB is pending. ASSESSMENT AND PLAN: This is a 76-year-old male with constipation. KUB followup. Laxatives as needed. We will follow up and we will discuss with family and possible discharge and outpatient . Thank you for the consultation. Wander Angeles MD/ PhD cc: Renaldo Pablo MD
[2017-07-31 08:41] VITALS: BP 129/76; TEMP 98.3
[2017-07-31] MEDS ORDERED: Lidocaine 5% Patch TD SCH (09:00)
[2017-07-31] MEDS: Lithium Carbonate 150 MG CAP PO SCH (09:44)
[2017-07-31] MEDS: Sodium Chloride 0.9% 1,000 ML IV SCH (09:45)
--- NOTE | 2017-07-31 10:54 | CP.PCM.DIS ---
Provider - Provider Date of Admission: 07/30/17 09:27 Attending physician: Renaldo Ojeda MD Primary care physician: Renaldo Ojeda MD Consults: GI: Dr Angeles Podiatry: Dr Rabago Time Spent in preparation of Discharge (in minutes): 30 Diagnosis - Discharge Diagnosis (1) Lower gastrointestinal bleed Status: Resolved (2) Callus of foot Status: Chronic Priority: Low Onset Date: Unknown (3) Hyperlipemia Status: Chronic Hospital Course - Lab Results Lab Results: Most Recent Lab Values WBC 8.0 K/uL (4.8-10.8) 07/30/17 05:55 RBC 3.80 Mil/uL (4.40-5.90) L 07/30/17 05:55 Hgb 11.7 g/dL (12.0-18.0) L 07/30/17 05:55 Hct 35.4 % (35.0-51.0) 07/30/17 05:55 MCV 93.0 fl (80.0-94.0) 07/30/17 05:55 MCH 30.8 pg (27.0-31.0) 07/30/17 05:55 MCHC 33.1 g/dL (33.0-37.0) 07/30/17 05:55 RDW 13.8 % (11.5-14.5) 07/30/17 05:55 Plt Count 201 K/uL (130-400) D 07/30/17 05:55 MPV 8.2 fl (7.2-11.7) 07/30/17 05:55 Neut % (Auto) 81.3 % (50.0-75.0) H 07/30/17 05:55 Lymph % (Auto) 12.6 % (20.0-40.0) L 07/30/17 05:55 Bartholomew % (Auto) 4.8 % (0.0-10.0) 07/30/17 05:55 Eos % (Auto) 1.0 % (0.0-4.0) 07/30/17 05:55 Baso % (Auto) 0.3 % (0.0-2.0) 07/30/17 05:55 Neut # (Auto) 6.5 K/uL (1.8-7.0) 07/30/17 05:55 Lymph # (Auto) 1.0 K/uL (1.0-4.3) 07/30/17 05:55 Bartholomew # (Auto) 0.4 K/uL (0.0-0.8) 07/30/17 05:55 Eos # (Auto) 0.1 K/uL (0.0-0.7) 07/30/17 05:55 Baso # (Auto) 0.0 K/uL (0.0-0.2) 07/30/17 05:55 Sodium 148 mmol/l (132-148) 07/30/17 05:55 Potassium 4.2 MMOL/L (3.6-5.0) 07/30/17 05:55 Chloride 111 mmol/L (98-107) H 07/30/17 05:55 Carbon Dioxide 24 mmol/L (22-30) 07/30/17 05:55 Anion Gap 17 (10-20) 07/30/17 05:55 BUN 34 mg/dl (9-20) H 07/30/17 05:55 Creatinine 1.3 mg/dl (0.8-1.5) 07/30/17 05:55 Est GFR ( Amer) > 60 07/30/17 05:55 Est GFR (Non-Af Amer) 53 07/30/17 05:55 Random Glucose 102 mg/dL (75-110) 07/30/17 05:55 Calcium 11.2 mg/dL (8.4-10.2) H 07/30/17 05:55 Total Bilirubin 0.4 mg/dl (0.2-1.3) 07/30/17 05:55 AST 25 U/L (17-59) 07/30/17 05:55 ALT 35 U/L (21-72) 07/30/17 05:55 Alkaline Phosphatase 48 U/L (38-126) 07/30/17 05:55 Total Protein 6.8 G/DL (6.3-8.2) 07/30/17 05:55 Albumin 3.9 g/dL (3.5-5.0) 07/30/17 05:55 Globulin 2.9 gm/dL (2.2-3.9) 07/30/17 05:55 Albumin/Globulin Ratio 1.3 (1.0-2.1) 07/30/17 05:55 Urine Color Yellow (YELLOW) 07/30/17 06:06 Urine Clarity Slighty-cloudy (Clear) 07/30/17 06:06 Urine pH 6.0 (5.0-8.0) 07/30/17 06:06 Ur Specific [place] 1.015 (1.003-1.030) 07/30/17 06:06 Urine Protein Negative mg/dL (NEGATIVE) 07/30/17 06:06 Urine Glucose (UA) Neg mg/dL (Normal) 07/30/17 06:06 Urine Ketones Negative mg/dL (NEGATIVE) 07/30/17 06:06 Urine Blood Negative (NEGATIVE) 07/30/17 06:06 Urine Nitrate Negative (NEGATIVE) 07/30/17 06:06 Urine Bilirubin Negative (NEGATIVE) 07/30/17 06:06 Urine Urobilinogen 0.2-1.0 mg/dL (0.2-1.0) 07/30/17 06:06 Ur Leukocyte Esterase Neg Shameka/uL (Negative) 07/30/17 06:06 Urine RBC (Auto) 1 /hpf (0-3) 07/30/17 06:06 Urine Microscopic WBC < 1 /hpf (0-5) 07/30/17 06:06 Ur Squamous Epith Cells < 1 /hpf (0-5) 07/30/17 06:06 Stool Occult Blood Positive (NEGATIVE) H 07/30/17 05:55 Blood Type A POSITIVE 07/30/17 18:01 Blood Type Confirm A POSITIVE 07/30/17 19:32 Antibody Screen Negative 07/30/17 18:01 BBK History Checked No verified bt 07/30/17 18:01 - Hospital Course Hospital Course: 76 year old male with a past medical history of vasovagal syncope, inguinal hernia, spinal stenosis, arthritis and chronic cosntipation was admitted due to one episode of lower GI bleeding. During stay GI evaluated the patient no planned interventions and recommeds f/u as outpatient. Vitals and labs stable and wnl. ABD x ray showed retained stools on colon. No more episodes of hematochozia or melena. Patient stable at discharge time, patient with instructions to f/u with PCP Dr Ojeda in next week. Patient provide with home medications, diet modifications, ER precautions. Discharge Exam - Head Exam Head Exam: NORMAL INSPECTION - Eye Exam Eye Exam: EOMI, PERRL - ENT Exam ENT Exam: Mucous Membranes Moist - Respiratory Exam Respiratory Exam: Clear to PA & Lateral, NORMAL BREATHING PATTERN - Cardiovascular Exam Cardiovascular Exam: REGULAR RHYTHM, +S1, +S2 - GI/Abdominal Exam GI & Abdominal Exam: Normal Bowel Sounds, Soft. absent: Distended, Tenderness - Neurological Exam Neurological exam: Alert, Oriented x3 - Psychiatric Exam Psychiatric exam: Normal Mood - Skin Skin Exam: Dry, Warm Discharge Plan - Discharge Medications Prescriptions: Acetaminophen [Tylenol 325mg tab] 650 mg PO Q4 PRN 30 Days #60 tab PRN Reason: Pain, Moderate (4-7) Aluminum Hydroxide/Magnesium [Maalox Plus 30 ml] 30 ml PO PRN PRN 30 Days #1 udc PRN Reason: Indigestion / Heartburn B-Complex with Vitamin C [B-Complex with C] 1 tab PO DAILY 30 Days #30 tablet Docusate Sodium [Colace] 100 mg PO BID 30 Days #60 capsule Fluticasone Nasal [Flonase] 1 actuation NS DAILY #1 spr Folic Acid 0.4 mg PO DAILY 30 Days #30 tablet Hydrocortisone-Pramoxine 1%-1% [Proctofoam] 1 applic EXT Q6 PRN 30 Days #1 aer PRN Reason: Inflammation Lidocaine 5% [Lidoderm] 1 ea TD DAILY 30 Days #30 patch [place] Carbonate [[place] Carbonate 150MG] 150 mg PO BID 30 Days #60 cap Meclizine [Antivert] 12.5 mg PO PRN PRN 30 Days #30 tab PRN Reason: Dizziness Polyethylene Glycol 3350 [Miralax] 17 packet PO DAILY 30 Days #30 ml - Follow Up Plan Condition: GOOD Disposition: HOME/ ROUTINE Instructions: Normocytic Normochromic Anemia (DC) Additional Instructions: f/u with Dr Ojeda in 1 week Use miralax BID in case of 3 or more days w/o BM ER precautions given Referrals: Renaldo Ojeda MD [Primary Care Provider] -
[2017-07-31 11:32] LABS: BASO % 0.8 % (0.0-2.0); EOS # 0.2 K/uL (0.0-0.7); EOS % 4.3 % (0.0-4.0); LYMPH # 1.2 K/uL (1.0-4.3); LYMPH % 26.4 % (20.0-40.0); MEAN CELL VOLUME 93.2 fl (80.0-94.0); MEAN CORPUSCULAR HEMOGLOBIN 30.6 pg (27.0-31.0); MEAN CORPUSCULAR HGB CONC 32.9 g/dL (33.0-37.0); MEAN PLATELET VOLUME 8.2 fl (7.2-11.7); MONO # 0.3 K/uL (0.0-0.8); MONO % 6.2 % (0.0-10.0); NEUT # 2.9 K/uL (1.8-7.0); NEUT % 62.3 % (50.0-75.0); NRBC % 0.1 % (0.0-0.0); RBC 3.59 Mil/uL (4.40-5.90); RED CELL DISTRIBUTION WIDTH 13.8 % (11.5-14.5); WHITE BLOOD COUNT 4.6 K/uL (4.8-10.8)
[2017-07-31 11:48] LABS: ALB/GLOB RATIO 1.2 (1.0-2.1); ALBUMIN 3.1 g/dL (3.5-5.0); ALT/SGPT 31 U/L (21-72); AST/SGOT 24 U/L (17-59); BLOOD UREA NITROGEN 20 mg/dl (9-20); CALCIUM 10.2 mg/dL (8.4-10.2); GFR AFRICAN-AMERICAN > 60; GFR NON-AFRICAN AMERICAN > 60; HDL CHOLESTEROL 48 MG/DL (30-70)
[2017-07-31 11:53] LABS: LDL CHOLESTEROL 115 mg/dL (0-129)
[2017-07-31 13:58] VITALS: PULSE 71; O2SAT 99
--- NOTE | 2017-08-02 12:11 | PQF DEBRID ---
Dr. Miller consult dated 07/30 documented " aseptic debridement of calluses with #15 blade." Was debridement excisional or nonexcisional? This form is a permanent part of the medical record Clarification of your documentation is requested to better reflect the severity of illness and intensity of treatment of your patient. Indicators present [x] Documentation of wound care / debridement [] Technique: [] [] Instrument used:[] [] Nature of Tissue Removed:[] [] Appearance of Wound:[] [] Size of Wound: [] [] Depth of Debridement: [] [] Other: [] Location in the medical record that reflects the above clinical findings: [] Other Treatment Provided: [] PHYSICIAN'S RESPONSE Based on your medical judgment, can you further clarify the precise NATURE, DEPTH, EXTENT and / or METHODS of wound debridement utilized in this case: [] EXCISIONAL debridement use of a scalpel / blade to cut away tissue Depth (subcutaneous, fascia, muscle, soft tissue and bone) [] Size of Wound [] NON-EXCISIONAL debridement chemical, scrubbing, trimming with a scissor/ versajet [] Other, please indicate: [] [] If unable to determine, please check the box, sign and date. In responding to this query, please exercise your independent professional judgment. The fact that a question is asked does not imply that any particular answer is desired or expected. Thank you for your clarification on this documentation. If you have any questions please call:[ ] * Thank you, [ ]Kat GAN Coder KATHERIN
== END 2017-07-31 13:18 | disposition home or self-care (01) ==
LOC: H.ER 04:22 → H.ERHOLD 09:27 → H.MEDSURG1 11:24
PROVIDERS: ADMIT Family Medicine; ATTEND Family Medicine
DX: K92.2 Gastrointestinal hemorrhage, unspecified (principal); L84 Corns and callosities; E78.5 Hyperlipidemia, unspecified; I10 Essential (primary) hypertension; Z86.73 Personal history of transient ischemic attack (TIA), and cerebral infarction without residual deficits; I25.10 Atherosclerotic heart disease of native coronary artery without angina pectoris; M19.90 Unspecified osteoarthritis, unspecified site; F31.9 Bipolar disorder, unspecified; F03.90 Unspecified dementia, unspecified severity, without behavioral disturbance, psychotic disturbance, mood disturbance, and anxiety; E78.00 Pure hypercholesterolemia, unspecified; D64.9 Anemia, unspecified; K59.00 Constipation, unspecified
CPT/HCPCS: 36415; 74018; 80053; 80061; 81003; 85025; 86850; 86900; 96361; 96374; 97162; 99285; C9113; G0328; G0378; G8978; G8979; J7040

== ENCOUNTER 2018-05-06 10:59 | Inpatient (IN) | payer MEDICARE, BC ==
[2018-05-06 10:59] VITALS: BMI 21.4
--- NOTE | 2018-05-06 11:47 | ED PDOC ---
Syncope/Near Syncope/Dizziness Time Seen by Provider: 05/06/18 11:04 Chief Complaint (Nursing): Dizziness/Lightheaded Chief Complaint (Provider): Dizziness/Lightheaded History Per: Patient, Family () History/Exam Limitations: no limitations Onset/Duration Of Symptoms: Days (x1) Associated Symptoms Preceding Syncopal Episode: Lightheadedness Seizure Or Post-ictal Symptoms: None Additional Complaint(s): 77 years old male with a history of vasovagal syncope presents to ER with for evaluation of dizziness and lightheadedness since yesterday. states patient was constipated, took Miralax, had bowel movement and put him back to be d. She reports patient had questionable slurred speech for less than a minute and lean to one side. Patient is back to baseline mental status. He denies chest pain, shortness of breath, incontinents or seizure-like activity. PMD: Renaldo Pablo NIHSS Stroke Scale - Date/Time Evaluation Performed Date Performed: 05/06/18 - How Severe is the Stroke Level of Consciousness: 0=Alert LOC to Questions: 0=Both comments correct LOC to commands: 0=Obeys both correctly Best Gaze: 0=Normal Visual: 0=No visual loss Facial: 0=Normal Motor Arm - Left: 0=No drift Motor Arm - Right: 0=No drift Motor Leg - Left: 0=No drift Motor Leg - Right: 0=No drift Limb Ataxia: 0=Absent Sensory: 0=Normal Best Language: 0=No aphasia Dysarthia: 0=Normal articulation Extinction & Inattention (Neglect): 0=Normal, no object Score: 0 Past Medical History Reviewed: Historical Data, Nursing Documentation, Vital Signs Vital Signs: Last Vital Signs Temp 97.5 F L 05/06/18 11:03 Pulse 65 05/06/18 11:16 Resp 20 05/06/18 11:16 BP 117/65 05/06/18 11:16 Pulse Ox 99 05/06/18 11:16 - Medical History PMH: Arthritis, Bipolar Disorder, Dementia, Depression, Hypercholesterolemia, Hyperlipidemia, TIA (2018) Denies: HIV, Chronic Kidney Disease Other PMH: vasovagal syncope - Surgical History Surgical History: Hernia Repair - Family History Family History: States: Unknown Family Hx - Social History Current smoker - smoking cessation education provided: No Alcohol: None Drugs: Denies - Home Medications Home Medications: Ambulatory Orders Medication Instructions Recorded Risperidone [Risperdal] 0.25 mg PO Q12 09/11/16 Cholecalciferol (Vitamin D3) 2,000 unit PO DAILY 05/06/18 [Vitamin D3] Cyanocobalamin [Vitamin B12] 500 mcg PO DAILY 05/06/18 Docusate Sodium [Dulcolax Stool 100 mg PO DAILY PRN 05/06/18 Softener] Fluticasone Nasal [Flonase] 2 spray GRAHAM DAILY PRN 05/06/18 [place] Carbonate [[place] 150 mg PO Q12 05/06/18 Carbonate 150MG] Meclizine [Meclizine*] 25 mg PO Q8 05/06/18 Polyethylene Glycol 3350 [Miralax] 17 gm PO DAILY PRN 05/06/18 - Allergies Allergies/Adverse Reactions: Allergies Allergy/AdvReac Type Severity Reaction Status Date / Time meperidine Allergy Mild RASH Verified 11/24/16 16:33 Review of Systems ROS Statement: Except As Marked, All Systems Reviewed And Found Negative Cardiovascular: Positive for: Light Headedness. Negative for: Chest Pain Respiratory: Negative for: Shortness of Breath Neurological: Positive for: Dizziness, Other (Slurred speech-resolved). Negative for: Seizures Physical Exam - Reviewed Nursing Documentation Reviewed: Yes Vital Signs Reviewed: Yes - Physical Exam Appears: Positive for: Well, No Acute Distress Head Exam: Positive for: ATRAUMATIC, NORMOCEPHALIC Skin: Positive for: Normal Color, Warm, Dry Eye Exam: Positive for: Normal appearance, EOMI, PERRL Neck: Positive for: Normal, Painless ROM, Supple Cardiovascular/Chest: Positive for: Bradycardia. Negative for: Murmur Respiratory: Positive for: Normal Breath Sounds. Negative for: Wheezing Gastrointestinal/Abdominal: Positive for: Normal Exam, Soft. Negative for: Tenderness Back: Positive for: Normal Inspection. Negative for: L CVA Tenderness, R CVA Tenderness Extremity: Positive for: Normal ROM. Negative for: Pedal Edema, Swelling Neurologic/Psych: Positive for: Alert, Oriented (x3) - Laboratory Results Result Diagrams: 05/08/18 05:25 05/08/18 05:25 - ECG O2 Sat by Pulse Oximetry: 99 (RA) Pulse Ox Interpretation: Normal Medical Decision Making Medical Decision Making: Time: 1118 Initial Impression: Differential includes but not limited to TIA and chronic dizziness. Initial Plan: --Type and screen --CT head w/o contrast --EKG --CMP --Hemoglobin --Lipid panel --[place] --Troponin --CBC --PTT --PT --Chest x-ray --Urinalysis 1155 CXR FINDINGS: LUNGS: No active pulmonary disease. Calcified granuloma again seen the left apex laterally. PLEURA: No significant pleural effusion identified, no pneumothorax apparent. CARDIOVASCULAR: Calcific atherosclerotic changes are seen related to the thoracic aorta. Normal cardiac size. No pulmonary vascular congestion. OSSEOUS STRUCTURES: No significant abnormalities. VISUALIZED UPPER ABDOMEN: Normal. OTHER FINDINGS: None. IMPRESSION: No interval acute cardiopulmonary disease appreciated. [address] FINDINGS: HEMORRHAGE: No intracranial hemorrhage. BRAIN: Good corticomedullary differentiation is seen. Reiterated diffuse cerebral atrophy and chronic microangiopathy. No suspicious extra-axial fluid collection is identified and the midline brain anatomy appears grossly nonfocal as imaged. No mass effect identified. VENTRICLES: Unremarkable. No hydrocephalus. CALVARIUM: Unremarkable. PARANASAL SINUSES: Unremarkable as visualized. No significant inflammatory changes. MASTOID AIR CELLS: Unremarkable as visualized. No inflammatory changes. OTHER FINDINGS: None. IMPRESSION: Stable, age-appropriate age related neuro degenerative changes compared to 02/26/2017 CT. Follow-up CT or MRI are available if clinically warranted. Scribe Attestation: Documented by Rozina Rodriguez, acting as a scribe for Alisia Griggs MD. Provider Scribe Attestation: All medical record entries made by the Scribe were at my direction and personally dictated by me. I have reviewed the chart and agree that the record accurately reflects my personal performance of the history, physical exam, medical decision making, and the department course for this patient. I have also personally directed, reviewed, and agree with the discharge instructions and disposition. Disposition - Clinical Impression Clinical Impression: TIA (transient ischemic attack) - Patient ED Disposition Is Patient to be Admitted: Yes - Disposition Disposition Time: 14:21 Condition: STABLE - Pt Status Changed To: Hospital Disposition Of: Inpatient - Admit Certification Admit to Inpatient:: After my assessment, the patient will require hospitalization for at least two midnights. This is because of the severity of symptoms shown, intensity of services needed, and/or the medical risk in this patient being treated as an outpatient. - POA Present On Arrival: None
[2018-05-06 11:54] LABS: BASO % 0.6 % (0.0-2.0); EOS # 0.2 K/uL (0.0-0.7); LYMPH # 0.8 K/uL (1.0-4.3); LYMPH % 12.8 % (20.0-40.0); MEAN CELL VOLUME 92.4 fl (80.0-94.0); MEAN CORPUSCULAR HEMOGLOBIN 30.8 pg (27.0-31.0); MEAN CORPUSCULAR HGB CONC 33.4 g/dL (33.0-37.0); MEAN PLATELET VOLUME 7.7 fl (7.2-11.7); MONO # 0.2 K/uL (0.0-0.8); MONO % 3.3 % (0.0-10.0); NEUT # 5.3 K/uL (1.8-7.0); NEUT % 80.3 % (50.0-75.0); RBC 3.88 Mil/uL (4.40-5.90); RED CELL DISTRIBUTION WIDTH 14.4 % (11.5-14.5); WHITE BLOOD COUNT 6.6 K/uL (4.8-10.8)
--- NOTE | 2018-05-06 11:59 | RAD ---
Date of service: 05/06/2018 HISTORY: Code Stroke COMPARISON: Chest radiographs 12/09/2016. FINDINGS: LUNGS: No active pulmonary disease. Calcified granuloma again seen the left apex laterally. PLEURA: No significant pleural effusion identified, no pneumothorax apparent. CARDIOVASCULAR: Calcific atherosclerotic changes are seen related to the thoracic aorta. Normal cardiac size. No pulmonary vascular congestion. OSSEOUS STRUCTURES: No significant abnormalities. VISUALIZED UPPER ABDOMEN: Normal. OTHER FINDINGS: None. IMPRESSION: No interval acute cardiopulmonary disease appreciated.
[2018-05-06 12:04] LABS: ALB/GLOB RATIO 1.3 (1.0-2.1); ALT/SGPT 31 U/L (21-72); AST/SGOT 29 U/L (17-59); BLOOD UREA NITROGEN 45 mg/dl (9-20); CALCIUM 11.2 mg/dL (8.4-10.2); GFR NON-AFRICAN AMERICAN 39; HDL CHOLESTEROL 65 MG/DL (30-70)
[2018-05-06 12:07] LABS: PROTHROMBIN TIME 10.8 Seconds (9.8-13.1)
[2018-05-06 12:09] LABS: PARTIAL THROMBOPLASTIN TIME 29.2 Seconds (25.6-37.1)
[2018-05-06 12:15] LABS: LDL CHOLESTEROL 166 mg/dL (0-129)
--- NOTE | 2018-05-06 12:38 | CT ---
Date of service: 05/06/2018 PROCEDURE: CT HEAD WITHOUT CONTRAST. HISTORY: Dizziness, slurred speech, <1 min COMPARISON: Unenhanced head CT 02/26/2017. TECHNIQUE: Axial computed tomography images were obtained through the head/brain without intravenous contrast. Radiation dose: Total exam DLP = 1191.55 mGy-cm. This CT exam was performed using one or more of the following dose reduction techniques: Automated exposure control, adjustment of the mA and/or kV according to patient size, and/or use of iterative reconstruction technique. FINDINGS: HEMORRHAGE: No intracranial hemorrhage. BRAIN: Good corticomedullary differentiation is seen. Reiterated diffuse cerebral atrophy and chronic microangiopathy. No suspicious extra-axial fluid collection is identified and the midline brain anatomy appears grossly nonfocal as imaged. No mass effect identified. VENTRICLES: Unremarkable. No hydrocephalus. CALVARIUM: Unremarkable. PARANASAL SINUSES: Unremarkable as visualized. No significant inflammatory changes. MASTOID AIR CELLS: Unremarkable as visualized. No inflammatory changes. OTHER FINDINGS: None. IMPRESSION: Stable, age-appropriate age related neuro degenerative changes compared to 02/26/2017 CT. Follow-up CT or MRI are available if clinically warranted.
[2018-05-06] MEDS ORDERED: Sodium Chloride 0.9% 1,000 ML IV SCH (15:00)
[2018-05-06] MEDS ORDERED: Sodium Chloride 0.9% 1,000 ML IV ONE (15:01)
--- NOTE | 2018-05-06 15:50 | CP.PCM.HP ---
<Sultan Jules - Last Filed: 05/06/18 17:42> History of Present Illness - History of Present Illness History of Present Illness: History taken from patient and patient's at bedside in ER Patient is a 77 year old male with PMHx of vasovagal syncope, bipolar disorder, spinal stenosis, and arthritis presented to ER for evaluation of a near syncopal episode and brief slurred speech this morning. Patient's report patient was straining in the bathroom due to constipation, felt lightheadedness and dizziness, and put him to bed. states immediately patient had slurred speech and swayed to left side lasting for a minute. States symptoms resolved spontaneously. Has hx vasovagal syncope with defecation in the past. Denies any current chest pain, nausea, vomiting,dyspnea, abdominal pain, paresthesia or focal weakness. Of note, patient followed up with neurologist Dr. Swift for his tremor in past, was given gabapentin but stopped taking it due to worsening tremor. In addition,Patient has hx BPH and TURP twice in the past (last one many years ago) and has not been on flomax. No hx prostate CA. Patient is admitted for evaluation for TIA and found to have acute urinary retention. ROS: All 12 systems reviewed and negative except as mentioned in HPI PCP: Dr. Renaldo Pablo Psych: Dr Campbell PMH: vasovagal syncope, Arthritis, Dementia, HLD, TIA and bipolar disorder PSH: hernia repair, foot surgery Family hx: no signicant family hx Meds: risperdal, lithuim, meclizine, multivitamin, colace Allergies: meperidine ED Course: -VS: T 97.5, BP 117/65, HR 65, RR 20, sat 99 RA. -NIHSS score 0 -Head CT: No acute changes. -EKG -sinus jose @53 bpm with 1st degree AV block -CXR: no acute cardiopulmonary disease -Neuro consult: -Aspirin 325 mg po once. Present on Admission - Present on Admission Any Indicators Present on Admission: No Review of Systems - Review of Systems Review of Systems: All 12 systems reviewed and negative except as mentioned in HPI Past Patient History - Infectious Disease Hx of Infectious Diseases: None - Past Medical History & Family History Past Medical History?: Yes - Past Social History Alcohol: None Drugs: Denies - CARDIAC Hx Hypercholesterolemia: Yes - PULMONARY Hx Respiratory Disorders: Yes - NEUROLOGICAL Hx Dementia: Yes Hx Transient Ischemic Attacks (TIA): Yes (2018) - HEENT Hx HEENT Problems: No - RENAL Hx Chronic Kidney Disease: No - ENDOCRINE/METABOLIC Hx Endocrine Disorders: No - HEMATOLOGICAL/ONCOLOGICAL Hx Human Immunodeficiency Virus (HIV): No - INTEGUMENTARY Hx Dermatological Problems: No - MUSCULOSKELETAL/RHEUMATOLOGICAL Hx Arthritis: Yes - GASTROINTESTINAL Hx Gastrointestinal Disorders: No Other/Comment: Spleen aneurysm - GENITOURINARY/GYNECOLOGICAL Hx Genitourinary Disorders: Yes - PSYCHIATRIC Hx Bipolar Disorder: Yes Hx Depression: Yes - SURGICAL HISTORY Hx Surgeries: Yes Hx Herniorrhaphy: Yes Other/Comment: TURP X2, small spleen aneurysm. Feet surgery(Bunnion and hammer toes sx) - ANESTHESIA Hx Anesthesia: Yes Hx Anesthesia Reactions: No Hx Malignant Hyperthermia: No Meds Allergies/Adverse Reactions: Allergies Allergy/AdvReac Type Severity Reaction Status Date / Time meperidine Allergy Mild RASH Verified 11/24/16 16:33 Physical Exam - Constitutional Appears: No Acute Distress, Older Than Stated Age, Chronically Ill - Head Exam Head Exam: NORMAL INSPECTION - Eye Exam Eye Exam: Normal appearance - ENT Exam ENT Exam: Mucous Membranes Moist - Neck Exam Neck exam: Positive for: Normal Inspection - Respiratory Exam Respiratory Exam: Clear to Auscultation Bilateral, NORMAL BREATHING PATTERN. absent: Rhonchi, Wheezes - Cardiovascular Exam Cardiovascular Exam: REGULAR RHYTHM, RRR, +S1, +S2 - GI/Abdominal Exam GI & Abdominal Exam: Normal Bowel Sounds, Soft. absent: Guarding, Rebound, Tenderness - Extremities Exam Extremities exam: Positive for: normal inspection. Negative for: calf tenderness - Back Exam Back exam: NORMAL INSPECTION. absent: CVA tenderness (L), CVA tenderness (R) - Neurological Exam Neurological exam: Alert, Oriented x3 Additional comments: Moderate B/L hand tremor finger to nose test normal [employer] strength 5/5 intact sensation - Psychiatric Exam Psychiatric exam: Normal Affect - Skin Skin Exam: Normal Color, Warm Results - Vital Signs Recent Vital Signs: Last Vital Signs Temp 98.1 F 05/06/18 15:42 Pulse 65 05/06/18 15:42 Resp 18 05/06/18 15:42 BP 144/80 05/06/18 15:42 Pulse Ox 99 05/06/18 15:42 - Labs Result Diagrams: 05/06/18 11:45 05/06/18 11:45 Labs: Laboratory Results - last 24 hr 05/06/18 05/06/18 05/06/18 11:40 11:45 11:45 WBC 6.6 RBC 3.88 L Hgb 12.0 Hct 35.9 MCV 92.4 MCH 30.8 MCHC 33.4 RDW 14.4 Plt Count 230 MPV 7.7 Neut % (Auto) 80.3 H Lymph % (Auto) 12.8 L Jay % (Auto) 3.3 Eos % (Auto) 3.0 Baso % (Auto) 0.6 Neut # (Auto) 5.3 Lymph # (Auto) 0.8 L Jay # (Auto) 0.2 Eos # (Auto) 0.2 Baso # (Auto) 0.0 PT INR APTT Sodium 142 Potassium 5.0 Chloride 103 Carbon Dioxide 28 Anion Gap 16 BUN 45 H Creatinine 1.7 H Est GFR ( Amer) 47 Est GFR (Non-Af Amer) 39 POC Glucose (mg/dL) Random Glucose 174 H Calcium 11.2 H Total Bilirubin 0.3 AST 29 ALT 31 Alkaline Phosphatase 52 Troponin I < 0.0120 Total Protein 7.1 Albumin 4.0 Globulin 3.1 Albumin/Globulin Ratio 1.3 Triglycerides 124 D Cholesterol 276 H LDL Cholesterol Direct 166 H HDL Cholesterol 65 [place] Blood Type A POSITIVE Antibody Screen Negative BBK History Checked Patient has bt 05/06/18 05/06/18 05/06/18 11:45 11:45 11:49 WBC RBC Hgb Hct MCV MCH MCHC RDW Plt Count MPV Neut % (Auto) Lymph % (Auto) Jay % (Auto) Eos % (Auto) Baso % (Auto) Neut # (Auto) Lymph # (Auto) Jay # (Auto) Eos # (Auto) Baso # (Auto) PT 10.8 INR 1.0 APTT 29.2 Sodium Potassium Chloride Carbon Dioxide Anion Gap BUN Creatinine Est GFR ( Amer) Est GFR (Non-Af Amer) POC Glucose (mg/dL) 147 H Random Glucose Calcium Total Bilirubin AST ALT Alkaline Phosphatase Troponin I Total Protein Albumin Globulin Albumin/Globulin Ratio Triglycerides Cholesterol LDL Cholesterol Direct HDL Cholesterol [place] 0.8 Blood Type Antibody Screen BBK History Checked Assessment & Plan - Assessment and Plan (Free Text) Assessment: Assessment/Plan: Patient is a 77 year old male with PMHx of vasovagal syncope, bipolar disorde r, spinal stenosis, and arthritis presented to ER for evaluation of a near syncopal episode and brief slurred speech this morning. Patient's report patient was straining in the bathroom due to constipation, felt lightheadedness and dizziness and put him to bed. states immediately patient had slurred speech and swayed to left side lasting for a minute. States symptoms resolved spontaneously . Has hx vasovagal syncope with defecation in the past. Denies any current chest pain, nausea, vomiting,dyspnea, abdominal pain, paresthesia or focal weakness. Of note, patient followed up with neurologist Dr. Swift for his tremor in past, was given gabapentin but stopped taking it due to worsening tremor. Patient is admitted for evaluation for TIA and found to have acute urinary retention. Lightheadedness and brief slurred speech (rosolved) likely secondary to TIA -NIHSS 0 -CT head: IMPRESSION: Stable, age-appropriate age related neuro degenerative changes compared to 02/26/2017 CT. Follow-up CT or MRI are available if clinically warranted. -Passed swallow eval -c/w aspirin -c/w atorvastatin -Elevate the head of the bed -Neuro check -Neuro consult: Dr. Bonilla, f/u recommendation. -monitor symptoms Acute kidney injury -BUN/Cr 45/1.7 -NS 1L bolus -Encourage hydration Acute urinary retention -hx TURP procedure many years ago -Bladder scan shows PVR 1100 cc -start flomax 0.4 mg po daily -Urinary cath in place -check PSA, UA and urine CX Hyperlipidemia -Lipid panel on 05/06/18: Total chol 276, trigly. 124, LDL 166, HDL 65 -start atorvastatin 40 mg po qhs Bipolar disorder -resume home medications DVT prophylaxis -Lovenox 40 mg SC daily Diet -regular diet Code status -Full code Plan discussed with Dr. Butler <Jose Butler - Last Filed: 05/06/18 19:03> Results - Vital Signs Recent Vital Signs: Last Vital Signs Temp 98.1 F 05/06/18 15:42 Pulse 89 05/06/18 18:04 Resp 20 05/06/18 18:04 BP 129/73 05/06/18 18:04 Pulse Ox 98 05/06/18 18:04 - Labs Result Diagrams: 05/06/18 11:45 05/06/18 11:45 Labs: Laboratory Results - last 24 hr 05/06/18 05/06/18 05/06/18 11:40 11:45 11:45 WBC 6.6 RBC 3.88 L Hgb 12.0 Hct 35.9 MCV 92.4 MCH 30.8 MCHC 33.4 RDW 14.4 Plt Count 230 MPV 7.7 Neut % (Auto) 80.3 H Lymph % (Auto) 12.8 L Jay % (Auto) 3.3 Eos % (Auto) 3.0 Baso % (Auto) 0.6 Neut # (Auto) 5.3 Lymph # (Auto) 0.8 L Jay # (Auto) 0.2 Eos # (Auto) 0.2 Baso # (Auto) 0.0 PT INR APTT Sodium 142 Potassium 5.0 Chloride 103 Carbon Dioxide 28 Anion Gap 16 BUN 45 H Creatinine 1.7 H Est GFR ( Amer) 47 Est GFR (Non-Af Amer) 39 POC Glucose (mg/dL) Random Glucose 174 H Hemoglobin A1c Calcium 11.2 H Total Bilirubin 0.3 AST 29 ALT 31 Alkaline Phosphatase 52 Troponin I < 0.0120 Total Protein 7.1 Albumin 4.0 Globulin 3.1 Albumin/Globulin Ratio 1.3 Triglycerides 124 D Cholesterol 276 H LDL Cholesterol Direct 166 H HDL Cholesterol 65 Prostate Specific Ag Urine Color Urine Clarity Urine pH Ur Specific [place] Urine Protein Urine Glucose (UA) Urine Ketones Urine Blood Urine Nitrate Urine Bilirubin Urine Urobilinogen Ur Leukocyte Esterase Urine RBC (Auto) Urine Microscopic WBC Ur Squamous Epith Cells Urine Bacteria Hyaline Casts [place] Blood Type A POSITIVE Antibody Screen Negative BBK History Checked Patient has bt 05/06/18 05/06/18 05/06/18 11:45 11:45 11:45 WBC RBC Hgb Hct MCV MCH MCHC RDW Plt Count MPV Neut % (Auto) Lymph % (Auto) Jay % (Auto) Eos % (Auto) Baso % (Auto) Neut # (Auto) Lymph # (Auto) Jay # (Auto) Eos # (Auto) Baso # (Auto) PT 10.8 INR 1.0 APTT 29.2 Sodium Potassium Chloride Carbon Dioxide Anion Gap BUN Creatinine Est GFR ( Amer) Est GFR (Non-Af Amer) POC Glucose (mg/dL) Random Glucose Hemoglobin A1c 5.7 Calcium Total Bilirubin AST ALT Alkaline Phosphatase Troponin I Total Protein Albumin Globulin Albumin/Globulin Ratio Triglycerides Cholesterol LDL Cholesterol Direct HDL Cholesterol Prostate Specific Ag Urine Color Urine Clarity Urine pH Ur Specific [place] Urine Protein Urine Glucose (UA) Urine Ketones Urine Blood Urine Nitrate Urine Bilirubin Urine Urobilinogen Ur Leukocyte Esterase Urine RBC (Auto) Urine Microscopic WBC Ur Squamous Epith Cells Urine Bacteria Hyaline Casts [place] 0.8 Blood Type Antibody Screen BBK History Checked 05/06/18 05/06/18 05/06/18 11:49 18:15 18:15 WBC RBC Hgb Hct MCV MCH MCHC RDW Plt Count MPV Neut % (Auto) Lymph % (Auto) Jay % (Auto) Eos % (Auto) Baso % (Auto) Neut # (Auto) Lymph # (Auto) Jay # (Auto) Eos # (Auto) Baso # (Auto) PT INR APTT Sodium Potassium Chloride Carbon Dioxide Anion Gap BUN Creatinine Est GFR ( Amer) Est GFR (Non-Af Amer) POC Glucose (mg/dL) 147 H Random Glucose Hemoglobin A1c Calcium Total Bilirubin AST ALT Alkaline Phosphatase Troponin I Total Protein Albumin Globulin Albumin/Globulin Ratio Triglycerides Cholesterol LDL Cholesterol Direct HDL Cholesterol Prostate Specific Ag 1.96 Urine Color Yellow Urine Clarity Clear Urine pH 6.0 Ur Specific [place] 1.012 Urine Protein Negative Urine Glucose (UA) Neg Urine Ketones Negative Urine Blood Moderate Urine Nitrate Negative Urine Bilirubin Negative Urine Urobilinogen 0.2-1.0 Ur Leukocyte Esterase Neg Urine RBC (Auto) 12 H Urine Microscopic WBC 2 Ur Squamous Epith Cells 4 Urine Bacteria Rare Hyaline Casts 0-2 [place] Blood Type Antibody Screen BBK History Checked Attending/Attestation - Attestation I have personally seen and examined this patient.: Yes I have fully participated in the care of the patient.: Yes I have reviewed all pertinent clinical information: Yes Notes (Text): 05/06/18 19:02 Patient seen and examined with resident. Case discussed and agreed with assessment and plan of management.
[2018-05-06] MEDS ORDERED: POLYETHYLENE GLYCOL 3350 17 GM/Dose PACKET PO PRN (16:02)
--- NOTE | 2018-05-06 17:33 | CP.PCM.CON ---
History of Present Illness - History of Present Illness History of Present Illness: Neurology Consultation Note: Consult Requested by Dr. Butler Mr. Neal is a 77-year-old man with a past medical history of bipolar disorder, essential tremor, constipation and neuro-cardiogenic syncope who was sitting down today and for less than a minute, he leaned to the right and had some slurred speech. This resolved completely. He is now at his baseline. Review of Systems - Review of Systems Systems not reviewed;Unavailable: Altered Mental Status Past Patient History - Infectious Disease Hx of Infectious Diseases: None - Past Medical History & Family History Past Medical History?: Yes - Past Social History Alcohol: None Drugs: Denies - CARDIAC Hx Hypercholesterolemia: Yes - PULMONARY Hx Respiratory Disorders: Yes - NEUROLOGICAL Hx Dementia: Yes Hx Transient Ischemic Attacks (TIA): Yes (2017) - HEENT Hx HEENT Problems: No - RENAL Hx Chronic Kidney Disease: No - ENDOCRINE/METABOLIC Hx Endocrine Disorders: No - HEMATOLOGICAL/ONCOLOGICAL Hx Human Immunodeficiency Virus (HIV): No - INTEGUMENTARY Hx Dermatological Problems: No - MUSCULOSKELETAL/RHEUMATOLOGICAL Hx Arthritis: Yes - GASTROINTESTINAL Hx Gastrointestinal Disorders: No Other/Comment: Spleen aneurysm - GENITOURINARY/GYNECOLOGICAL Hx Genitourinary Disorders: Yes - PSYCHIATRIC Hx Bipolar Disorder: Yes Hx Depression: Yes - SURGICAL HISTORY Hx Surgeries: Yes Hx Herniorrhaphy: Yes Other/Comment: TURP X2, small spleen aneurysm. Feet surgery(Bunnion and hammer toes sx) - ANESTHESIA Hx Anesthesia: Yes Hx Anesthesia Reactions: No Hx Malignant Hyperthermia: No Meds Allergies/Adverse Reactions: Allergies Allergy/AdvReac Type Severity Reaction Status Date / Time meperidine Allergy Mild RASH Verified 11/24/16 16:33 - Medications Medications: Current Medications Atorvastatin Calcium (Lipitor) 40 mg PO HS JENNIE Cholecalciferol (Vitamin D) 2,000 intlu PO DAILY [facility] Cyanocobalamin (Vitamin B12) 500 mcg PO DAILY [facility]ENNIE Docusate Sodium (Colace) 100 mg PO DAILY PRN PRN Reason: Constipation Enoxaparin Sodium (Lovenox) 40 mg SC DAILY [facility]; Protocol Fluticasone Propionate (Flonase) 2 spr GRAHAM DAILY PRN PRN Reason: Nasal congestion [place] Carbonate ([place] Carbonate 150mg) 150 mg PO Q12 JENNIE Meclizine HCl (Antivert) 25 mg PO Q8 JENNIE Polyethylene Glycol (Miralax) 17 gm PO DAILY PRN PRN Reason: Constipation Risperidone (Risperdal Tab) 0.25 mg PO Q12 JENNIE Physical Exam - Constitutional Appears: Well - Head Exam Head Exam: ATRAUMATIC, NORMAL INSPECTION, NORMOCEPHALIC - Eye Exam Eye Exam: EOMI, Normal appearance, PERRL Pupil Exam: NORMAL ACCOMODATION, PERRL - ENT Exam ENT Exam: Mucous Membranes Moist, Normal Exam - Neck Exam Neck exam: Positive for: Normal Inspection - Respiratory Exam Respiratory Exam: Clear to Auscultation Bilateral, NORMAL BREATHING PATTERN - Cardiovascular Exam Cardiovascular Exam: REGULAR RHYTHM, +S1, +S2 - GI/Abdominal Exam GI & Abdominal Exam: Normal Bowel Sounds, Soft. absent: Tenderness - Extremities Exam Extremities exam: Positive for: normal inspection - Back Exam Back exam: NORMAL INSPECTION - Neurological Exam Neurological exam: Abnormal Gait, Alert, CN II-XII Intact, Reflexes Normal Additional comments: Confused and is a poor historian. Has bradykinesia, rigidity, resting tremor, cogwheeling and flat facies. Strength is normal, sensation is intact. Not ataxic. - Psychiatric Exam Psychiatric exam: Normal Affect, Normal Mood - Skin Skin Exam: Dry, Intact, Normal Color, Warm Results - Vital Signs Recent Vital Signs: Last Vital Signs Temp 98.1 F 05/06/18 15:42 Pulse 65 05/06/18 15:42 Resp 18 05/06/18 15:42 BP 144/80 05/06/18 15:42 Pulse Ox 99 05/06/18 15:42 - Labs Result Diagrams: 05/06/18 11:45 05/06/18 11:45 Labs: Laboratory Results - last 24 hr 05/06/18 05/06/18 05/06/18 11:40 11:45 11:45 WBC 6.6 RBC 3.88 L Hgb 12.0 Hct 35.9 MCV 92.4 MCH 30.8 MCHC 33.4 RDW 14.4 Plt Count 230 MPV 7.7 Neut % (Auto) 80.3 H Lymph % (Auto) 12.8 L [place] % (Auto) 3.3 Eos % (Auto) 3.0 Baso % (Auto) 0.6 Neut # (Auto) 5.3 Lymph # (Auto) 0.8 L Turner # (Auto) 0.2 Eos # (Auto) 0.2 Baso # (Auto) 0.0 PT INR APTT Sodium 142 Potassium 5.0 Chloride 103 Carbon Dioxide 28 Anion Gap 16 BUN 45 H Creatinine 1.7 H Est GFR ( Amer) 47 Est GFR (Non-Af Amer) 39 POC Glucose (mg/dL) Random Glucose 174 H Hemoglobin A1c Calcium 11.2 H Total Bilirubin 0.3 AST 29 ALT 31 Alkaline Phosphatase 52 Troponin I < 0.0120 Total Protein 7.1 Albumin 4.0 Globulin 3.1 Albumin/Globulin Ratio 1.3 Triglycerides 124 D Cholesterol 276 H LDL Cholesterol Direct 166 H HDL Cholesterol 65 [place] Blood Type A POSITIVE Antibody Screen Negative BBK History Checked Patient has bt 05/06/18 05/06/18 05/06/18 11:45 11:45 11:45 WBC RBC Hgb Hct MCV MCH MCHC RDW Plt Count MPV Neut % (Auto) Lymph % (Auto) Turner % (Auto) Eos % (Auto) Baso % (Auto) Neut # (Auto) Lymph # (Auto) Turner # (Auto) Eos # (Auto) Baso # (Auto) PT 10.8 INR 1.0 APTT 29.2 Sodium Potassium Chloride Carbon Dioxide Anion Gap BUN Creatinine Est GFR ( Amer) Est GFR (Non-Af Amer) POC Glucose (mg/dL) Random Glucose Hemoglobin A1c 5.7 Calcium Total Bilirubin AST ALT Alkaline Phosphatase Troponin I Total Protein Albumin Globulin Albumin/Globulin Ratio Triglycerides Cholesterol LDL Cholesterol Direct HDL Cholesterol [place] 0.8 Blood Type Antibody Screen BBK History Checked 05/06/18 11:49 WBC RBC Hgb Hct MCV MCH MCHC RDW Plt Count MPV Neut % (Auto) Lymph % (Auto) Turner % (Auto) Eos % (Auto) Baso % (Auto) Neut # (Auto) Lymph # (Auto) Turner # (Auto) Eos # (Auto) Baso # (Auto) PT INR APTT Sodium Potassium Chloride Carbon Dioxide Anion Gap BUN Creatinine Est GFR ( Amer) Est GFR (Non-Af Amer) POC Glucose (mg/dL) 147 H Random Glucose Hemoglobin A1c Calcium Total Bilirubin AST ALT Alkaline Phosphatase Troponin I Total Protein Albumin Globulin Albumin/Globulin Ratio Triglycerides Cholesterol LDL Cholesterol Direct HDL Cholesterol [place] Blood Type Antibody Screen BBK History Checked Assessment & Plan (1) Parkinsonism Assessment and Plan: This may be the reason for his syncopal episodes as well as a component of the autonomic nervous system is affected. I recommend starting Sinemet 100/25 TID. I recommend MRI of the brain without contrast and MRA of the head/neck without contrast. Will obtain an outpatient Brian scan. Continue cardiac work-up for syncope. Thank you for this consultation. Status: Acute
[2018-05-06 18:41] LABS: URINE BACTERIA RARE (<OCC); URINE BILIRUBIN NEGATIVE (NEGATIVE); URINE BLOOD MODERATE (NEGATIVE); URINE CLARITY CLEAR (Clear); URINE COLOR YELLOW (YELLOW); URINE GLUCOSE (UA) NEG (NEGATIVE); URINE HYALINE CAST 0-2 /hpf (0-2); URINE LEUKOCYTE ESTERASE NEG Leu/uL (Negative); URINE PROTEIN NEGATIVE (NEGATIVE); URINE UROBILINOGEN 0.2-1.0 mg/dL (0.2-1.0)
[2018-05-06 18:45] LABS: SQUAMOUS EPITHIAL 4 /hpf (0-5)
[2018-05-06] MEDS: Lithium Carbonate 150 MG CAP PO SCH (21:11)
--- NOTE | 2018-05-06 22:47 | CARD ---
APPROVED REPORT Date of service: 05/06/2018 EKG Measurement Heart [id number] <Conclusion> Sinus bradycardia with 1st degree AV block Left axis deviation Intraventricular conduction delay of LBBB type Abnormal ECG
[2018-05-07 07:28] LABS: BASO % 0.4 % (0.0-2.0); EOS # 0.2 K/uL (0.0-0.7); EOS % 1.8 % (0.0-4.0); HEMOGLOBIN 11.2 g/dL (12.0-18.0); LYMPH # 1.1 K/uL (1.0-4.3); LYMPH % 11.8 % (20.0-40.0); MEAN CELL VOLUME 92.8 fl (80.0-94.0); MEAN CORPUSCULAR HEMOGLOBIN 30.7 pg (27.0-31.0); MEAN CORPUSCULAR HGB CONC 33.1 g/dL (33.0-37.0); MEAN PLATELET VOLUME 8.1 fl (7.2-11.7); MONO # 0.7 K/uL (0.0-0.8); MONO % 7.9 % (0.0-10.0); NEUT % 78.1 % (50.0-75.0); RBC 3.65 Mil/uL (4.40-5.90); RED CELL DISTRIBUTION WIDTH 13.6 % (11.5-14.5); WHITE BLOOD COUNT 8.9 K/uL (4.8-10.8)
[2018-05-07 07:37] LABS: ALB/GLOB RATIO 1.2 (1.0-2.1); ALBUMIN 3.3 g/dL (3.5-5.0); ALT/SGPT 24 U/L (21-72); AST/SGOT 22 U/L (17-59); BLOOD UREA NITROGEN 32 mg/dl (9-20); CALCIUM 10.7 mg/dL (8.4-10.2); GFR NON-AFRICAN AMERICAN 49
[2018-05-07] MEDS ORDERED: CYANOCOBALAMIN 500 MCG TAB PO SCH (09:00)
[2018-05-07] MEDS: Enoxaparin 40 mg Syringe SC SCH (09:03)
[2018-05-07] MEDS: Lithium Carbonate 150 MG CAP PO SCH ×2 (09:03→21:23)
[2018-05-07] MEDS: Cholecalciferol 1,000 INTLU TAB PO SCH (09:04)
--- NOTE | 2018-05-07 10:00 | CP.PCM.PN ---
Subjective - Date & Time of Evaluation Date of Evaluation: 05/07/18 Time of Evaluation: 10:00 - Subjective Subjective: Patient seen and examined this morning. No acute overnight events. Stable vitals, NAD Patient is awake, alert and oriented with mild dementia Denies any focal weakness. Reports having diarrhea but denies abdominal pain, nausea, vomiting, chest pain or dyspnea. Tse was discontinued this morning. Objective - Vital Signs/Intake and Output Vital Signs (last 24 hours): Temp Pulse Resp BP Pulse Ox 99.7 F H 94 H 18 123/73 96 05/07/18 08:00 05/07/18 08:00 05/07/18 08:00 05/07/18 08:00 05/07/18 08:00 - Medications Medications: Current Medications Acetaminophen (Tylenol 325mg Tab) 650 mg PO Q6 PRN PRN Reason: Headache Last Admin: 05/07/18 01:27 Dose: 650 mg Atorvastatin Calcium (Lipitor) 40 mg PO HS [facility] Last Admin: 05/06/18 21:10 Dose: 40 mg Carbidopa/Levodopa (Sinemet 10/100) 1 tab PO TID [facility] Last Admin: 05/07/18 09:04 Dose: 1 tab Cholecalciferol (Vitamin D) 2,000 intlu PO DAILY [facility] Last Admin: 05/07/18 09:04 Dose: 2,000 intlu Cyanocobalamin (Vitamin B12) 500 mcg PO DAILY [facility] Last Admin: 05/07/18 09:04 Dose: 500 mcg Docusate Sodium (Colace) 100 mg PO DAILY PRN PRN Reason: Constipation Enoxaparin Sodium (Lovenox) 40 mg SC DAILY [facility]; Protocol Last Admin: 05/07/18 09:03 Dose: 40 mg Fluticasone Propionate (Flonase) 2 spr GRAHAM DAILY PRN PRN Reason: Nasal congestion [place] Carbonate ([place] Carbonate 150mg) 150 mg PO Q12 [facility] Last Admin: 05/07/18 09:03 Dose: 150 mg Meclizine HCl (Antivert) 25 mg PO Q8 [facility] Last Admin: 05/07/18 09:03 Dose: 25 mg Polyethylene Glycol (Miralax) 17 gm PO DAILY PRN PRN Reason: Constipation Risperidone (Risperdal Tab) 0.25 mg PO Q12 [facility] Last Admin: 05/07/18 09:03 Dose: 0.25 mg Tamsulosin HCl (Flomax) 0.4 mg PO DAILY [facility] Last Admin: 05/07/18 09:03 Dose: 0.4 mg - Labs Labs: 05/07/18 06:30 05/07/18 06:30 PT 10.8 Seconds (9.8-13.1) 05/06/18 11:45 INR 1.0 05/06/18 11:45 APTT 29.2 Seconds (25.6-37.1) 05/06/18 11:45 - Constitutional Appears: No Acute Distress, Older Than Stated Age - Head Exam Head Exam: NORMAL INSPECTION - Eye Exam Eye Exam: Conjunctival injection (chronic,No eye discharge seen), EOMI - ENT Exam ENT Exam: Mucous Membranes Moist - Neck Exam Neck Exam: Normal Inspection - Respiratory Exam Respiratory Exam: Clear to Ausculation Bilateral, NORMAL BREATHING PATTERN. absent: Rhonchi, Wheezes - Cardiovascular Exam Cardiovascular Exam: REGULAR RHYTHM, +S1, +S2 - GI/Abdominal Exam GI & Abdominal Exam: Soft, Normal Bowel Sounds. absent: Tenderness - Extremities Exam Extremities Exam: Normal Inspection. absent: Calf Tenderness - Neurological Exam Neurological Exam: Alert, Awake. absent: Motor Sensory Deficit - Psychiatric Exam Psychiatric exam: Normal Affect - Skin Skin Exam: Normal Color, Warm Assessment and Plan - Assessment and Plan (Free Text) Assessment: Assessment/Plan: Patient is a 77 year old male with PMHx of vasovagal syncope, bipolar disorder, spinal stenosis, and arthritis presented to ER for evaluation of a near syncopal episode and brief slurred speech this morning. Patient's report patient was straining in the bathroom due to constipation, felt lightheadedness and dizziness and put him to bed. states immediately patient had slurred speech and swayed to left side lasting for a minute. States symptoms resolved spontaneously . Has hx vasovagal syncope with defecation in the past. Denies any current chest pain, nausea, vomiting,dyspnea, abdominal pain, paresthesia or focal weakness. Of note, patient followed up with neurologist Dr. Swift for his tremor in past, was given gabapentin but stopped taking it due to worsening tremor. Patient is admitted for evaluation for TIA a nd found to have acute urinary retention. Lightheadedness and brief slurred speech (resolved) likely secondary to TIA -NIHSS 0 -CT head: IMPRESSION: Stable, age-appropriate age related neuro degenerative changes compared to 02/26/2017 CT. Follow-up CT or MRI are available if clinically warranted. -Passed swallow eval -c/w aspirin -c/w atorvastatin -Elevate the head of the bed -Neuro check -Neuro consult: Dr. Bonilla, recommendation appreciated -f/u Brain MRI and MRA neck -monitor symptoms Gait instability -uses cane at home -PT eval. -f/u PT recommendation Acute kidney injury -BUN/cr 32/1.4 today improved from BUN/Cr 45/1.7 yesterday -s/p NS 1L bolus yesterday -Encourage PO hydration Acute urinary retention -hx TURP x 2 procedure many years ago -Bladder scan shows PVR 1100 cc yesterday -c/w flomax 0.4 mg po daily -Tse d/terra this morning. f/u voiding trial -PSA 1.96 Hyperlipidemia -Lipid panel on 05/06/18: Total chol 276, trigly. 124, LDL 166, HDL 65 -start atorvastatin 40 mg po qhs Bipolar disorder -resume home medications -psychiatry consulted due to patient's intrusive racing thoughts (no AH/VH) DVT prophylaxis -Lovenox 40 mg SC daily Diet -regular diet Code status -Full code Plan discussed with Dr. Tipton
[2018-05-07] MEDS ORDERED: Bethanechol 50 MG TAB PO STA (15:11)
[2018-05-08 06:48] LABS: HEMOGLOBIN 11.9 g/dL (12.0-18.0); MEAN CELL VOLUME 92.2 fl (80.0-94.0); MEAN CORPUSCULAR HGB CONC 33.6 g/dL (33.0-37.0); RBC 3.84 Mil/uL (4.40-5.90); WHITE BLOOD COUNT 9.8 K/uL (4.8-10.8)
[2018-05-08 06:55] LABS: CALCIUM 10.8 mg/dL (8.4-10.2)
--- NOTE | 2018-05-08 07:38 | CP.PCM.CON ---
History of Present Illness - History of Present Illness History of Present Illness: Psychiatry consult note Patient evaluated w/ present as patient is currently only A + O x self, has slurred speech and is unable to provide accurate history due to major neurocognitive impairment. HPI: 77 year old male with PMHx of vasovagal syncope, dementia, bipolar disorder, spinal stenosis, and arthritis presented to ER for evaluation of a near syncopal episode and brief slurred speech this morning. Patient currently unable to give any significant history. Patient's confirmed that the patient has not had any significant mood changes. No acute AH/VH/SI/HI. Patient's states that he is having worsening dementia and worsening confusion. She believes he has looked similarly confused when he has had TIAs in the past. PPHx: Current outpatient psychiatric treatment w/ Dr. Walt Campbell, on [place] 150 mg PO BID, Risperal 0.25 mg PO BID; [place] level 0.8 PCP: Dr. Renaldo Pablo PMH: Vasovagal syncope, Arthritis, Dementia, HLD, TIA and bipolar disorder PSH: hernia repair, foot surgery Family hx: no signicant family hx Meds: risperdal, lithuim, meclizine, multivitamin, colace Allergies: meperidine Impression: 77 yo male w/ h/o Bipolar Disorder and Major Neurocognitive Impairment, seems to have worsening dementia vs acute delirium. -Recommend to continue [place] and Risperdal -Recommend continued outpatient psychiatric follow-up -No acute psychiatric admission indicated at this time Past Patient History - Infectious Disease Hx of Infectious Diseases: None - Past Medical History & Family History Past Medical History?: Yes - Past Social History Smoking Status: Never Smoked - CARDIAC Hx Cardiac Disorders: Yes Hx Hypercholesterolemia: Yes - PULMONARY Hx Respiratory Disorders: No - NEUROLOGICAL Hx Neurological Disorder: Yes Hx Dementia: Yes Hx Transient Ischemic Attacks (TIA): Yes (2018) - HEENT Hx HEENT Problems: Yes - RENAL Hx Chronic Kidney Disease: No - ENDOCRINE/METABOLIC Hx Endocrine Disorders: No - HEMATOLOGICAL/ONCOLOGICAL Hx Blood Disorders: No Hx AIDS: No Hx Human Immunodeficiency Virus (HIV): No - INTEGUMENTARY Hx Dermatological Problems: No - MUSCULOSKELETAL/RHEUMATOLOGICAL Hx Musculoskeletal Disorders: Yes Hx Arthritis: Yes Hx Falls: Yes - GASTROINTESTINAL Hx Gastrointestinal Disorders: No Other/Comment: Spleen aneurysm - GENITOURINARY/GYNECOLOGICAL Hx Genitourinary Disorders: Yes - PSYCHIATRIC Hx Psychophysiologic Disorder: Yes Hx Bipolar Disorder: Yes Hx Depression: Yes Hx Substance Use: No - SURGICAL HISTORY Hx Surgeries: Yes Hx Herniorrhaphy: Yes Other/Comment: TURP X2, small spleen aneurysm. Feet surgery([place] and hammer toes sx) - ANESTHESIA Hx Anesthesia: Yes Hx Anesthesia Reactions: No Hx Malignant Hyperthermia: No Has any member of the family had a problem w/ anesthesia?: No Meds Allergies/Adverse Reactions: Allergies Allergy/AdvReac Type Severity Reaction Status Date / Time meperidine Allergy Mild RASH Verified 11/24/16 16:33 - Medications Medications: Current Medications Acetaminophen (Tylenol 325mg Tab) 650 mg PO Q6 PRN PRN Reason: Headache Last Admin: 05/07/18 01:27 Dose: 650 mg Atorvastatin Calcium (Lipitor) 40 mg PO HS [facility] Last Admin: 05/07/18 21:23 Dose: 40 mg Carbidopa/Levodopa (Sinemet 10/100) 1 tab PO TID [facility] Last Admin: 05/07/18 16:23 Dose: 1 tab Cholecalciferol (Vitamin D) 2,000 intlu PO DAILY [facility] Last Admin: 05/07/18 09:04 Dose: 2,000 intlu Enoxaparin Sodium (Lovenox) 40 mg SC DAILY [facility]; Protocol Last Admin: 05/07/18 09:03 Dose: 40 mg Fluticasone Propionate (Flonase) 2 spr GRAAHM DAILY PRN PRN Reason: Nasal congestion [place] Carbonate ([place] Carbonate 150mg) 150 mg PO Q12 [facility] Last Admin: 05/07/18 21:23 Dose: 150 mg Meclizine HCl (Antivert) 25 mg PO Q8 [facility] Last Admin: 05/08/18 01:12 Dose: 25 mg Risperidone (Risperdal Tab) 0.25 mg PO Q12 [facility] Last Admin: 05/07/18 21:23 Dose: 0.25 mg Tamsulosin HCl (Flomax) 0.4 mg PO DAILY [facility] Last Admin: 05/07/18 09:03 Dose: 0.4 mg Results - Vital Signs Recent Vital Signs: Last Vital Signs Temp 97.9 F 05/08/18 04:46 Pulse 102 H 05/08/18 04:46 Resp 18 05/08/18 04:46 BP 118/71 05/08/18 04:46 Pulse Ox 97 05/08/18 04:46 - Labs Result Diagrams: 05/08/18 05:25 05/08/18 05:25 Labs: Laboratory Results - last 24 hr 05/07/18 05/07/18 05/07/18 06:30 07:02 10:52 WBC RBC Hgb Hct MCV MCH MCHC RDW Plt Count Sodium Potassium Chloride Carbon Dioxide Anion Gap BUN Creatinine Est GFR ( Amer) Est GFR (Non-Af Amer) POC Glucose (mg/dL) 95 126 H Random Glucose Calcium Vitamin B12 > 1000 H TSH 3rd Generation 4.74 H 05/08/18 05/08/18 05:25 05:25 WBC 9.8 RBC 3.84 L Hgb 11.9 L Hct 35.4 MCV 92.2 MCH 31.0 MCHC 33.6 RDW 14.0 Plt Count 182 Sodium 144 Potassium 4.3 Chloride 108 H Carbon Dioxide 23 Anion Gap 17 BUN 27 H Creatinine 1.4 Est GFR ( Amer) 59 Est GFR (Non-Af Amer) 49 POC Glucose (mg/dL) Random Glucose 114 H Calcium 10.8 H Vitamin B12 TSH 3rd Generation
--- NOTE | 2018-05-08 08:53 | CP.PCM.PN ---
<Rickey Conte - Last Filed: 05/08/18 13:35> Subjective - Date & Time of Evaluation Date of Evaluation: 05/08/18 Time of Evaluation: 11:07 - Subjective Subjective: 74 YO M w/ PMH of bipolar disorder, vasovagal syncope and spinal stenosis, BPH, TURP x 2 was seen at bedside this morning. Slept well over night. He is awake, alert and oriented however does have baseline dementia. [place] was removed yesterday however patient was not able to urinate on his own had had to be placed again. - Was seen by urology who recommends a suprapubic cath. - Today patient denies any visual or auditory hallucinations. - Was seen by psych this morning for evaluation of his bipolar disorder and thoughts of "dancing girls, which he denies today. - CT and MRI did not show any acute changes Denies chest pain, SOB, N, V, D Objective - Vital Signs/Intake and Output Vital Signs (last 24 hours): Temp Pulse Resp BP Pulse Ox 98.0 F 99 H 18 136/87 97 05/08/18 08:00 05/08/18 08:00 05/08/18 08:00 05/08/18 08:00 05/08/18 08:00 Intake and Output: 05/08/18 05/08/18 06:59 18:59 Intake Total 400 Output Total 1600 Balance -1200 - Medications Medications: Current Medications Acetaminophen (Tylenol 325mg Tab) 650 mg PO Q6 PRN PRN Reason: Headache Last Admin: 05/07/18 01:27 Dose: 650 mg Atorvastatin Calcium (Lipitor) 40 mg PO HS [facility] Last Admin: 05/07/18 21:23 Dose: 40 mg Carbidopa/Levodopa (Sinemet 10/100) 1 tab PO TID [facility] Last Admin: 05/07/18 16:23 Dose: 1 tab Cholecalciferol (Vitamin D) 2,000 intlu PO DAILY [facility] Last Admin: 05/07/18 09:04 Dose: 2,000 intlu Enoxaparin Sodium (Lovenox) 40 mg SC DAILY [facility]; Protocol Last Admin: 05/07/18 09:03 Dose: 40 mg Fluticasone Propionate (Flonase) 2 spr GRAHAM DAILY PRN PRN Reason: Nasal congestion [place] Carbonate ([place] Carbonate 150mg) 150 mg PO Q12 [facility] Last Admin: 05/07/18 21:23 Dose: 150 mg Meclizine HCl (Antivert) 25 mg PO Q8 [facility] Last Admin: 05/08/18 01:12 Dose: 25 mg Risperidone (Risperdal Tab) 0.25 mg PO Q12 [facility] Last Admin: 05/07/18 21:23 Dose: 0.25 mg Tamsulosin HCl (Flomax) 0.4 mg PO DAILY [facility] Last Admin: 05/07/18 09:03 Dose: 0.4 mg - Labs Labs: 05/08/18 05:25 05/08/18 05:25 PT 10.8 Seconds (9.8-13.1) 05/06/18 11:45 INR 1.0 05/06/18 11:45 APTT 29.2 Seconds (25.6-37.1) 05/06/18 11:45 - Constitutional Appears: No Acute Distress - Head Exam Head Exam: NORMAL INSPECTION - Eye Exam Eye Exam: Normal appearance Additional comments: conjuctival injection (chronic, No eye discharge seen. - ENT Exam ENT Exam: Mucous Membranes Moist, Normal Exam - Neck Exam Neck Exam: Normal Inspection - Respiratory Exam Respiratory Exam: Clear to Ausculation Bilateral. absent: Rhonchi, Wheezes - Cardiovascular Exam Cardiovascular Exam: REGULAR RHYTHM, +S1, +S2 - GI/Abdominal Exam GI & Abdominal Exam: Soft, Normal Bowel Sounds. absent: Tenderness - Neurological Exam Neurological Exam: Alert, Awake, CN II-XII Intact. absent: Motor Sensory Deficit Assessment and Plan - Assessment and Plan (Free Text) Assessment: Assessment/Plan: Patient is a 77 year old male with PMHx of vasovagal syncope, bipolar disorder, spinal stenosis, and arthritis presented to ER for evaluation of a near syncopal episode and brief slurred speech this morning. Patient's report patient was straining in the bathroom due to constipation, felt lightheadedness and dizziness and put him to bed. states immediately patient had slurred speech and swayed to left side lasting for a minute. States symptoms resolved spontaneously . Has hx vasovagal syncope with defecation in the past. Denies any current chest pain, nausea, vomiting,dyspnea, abdominal pain, paresthesia or focal weakness. Of note, patient followed up with neurologist Dr. Swift for his tremor in past, was given gabapentin but stopped taking it due to worsening tremor. Patient is admitted for evaluation for TIA and found to have acute urinary retention. Lightheadedness and brief slurred speech (resolved) likely secondary to Vasovagal episode Vs TIA -NIHSS 0 -CT head: IMPRESSION: Stable, age-appropriate age related neuro degenerative changes compared to 02/26/2017 CT. Follow-up CT or MRI are available if clinically warranted. -Passed swallow eval -c/w aspirin -c/w atorvastatin -Elevate the head of the bed -Neuro check -Neuro consult: Dr. Bonilla, recommendation appreciated -f/u Brain MRI and MRA neck offical results -monitor symptoms Gait instability -uses cane at home -PT eval. -f/u PT recommendation Acute kidney injury -BUN/cr 32/1.4 yesterday improved to 32/1.4 -s/p NS 1L bolus yesterday -Encourage PO hydration Acute urinary retention -hx TURP x 2 procedure many years ago -c/w flomax 0.4 mg po daily -failed to void after d/c alston - Urology recommends suprapubic catheterizing Hyperlipidemia -Lipid panel on 05/06/18: Total chol 276, trigly. 124, LDL 166, HDL 65 -start atorvastatin 40 mg po qhs Bipolar disorder -resume home medications -psychiatry consulted due to patient's intrusive racing thoughts (no AH/VH) - Psych recommends continuing with current medication regimen DVT prophylaxis -Lovenox 40 mg SC daily Diet -regular diet Code status -Full code Plan discussed with Dr. Butler <Debbie Vang - Last Filed: 05/08/18 15:11> Objective - Vital Signs/Intake and Output Vital Signs (last 24 hours): Temp Pulse Resp BP Pulse Ox 98.1 F 88 18 98/60 L 95 05/08/18 13:00 05/08/18 13:00 05/08/18 13:00 05/08/18 13:00 05/08/18 13:00 Intake and Output: 05/08/18 05/08/18 06:59 18:59 Intake Total 400 Output Total 1600 Balance -1200 - Medications Medications: Current Medications Acetaminophen (Tylenol 325mg Tab) 650 mg PO Q6 PRN PRN Reason: Headache Last Admin: 05/07/18 01:27 Dose: 650 mg Atorvastatin Calcium (Lipitor) 40 mg PO HS [facility] Last Admin: 05/07/18 21:23 Dose: 40 mg Carbidopa/Levodopa (Sinemet 10/100) 1 tab PO TID [facility] Last Admin: 05/08/18 13:24 Dose: 1 tab Cholecalciferol (Vitamin D) 2,000 intlu PO DAILY [facility] Last Admin: 05/08/18 09:08 Dose: 2,000 intlu Enoxaparin Sodium (Lovenox) 40 mg SC DAILY [facility]; Protocol Last Admin: 05/08/18 09:08 Dose: 40 mg Fluticasone Propionate (Flonase) 2 spr GRAHAM DAILY PRN PRN Reason: Nasal congestion [place] Carbonate ([place] Carbonate 150mg) 150 mg PO Q12 [facility] Last Admin: 05/08/18 09:08 Dose: 150 mg Meclizine HCl (Antivert) 25 mg PO Q8 [facility] Last Admin: 05/08/18 09:07 Dose: 25 mg Risperidone (Risperdal Tab) 0.25 mg PO Q12 [facility] Last Admin: 05/08/18 09:07 Dose: 0.25 mg Tamsulosin HCl (Flomax) 0.4 mg PO DAILY [facility] Last Admin: 05/08/18 09:07 Dose: 0.4 mg - Labs Labs: 05/08/18 05:25 05/08/18 05:25 PT 10.8 Seconds (9.8-13.1) 05/06/18 11:45 INR 1.0 05/06/18 11:45 APTT 29.2 Seconds (25.6-37.1) 05/06/18 11:45 Attending/Attestation - Attestation I have personally seen and examined this patient.: Yes I have fully participated in the care of the patient.: Yes I have reviewed all pertinent clinical information, including history, physical exam and plan: Yes
[2018-05-08] MEDS: Lithium Carbonate 150 MG CAP PO SCH ×2 (09:08→21:39)
[2018-05-08] MEDS: Enoxaparin 40 mg Syringe SC SCH (09:08)
[2018-05-08] MEDS: Cholecalciferol 1,000 INTLU TAB PO SCH (09:08)
[2018-05-09] MEDS: Lithium Carbonate 150 MG CAP PO SCH ×2 (08:18→22:49)
[2018-05-09] MEDS: Enoxaparin 40 mg Syringe SC SCH (08:19)
[2018-05-09] MEDS: Cholecalciferol 1,000 INTLU TAB PO SCH (08:19)
--- NOTE | 2018-05-09 08:32 | CP.PCM.PN ---
<Sultan Jules - Last Filed: 05/09/18 12:52> Subjective - Date & Time of Evaluation Date of Evaluation: 05/09/18 Time of Evaluation: 09:40 - Subjective Subjective: 74 year old Male w/ PMHx of bipolar disorder, vasovagal syncope and spinal stenosis, BPH, TURP x 2 was seen at bedside this morning. Slept well over night. No acute overnight events. Afebrile with stable BP He is awake, alert and oriented however does have baseline dementia. Denies any chest pain, SOB, abdominal pain, nausea, vomiting or diarrhea. Tse in place and draining urine output. Was seen by urology who recommends a suprapubic cath. Patient was seen by psych yesterday and recommended continuation of current medications. CT and MRI brain did not show any acute changes Patient was evaluated by PT and PT recommended subacute rehab. Objective - Vital Signs/Intake and Output Vital Signs (last 24 hours): Temp Pulse Resp BP Pulse Ox 99.7 F H 95 H 18 119/64 98 05/09/18 04:47 05/09/18 04:47 05/09/18 04:47 05/09/18 04:47 05/09/18 04:47 Intake and Output: 05/09/18 05/09/18 06:59 18:59 Intake Total 100 Output Total 950 Balance -850 - Medications Medications: Current Medications Acetaminophen (Tylenol 325mg Tab) 650 mg PO Q6 PRN PRN Reason: Headache Last Admin: 05/07/18 01:27 Dose: 650 mg Atorvastatin Calcium (Lipitor) 40 mg PO HS [facility] Last Admin: 05/08/18 21:39 Dose: 40 mg Carbidopa/Levodopa (Sinemet 10/100) 1 tab PO TID [facility] Last Admin: 05/09/18 08:18 Dose: 1 tab Cholecalciferol (Vitamin D) 2,000 intlu PO DAILY [facility] Last Admin: 05/09/18 08:19 Dose: 2,000 intlu Enoxaparin Sodium (Lovenox) 40 mg SC DAILY [facility]; Protocol Last Admin: 05/09/18 08:19 Dose: 40 mg Finasteride (Proscar) 5 mg PO DAILY [facility] Fluticasone Propionate (Flonase) 2 spr GRAHAM DAILY PRN PRN Reason: Nasal congestion [place] Carbonate ([place] Carbonate 150mg) 150 mg PO Q12 [facility] Last Admin: 05/09/18 08:18 Dose: 150 mg Meclizine HCl (Antivert) 25 mg PO Q8 [facility] Last Admin: 05/09/18 08:18 Dose: 25 mg Risperidone (Risperdal Tab) 0.25 mg PO Q12 [facility] Last Admin: 05/09/18 08:19 Dose: 0.25 mg Tamsulosin HCl (Flomax) 0.4 mg PO DAILY [facility] Last Admin: 05/09/18 08:17 Dose: 0.4 mg - Labs Labs: 05/08/18 05:25 05/08/18 05:25 PT 10.8 Seconds (9.8-13.1) 05/06/18 11:45 INR 1.0 05/06/18 11:45 APTT 29.2 Seconds (25.6-37.1) 05/06/18 11:45 - Constitutional Appears: No Acute Distress, Older Than Stated Age, Chronically Ill - Head Exam Head Exam: NORMAL INSPECTION - Eye Exam Eye Exam: Conjunctival injection (chronic, no eye discharge) - ENT Exam ENT Exam: Mucous Membranes Moist - Neck Exam Neck Exam: Normal Inspection - Respiratory Exam Respiratory Exam: Clear to Ausculation Bilateral, NORMAL BREATHING PATTERN. absent: Rhonchi, Wheezes - Cardiovascular Exam Cardiovascular Exam: REGULAR RHYTHM, +S1, +S2 - GI/Abdominal Exam GI & Abdominal Exam: Soft, Normal Bowel Sounds. absent: Tenderness - Extremities Exam Extremities Exam: Normal Inspection. absent: Calf Tenderness - Neurological Exam Neurological Exam: Alert, Awake - Skin Skin Exam: Normal Color Assessment and Plan - Assessment and Plan (Free Text) Assessment: Assessment/Plan: Patient is a 77 year old male with PMHx of vasovagal syncope, bipolar disorder, spinal stenosis, and arthritis presented to ER for evaluation of a near syncopal episode and brief slurred speech this morning. Patient's report patient was straining in the bathroom due to constipation, felt li ghtheadedness and dizziness and put him to bed. states immediately patient had slurred speech and swayed to left side lasting for a minute. States symptoms resolved spontaneously . Has hx vasovagal syncope with defecation in the past. Denies any current chest pain, nausea, vomiting,dyspnea, abdominal pain, paresthesia or focal weakness. Of note, patient followed up with neurologist Dr. Anselmi for his tremor in past, was given gabapentin but stopped taking it due to worsening tremor. Patient is admitted for evaluation for TIA and found to have acute urinary retention. Lightheadedness and brief slurred speech (resolved) likely secondary to Vasovagal episode Vs TIA -NIHSS 0 -CT head: IMPRESSION: Stable, age-appropriate age related neuro degenerative kiki nges compared to 02/26/2017 CT. Follow-up CT or MRI are available if clinically warranted. -Passed swallow eval -c/w aspirin -c/w atorvastatin -Elevate the head of the bed -Neuro check -Neuro consult: Dr. Bonilla, recommendation appreciated -f/u Brain MRI and MRA neck official results -monitor symptoms Gait instability -uses cane at home -PT eval. -PT recommendation: subacute rehab Acute kidney injury -BUN/cr 01/05.4 today -s/p NS 1L bolus yesterday -Encourage PO hydration Acute urinary retention -hx TURP x 2 procedure many years ago -c/w Flomax 0.4 mg po daily -Start Finasteride 5 mg po daily -Tse in place -Urology recommends suprapubic catheterizing Hyperlipidemia -Lipid panel on 05/06/18: Total chol 276, trigly. 124, LDL 166, HDL 65 -c/w atorvastatin 40 mg po qhs Bipolar disorder -resume home medications -psychiatry consulted due to patient's intrusive racing thoughts (no AH/VH) - Psych recommends continuing with current medication regimen DVT prophylaxis -Lovenox 40 mg SC daily Diet -regular diet Code status -Full code Plan discussed with Dr. Vang <Debbie Vang - Last Filed: 05/09/18 16:28> Objective - Vital Signs/Intake and Output Vital Signs (last 24 hours): Temp Pulse Resp BP Pulse Ox 97.5 F L 84 18 99/63 L 95 05/09/18 16:04 05/09/18 16:04 05/09/18 16:04 05/09/18 16:04 05/09/18 16:04 Intake and Output: 05/09/18 05/09/18 06:59 18:59 Intake Total 100 Output Total 950 Balance -850 - Medications Medications: Current Medications Acetaminophen (Tylenol 325mg Tab) 650 mg PO Q6 PRN PRN Reason: Headache Last Admin: 02/02/19 01:27 Dose: 650 mg Atorvastatin Calcium (Lipitor) 40 mg PO HS [facility] Last Admin: 05/08/18 21:39 Dose: 40 mg Camphor/Menthol (Bengay) 1 applic TOP Q6 PRN PRN Reason: Pain, moderate (4-7) Carbidopa/Levodopa (Sinemet 10/100) 1 tab PO TID [facility] Last Admin: 05/09/18 08:18 Dose: 1 tab Cholecalciferol (Vitamin D) 2,000 intlu PO DAILY [facility] Last Admin: 05/09/18 08:19 Dose: 2,000 intlu Enoxaparin Sodium (Lovenox) 40 mg SC DAILY [facility]; Protocol Last Admin: 05/09/18 08:19 Dose: 40 mg Finasteride (Proscar) 5 mg PO DAILY [facility] Fluticasone Propionate (Flonase) 2 spr GRAHAM DAILY PRN PRN Reason: Nasal congestion [place] Carbonate ([place] Carbonate 150mg) 150 mg PO Q12 [facility] Last Admin: 05/09/18 08:18 Dose: 150 mg Meclizine HCl (Antivert) 25 mg PO Q8 [facility] Last Admin: 05/09/18 08:18 Dose: 25 mg Risperidone (Risperdal Tab) 0.25 mg PO Q12 [facility] Last Admin: 05/09/18 08:19 Dose: 0.25 mg Tamsulosin HCl (Flomax) 0.4 mg PO DAILY [facility] Last Admin: 05/09/18 08:17 Dose: 0.4 mg - Labs Labs: 05/08/18 05:25 05/08/18 05:25 PT 10.8 Seconds (9.8-13.1) 05/06/18 11:45 INR 1.0 05/06/18 11:45 APTT 29.2 Seconds (25.6-37.1) 05/06/18 11:45 Attending/Attestation - Attestation I have personally seen and examined this patient.: Yes I have fully participated in the care of the patient.: Yes I have reviewed all pertinent clinical information, including history, physical exam and plan: Yes Notes (Text): Vasovagal Syncope but cannot totally r/o TIA Gait Instability Parkinson's -cont Sinemet - PT consulted - rec ABIODUN however pt's wants TCU only Urinary Retention ? due to Prostate problem - cont Flomax , add Proscar - Bladder training - refuses Suprapubic cath placement Bipolar Dis Neurocognitive Disorder - cont Risp[erdal and [place]
--- NOTE | 2018-05-09 08:46 | MRI ---
Date of service: 05/07/2018 PROCEDURE: Magnetic Resonance Angiography Brain HISTORY: TIA COMPARISON: Intracranial MR angiogram 03/19/2015. TECHNIQUE: 3D time of flight MR angiography of the intracranial arteries was performed. Rotating maximum intensity projection images were generated. FINDINGS: INTERNAL CAROTID ARTERIES: Unremarkable. The skull base, petrous, cavernous and supraclinoid segments are bilaterally widely patient. ANTERIOR CEREBRAL ARTERIES: Unremarkable. A1 and A2 segments are widely patent. Smaller distal branches unremarkable, as visualized. MIDDLE CEREBRAL ARTERIES: Unremarkable. M1 and M2 segments are widely patent. Perisylvian branches grossly symmetric. POSTERIOR CIRCULATION: Basilar Artery: Unremarkable. Distal Vertebral Arteries: Right dominant vertebrobasilar circulation reiterated, widely patent nevertheless. Posterior Cerebral Arteries: Unremarkable. Posterior Inferior Cerebellar Arteries: Unremarkable. ANEURYSM/ VASCULAR MALFORMATIONS: None. OTHER FINDINGS: None. IMPRESSION: Stable, unremarkable MR angiography of the brain. Concordant preliminary report from [facility], 05/07/2018, 2:09 p.m..
--- NOTE | 2018-05-09 09:09 | MRI ---
Date of service: 05/07/2018 PROCEDURE: MRI BRAIN WITHOUT CONTRAST HISTORY: TIA COMPARISON: None available. TECHNIQUE: Multiplanar, multisequence MR images of the brain were obtained without intravenous contrast enhancement. FINDINGS: HEMORRHAGE: None DWI: No evidence of an acute or early subacute infarction. BRAIN PARENCHYMA: Good corticomedullary differentiation is seen. Reiterated diffuse cerebral atrophy and chronic microangiopathy. No suspicious extra-axial fluid collection is identified and the midline brain anatomy appears grossly nonfocal as imaged. No mass effect identified. Dilated perivascular spaces are primarily identified scattered at the bilateral basal ganglia, particularly inferiorly and somewhat more so at the left than right. A small cavernoma is seen in the right parietal deep white matter. VENTRICLES: Unremarkable. No hydrocephalus. CRANIUM: Unremarkable. ORBITS: Grossly unremarkable. PARANASAL SINUSES/MASTOIDS: Clear VASCULAR SYSTEM: Skull base flow voids intact. OTHER FINDINGS: None. IMPRESSION: No definite acute intracranial findings. Dilated perivascular spaces are identified the bilateral basal ganglia with a small cavernoma identified at the right parietal deep white matter. Age-related degenerative changes are reiterated. Concordant preliminary report from [facility], 05/07/2018, 2:16 p.m..
--- NOTE | 2018-05-09 09:11 | MRI ---
Date of service: 05/07/2018 PROCEDURE: MR Angiography of the neck without contrast HISTORY: TIA COMPARISON: None available. TECHNIQUE: 3D [id number] angiography of the neck was performed. Rotating maximum intensity projection images of the cervical carotid and vertebral arteries were generated. The origins of the common carotid arteries were not visualized, which is a limitation inherent to the non-contrast time of flight technique. FINDINGS: RIGHT CAROTID ARTERIES: Common Carotid Artery: Normal. Carotid Bifurcation: Normal. Internal Carotid Artery:Normal. External Carotid Artery (proximal branches): Trace stenosis at origin with remainder widely patent. LEFT CAROTID ARTERIES: Common Carotid Artery: Normal. Carotid Bifurcation: Normal. Internal Carotid Artery:Normal. External Carotid Artery (proximal branches): Normal. VERTEBRAL ARTERIES: Right Vertebral Artery: Normal. Left Vertebral Artery: Normal. OTHER FINDINGS: None. IMPRESSION: No significant stenosis identified in the bilateral common or internal carotid arteries in the neck as discussed above. Concordant preliminary report from TUCKERR[place], 05/07/2018, 2:10 p.m..
--- NOTE | 2018-05-09 14:00 | CP.PCM.PN ---
Subjective - Date & Time of Evaluation Date of Evaluation: 05/09/18 Time of Evaluation: 13:59 - Subjective Subjective: Neuro Follow-Up Note: Mr. Neal was evaluated this afternoon at bedside. present. Pt notably sleepy during exam and ROS limited from him due to this. Per pt he didn't get sleep last night and has been tired all day. Per , she noticed an improvement in his hand tremors today. Per , pt has been progressively getting slower in his speech and movements x 2months. Objective - Vital Signs/Intake and Output Vital Signs (last 24 hours): Temp Pulse Resp BP Pulse Ox 98.8 F 88 20 88/51 L 96 05/09/18 12:54 05/09/18 12:54 05/09/18 12:54 05/09/18 12:54 05/09/18 12:54 Intake and Output: 05/09/18 05/09/18 06:59 18:59 Intake Total 100 Output Total 950 Balance -850 - Medications Medications: Current Medications Acetaminophen (Tylenol 325mg Tab) 650 mg PO Q6 PRN PRN Reason: Headache Last Admin: 05/07/18 01:27 Dose: 650 mg Atorvastatin Calcium (Lipitor) 40 mg PO HS JENNIE Last Admin: 05/08/18 21:39 Dose: 40 mg Camphor/Menthol (Bengay) 1 applic TOP Q6 PRN PRN Reason: Pain, moderate (4-7) Carbidopa/Levodopa (Sinemet 10/100) 1 tab PO TID [facility] Last Admin: 05/09/18 08:18 Dose: 1 tab Cholecalciferol (Vitamin D) 2,000 intlu PO DAILY JENNIE Last Admin: 05/09/18 08:19 Dose: 2,000 intlu Enoxaparin Sodium (Lovenox) 40 mg SC DAILY [facility]; Protocol Last Admin: 05/09/18 08:19 Dose: 40 mg Finasteride (Proscar) 5 mg PO DAILY [facility] Fluticasone Propionate (Flonase) 2 spr GRAHAM DAILY PRN PRN Reason: Nasal congestion [place] Carbonate ([place] Carbonate 150mg) 150 mg PO Q12 [facility] Last Admin: 05/09/18 08:18 Dose: 150 mg Meclizine HCl (Antivert) 25 mg PO Q8 [facility] Last Admin: 05/09/18 08:18 Dose: 25 mg Risperidone (Risperdal Tab) 0.25 mg PO Q12 [facility] Last Admin: 05/09/18 08:19 Dose: 0.25 mg Tamsulosin HCl (Flomax) 0.4 mg PO DAILY [facility] Last Admin: 05/09/18 08:17 Dose: 0.4 mg - Labs Labs: 05/08/18 05:25 05/08/18 05:25 PT 10.8 Seconds (9.8-13.1) 05/06/18 11:45 INR 1.0 05/06/18 11:45 APTT 29.2 Seconds (25.6-37.1) 05/06/18 11:45 - Constitutional Appears: Non-toxic, No Acute Distress - Head Exam Head Exam: ATRAUMATIC, NORMAL INSPECTION, NORMOCEPHALIC - Eye Exam Eye Exam: EOMI, Normal appearance. absent: Nystagmus Pupil Exam: NORMAL ACCOMODATION, PERRL - ENT Exam ENT Exam: Mucous Membranes Moist - Neck Exam Neck Exam: Normal Inspection - Respiratory Exam Respiratory Exam: NORMAL BREATHING PATTERN - GI/Abdominal Exam GI & Abdominal Exam: Soft. absent: Tenderness - Exam Additional comments: alston cath in place - Extremities Exam Extremities Exam: Normal Inspection. absent: Calf Tenderness, Pedal Edema - Back Exam Back Exam: NORMAL INSPECTION - Neurological Exam Neurological Exam: Alert, Oriented x3 Neuro motor strength exam: Left Upper Extremity: 3 (drug safety data management specialist 3/5), Right Upper Extremity: 3 (drug safety data management specialist 3/5), Left Lower Extremity: 3 (plantar flexion 2-3/5), Right Lower Extremity: 3 (plantar flexion 2-3/5) Additional comments: Sleepy but easily arousable. Confused, poor historian. Able to follow commands with encouragement. Slurred speech; slow to verbally respond to questions. Strength decreased possibly 2/2 deconditioning. Sensation intact b/l. + bradykinesia and cogwheeling + rigidity BUE + mild hand tremor Unable to test finger to nose 2/2 pt too sleepy to follow. - Psychiatric Exam Psychiatric exam: Flat Affect - Skin Skin Exam: Normal Color Assessment and Plan (1) Parkinsonism Assessment & Plan: Imaging reviewed: -MRI Brain (05/07/18): No definite acute intracranial findings. Dilated perivascular spaces are identified the bilateral basal ganglia with a small cavernoma identified at the right parietal deep white matter. Age-related degenerative changes are reiterated. -MRA Head/Neck: unremarkable -Continue Sinemet as ordered. -Brian Scan to be done as outpatient. -Cardiac w/u for syncope if not already completed. -May benefit from rehab. If pt is admitted to TCU, please consult us so that we can monitor for further improvements while on Sinemet. Case discussed with Dr. Ro Status: Acute
[2018-05-09] MEDS: Menthol/Methyl Salicylate Oinment TOP PRN (17:00)
[2018-05-10 05:17] LABS: HEMOGLOBIN 10.4 g/dL (12.0-18.0); MEAN CELL VOLUME 93.4 fl (80.0-94.0); MEAN CORPUSCULAR HEMOGLOBIN 30.3 pg (27.0-31.0); MEAN CORPUSCULAR HGB CONC 32.5 g/dL (33.0-37.0); RBC 3.42 Mil/uL (4.40-5.90); RED CELL DISTRIBUTION WIDTH 13.6 % (11.5-14.5); WHITE BLOOD COUNT 6.9 K/uL (4.8-10.8)
[2018-05-10 05:38] LABS: ALB/GLOB RATIO 1.1 (1.0-2.1); ALBUMIN 3.1 g/dL (3.5-5.0); CALCIUM 10.5 mg/dL (8.4-10.2)
[2018-05-10 07:54] VITALS: RESP 18
[2018-05-10] MEDS ORDERED: Sodium Chloride 0.9% 1,000 ML IV SCH (08:15)
[2018-05-10] MEDS: Lithium Carbonate 150 MG CAP PO SCH (09:51)
[2018-05-10] MEDS: Cholecalciferol 1,000 INTLU TAB PO SCH (09:51)
[2018-05-10] MEDS: Enoxaparin 40 mg Syringe SC SCH (09:52)
--- NOTE | 2018-05-10 10:19 | CP.PCM.DIS ---
<Sultan Jules - Last Filed: 05/10/18 11:08> Provider - Provider Date of Admission: 05/06/18 14:21 Attending physician: Jose Butler MD Consults: 05/06/18 14:22 Neurology Consult Stat Comment: Consulting Provider: Dominic Bonilla Consulting Physician: Dominic Bonilla Reason for Consult: TIA 05/06/18 16:49 Urology Consult Stat Comment: Consulting Provider: William Wan Consulting Physician: William Wan Reason for Consult: urinary retention 05/07/18 11:04 Psychiatry Consult Routine Comment: Consulting Provider: Viky Beatty Consulting Physician: Viky Beatty Reason for Consult: hx bipolar disorder. Reports intrusive racing throught. 05/10/18 08:27 Endocrinology Consult Routine Comment: Consulting Provider: Rosemarie Farias Consulting Physician: Rosemarie Farias Reason for Consult: PTH 119, hypercalcemia Time Spent in preparation of Discharge (in minutes): 30 Diagnosis - Discharge Diagnosis (1) Acute urinary retention Status: Acute (2) Parkinsonism Status: Chronic (3) TIA (transient ischemic attack) Status: Acute (4) LEA (acute kidney injury) Status: Acute (5) Conjunctivitis Status: Acute Priority: Medium (6) Vasovagal syncope Status: Resolved Hospital Course - Lab Results Lab Results: Micro Results 05/06/18 18:15 Urine,Catheterized Urine Culture - Final No Growth (<1,000 CFU/ML) Most Recent Lab Values WBC 6.9 K/uL (4.8-10.8) 05/10/18 04:30 RBC 3.42 Mil/uL (4.40-5.90) L 05/10/18 04:30 Hgb 10.4 g/dL (12.0-18.0) L 05/10/18 04:30 Hct 31.9 % (35.0-51.0) L 05/10/18 04:30 MCV 93.4 fl (80.0-94.0) 05/10/18 04:30 MCH 30.3 pg (27.0-31.0) 05/10/18 04:30 MCHC 32.5 g/dL (33.0-37.0) L 05/10/18 04:30 RDW 13.6 % (11.5-14.5) 05/10/18 04:30 Plt Count 189 K/uL (130-400) 05/10/18 04:30 MPV 8.1 fl (7.2-11.7) 05/07/18 06:30 Neut % (Auto) 78.1 % (50.0-75.0) H 05/07/18 06:30 Lymph % (Auto) 11.8 % (20.0-40.0) L 05/07/18 06:30 Garden % (Auto) 7.9 % (0.0-10.0) 05/07/18 06:30 Eos % (Auto) 1.8 % (0.0-4.0) 05/07/18 06:30 Baso % (Auto) 0.4 % (0.0-2.0) 05/07/18 06:30 Neut # (Auto) 7.0 K/uL (1.8-7.0) 05/07/18 06:30 Lymph # (Auto) 1.1 K/uL (1.0-4.3) 05/07/18 06:30 Garden # (Auto) 0.7 K/uL (0.0-0.8) 05/07/18 06:30 Eos # (Auto) 0.2 K/uL (0.0-0.7) 05/07/18 06:30 Baso # (Auto) 0.0 K/uL (0.0-0.2) 05/07/18 06:30 PT 10.8 Seconds (9.8-13.1) 05/06/18 11:45 INR 1.0 05/06/18 11:45 APTT 29.2 Seconds (25.6-37.1) 05/06/18 11:45 Sodium 141 mmol/l (132-148) 05/10/18 04:30 Potassium 4.5 MMOL/L (3.6-5.0) 05/10/18 04:30 Chloride 107 mmol/L (98-107) 05/10/18 04:30 Carbon Dioxide 25 mmol/L (22-30) 05/10/18 04:30 Anion Gap 14 (10-20) 05/10/18 04:30 BUN 49 mg/dl (9-20) H 05/10/18 04:30 Creatinine 1.8 mg/dl (0.8-1.5) H 05/10/18 04:30 Est GFR ( Amer) 44 05/10/18 04:30 Est GFR (Non-Af Amer) 37 05/10/18 04:30 POC Glucose (mg/dL) 126 mg/dL (65-110) H 05/07/18 10:52 Random Glucose 109 mg/dL (75-110) 05/10/18 04:30 Hemoglobin A1c 5.7 % (4.2-6.5) 05/06/18 11:45 Calcium 10.5 mg/dL (8.4-10.2) H 05/10/18 04:30 Phosphorus 2.6 mg/dl (2.5-4.5) 05/07/18 06:30 Magnesium 2.3 MG/DL (1.6-2.3) 05/07/18 06:30 Total Bilirubin 0.1 mg/dl (0.2-1.3) L 05/10/18 04:30 AST 15 U/L (17-59) L D 05/10/18 04:30 ALT 20 U/L (21-72) L 05/10/18 04:30 Alkaline Phosphatase 41 U/L (38-126) 05/10/18 04:30 Troponin I 0.0160 ng/mL (0.00-0.120) 05/07/18 00:01 Total Protein 5.9 G/DL (6.3-8.2) L 05/10/18 04:30 Albumin 3.1 g/dL (3.5-5.0) L 05/10/18 04:30 Globulin 2.8 gm/dL (2.2-3.9) 05/10/18 04:30 Albumin/Globulin Ratio 1.1 (1.0-2.1) 05/10/18 04:30 Triglycerides 124 mg/DL (0-149) D 05/06/18 11:45 Cholesterol 276 mg/dL (0-199) H 05/06/18 11:45 LDL Cholesterol Direct 166 mg/dL (0-129) H 05/06/18 11:45 HDL Cholesterol 65 MG/DL (30-70) 05/06/18 11:45 Prostate Specific Ag 1.96 ng/ML (0.00-4.0) 05/06/18 18:15 Vitamin B12 > 1000 pg/mL (239-931) H 05/07/18 06:30 TSH 3rd Generation 4.74 mIU/ML (0.46-4.68) H 05/07/18 06:30 PTH Intact Whole Molec 119 pg/mL (14-64) H 05/07/18 06:30 Urine Color Yellow (YELLOW) 05/06/18 18:15 Urine Clarity Clear (Clear) 05/06/18 18:15 Urine pH 6.0 (5.0-8.0) 05/06/18 18:15 Ur Specific [place] 1.012 (1.003-1.030) 05/06/18 18:15 Urine Protein Negative mg/dL (NEGATIVE) 05/06/18 18:15 Urine Glucose (UA) Neg mg/dL (NEGATIVE) 05/06/18 18:15 Urine Ketones Negative mg/dL (NEGATIVE) 05/06/18 18:15 Urine Blood Moderate (NEGATIVE) 05/06/18 18:15 Urine Nitrate Negative (NEGATIVE) 05/06/18 18:15 Urine Bilirubin Negative (NEGATIVE) 05/06/18 18:15 Urine Urobilinogen 0.2-1.0 mg/dL (0.2-1.0) 05/06/18 18:15 Ur Leukocyte Esterase Neg Shameka/uL (Negative) 05/06/18 18:15 Urine RBC (Auto) 12 /hpf (0-3) H 05/06/18 18:15 Urine Microscopic WBC 2 /hpf (0-5) 05/06/18 18:15 Ur Squamous Epith Cells 4 /hpf (0-5) 05/06/18 18:15 Urine Bacteria Rare (<OCC) 05/06/18 18:15 Hyaline Casts 0-2 /hpf (0-2) 05/06/18 18:15 [place] 0.8 MMOL/L (0.6-1.2) 05/06/18 11:45 Blood Type A POSITIVE 05/06/18 11:40 Antibody Screen Negative 05/06/18 11:40 BBK History Checked Patient has bt 05/06/18 11:40 - Hospital Course Hospital Course: Patient is a 77 year old male with PMHx of vasovagal syncope, bipolar disorder, spinal stenosis, and arthritis presented to ER for evaluation of a near syncopal episode and brief slurred speech on 05/06/18. Patient's symptoms resolved spon taneously. CT head, brain MRI, neck and head MRA showed no acute pathology. Neurology was consulted and patient is currently being treated for parkinsonism. Patient also found to have acute urinary retention in ED. Tse was placed but patient failed a voiding trial. Flomax and finasteride initiated. Urologist Dr. Wan was consulted and recommended suprapubic catheter. Patient's declined to have suprapubic catheter at this time. Patient is currently on Tse cath with bladder training protocol. Physical therapy was consulted and recommends subacute rehab. Patient's agreeable to TCU for further rehab. Patient is discharged to TCU for gait strengthening and continuation of management of urinary retention. Discharge Exam - Head Exam Head Exam: ATRAUMATIC, NORMAL INSPECTION, NORMOCEPHALIC - Eye Exam Eye Exam: Conjunctival injection, EOMI - ENT Exam ENT Exam: Mucous Membranes Moist - Neck Exam Neck exam: Normal Inspection - Respiratory Exam Respiratory Exam: Clear to PA & Lateral, NORMAL BREATHING PATTERN. absent: Wheezes, Respiratory Distress - Cardiovascular Exam Cardiovascular Exam: REGULAR RHYTHM, +S1, +S2 - GI/Abdominal Exam GI & Abdominal Exam: Normal Bowel Sounds, Soft. absent: Distended, Tenderness - Neurological Exam Neurological exam: Alert - Skin Skin Exam: Normal Color Discharge Plan - Follow Up Plan Condition: STABLE Disposition: REHAB FACILITY/REHAB UNIT Instructions: Transient Ischemic Attack (DC), Parkinson Disease (DC) Additional Instructions: Needs assistance w/ all daily activities,Fall precaution. Referrals: Rosemarie Farias MD [Medical Doctor] - Renaldo Pablo MD [Family Provider] - Dominic Bonilla MD [Medical Doctor] - William Wan MD [Medical Doctor] - Viky Beatty MD [Medical Doctor] - <Debbie Vang - Last Filed: 05/10/18 19:50> Provider - Provider Date of Admission: 05/06/18 14:21 Attending physician: Jose Butler MD Consults: 05/06/18 14:22 Neurology Consult Stat Comment: Consulting Provider: Dominic Bonilla Consulting Physician: Dominic Bonilla Reason for Consult: TIA 05/06/18 16:49 Urology Consult Stat Comment: Consulting Provider: William Wan Consulting Physician: William Wan Reason for Consult: urinary retention 05/07/18 11:04 Psychiatry Consult Routine Comment: Consulting Provider: Viky Beatty Consulting Physician: Viky Beatty Reason for Consult: hx bipolar disorder. Reports intrusive racing throught. 05/10/18 08:27 Endocrinology Consult Routine Comment: Consulting Provider: Rosemarie Farias Consulting Physician: Rosemarie Farias Reason for Consult: PTH 119, hypercalcemia Hospital Course - Lab Results Lab Results: Micro Results 05/06/18 18:15 Urine,Catheterized Urine Culture - Final No Growth (<1,000 CFU/ML) Most Recent Lab Values WBC 6.9 K/uL (4.8-10.8) 05/10/18 04:30 RBC 3.42 Mil/uL (4.40-5.90) L 05/10/18 04:30 Hgb 10.4 g/dL (12.0-18.0) L 05/10/18 04:30 Hct 31.9 % (35.0-51.0) L 05/10/18 04:30 MCV 93.4 fl (80.0-94.0) 05/10/18 04:30 MCH 30.3 pg (27.0-31.0) 05/10/18 04:30 MCHC 32.5 g/dL (33.0-37.0) L 05/10/18 04:30 RDW 13.6 % (11.5-14.5) 05/10/18 04:30 Plt Count 189 K/uL (130-400) 05/10/18 04:30 MPV 8.1 fl (7.2-11.7) 05/07/18 06:30 Neut % (Auto) 78.1 % (50.0-75.0) H 05/07/18 06:30 Lymph % (Auto) 11.8 % (20.0-40.0) L 05/07/18 06:30 Garden % (Auto) 7.9 % (0.0-10.0) 05/07/18 06:30 Eos % (Auto) 1.8 % (0.0-4.0) 05/07/18 06:30 Baso % (Auto) 0.4 % (0.0-2.0) 05/07/18 06:30 Neut # (Auto) 7.0 K/uL (1.8-7.0) 05/07/18 06:30 Lymph # (Auto) 1.1 K/uL (1.0-4.3) 05/07/18 06:30 Garden # (Auto) 0.7 K/uL (0.0-0.8) 05/07/18 06:30 Eos # (Auto) 0.2 K/uL (0.0-0.7) 05/07/18 06:30 Baso # (Auto) 0.0 K/uL (0.0-0.2) 05/07/18 06:30 PT 10.8 Seconds (9.8-13.1) 05/06/18 11:45 INR 1.0 05/06/18 11:45 APTT 29.2 Seconds (25.6-37.1) 05/06/18 11:45 Sodium 141 mmol/l (132-148) 05/10/18 04:30 Potassium 4.5 MMOL/L (3.6-5.0) 05/10/18 04:30 Chloride 107 mmol/L (98-107) 05/10/18 04:30 Carbon Dioxide 25 mmol/L (22-30) 05/10/18 04:30 Anion Gap 14 (10-20) 05/10/18 04:30 BUN 49 mg/dl (9-20) H 05/10/18 04:30 Creatinine 1.8 mg/dl (0.8-1.5) H 05/10/18 04:30 Est GFR ( Amer) 44 05/10/18 04:30 Est GFR (Non-Af Amer) 37 05/10/18 04:30 POC Glucose (mg/dL) 126 mg/dL (65-110) H 05/07/18 10:52 Random Glucose 109 mg/dL (75-110) 05/10/18 04:30 Hemoglobin A1c 5.7 % (4.2-6.5) 05/06/18 11:45 Calcium 10.5 mg/dL (8.4-10.2) H 05/10/18 04:30 Phosphorus 2.6 mg/dl (2.5-4.5) 05/07/18 06:30 Magnesium 2.3 MG/DL (1.6-2.3) 05/07/18 06:30 Total Bilirubin 0.1 mg/dl (0.2-1.3) L 05/10/18 04:30 AST 15 U/L (17-59) L D 05/10/18 04:30 ALT 20 U/L (21-72) L 05/10/18 04:30 Alkaline Phosphatase 41 U/L (38-126) 05/10/18 04:30 Troponin I 0.0160 ng/mL (0.00-0.120) 05/07/18 00:01 Total Protein 5.9 G/DL (6.3-8.2) L 05/10/18 04:30 Albumin 3.1 g/dL (3.5-5.0) L 05/10/18 04:30 Globulin 2.8 gm/dL (2.2-3.9) 05/10/18 04:30 Albumin/Globulin Ratio 1.1 (1.0-2.1) 05/10/18 04:30 Triglycerides 124 mg/DL (0-149) D 05/06/18 11:45 Cholesterol 276 mg/dL (0-199) H 05/06/18 11:45 LDL Cholesterol Direct 166 mg/dL (0-129) H 05/06/18 11:45 HDL Cholesterol 65 MG/DL (30-70) 05/06/18 11:45 Prostate Specific Ag 1.96 ng/ML (0.00-4.0) 05/06/18 18:15 Vitamin B12 > 1000 pg/mL (239-931) H 05/07/18 06:30 TSH 3rd Generation 4.74 mIU/ML (0.46-4.68) H 05/07/18 06:30 PTH Intact Whole Molec 119 pg/mL (14-64) H 05/07/18 06:30 Urine Color Yellow (YELLOW) 05/06/18 18:15 Urine Clarity Clear (Clear) 05/06/18 18:15 Urine pH 6.0 (5.0-8.0) 05/06/18 18:15 Ur Specific [place] 1.012 (1.003-1.030) 05/06/18 18:15 Urine Protein Negative mg/dL (NEGATIVE) 05/06/18 18:15 Urine Glucose (UA) Neg mg/dL (NEGATIVE) 05/06/18 18:15 Urine Ketones Negative mg/dL (NEGATIVE) 05/06/18 18:15 Urine Blood Moderate (NEGATIVE) 05/06/18 18:15 Urine Nitrate Negative (NEGATIVE) 05/06/18 18:15 Urine Bilirubin Negative (NEGATIVE) 05/06/18 18:15 Urine Urobilinogen 0.2-1.0 mg/dL (0.2-1.0) 05/06/18 18:15 Ur Leukocyte Esterase Neg [place]ameka/uL (Negative) 05/06/18 18:15 Urine RBC (Auto) 12 /hpf (0-3) H 05/06/18 18:15 Urine Microscopic WBC 2 /hpf (0-5) 05/06/18 18:15 Ur Squamous Epith Cells 4 /hpf (0-5) 05/06/18 18:15 Urine Bacteria Rare (<OCC) 05/06/18 18:15 Hyaline Casts 0-2 /hpf (0-2) 05/06/18 18:15 [place] 0.8 MMOL/L (0.6-1.2) 05/06/18 11:45 Blood Type A POSITIVE 05/06/18 11:40 Antibody Screen Negative 05/06/18 11:40 BBK History Checked Patient has bt 05/06/18 11:40 Attending/Attestation - Attestation I have personally seen and examined this patient.: Yes I have fully participated in the care of the patient.: Yes I have reviewed all pertinent clinical information, including history, physical exam and plan: Yes
[2018-05-10 12:44] VITALS: BP 100/67; PULSE 72; TEMP 97.9; O2SAT 95
[2018-05-10] MEDS: Menthol/Methyl Salicylate Oinment TOP PRN (13:21)
--- NOTE | 2018-05-10 21:11 | CON ---
DATE: 05/10/2018 ENDOCRINOLOGY CONSULT LOCATION: Room 403. HISTORY OF PRESENT ILLNESS: This is a 77-year-old male, presenting here with sudden episodes of dizziness and lightheadedness and associated near-syncopal episode with brief bout of slurred speech that resolved accordingly and is now being referred for endocrine evaluation because of persistent hypercalcemia with an elevated parathyroid hormone intact level as noted. PAST MEDICAL HISTORY: As mentioned above. History of hypertension and dyslipidemia; history of bipolar disorder, on psychotropic medications; history of previous episodes of vasovagal syncope as noted; also history of senile dementia with episodic bouts of lapses of memory and forgetfulness; history of a TIA with no residual weakness as noted. FAMILY HISTORY: Positive for hypertension and heart disease. SOCIAL HISTORY: The patient has a supportive family. No known substance use. REVIEW OF SYSTEMS: As mentioned above. Admits to generalized body weakness with episodic bouts of dizziness and lightheadedness, worse on the day of admission. Also admits to periodic bouts of insomnia and bifrontal headaches. No chest pains or palpitations but admits to occasional shortness of breath especially on exertion. His oral intake has been variable with nausea, dyspepsia and vague upper abdominal pains. Also admits to habitual constipation. PHYSICAL EXAMINATION: GENERAL: This is an average-built male, in no apparent distress VITAL SIGNS: Blood pressure of 140/80, pulse of 84 beats per minute and regular, temperature 98, respirations 20, height is 5 feet 10 inches, weight is 148 pounds. HEENT: Head: Normocephalic. Eyes: Anicteric with pink conjunctivae. Funduscopy is not possible at this time. Ears, Nose and Throat: Otherwise normal. NECK: Supple. Thyroid gland is normal in size. No carotid bruits or any cervical adenopathy. CARDIOPULMONARY: Some adynamic precordium. S1, S2, rapid and regular. LUNGS: Clear to auscultation. ABDOMEN: Flat, soft with positive bowel sounds. EXTREMITIES: No peripheral edema. Pulses are +2 bilaterally. LABORATORY DATA: His chemistry showed a BUN of 49, sodium 141, potassium 4.5, chloride 107, CO2 of 25, glucose 109 and creatinine 1.8. His calcium level is 10.5 with an albumin level of 3.1 and corrected calcium of 11.4. His TSH is 4.74. His PTH (parathyroid hormone) level is 119. ASSESSMENT: This is a 77-year-old male with recent admission for vasovagal syncopal episode and is being evaluated from the endocrine view point to have primary hyperparathyroidism with persistent hypercalcemia as expected thereof. Moreover, he also has underlying bipolar disorder, on psychotropic medications, specifically lithium carbonate which could also contribute to hypercalcemia with underlying medications causing more release of the parathyroid hormone level causing further obstruction of the calcium from the intestines and increased bone resorption thereof. Moreover, he also has some moderate degree of dehydration which can also cause elevated calcium levels as noted. There is no historical evidence of any kind of nephrolithiasis or osteoporosis thereof, although with his advanced age, I would not be surprised if there is any underlying low bone mass density accordingly. PLAN OF MANAGEMENT: With the advanced age of the patient and the evidence only of mild hypercalcemia with no end organ involvement and no history of any kind of nephrolithiasis or osteoporosis, we will conservatively manage the patient at this time with hydration and antiresorptive therapy as indicated. We will hold off any kind of aggressive surgical intervention or parathyroid adenoma resection otherwise. We will obtain serial chemistries to include phosphorus and magnesium level and supplement phosphorus if hypophosphatemic accordingly. We will also obtain a 25-hydroxy vitamin D level as ordered. We will follow up. Rosemarie Farias MD
== END 2018-05-10 14:48 | DRG 312 ==
LOC: H.ER 10:59 → H.ERHOLD 14:21 → H.TEL 18:32
DX: R55 Syncope and collapse (principal); G45.9 Transient cerebral ischemic attack, unspecified; N17.9 Acute kidney failure, unspecified; F31.9 Bipolar disorder, unspecified; N40.1 Benign prostatic hyperplasia with lower urinary tract symptoms; R33.8 Other retention of urine; G20 Parkinson's disease; E21.0 Primary hyperparathyroidism; E78.00 Pure hypercholesterolemia, unspecified; E78.5 Hyperlipidemia, unspecified; E86.0 Dehydration; F03.90 Unspecified dementia, unspecified severity, without behavioral disturbance, psychotic disturbance, mood disturbance, and anxiety; H10.30 Unspecified acute conjunctivitis, unspecified eye; I10 Essential (primary) hypertension; K59.00 Constipation, unspecified; R29.700 NIHSS score 0; Z79.899 Other long term (current) drug therapy; Z86.73 Personal history of transient ischemic attack (TIA), and cerebral infarction without residual deficits; F32.9 Major depressive disorder, single episode, unspecified; M19.90 Unspecified osteoarthritis, unspecified site; M48.00 Spinal stenosis, site unspecified; R26.9 Unspecified abnormalities of gait and mobility; R47.81 Slurred speech

== ENCOUNTER 2018-05-10 13:04 | Inpatient (IN) | payer OTHER, BC ==
[2018-05-10 13:54] VITALS: BMI 21.2
[2018-05-10 15:14] VITALS: RESP 20
[2018-05-10] MEDS ORDERED: Menthol/Methyl Salicylate Oinment TOP PRN (15:52)
[2018-05-10] MEDS: Sodium Chloride 0.9% 1,000 ML IV SCH (16:17)
[2018-05-10] MEDS: Lithium Carbonate 150 MG CAP PO SCH (22:00)
[2018-05-11] MEDS: Sodium Chloride 0.9% 1,000 ML IV SCH ×2 (02:11→12:16)
[2018-05-11] MEDS: Enoxaparin 30 mg Syringe SC SCH (09:22)
[2018-05-11] MEDS: Lithium Carbonate 150 MG CAP PO SCH ×2 (09:23→21:55)
[2018-05-11] MEDS: Cholecalciferol 1,000 INTLU TAB PO SCH (09:24)
[2018-05-11] MEDS: CLEAR EYES OU PRN (12:07)
--- NOTE | 2018-05-11 12:30 | CP.PCM.HP ---
History of Present Illness - History of Present Illness History of Present Illness: Patient is a 77 year old male with PMHx of vasovagal syncope, bipolar disorder, spinal stenosis, and arthritis admitted to TCU for gait strengthening and continuation of management of urinary retention. Patient was discharged yesterday from [facility] telemetry after a negative work up for a TIA like episode on 05/06/18. CT head, brain MRI, neck and head MRA showed no acute pathology. Neurology was consulted and patient is currently being treated for parkinsonism. Patient also found to have acute urinary retention on 05/06/18. Alston was placed but patient failed a voiding trial. Urologist Dr. Wan was consulted and recommended suprapubic catheter. Patient's declined to have suprapubic catheter at this time. Patient is currently on Alston cath with bladder training protocol and receiving Flomax and finasteride. Today, patient seen and examined with present in the room. Patient is participating in PT/OT. Denies chest pain, dypsnea, nausea, vomiting, abdominal pain or focal weakness. Patient has alston cath place and was clamped for bladder training. ROS: All 12 systems reviewed and negative except as mentioned in HPI PCP: Dr. Renaldo Pablo Psych: Dr Campbell PMH: vasovagal syncope, Arthritis, Dementia, HLD, TIA and bipolar disorder PSH: hernia repair, foot surgery Family hx: no signicant family hx Meds: risperdal, lithuim, meclizine, multivitamin, colace Allergies: meperidine Present on Admission - Present on Admission Any Indicators Present on Admission: No Review of Systems - Review of Systems Review of Systems: All 12 systems reviewed and negative except as mentioned in HPI Past Patient History - Infectious Disease Hx of Infectious Diseases: None - Past Medical History & Family History Past Medical History?: Yes - Past Social History Smoking Status: Never Smoked - CARDIAC Hx Hypercholesterolemia: Yes - PULMONARY Hx Respiratory Disorders: No - NEUROLOGICAL Hx Dementia: Yes Hx Transient Ischemic Attacks (TIA): Yes (2018) - HEENT Hx HEENT Problems: Yes - RENAL Hx Chronic Kidney Disease: No - ENDOCRINE/METABOLIC Hx Endocrine Disorders: No - HEMATOLOGICAL/ONCOLOGICAL Hx Human Immunodeficiency Virus (HIV): No - INTEGUMENTARY Hx Dermatological Problems: No - MUSCULOSKELETAL/RHEUMATOLOGICAL Hx Arthritis: Yes Hx Falls: No - GASTROINTESTINAL Hx Gastrointestinal Disorders: No Other/Comment: Spleen aneurysm - GENITOURINARY/GYNECOLOGICAL Hx Genitourinary Disorders: Yes - PSYCHIATRIC Hx Bipolar Disorder: Yes Hx Depression: Yes Hx Substance Use: No - SURGICAL HISTORY Hx Surgeries: Yes Hx Herniorrhaphy: Yes Other/Comment: TURP X2, small spleen aneurysm. Feet surgery(Bunnion and hammer toes sx) - ANESTHESIA Hx Anesthesia: Yes Hx Anesthesia Reactions: No Hx Malignant Hyperthermia: No Meds Allergies/Adverse Reactions: Allergies Allergy/AdvReac Type Severity Reaction Status Date / Time meperidine Allergy Mild RASH Verified 05/10/18 13:54 Physical Exam - Constitutional Appears: Non-toxic, No Acute Distress - Head Exam Head Exam: NORMAL INSPECTION - Eye Exam Eye Exam: Normal appearance - ENT Exam ENT Exam: Mucous Membranes Moist - Neck Exam Neck exam: Positive for: Normal Inspection - Respiratory Exam Respiratory Exam: Clear to Auscultation Bilateral, NORMAL BREATHING PATTERN. absent: Rhonchi, Wheezes - Cardiovascular Exam Cardiovascular Exam: REGULAR RHYTHM, +S1, +S2 - GI/Abdominal Exam GI & Abdominal Exam: Normal Bowel Sounds, Soft. absent: Tenderness - Extremities Exam Extremities exam: Positive for: normal inspection. Negative for: calf tenderness - Neurological Exam Neurological exam: Alert Additional comments: improved hand tremor - Psychiatric Exam Psychiatric exam: Normal Affect, Normal Mood - Skin Skin Exam: Normal Color Results - Vital Signs Recent Vital Signs: Last Vital Signs Temp 97.9 F 05/11/18 08:05 Pulse 69 05/11/18 08:05 Resp 20 05/11/18 08:05 BP 117/58 L 05/11/18 08:05 Pulse Ox 99 05/11/18 08:05 Assessment & Plan - Assessment and Plan (Free Text) Assessment: Patient is a 77 year old male with PMHx of vasovagal syncope, bipolar disorder, spinal stenosis, and arthritis admitted to TCU for gait strengthening and continuation of management of urinary retention. Patient was discharged yesterday from [facility] telemetry after a negative work up for a TIA like episode on 05/06/18. CT head, brain MRI, neck and head MRA showed no acute pathology. Plan: Gait instability -Continue with PT/ OT Acute kidney injury -BUN/cr 49/1.8 yesterday -Encourage PO hydration -f/u am bmp Acute urinary retention -hx TURP x 2 procedure many years ago -c/w Flomax 0.4 mg po daily -c/w Finasteride 5 mg po daily -Alston in place -Urology recommends suprapubic catheterizing but patient's declined. Parkinsonism -Tremor improved -c/w sinemet -Neuro on board Hyperlipidemia -Lipid panel on 05/06/18: Total chol 276, trigly. 124, LDL 166, HDL 65 -c/w atorvastatin 40 mg po qhs TIA episode -resolved -Work up with head CT, brain MRI and CTA head neg for stroke Bipolar disorder -stable -resume home medications - Psych recommends continuing with current medication regimen DVT prophylaxis -Lovenox 40 mg SC daily Diet -regular diet Code status -Full code Plan discussed with Dr. Tipton
--- NOTE | 2018-05-11 16:33 | CP.PCM.CON ---
History of Present Illness - History of Present Illness History of Present Illness: 77 year old male with PMHx of vasovagal syncope, bipolar disorder, spinal stenosis, and arthritis admitted to TCU for gait strengthening and continuation of management of urinary retention. Patient was discharged yesterday from [facility] after a negative work up for a TIA like episode on 05/06/18. CT head, brain MRI, neck and head MRA showed no acute pathology. Neurology was consulted and patient is currently being treated for parkinsonism. Patient also found to have acute urinary retention on 05/06/18. Alston was placed but patient failed a voiding trial. Urologist Dr. Wan was consulted and recommended suprapubic catheter. Patient's declined to have suprapubic catheter at this time. Patient is currently on Alston cath with bladder training protocol and receiving Flomax and finasteride. Today, patient seen and examined with present in the room. Patient is participating in PT/OT. Denies chest pain, dypsnea, nausea, vomiting, abdominal pain or focal weakness. Patient has alston cath place and was clamped for bladder training. ROS: All 12 systems reviewed and negative except as mentioned in HPI PCP: Dr. Renaldo Pablo Psych: Dr Campbell PMH: vasovagal syncope, Arthritis, Dementia, HLD, TIA and bipolar disorder PSH: hernia repair, foot surgery Family hx: no signicant family hx Meds: risperdal, lithuim, meclizine, multivitamin, colace Allergies: meperidine Past Patient History - Infectious Disease Hx of Infectious Diseases: None - Past Medical History & Family History Past Medical History?: Yes - Past Social History Smoking Status: Never Smoked - CARDIAC Hx Hypercholesterolemia: Yes - PULMONARY Hx Respiratory Disorders: No - NEUROLOGICAL Hx Dementia: Yes Hx Transient Ischemic Attacks (TIA): Yes (2018) - HEENT Hx HEENT Problems: Yes - RENAL Hx Chronic Kidney Disease: No - ENDOCRINE/METABOLIC Hx Endocrine Disorders: No - HEMATOLOGICAL/ONCOLOGICAL Hx Human Immunodeficiency Virus (HIV): No - INTEGUMENTARY Hx Dermatological Problems: No - MUSCULOSKELETAL/RHEUMATOLOGICAL Hx Arthritis: Yes Hx Falls: No - GASTROINTESTINAL Hx Gastrointestinal Disorders: No Other/Comment: Spleen aneurysm - GENITOURINARY/GYNECOLOGICAL Hx Genitourinary Disorders: Yes - PSYCHIATRIC Hx Bipolar Disorder: Yes Hx Depression: Yes Hx Substance Use: No - SURGICAL HISTORY Hx Surgeries: Yes Hx Herniorrhaphy: Yes Other/Comment: TURP X2, small spleen aneurysm. Feet surgery(Bunnion and hammer toes sx) - ANESTHESIA Hx Anesthesia: Yes Hx Anesthesia Reactions: No Hx Malignant Hyperthermia: No Meds Allergies/Adverse Reactions: Allergies Allergy/AdvReac Type Severity Reaction Status Date / Time meperidine Allergy Mild RASH Verified 05/10/18 13:54 - Medications Medications: Current Medications Acetaminophen (Tylenol 325mg Tab) 650 mg PO Q6 PRN PRN Reason: Headache Last Admin: 05/10/18 22:14 Dose: 650 mg Atorvastatin Calcium (Lipitor) 40 mg PO HS [facility]ENN[facility] Last Admin: 05/10/18 21:59 Dose: 40 mg Camphor/Menthol (Bengay) 1 applic TOP Q6 PRN PRN Reason: Pain, moderate (4-7) Carbidopa/Levodopa (Sinemet 10/100) 1 tab PO TID [facility] Last Admin: 05/11/18 09:24 Dose: 1 tab Cholecalciferol (Vitamin D) 2,000 intlu PO DAILY [facility] Last Admin: 05/11/18 09:24 Dose: 2,000 intlu Docusate Sodium (Colace) 100 mg PO DAILY PRN PRN Reason: Constipation Enoxaparin Sodium (Lovenox) 30 mg SC DAILY [facility]; Protocol Last Admin: 05/11/18 09:22 Dose: 30 mg Finasteride (Proscar) 5 mg PO DAILY [facility] Last Admin: 05/11/18 09:23 Dose: 5 mg Fluticasone Propionate (Flonase) 2 spr GRAHAM DAILY PRN PRN Reason: Nasal congestion Home Med (Patient's Own Medication) 1 unit OU QID PRN PRN Reason: Dry eyes Last Admin: 05/11/18 12:07 Dose: 1 unit [place] Carbonate ([place] Carbonate 150mg) 150 mg PO Q12 [facility] Last Admin: 05/11/18 09:23 Dose: 150 mg Meclizine HCl (Antivert) 25 mg PO Q8 [facility] Last Admin: 05/11/18 09:22 Dose: 25 mg Polyethylene Glycol (Miralax) 17 gm PO DAILY PRN PRN Reason: Constipation Risperidone (Risperdal Tab) 0.25 mg PO Q12 [facility] Last Admin: 05/11/18 09:23 Dose: 0.25 mg Tamsulosin HCl (Flomax) 0.4 mg PO DAILY [facility] Last Admin: 05/11/18 09:22 Dose: 0.4 mg Results - Vital Signs Recent Vital Signs: Last Vital Signs Temp 98.2 F 05/11/18 15:32 Pulse 61 05/11/18 15:32 Resp 20 05/11/18 15:32 BP 105/64 05/11/18 15:32 Pulse Ox 95 05/11/18 15:32 Assessment & Plan - Assessment and Plan (Free Text) Assessment: 77 yr old male with TIA symptoms now resolved, NIHSS of 0. Plan: 1. COntinue aspirin 2. COntinue rehab as per team Neurology group will follow Dr. Ro
--- NOTE | 2018-05-12 01:22 | PN ---
DATE: 05/11/2018 ENDOCRINOLOGY FOLLOWUP NOTE LOCATION: Room 710. SUBJECTIVE: This is a 77-year-old male, admitted for possible transient ischemic event and underwent a neurological workup as noted and is also being followed now for metabolic management. He has had persistent hypercalcemia, the latest calcium of which was 10.5 with albumin level of 3.7 and a corrected calcium of 10.8 mg/dL. His chemistries showed a BUN of 49, sodium 141, potassium 4.5, chloride 107, CO2 of 25, glucose 126, and creatinine 1.8. His hemoglobin A1c is 5.7%. His calcium level was reported as 10.5 with an albumin level of 3.7 and a corrected calcium of 10.8 mg/dL. His parathyroid hormone level was reported as 119 which is elevated and indicative of primary hyperparathyroidism causing the persistent hypercalcemia as noted thereof. PLAN OF MANAGEMENT: We will continue the present medical management and obtain serial chemistries and supplement accordingly as needed. We will also obtain a 25 hydroxy vitamin D level as ordered. At this time, we will hold off any kind of surgical intervention with the mild hypercalcemic values as noted with no end organ evidence of nephrolithiasis or osteoporosis thereof. We will obtain serial chemistries and supplement accordingly as needed. We will follow. Rosemarie Farias MD
[2018-05-12 06:46] LABS: ALB/GLOB RATIO 1.1 (1.0-2.1); CALCIUM 10.2 mg/dL (8.4-10.2)
[2018-05-12] MEDS: Lithium Carbonate 150 MG CAP PO SCH ×2 (08:12→21:14)
[2018-05-12] MEDS: Enoxaparin 30 mg Syringe SC SCH (08:13)
[2018-05-12] MEDS: Cholecalciferol 1,000 INTLU TAB PO SCH (08:14)
[2018-05-12] MEDS: CLEAR EYES OU PRN ×2 (09:23→16:45)
--- NOTE | 2018-05-12 15:12 | CP.PCM.PN ---
Subjective - Date & Time of Evaluation Date of Evaluation: 05/12/18 Time of Evaluation: 11:15 - Subjective Subjective: Patient seen and examined. Denied any complaint. Objective - Vital Signs/Intake and Output Vital Signs (last 24 hours): Temp Pulse Resp BP Pulse Ox 98.2 F 68 20 97/58 L 96 05/11/18 20:02 05/11/18 20:02 05/11/18 20:02 05/11/18 20:02 05/11/18 20:02 - Medications Medications: Current Medications Acetaminophen (Tylenol 325mg Tab) 650 mg PO Q6 PRN PRN Reason: Headache Last Admin: 05/12/18 11:05 Dose: 650 mg Aspirin (Ecotrin) 81 mg PO DAILY [facility] Last Admin: 05/12/18 08:12 Dose: 81 mg Atorvastatin Calcium (Lipitor) 40 mg PO HS [facility] Last Admin: 05/11/18 21:54 Dose: 40 mg Camphor/Menthol (Bengay) 1 applic TOP Q6 PRN PRN Reason: Pain, moderate (4-7) Carbidopa/Levodopa (Sinemet 10/100) 1 tab PO TID [facility] Last Admin: 05/12/18 13:46 Dose: 1 tab Cholecalciferol (Vitamin D) 2,000 intlu PO DAILY [facility] Last Admin: 05/12/18 08:14 Dose: 2,000 intlu Docusate Sodium (Colace) 100 mg PO DAILY PRN PRN Reason: Constipation Enoxaparin Sodium (Lovenox) 30 mg SC DAILY [facility]; Protocol Last Admin: 05/12/18 08:13 Dose: 30 mg Finasteride (Proscar) 5 mg PO DAILY [facility] Last Admin: 05/12/18 08:13 Dose: 5 mg Fluticasone Propionate (Flonase) 2 spr GRAHAM DAILY PRN PRN Reason: Nasal congestion Home Med (Patient's Own Medication) 1 unit OU QID PRN PRN Reason: Dry eyes Last Admin: 05/12/18 09:23 Dose: 1 unit Neche Carbonate (Neche Carbonate 150mg) 150 mg PO Q12 [facility] Last Admin: 05/12/18 08:12 Dose: 150 mg Meclizine HCl (Antivert) 25 mg PO Q8 [facility] Last Admin: 05/12/18 08:12 Dose: 25 mg Polyethylene Glycol (Miralax) 17 gm PO DAILY PRN PRN Reason: Constipation Risperidone (Risperdal Tab) 0.25 mg PO Q12 [facility] Last Admin: 05/12/18 08:13 Dose: 0.25 mg Tamsulosin HCl (Flomax) 0.4 mg PO DAILY [facility] Last Admin: 05/12/18 08:12 Dose: 0.4 mg - Labs Labs: 05/12/18 05:20 - Constitutional Appears: No Acute Distress - Head Exam Head Exam: ATRAUMATIC - Eye Exam Eye Exam: absent: Scleral icterus - ENT Exam ENT Exam: Mucous Membranes Moist - Respiratory Exam Respiratory Exam: absent: Rales, Rhonchi, Wheezes, Respiratory Distress - GI/Abdominal Exam GI & Abdominal Exam: Soft. absent: Tenderness - Rectal Exam Rectal Exam: Deferred - Neurological Exam Neurological Exam: Alert - Psychiatric Exam Psychiatric exam: Normal Affect - Skin Skin Exam: Dry, Intact Assessment and Plan - Assessment and Plan (Free Text) Assessment: 77 yo male with history of vasovagal syncope, bipolar do, spinal stenosis and arthritis had near syncopal episode while trying to move his bowel in the bathroom. Patient was immediately assisted by who noted transient slurring of speech. He was transferred to TCU for continued management and PT. 1. Vasovagal Syncope resolved work ups negative for TIA 2. Gait instability probably secondary to Parkinsonism continue PT Sinemet 1 tab PO TID 3. Acute kidney injury improving renal function encourage liberal intake of fluid 4. Urinary Retention will start on bladder training: clamping catheter for 4 hrs then unclamp for 15 minutes to fully drain bladder had TURP few yrs ago continue Flomax and Finasteride Dr Wan on urology consult 5. Bipolar DO continue Neche and Risperdal 6. DVT prophylaxis continue Lovenox 40 mg SC daily
--- NOTE | 2018-05-12 23:18 | PN ---
DATE: 05/12/2018 ENDO FOLLOWUP NOTE LOCATION: Room 710. SUBJECTIVE: This is a 77-year-old male, presenting here with transient ischemic event that has resolved spontaneously and is now being followed closely for metabolic management. He is also being followed closely for recent persistent hypercalcemia as noted thereof. LABORATORY DATA: His latest calcium level today is 10.2 with an albumin of 3 and a corrected calcium of 11.2 mg/dL. His chemistry showed a BUN of 41, sodium 142, potassium 4.4, chloride 111, and CO2 of 23. His creatinine is 1.4 with a glucose of 89, the 25-hydroxy vitamin D level is 30.3. His PTH (parathyroid hormone) level is 119 indicative of the so-called primary hyperparathyroidism with persistent hypercalcemia. No end organ dysfunction related hypercalcemia is evident at this time. PLAN OF MANAGEMENT: We will hold off any kind of surgical evaluation or intervention as the patient has no end organ involvement with very mild hypercalcemic values as expected. We will continue the IV hydration as given. We will also obtain serial chemistries and supplement accordingly as needed. We will follow and advise accordingly. Rosemarie Farias MD
[2018-05-13] MEDS: CLEAR EYES OU PRN (08:30)
[2018-05-13] MEDS: Enoxaparin 30 mg Syringe SC SCH (08:33)
[2018-05-13] MEDS: Lithium Carbonate 150 MG CAP PO SCH ×2 (08:33→20:57)
[2018-05-13] MEDS: Cholecalciferol 1,000 INTLU TAB PO SCH (08:34)
--- NOTE | 2018-05-13 15:05 | CP.PCM.PN ---
Subjective - Date & Time of Evaluation Date of Evaluation: 05/13/18 Time of Evaluation: 11:50 - Subjective Subjective: Neuro Follow-Up Note: Mr. Neal was evaluated this morning at bedside. present. Pt evaluated sitting OOB in chair. Pt denies any complaints and feels generally well. also states that he has been doing well. Denies h/a, dizziness, visual changes, chest pain, palpitations, sob, cough, abd pain, n/v/d. Objective - Vital Signs/Intake and Output Vital Signs (last 24 hours): Temp Pulse Resp BP Pulse Ox 98.6 F 81 20 149/80 98 05/13/18 08:08 05/13/18 08:08 05/13/18 08:08 05/13/18 08:08 05/13/18 08:08 - Medications Medications: Current Medications Acetaminophen (Tylenol 325mg Tab) 650 mg PO Q6 PRN PRN Reason: Headache Last Admin: 05/12/18 11:05 Dose: 650 mg Aspirin (Ecotrin) 81 mg PO DAILY [facility] Last Admin: 05/13/18 08:33 Dose: 81 mg Atorvastatin Calcium (Lipitor) 40 mg PO HS [facility] Last Admin: 05/12/18 21:14 Dose: 40 mg Camphor/Menthol (Bengay) 1 applic TOP Q6 PRN PRN Reason: Pain, moderate (4-7) Carbidopa/Levodopa (Sinemet 10/100) 1 tab PO TID [facility] Last Admin: 05/13/18 12:38 Dose: 1 tab Cholecalciferol (Vitamin D) 2,000 intlu PO DAILY [facility] Last Admin: 05/13/18 08:34 Dose: 2,000 intlu Docusate Sodium (Colace) 100 mg PO DAILY PRN PRN Reason: Constipation Enoxaparin Sodium (Lovenox) 30 mg SC DAILY [facility]; Protocol Last Admin: 05/13/18 08:33 Dose: 30 mg Finasteride (Proscar) 5 mg PO DAILY [facility] Last Admin: 05/13/18 08:34 Dose: 5 mg Fluticasone Propionate (Flonase) 2 spr GRAHAM DAILY PRN PRN Reason: Nasal congestion Last Admin: 05/13/18 08:31 Dose: 2 spr Home Med (Patient's Own Medication) 1 unit OU QID PRN PRN Reason: Dry eyes Last Admin: 05/13/18 08:30 Dose: 1 unit [place] Carbonate (Betances Carbonate 150mg) 150 mg PO Q12 [facility] Last Admin: 05/13/18 08:33 Dose: 150 mg Meclizine HCl (Antivert) 25 mg PO Q8 [facility] Last Admin: 05/13/18 08:32 Dose: 25 mg Polyethylene Glycol (Miralax) 17 gm PO DAILY PRN PRN Reason: Constipation Risperidone (Risperdal Tab) 0.25 mg PO Q12 [facility] Last Admin: 05/13/18 08:34 Dose: 0.25 mg Tamsulosin HCl (Flomax) 0.4 mg PO DAILY [facility] Last Admin: 05/13/18 08:33 Dose: 0.4 mg - Labs Labs: 05/12/18 05:20 - Constitutional Appears: Well, Non-toxic, No Acute Distress - Head Exam Head Exam: ATRAUMATIC, NORMAL INSPECTION, NORMOCEPHALIC - Eye Exam Eye Exam: EOMI, Normal appearance. absent: Nystagmus Pupil Exam: NORMAL ACCOMODATION - ENT Exam ENT Exam: Mucous Membranes Moist - Neck Exam Neck Exam: Full ROM, Normal Inspection - Respiratory Exam Respiratory Exam: NORMAL BREATHING PATTERN - Extremities Exam Extremities Exam: Normal Inspection Additional comments: Able to move all extremities with more generalized weakness to BLE - Back Exam Back Exam: Full ROM - Neurological Exam Neurological Exam: Alert, Awake, CN II-XII Intact, Reflexes Normal Neuro motor strength exam: Left Upper Extremity: 4, Right Upper Extremity: 4, Left Lower Extremity: 3, Right Lower Extremity: 3 Additional comments: Periods of confusion. Able to follow commands Alert and awake, good energy compared to my last visit with him. Slight slowness noted in verbally responding to questions but much improved compared to my last visit with him. Strength improving to all extremities. + very slight hand tremor Improving bradykinesia No cogwheeling noted; no UE rigidity Gait not assess; PT noted reviewed - Psychiatric Exam Psychiatric exam: Normal Affect, Normal Mood - Skin Skin Exam: Intact, Normal Color, Warm Assessment and Plan (1) Parkinsonism Assessment & Plan: -Imaging from last admission reviewed. -We recommended to increase Sinemet to 25/100 mg PO TID (7am, 12pm, 3pm), though pt's is refusing at this time. She is in agreement to change the dose pending his progression and if his symptoms worsen. -Brian scan to be done as outpatient. Pt and aware and agree. -Continue PT. -Notify neuro of any changes in pt's condition. Case discussed with Dr. Ro. Status: Chronic
[2018-05-14] MEDS: Enoxaparin 30 mg Syringe SC SCH (08:53)
[2018-05-14] MEDS: Cholecalciferol 1,000 INTLU TAB PO SCH (08:55)
[2018-05-14] MEDS: Lithium Carbonate 150 MG CAP PO SCH ×2 (08:55→21:34)
--- NOTE | 2018-05-14 10:59 | PN ---
DATE: 05/14/2018 He presented with TIA in the acute medical floor and underwent a neurological workup at this time and he also has known underlying Parkinson's disease as noted. Moreover, he also had recent urinary retention and is being followed closely by urology at this time. Moreover, he also has persistent hypercalcemia related to underlying primary hyperparathyroidism and the latest calcium level is 10.2 with an albumin level of 3 and corrected calcium level of 11.2 mg/dL. His vitamin D level is 30.3. His chemistry showed a BUN of 41, sodium 142, potassium 4.4, chloride 111, CO2 of 23, glucose 89 and creatinine 1.4. So at this time, we will continue the present medical management as ordered. No indication for now for any kind of antirestorative therapy with bisphosphonates or calcitonin which is actually not even available in this hospital because of the formidable expense and hare accordingly. We will observe the serial chemistries and supplement accordingly as needed. We will continue the vitamin D supplementation as given at this time. We will follow up with you. Rosemarie Farias MD
[2018-05-15 07:04] LABS: ALB/GLOB RATIO 1.1 (1.0-2.1); ALBUMIN 3.1 g/dL (3.5-5.0); CALCIUM 10.2 mg/dL (8.4-10.2)
[2018-05-15] MEDS: Enoxaparin 30 mg Syringe SC SCH (08:17)
[2018-05-15] MEDS: Cholecalciferol 1,000 INTLU TAB PO SCH (08:18)
[2018-05-15] MEDS: CLEAR EYES OU PRN ×2 (08:24→16:55)
[2018-05-15] MEDS: Lithium Carbonate 150 MG CAP PO SCH ×2 (10:10→20:51)
--- NOTE | 2018-05-15 20:28 | PN ---
DATE: 05/15/2018 ENDOCRINOLOGY FOLLOWUP NOTE LOCATION: Room 710. This is a 77-year-old male with recent admission for a TIA that is resolved accordingly and is now being followed closely for metabolic management of recent hypercalcemia related to primary hyperparathyroidism as noted. The repeat calcium levels showed a value of 10.2 with an albumin of 3.1 and a corrected calcium of 11.1 mg/dL. His chemistry showed a BUN of 43, sodium 138, potassium 4.4, chloride 107, CO2 of 25, glucose 98 and creatinine 1.6. So at this time, we will continue the present medical management as ordered and given. We will hold off antiresorptive agent with bisphosphonate at this time. We will obtain serial chemistries and supplement accordingly as needed. We will follow. Rosemarie Farias MD
[2018-05-16] MEDS: Enoxaparin 30 mg Syringe SC SCH (08:21)
[2018-05-16] MEDS: Lithium Carbonate 150 MG CAP PO SCH ×2 (08:21→21:11)
--- NOTE | 2018-05-16 08:21 | PN ---
DATE: 05/13/2018 ENDOCRINOLOGY FOLLOWUP NOTE LOCATION: Room 710, [facility]. SUBJECTIVE: This is a 77-year-old male presenting here with transient ischemic event with no residual localized weakness and is now being followed closely for metabolic management. He also has persistent hypercalcemia and the latest calcium level was 10.2 mg/dL with an albumin level of 3 and a corrected calcium of 11.2 mg/dL. His vitamin D level is 30.3. LABORATORY DATA: His latest chemistry shows a BUN of 41, sodium 142, potassium 4.4, chloride 111, CO2 of 23, glucose 89, and creatinine 1.4. ASSESSMENT AND PLAN: So at this time, we will continue the present medical management and hold off any kind of antiresorptive therapy nor any bisphosphonate therapy. We will obtain serial chemistries and observe his calcium levels accordingly. We will follow. Rosemarie Farias MD
[2018-05-16] MEDS: CLEAR EYES OU PRN (08:22)
[2018-05-16] MEDS: Cholecalciferol 1,000 INTLU TAB PO SCH (08:22)
--- NOTE | 2018-05-16 09:58 | CP.PCM.CON ---
History of Present Illness - History of Present Illness History of Present Illness: This 77-year-old man was recently hospitalized following a syncopal episode during which she also had slurring of speech. The patient has had vasovagal episodes in the past. He had a Tse c atheter inserted while in the emergency room. Because of suspicion of Parkinson's disease he has been started on Sinemet which can precipitate urinary retention. The patient has had a long history of depression and anxiety. He has had cervical spinal stenosis and radiculopathy. This consultation was requested as part of evaluation prior to proceeding with suprapubic cystostomy. Physical examination shows an elderly frail man who is alert and awake. He appears to be quite aware of his surroundings and recognizes me readily. He was able to breathe comfortably while lying virtually flat at 16 breaths/min and had a heart rate of 104/70 mmHg while on Flomax 0.4 mg every day. His heart rate w as 70 bpm and regular. His jugular venous pressure was not elevated and there was no edema over his sacrum or ankles. The pedal pulses were feeble but distinctly present. There were no carotid bruits. The patient is markedly kyphotic. The apex was in the fifth space. The first and second heart sounds are normal. There was no murmur or gallop. There were no rales. His abdomen was soft liver and spleen were not palpable. His electrocardiogram shows sinus rhythm with a first-degree AV block and a pattern of left bundle branch block, a pattern seen since his electrocardiograms of 2015. An echocardiogram at that time had shown preserved left ventricular systolic function. His lab data was noted. His electrolytes were essentially normal with a moderate degree of chronic renal insufficiency. Impression: Chronic depression and anxiety. Possible chronic urinary retention possibly aggravated by introduction of Sinemet., ? Consent disease, vasovagal episodes in the past History of cervical spinal stenosis with radicular pains. The patient will have his Tse catheter removed and will be evaluated for residual urine. The possibility that urinary retention could be precipitated by the newly introduced Sinemet should be considered. The patient will need an echocardiogram if a decision is made to proceed with suprapubic cystostomy. I have discussed all of these issues with his at length. Past Patient History - Infectious Disease Hx of Infectious Diseases: None - Past Medical History & Family History Past Medical History?: Yes - Past Social History Smoking Status: Never Smoked - CARDIAC Hx Hypercholesterolemia: Yes - PULMONARY Hx Respiratory Disorders: No - NEUROLOGICAL Hx Dementia: Yes Hx Transient Ischemic Attacks (TIA): Yes (2018) - HEENT Hx HEENT Problems: Yes - RENAL Hx Chronic Kidney Disease: No - ENDOCRINE/METABOLIC Hx Endocrine Disorders: No - HEMATOLOGICAL/ONCOLOGICAL Hx Human Immunodeficiency Virus (HIV): No - INTEGUMENTARY Hx Dermatological Problems: No - MUSCULOSKELETAL/RHEUMATOLOGICAL Hx Arthritis: Yes Hx Falls: No - GASTROINTESTINAL Hx Gastrointestinal Disorders: No Other/Comment: Spleen aneurysm - GENITOURINARY/GYNECOLOGICAL Hx Genitourinary Disorders: Yes - PSYCHIATRIC Hx Bipolar Disorder: Yes Hx Depression: Yes Hx Substance Use: No - SURGICAL HISTORY Hx Surgeries: Yes Hx Herniorrhaphy: Yes Other/Comment: TURP X2, small spleen aneurysm. Feet surgery(Bunnion and hammer toes sx) - ANESTHESIA Hx Anesthesia: Yes Hx Anesthesia Reactions: No Hx Malignant Hyperthermia: No Meds Allergies/Adverse Reactions: Allergies Allergy/AdvReac Type Severity Reaction Status Date / Time meperidine Allergy Mild RASH Verified 05/10/18 13:54 - Medications Medications: Current Medications Acetaminophen (Tylenol 325mg Tab) 650 mg PO Q6 PRN PRN Reason: Headache Last Admin: 05/14/18 08:52 Dose: 650 mg Aspirin (Ecotrin) 81 mg PO DAILY [facility] Last Admin: 05/16/18 08:21 Dose: 81 mg Atorvastatin Calcium (Lipitor) 40 mg PO HS [facility] Last Admin: 05/15/18 21:03 Dose: 40 mg Camphor/Menthol (Bengay) 1 applic TOP Q6 PRN PRN Reason: Pain, moderate (4-7) Carbidopa/Levodopa (Sinemet 10/100) 1 tab PO TID@0700,1200,1500 [facility] Last Admin: 05/16/18 06:33 Dose: 1 tab Cholecalciferol (Vitamin D) 2,000 intlu PO DAILY [facility] Last Admin: 05/16/18 08:22 Dose: 2,000 intlu Docusate Sodium (Colace) 100 mg PO DAILY PRN PRN Reason: Constipation Last Admin: 05/15/18 15:06 Dose: 100 mg Enoxaparin Sodium (Lovenox) 30 mg SC DAILY [facility]; Protocol Last Admin: 05/16/18 08:21 Dose: 30 mg Finasteride (Proscar) 5 mg PO DAILY [facility] Last Admin: 05/16/18 08:22 Dose: 5 mg Fluticasone Propionate (Flonase) 2 spr [place]RA[place]AM DAILY PRN PRN Reason: Nasal congestion Last Admin: 05/13/18 08:31 Dose: 2 spr Home Med (Patient's Own Medication) 1 unit OU QID PRN PRN Reason: Dry eyes Last Admin: 05/16/18 08:22 Dose: 1 unit [place] Carbonate ([place] Carbonate 150mg) 150 mg PO Q12 [facility] Last Admin: 05/16/18 08:21 Dose: 150 mg Meclizine HCl (Antivert) 25 mg PO Q8 [facility] Last Admin: 05/16/18 08:21 Dose: 25 mg Polyethylene Glycol (Miralax) 17 gm PO DAILY PRN PRN Reason: Constipation Risperidone (Risperdal Tab) 0.25 mg PO Q12 [facility] Last Admin: 05/16/18 08:22 Dose: 0.25 mg Tamsulosin HCl (Flomax) 0.4 mg PO DAILY [facility] Last Admin: 05/16/18 08:21 Dose: 0.4 mg Results - Vital Signs Recent Vital Signs: Last Vital Signs Temp 97.5 F L 05/16/18 08:06 Pulse 74 05/16/18 08:06 Resp 20 05/16/18 08:06 BP 122/69 05/16/18 08:06 Pulse Ox 97 05/16/18 08:06 - Labs Result Diagrams: 05/15/18 05:30
--- NOTE | 2018-05-16 18:05 | PN ---
DATE: 05/16/2018 ENDOCRINOLOGY FOLLOWUP NOTE LOCATION: Room 710, [facility]. SUBJECTIVE: This is a 77-year-old male with primary hyperparathyroidism and persistent hypercalcemia and is now being followed closely for metabolic management. His latest chemistry showed a BUN of 43, sodium 138, potassium 4.4, chloride 107, CO2 of 25, glucose 98 and creatinine 1.6. His calcium level is 10.2 with an albumin level of 3.1 and a corrected calcium of 11.1 mg/dL. So at this time, we will continue the present medical management as given. We will hold off the initiation of antiresorptive therapy for now with the evidence of mild hypercalcemia as expected thereof. We will continue the vitamin D supplementation as given. We will obtain serial chemistries and supplement accordingly as needed. We will follow up with you. Rosemarie Farias MD
--- NOTE | 2018-05-17 09:53 | CP.PCM.PN ---
Subjective - Date & Time of Evaluation Date of Evaluation: 05/17/18 Time of Evaluation: 11:00 - Subjective Subjective: Patient seen and evaluated bedside . Elderly male of stated age sitting in bed in NAD. Feeling a little better . is bedside states that is doing better, participating with PT and getting stronger Tse catheter was removed yesterday and able to void Hemodynamically stable, afebrile No acute issues overnight Objective - Vital Signs/Intake and Output Vital Signs (last 24 hours): Temp Pulse Resp BP Pulse Ox 97.7 F 81 20 117/70 97 05/17/18 07:44 05/17/18 07:44 05/17/18 07:44 05/17/18 07:44 05/17/18 07:44 - Medications Medications: Current Medications Acetaminophen (Tylenol 325mg Tab) 650 mg PO Q6 PRN PRN Reason: Headache Last Admin: 05/14/18 08:52 Dose: 650 mg Aspirin (Ecotrin) 81 mg PO DAILY [facility] Last Admin: 05/16/18 08:21 Dose: 81 mg Atorvastatin Calcium (Lipitor) 40 mg PO HS [facility] Last Admin: 05/16/18 21:11 Dose: 40 mg Camphor/Menthol (Bengay) 1 applic TOP Q6 PRN PRN Reason: Pain, moderate (4-7) Cholecalciferol (Vitamin D) 2,000 intlu PO DAILY [facility] Last Admin: 05/16/18 08:22 Dose: 2,000 intlu Docusate Sodium (Colace) 100 mg PO DAILY PRN PRN Reason: Constipation Last Admin: 05/16/18 16:25 Dose: 100 mg Enoxaparin Sodium (Lovenox) 30 mg SC DAILY [facility]; Protocol Last Admin: 05/16/18 08:21 Dose: 30 mg Finasteride (Proscar) 5 mg PO DAILY [facility] Last Admin: 05/16/18 08:22 Dose: 5 mg Fluticasone Propionate (Flonase) 2 spr G[place]AM DAILY PRN PRN Reason: Nasal congestion Last Admin: 05/13/18 08:31 Dose: 2 spr Home Med (Patient's Own Medication) 1 unit OU QID PRN PRN Reason: Dry eyes Last Admin: 05/16/18 08:22 Dose: 1 unit [place] Carbonate ([place] Carbonate 150mg) 150 mg PO Q12 [facility] Last Admin: 05/16/18 21:11 Dose: 150 mg Meclizine HCl (Antivert) 25 mg PO Q8 [facility] Last Admin: 05/17/18 00:13 Dose: 25 mg Polyethylene Glycol (Miralax) 17 gm PO DAILY PRN PRN Reason: Constipation Risperidone (Risperdal Tab) 0.25 mg PO Q12 [facility] Last Admin: 05/16/18 21:11 Dose: 0.25 mg Tamsulosin HCl (Flomax) 0.4 mg PO DAILY [facility] Last Admin: 05/16/18 08:21 Dose: 0.4 mg - Labs Labs: 05/15/18 05:30 - Constitutional Appears: Non-toxic, Cachectic, Chronically Ill, Other (weak ansd pale with weak voice) - Eye Exam Eye Exam: EOMI, PERRL Pupil Exam: NORMAL ACCOMODATION - ENT Exam ENT Exam: Mucous Membranes Moist, Normal Exam - Neck Exam Neck Exam: Normal Inspection - Respiratory Exam Respiratory Exam: Clear to Ausculation Bilateral, NORMAL BREATHING PATTERN. absent: Wheezes, Respiratory Distress - Cardiovascular Exam Cardiovascular Exam: REGULAR RHYTHM. absent: JVD - GI/Abdominal Exam GI & Abdominal Exam: Soft, Normal Bowel Sounds. absent: Distended, Guarding, Rebound - Rectal Exam Rectal Exam: Deferred - Extremities Exam Extremities Exam: Normal Capillary Refill. absent: Pedal Edema - Back Exam Back Exam: NORMAL INSPECTION - Neurological Exam Neurological Exam: Alert, Awake, CN II-XII Intact - Psychiatric Exam Psychiatric exam: Flat Affect - Skin Skin Exam: Dry, Pallor, Warm Assessment and Plan - Assessment and Plan (Free Text) Assessment: 77 y/o male with history of vasovagal syncope, bipolar disorder,parkinsonism , spinal stenosis, BPH s/p TURP twice and arthritis had near syncopal episode while trying to move his bowel in the bathroom. Patient was immediately assisted by who noted transient slurring of speech. He was admitted initially for near syncopy, vasovagal syncopy . He was also found to have urinary retention so urology was consulted Tse placed and started on Flomax and proscar .He was transferred to TCU for gait instability and physical therapy. Patient participating with PT and doing better 1. Vasovagal Syncope resolved work ups negative for TIA 2. Gait instability probably secondary to Parkinsonism Sinemet discontinued because of urinary retention Continue PT 3. Acute kidney injury Cr 1.6 today after Tse removal Voiding freely will continue to monitor closely repeat BMP 4. Urinary Retention Has history of BPH s/p TURP twice urology was consulted. Family and patient refusing suprapubic catheter continue flomax and proscar discontinued Sinemet Tse removed yesterday and voiding freely . Continue To monitor 5. Bipolar DO continue Spencer and Risperdal 6. DVT prophylaxis continue Lovenox 30 mg SC daily 7. Mild anemia unclear etiology hgb 10.4 continue to monitor
[2018-05-17] MEDS: Lithium Carbonate 150 MG CAP PO SCH ×2 (10:00→22:13)
[2018-05-17] MEDS: Enoxaparin 30 mg Syringe SC SCH (10:00)
[2018-05-17] MEDS: Cholecalciferol 1,000 INTLU TAB PO SCH (10:00)
--- NOTE | 2018-05-17 14:51 | PN ---
DATE: 05/17/2018 LOCATION: Room 710. SUBJECTIVE: This is a 77-year-old male with primary hyperparathyroidism and persistent hypercalcemia and is now receiving ongoing physical and occupational therapy at the TCU as noted and is being followed closely for metabolic management. His repeat calcium levels are 10.2 mg/dL with an albumin level of 3.1 and a corrected calcium of 11.1 mg/dL. So, at this time, we will hold off any kind of antiresorptive therapy with bisphosphonates or calcitonin at this time. We will obtain serial chemistries and supplement accordingly as needed. We will follow. Rosemarie Farias MD
--- NOTE | 2018-05-17 15:00 | CP.PCM.PN ---
Subjective - Date & Time of Evaluation Date of Evaluation: 05/17/18 Time of Evaluation: 15:00 - Subjective Subjective: Neuro Follow-Up Note: Mr. Neal was evaluated this afternoon at bedside. No family present during neuro rounds. Pt denies any complaints and feels generally well. Sinemet was d/c'd by primary team as urology had stated it could be the cause of pt's urinary retention, although, pt has had this problem well before Sinemet was started. He is for possible d/c on , 05/19/18. Denies h/a, dizziness, visual changes, chest pain, palpitations, sob, cough, abd pain, n/v/d. Objective - Vital Signs/Intake and Output Vital Signs (last 24 hours): Temp Pulse Resp BP Pulse Ox 97.7 F 81 20 117/70 97 05/17/18 07:44 05/17/18 07:44 05/17/18 07:44 05/17/18 07:44 05/17/18 07:44 - Medications Medications: Current Medications Acetaminophen (Tylenol 325mg Tab) 650 mg PO Q6 PRN PRN Reason: Headache Last Admin: 05/14/18 08:52 Dose: 650 mg Aspirin (Ecotrin) 81 mg PO DAILY [facility] Last Admin: 05/17/18 10:00 Dose: 81 mg Atorvastatin Calcium (Lipitor) 40 mg PO HS [facility] Last Admin: 05/16/18 21:11 Dose: 40 mg Camphor/Menthol (Bengay) 1 applic TOP Q6 PRN PRN Reason: Pain, moderate (4-7) Cholecalciferol (Vitamin D) 2,000 intlu PO DAILY [facility] Last Admin: 05/17/18 10:00 Dose: 2,000 intlu Docusate Sodium (Colace) 100 mg PO DAILY PRN PRN Reason: Constipation Last Admin: 05/17/18 12:21 Dose: 100 mg Enoxaparin Sodium (Lovenox) 30 mg SC DAILY [facility]; Protocol Last Admin: 05/17/18 10:00 Dose: 30 mg Finasteride (Proscar) 5 mg PO DAILY [facility] Last Admin: 05/17/18 10:00 Dose: 5 mg Fluticasone Propionate (Flonase) 2 spr GRAHAM DAILY PRN PRN Reason: Nasal congestion Last Admin: 05/13/18 08:31 Dose: 2 spr Home Med (Patient's Own Medication) 1 unit OU QID PRN PRN Reason: Dry eyes Last Admin: 05/16/18 08:22 Dose: 1 unit [place] Carbonate ([place] Carbonate 150mg) 150 mg PO Q12 [facility] Last Admin: 05/17/18 10:00 Dose: 150 mg Meclizine HCl (Antivert) 25 mg PO Q8 [facility] Last Admin: 05/17/18 10:00 Dose: 25 mg Polyethylene Glycol (Miralax) 17 gm PO DAILY PRN PRN Reason: Constipation Risperidone (Risperdal Tab) 0.25 mg PO Q12 [facility] Last Admin: 05/17/18 10:00 Dose: 0.25 mg Tamsulosin HCl (Flomax) 0.4 mg PO DAILY [facility] Last Admin: 05/17/18 10:00 Dose: 0.4 mg - Labs Labs: 05/15/18 05:30 - Constitutional Appears: Well, Non-toxic, No Acute Distress - Head Exam Head Exam: ATRAUMATIC, NORMAL INSPECTION, NORMOCEPHALIC - Eye Exam Eye Exam: EOMI, Normal appearance Pupil Exam: NORMAL ACCOMODATION, PERRL - ENT Exam ENT Exam: Mucous Membranes Moist - Neck Exam Neck Exam: Full ROM, Normal Inspection - Respiratory Exam Respiratory Exam: NORMAL BREATHING PATTERN - GI/Abdominal Exam GI & Abdominal Exam: Soft - Extremities Exam Additional comments: Able to move all extremities with more generalized weakness to BLE. No edema noted - Neurological Exam Neurological Exam: Alert, Awake, CN II-XII Intact, Reflexes Normal Neuro motor strength exam: Left Upper Extremity: 4, Right Upper Extremity: 4, Left Lower Extremity: 3, Right Lower Extremity: 3 Additional comments: Periods of confusion. Able to follow commands Alert and awake. Slowness in verbally responding seems to have improved. Strength improving to all extremities. + very slight hand tremor b/l still noted. Improving bradykinesia No cogwheeling noted; no UE rigidity Gait not assessed; PT noted reviewed - Psychiatric Exam Psychiatric exam: Normal Affect, Normal Mood - Skin Skin Exam: Normal Color Assessment and Plan (1) Parkinsonism Assessment & Plan: -Imaging from last admission reviewed. -We had originally started the pt on Sinemet to 10/100 mg PO TID, though, it was d/c yesterday after urology had discussed concerns of it causing the pt's urinary retention with the primary team. At this time, the pt does not want to be placed on any other PD medication until after it is discussed with his . I will f/u with pt and tomorrow to have this discussion. He seems to be doing well off of the Sinemet for 24 hours now. -Brian scan to be done as outpatient. -Continue PT. -Notify neuro of any changes in pt's condition. Case discussed with Dr. Bonilla Status: Chronic
[2018-05-17] MEDS: POLYETHYLENE GLYCOL 3350 17 GM/Dose PACKET PO PRN (15:11)
[2018-05-18 05:58] LABS: HEMOGLOBIN 11.3 g/dL (12.0-18.0); MEAN CELL VOLUME 92.3 fl (80.0-94.0); MEAN CORPUSCULAR HEMOGLOBIN 30.3 pg (27.0-31.0); MEAN CORPUSCULAR HGB CONC 32.8 g/dL (33.0-37.0); RBC 3.72 Mil/uL (4.40-5.90); RED CELL DISTRIBUTION WIDTH 13.5 % (11.5-14.5); WHITE BLOOD COUNT 13.2 K/uL (4.8-10.8)
[2018-05-18 06:17] LABS: CALCIUM 10.8 mg/dL (8.4-10.2)
[2018-05-18] MEDS: Lithium Carbonate 150 MG CAP PO SCH ×2 (09:05→22:38)
[2018-05-18] MEDS: Enoxaparin 30 mg Syringe SC SCH (09:05)
[2018-05-18] MEDS: Cholecalciferol 1,000 INTLU TAB PO SCH (09:06)
--- NOTE | 2018-05-18 10:17 | CP.PCM.PN ---
Subjective - Date & Time of Evaluation Date of Evaluation: 05/18/18 Time of Evaluation: 09:20 - Subjective Subjective: The patient was found resting comfortably in bed with his in attendance. His Sinemet was discontinued yesterday and the patient was able to void after Tse catheter was removed. His vital signs are stable and he is hemodynamically stable. I have warned patient's that his antipsychotic medications (such as Risperdal) could have side effects mimicking Parkinson's disease. This may warrant use of Sinemet in future leading to possible urinary retention. Use of Flomax to avoid urinary retention could aggravate his tendency for vasovagal episodes which have occurred in the past. I have explained these side effects of medications that he may find himself taking over the next few months. At this juncture the patient is hemodynamically stable and no further intervention is required. Objective - Vital Signs/Intake and Output Vital Signs (last 24 hours): Temp Pulse Resp BP Pulse Ox 99.1 F 85 20 113/74 98 05/18/18 08:23 05/18/18 08:23 05/18/18 08:23 05/18/18 08:23 05/18/18 08:23 - Medications Medications: Current Medications Acetaminophen (Tylenol 325mg Tab) 650 mg PO Q6 PRN PRN Reason: Headache Last Admin: 05/14/18 08:52 Dose: 650 mg Aspirin (Ecotrin) 81 mg PO DAILY [facility] Last Admin: 05/18/18 09:05 Dose: 81 mg Atorvastatin Calcium (Lipitor) 40 mg PO HS [facility] Last Admin: 05/17/18 22:13 Dose: 40 mg Camphor/Menthol (Bengay) 1 applic TOP Q6 PRN PRN Reason: Pain, moderate (4-7) Cholecalciferol (Vitamin D) 2,000 intlu PO DAILY [facility] Last Admin: 05/18/18 09:06 Dose: 2,000 intlu Docusate Sodium (Colace) 100 mg PO DAILY PRN PRN Reason: Constipation Last Admin: 05/17/18 12:21 Dose: 100 mg Enoxaparin Sodium (Lovenox) 30 mg SC DAILY [facility]; Protocol Last Admin: 05/18/18 09:05 Dose: 30 mg Finasteride (Proscar) 5 mg PO DAILY [facility] Last Admin: 05/18/18 09:05 Dose: 5 mg Fluticasone Propionate (Flonase) 2 spr GRAHAM DAILY PRN PRN Reason: Nasal congestion Last Admin: 05/13/18 08:31 Dose: 2 spr Home Med (Patient's Own Medication) 1 unit OU QID PRN PRN Reason: Dry eyes Last Admin: 05/16/18 08:22 Dose: 1 unit [place] Carbonate ([place] Carbonate 150mg) 150 mg PO Q12 [facility] Last Admin: 05/18/18 09:05 Dose: 150 mg Meclizine HCl (Antivert) 25 mg PO Q8 [facility] Last Admin: 05/18/18 09:04 Dose: 25 mg Polyethylene Glycol (Miralax) 17 gm PO DAILY PRN PRN Reason: Constipation Last Admin: 05/17/18 15:11 Dose: 17 gm Risperidone (Risperdal Tab) 0.25 mg PO Q12 [facility] Last Admin: 05/18/18 09:05 Dose: 0.25 mg Tamsulosin HCl (Flomax) 0.4 mg PO DAILY [facility] Last Admin: 05/18/18 09:05 Dose: 0.4 mg - Labs Labs: 05/18/18 05:50 05/18/18 05:50
[2018-05-18] MEDS: POLYETHYLENE GLYCOL 3350 17 GM/Dose PACKET PO PRN (17:07)
--- NOTE | 2018-05-18 19:45 | PN ---
DATE: 05/18/2018 ENDOCRINOLOGY FOLLOWUP NOTE LOCATION: Room 710. SUBJECTIVE: This is a 77-year male with persistent hypercalcemia related to underlying primary hyperparathyroidism and is now being followed closely for metabolic management. His oral intake remains quite variable at this time as noted. LABORATORY DATA: His chemistries showed a calcium level of 10.2 with an albumin level of 3.1 and the corrected calcium of 11.1 mg/dL. His latest chemistry showed a BUN of 42, sodium 142, potassium 4.7, chloride 107, CO2 of 25, glucose 98 and creatinine 1.6. Actually the repeat calcium level today was done with a calcium level of 10.8 with no albumin level reported. PLAN: We will continue the present medical management and hold off any kind of antiresorptive therapy, even bisphosphonate therapy as indicated. We will obtain serial chemistry and supplement accordingly needed. We will follow. Rosemarie Farias MD
[2018-05-18 21:20] VITALS: O2SAT 98
[2018-05-19 08:14] VITALS: BP 120/75; PULSE 101; TEMP 98.2
[2018-05-19] MEDS: Enoxaparin 30 mg Syringe SC SCH (09:08)
[2018-05-19] MEDS: Cholecalciferol 1,000 INTLU TAB PO SCH (09:09)
[2018-05-19] MEDS: Lithium Carbonate 150 MG CAP PO SCH (09:09)
--- NOTE | 2018-05-19 19:00 | PN ---
DATE: 05/19/2018 ENDOCRINOLOGY FOLLOWUP NOTE LOCATION: Room 710. SUBJECTIVE: This is a 77-year-old male with hypercalcemia related to underlying primary hyperparathyroidism and is now being followed closely for metabolic management. His calcium levels have been on the upper normal limits as noted and the latest chemistry showed a BUN of 42, sodium 142, potassium 4.7, chloride 107, CO2 25, glucose of 98 and creatinine 1.6. His calcium levels have ranged from 10.2-10.8 mg/dL. So at this time, we will continue the present medical management with no further need for any surgical intervention or further endocrine workup at this time. We will hold off any kind of antiresorptive therapy at this time. We will obtain serial chemistries and supplement accordingly as needed. We will follow. Rosemarie Farias MD
== END 2018-05-19 13:40 | disposition home health service (06) | DRG 92 ==
LOC: H.TCU 15:05
PROVIDERS: ADMIT Hospitalist; ATTEND Hospitalist
PROC: F08Z1FZ Dressing Techniques Treatment using Assistive, Adaptive, Supportive or Protective Equipment (ICD-10-PCS; principal; 2018-05-10)
PROC: F08Z0FZ Bathing/Showering Techniques Treatment using Assistive, Adaptive, Supportive or Protective Equipment (ICD-10-PCS; 2018-05-10)
PROC: F07Z9FZ Gait Training/Functional Ambulation Treatment using Assistive, Adaptive, Supportive or Protective Equipment (ICD-10-PCS; 2018-05-10)
PROC: F07 Physical Rehabilitation and Diagnostic Audiology, Rehabilitation, Motor Treatment (ICD-10-PCS; 2018-05-10)
DX: R26.9 Unspecified abnormalities of gait and mobility (principal); N17.9 Acute kidney failure, unspecified; E21.0 Primary hyperparathyroidism; F31.9 Bipolar disorder, unspecified; Z86.73 Personal history of transient ischemic attack (TIA), and cerebral infarction without residual deficits; E78.5 Hyperlipidemia, unspecified; E78.00 Pure hypercholesterolemia, unspecified; F41.9 Anxiety disorder, unspecified; R54 Age-related physical debility; N18.9 Chronic kidney disease, unspecified; M48.02 Spinal stenosis, cervical region; G31.83 Neurocognitive disorder with Lewy bodies; F02.80 Dementia in other diseases classified elsewhere, unspecified severity, without behavioral disturbance, psychotic disturbance, mood disturbance, and anxiety; N40.1 Benign prostatic hyperplasia with lower urinary tract symptoms; R33.8 Other retention of urine; I95.1 Orthostatic hypotension; D64.9 Anemia, unspecified

== ENCOUNTER 2018-06-22 09:53 | Inpatient (IN) | payer MEDICARE, BC ==
[2018-06-22 09:54] VITALS: BMI 21.2
[2018-06-22] MEDS ORDERED: Sodium Chloride 0.9% 1,000 ML IV STA (10:36)
--- NOTE | 2018-06-22 11:26 | ED PDOC ---
HPI: Altered Mental Status Time Seen by Provider: 06/22/18 10:09 Chief Complaint (Nursing): Weakness/Neurological Deficit Chief Complaint (Provider): Weakness/Neurological Deficit History Per: Family History/Exam Limitations: Clinical Condition Onset/Duration Of Symptoms: Days Current Symptoms Are (Timing): Still Present Associated Symptoms: Incontinence. denies: Fever, Vomiting, Diarrhea, Cough Additional Complaint(s): 77 year old male with a past medical history of hypercholesterolemia, bipolar disorder, and TIA who was brought to the ED by family for evaluation of weakness ongoing for 1 week. History was provided by family due to patients clinical condition. reports that patient has been generally weak and cant get up and walk. She admits that he has been weak since after his discharge from the hospital in May when he was admitted in the ED in February for a TIA. Family also states that patient may have Parkinsons disease and admits that patient has been getting rehab at home. adds that today he couldnt get up or ambulate so she had to drag him to the bathroom but he collapsed and she admits that she is unsure if he lost consciousness. Family denies any fever, cough, vomiting, or diarrhea but report that patient is constipated and has been complaining of rectal pain and urinary incontinence. PMD: Renaldo Pablo Past Medical History Reviewed: Historical Data, Nursing Documentation, Vital Signs Vital Signs: Last Vital Signs Temp 98.5 F 06/22/18 10:23 Pulse 102 H 06/22/18 10:23 Resp 18 06/22/18 10:23 BP 110/68 06/22/18 10:23 Pulse Ox 99 06/22/18 10:23 - Medical History PMH: Arthritis, Bipolar Disorder, Dementia, Depression, Hypercholesterolemia, Hyperlipidemia, TIA (2018) Denies: HIV, Chronic Kidney Disease - Surgical History Surgical History: Hernia Repair - Family History Family History: States: Unknown Family Hx - Social History Current smoker - smoking cessation education provided: No Alcohol: None Drugs: Denies - Home Medications Home Medications: Ambulatory Orders Medication Instructions Recorded Risperidone [Risperdal] 0.25 mg PO Q12 09/11/16 Docusate Sodium [Dulcolax Stool 100 mg PO BID 05/06/18 Softener] [place] Carbonate [[place] 150 mg PO Q12 05/06/18 Carbonate 150MG] Meclizine [Meclizine*] 25 mg PO Q8 PRN 05/06/18 Polyethylene Glycol 3350 [Miralax] 17 gm PO DAILY 05/06/18 Cholecalciferol [Vitamin D 1000 IU] 1,000 unit PO DAILY 06/22/18 Cyanocobalamin [Vitamin B12 1000 1,000 mcg PO DAILY 06/22/18 mcg Tab] - Allergies Allergies/Adverse Reactions: Allergies Allergy/AdvReac Type Severity Reaction Status Date / Time meperidine Allergy Mild RASH Verified 06/22/18 10:01 Review of Systems ROS Statement: Except As Marked, All Systems Reviewed And Found Negative Constitutional: Positive for: Weakness. Negative for: Fever Respiratory: Negative for: Cough Gastrointestinal: Positive for: Constipation. Negative for: Nausea, Vomiting, Diarrhea Genitourinary Male: Positive for: Incontinence Physical Exam - Reviewed Nursing Documentation Reviewed: Yes Vital Signs Reviewed: Yes - Physical Exam Appears: Positive for: Non-toxic, No Acute Distress (but ill appearing ) Head Exam: Positive for: ATRAUMATIC, NORMAL INSPECTION, NORMOCEPHALIC Skin: Positive for: Normal Color, Warm, DRY Eye Exam: Positive for: Normal appearance, EOMI, PERRL ENT: Positive for: Normal ENT Inspection Neck: Positive for: Normal, Painless ROM Cardiovascular/Chest: Positive for: Regular Rate, Rhythm. Negative for: Murmur Respiratory: Positive for: Normal Breath Sounds. Negative for: Respiratory Distress Gastrointestinal/Abdominal: Positive for: Normal Exam, Soft. Negative for: Tenderness Back: Positive for: Normal Inspection Extremity: Positive for: Normal ROM, Other (moving all extremities ) Neurological/Psych: Positive for: Awake, Alert, Other (following commands ). Negative for: Oriented (Unable to ascertain orientation ), Motor/Sensory Deficits (but unable to do full motor sensory exam due to patients condition ) - Laboratory Results Result Diagrams: 06/23/18 05:30 06/23/18 05:30 - ECG ECG Rhythm: Positive for: Normal QRS, Sinus Rhythm, 1st Degree Heart Block, Nonspecific Changes (ST ) Rate: 100 O2 Sat by Pulse Oximetry: 99 (RA) Pulse Ox Interpretation: Normal Medical Decision Making Medical Decision Making: Time: 10:38 Impression: generalized weakness, possible syncope, AMS Differentials: CVA, progression of Parkinsons, UTI, dehydration, acute renal failure, rhabdomyolysis, vasovagal syncope rather than cardiac arrhythmia Plan: --VBG Shock Panel --CT Head --EKG --BMP --CMP --CPK --[place] --Troponin --ED Urine Dipstick --CBC --Coags --Chest X-Ray --IV Fluids --Blood Culture --Urinalysis CT Head: FINDINGS: HEMORRHAGE: No acute parenchymal, subarachnoid or extra-axial hemorrhage. BRAIN: Mild moderate diffuse/confluent chronic periventricular white matter ischemic changes seen extending peripherally into the deep and subcortical white matter both cerebral hemispheres.. Suspect dilated perivascular spaces both inferior basal nuclei. Note that the possibility of a small hyperacute infarct cannot be excluded on this exam. Moderate generalized volume loss. Mild vascular calcifications both carotid siphons and right vertebral artery. VENTRICLES: No obstructive hydrocephalus CALVARIUM: Unremarkable. PARANASAL SINUSES: Unremarkable as visualized. No significant inflammatory changes. MASTOID AIR CELLS: Unremarkable as visualized. No inflammatory changes. OTHER FINDINGS: None. IMPRESSION: No acute intracranial hemorrhage. Mild moderate chronic white matter ischemic changes. Probable dilated perivascular spaces both inferior basal nuclei. Moderate generalized volume loss. Chest X-ray: possible developing right middle lobe infiltrate. 13:20 Labs are consistent with UTI, severe sepsis, without septic shock, ARF - creatinine high, BUN high, and pneumonia. Patient will be admitted to the hospitalist for IV antibiotics due to high risk infection, multiple comorbidities, and complicated infection. Scribe Attestation: Documented by Radha Gallegos, acting as a scribe for Kirk Glaser MD. Provider Scribe Attestation: All medical record entries made by the Scribe were at my direction and personally dictated by me. I have reviewed the chart and agree that the record accurately reflects my personal performance of the history, physical exam, medical decision making, and the department course for this patient. I have also personally directed, reviewed, and agree with the discharge instructions and disposition. Disposition - Clinical Impression Clinical Impression: Pneumonia, UTI (urinary tract infection), Sepsis, Severe sepsis - Patient ED Disposition Is Patient to be Admitted: Yes Discussed With Dr.: Elenita Montana Doctor Will See Patient In The: ED Counseled Patient/Family Regarding: Studies Performed, Diagnosis - Disposition Disposition Time: 13:15 Condition: FAIR - Pt Status Changed To: Hospital Disposition Of: Inpatient - Admit Certification Admit to Inpatient:: After my assessment, the patient will require hospitalization for at least two midnights. This is because of the severity of symptoms shown, intensity of services needed, and/or the medical risk in this patient being treated as an outpatient. - POA Present On Arrival: None
--- NOTE | 2018-06-22 11:33 | CT ---
Date of service: 06/22/2018 PROCEDURE: CT HEAD WITHOUT CONTRAST. HISTORY: Weakness COMPARISON: Comparison made with prior CT scan brain 05/06/2018. TECHNIQUE: Axial computed tomography images were obtained through the head/brain without intravenous contrast. Radiation dose: Total exam DLP = 2274.74 mGy-cm. This CT exam was performed using one or more of the following dose reduction techniques: Automated exposure control, adjustment of the mA and/or kV according to patient size, and/or use of iterative reconstruction technique. FINDINGS: HEMORRHAGE: No acute parenchymal, subarachnoid or extra-axial hemorrhage. BRAIN: Mild moderate diffuse/confluent chronic periventricular white matter ischemic changes seen extending peripherally into the deep and subcortical white matter both cerebral hemispheres.. Suspect dilated perivascular spaces both inferior basal nuclei. Note that the possibility of a small hyperacute infarct cannot be excluded on this exam. Moderate generalized volume loss. Mild vascular calcifications both carotid siphons and right vertebral artery. VENTRICLES: No obstructive hydrocephalus CALVARIUM: Unremarkable. PARANASAL SINUSES: Unremarkable as visualized. No significant inflammatory changes. MASTOID AIR CELLS: Unremarkable as visualized. No inflammatory changes. OTHER FINDINGS: None. IMPRESSION: No acute intracranial hemorrhage. Mild moderate chronic white matter ischemic changes. Probable dilated perivascular spaces both inferior basal nuclei. Moderate generalized volume loss.
[2018-06-22 11:38] LABS: VENOUS BLOOD GAS BASE EXCESS 0.5 mmol/L (0.0-2.0); VENOUS BLOOD GAS PCO2 37 mmHg (40-60); VENOUS BLOOD GAS PO2 47 mm/Hg (30-55); VENOUS BLOOD PH 7.43 (7.32-7.43)
[2018-06-22 11:44] LABS: BASO % 0.2 % (0.0-2.0); EOS % 0.4 % (0.0-4.0); HEMOGLOBIN 11.5 g/dL (12.0-18.0); LYMPH # 0.6 K/uL (1.0-4.3); LYMPH % 5.3 % (20.0-40.0); MEAN CORPUSCULAR HEMOGLOBIN 29.3 pg (27.0-31.0); MEAN CORPUSCULAR HGB CONC 32.5 g/dL (33.0-37.0); MEAN PLATELET VOLUME 8.5 fl (7.2-11.7); MONO # 0.8 K/uL (0.0-0.8); MONO % 7.1 % (0.0-10.0); NEUT # 10.4 K/uL (1.8-7.0); PLATELET COUNT 254 K/uL (130-400); RBC 3.92 Mil/uL (4.40-5.90); RED CELL DISTRIBUTION WIDTH 14.9 % (11.5-14.5); WHITE BLOOD COUNT 11.9 K/uL (4.8-10.8)
[2018-06-22 12:09] LABS: TROPONIN I 0.038 ng/mL (0.00-0.120)
[2018-06-22 12:14] LABS: ALB/GLOB RATIO 1.1 (1.0-2.1)
[2018-06-22] MEDS ORDERED: Piperacillin/Tazobact 3.375 GM in Sodium Chloride 0.9% 100 ML IVPB STA (12:39)
[2018-06-22 12:59] LABS: INR 1.1; PROTHROMBIN TIME 12.6 Seconds (9.8-13.1)
[2018-06-22 13:02] LABS: PARTIAL THROMBOPLASTIN TIME 32.3 Seconds (25.6-37.1)
[2018-06-22 13:13] LABS: URINE BACTERIA RARE (<OCC); URINE BILIRUBIN NEGATIVE (NEGATIVE); URINE BLOOD SMALL (NEGATIVE); URINE CLARITY CLOUDY (Clear); URINE COLOR YELLOW (YELLOW); URINE GLUCOSE (UA) NEG (NEGATIVE); URINE LEUKOCYTE ESTERASE LARGE Leu/uL (Negative); URINE PROTEIN 100 mg/dL (NEGATIVE); URINE UROBILINOGEN 0.2-1.0 mg/dL (0.2-1.0)
[2018-06-22] MEDS ORDERED: Piperacillin/Tazobact 3.375 gm Inj IVPB ONE (13:13)
--- NOTE | 2018-06-22 13:58 | CP.PCM.HP ---
<Sue Whitaker - Last Filed: 06/22/18 16:03> History of Present Illness - History of Present Illness History of Present Illness: History taken by and chart review, pt is poor historian due to AMS. 77 year old male with PMHx of vasovagal syncope, hypercholesterolemia, bipolar disorder, and TIA was brought to the ED by family for evaluation of weakness ongoing for 1 week. Patient was d/c from [facility] 2 weeks ago and family endorses he has been weak since after discharge, said he has been so weak that can not get up and walk. She drag him to the bathroom today and he collapses but she denies loss of consciousness or hit his head. Also she c/o mild dry cough for the past few days, chills and poor PO intake. Otherwise she denies any fever, nausea, vomiting, or diarrhea but report that patient is constipated and has been complaining of rectal pain and urinary incontinence. ROS: All 12 systems reviewed and negative except as mentioned in HPI PCP: Dr. Renaldo Pablo Psych: Dr Campbell PMH: vasovagal syncope, Dementia, HLD, TIA and bipolar disorder PSH: hernia repair, foot surgery Family hx: no signicant family hx Meds: risperdal, lithuim, meclizine, multivitamin, colace Allergies: meperidine . Present on Admission - Present on Admission Any Indicators Present on Admission: No Past Patient History - Infectious Disease Hx of Infectious Diseases: None - Past Medical History & Family History Past Medical History?: Yes - Past Social History Alcohol: None Drugs: Denies - CARDIAC Hx Hypercholesterolemia: Yes - PULMONARY Hx Respiratory Disorders: No - NEUROLOGICAL Hx Dementia: Yes Hx Transient Ischemic Attacks (TIA): Yes (2018) - HEENT Hx HEENT Problems: Yes - RENAL Hx Chronic Kidney Disease: No - ENDOCRINE/METABOLIC Hx Endocrine Disorders: No - HEMATOLOGICAL/ONCOLOGICAL Hx Human Immunodeficiency Virus (HIV): No - INTEGUMENTARY Hx Dermatological Problems: No - MUSCULOSKELETAL/RHEUMATOLOGICAL Hx Arthritis: Yes - GASTROINTESTINAL Hx Gastrointestinal Disorders: No Other/Comment: Spleen aneurysm - GENITOURINARY/GYNECOLOGICAL Hx Genitourinary Disorders: Yes - PSYCHIATRIC Hx Bipolar Disorder: Yes Hx Depression: Yes - SURGICAL HISTORY Hx Surgeries: Yes Hx Herniorrhaphy: Yes Other/Comment: TURP X2, small spleen aneurysm. Feet surgery(Bunnion and hammer toes sx) - ANESTHESIA Hx Anesthesia: Yes Hx Anesthesia Reactions: No Hx Malignant Hyperthermia: No Meds Allergies/Adverse Reactions: Allergies Allergy/AdvReac Type Severity Reaction Status Date / Time meperidine Allergy Mild RASH Verified 06/22/18 10:01 Physical Exam - Constitutional Appears: Cachectic, Chronically Ill - Head Exam Head Exam: NORMAL INSPECTION - Eye Exam Eye Exam: EOMI, PERRL - ENT Exam ENT Exam: Mucous Membranes Dry - Respiratory Exam Respiratory Exam: Clear to Auscultation Bilateral. absent: Rales, Wheezes, Respiratory Distress - Cardiovascular Exam Cardiovascular Exam: REGULAR RHYTHM, +S1, +S2. absent: Tachycardia - GI/Abdominal Exam GI & Abdominal Exam: Normal Bowel Sounds, Soft. absent: Distended, Tenderness - Extremities Exam Extremities exam: Negative for: pedal edema - Neurological Exam Additional comments: Confused, non talkative, somnolent - Skin Skin Exam: Dry, Pallor, Warm Results - Vital Signs Recent Vital Signs: Last Vital Signs Temp 98.5 F 06/22/18 10:23 Pulse 100 H 06/22/18 13:20 Resp 18 06/22/18 10:23 BP 110/68 06/22/18 10:23 Pulse Ox 99 06/22/18 13:20 - Labs Result Diagrams: 06/22/18 10:30 06/22/18 10:30 Labs: Laboratory Results - last 24 hr 06/22/18 06/22/18 06/22/18 10:14 10:30 10:30 WBC 11.9 H RBC 3.92 L Hgb 11.5 L Hct 35.3 MCV 90.0 D MCH 29.3 MCHC 32.5 L RDW 14.9 H Plt Count 254 MPV 8.5 Neut % (Auto) 87.0 H Lymph % (Auto) 5.3 L [place] % (Auto) 7.1 Eos % (Auto) 0.4 Baso % (Auto) 0.2 Neut # (Auto) 10.4 H Lymph # (Auto) 0.6 L [place] # (Auto) 0.8 Eos # (Auto) 0.0 Baso # (Auto) 0.0 PT INR APTT pO2 VBG pH VBG pCO2 VBG HCO3 VBG Total CO2 VBG O2 Sat (Calc) VBG Base Excess VBG Potassium Glucose Lactate FiO2 Sodium 144 Potassium 4.7 Chloride 108 H Carbon Dioxide 22 Anion Gap 19 BUN 53 H Creatinine 2.2 H Est GFR ( Amer) 35 Est GFR (Non-Af Amer) 29 POC Glucose (mg/dL) 109 Random Glucose 110 Calcium 13.0 H* D Total Bilirubin 0.4 AST 27 ALT 61 Alkaline Phosphatase 113 Total Creatine Kinase 138 Troponin I 0.0380 Total Protein 7.8 Albumin 4.0 Globulin 3.8 Albumin/Globulin Ratio 1.1 Venous Blood Potassium Urine Color Urine Clarity Urine pH Ur Specific [place] Urine Protein Urine Glucose (UA) Urine Ketones Urine Blood Urine Nitrate Urine Bilirubin Urine Urobilinogen Ur Leukocyte Esterase Urine RBC (Auto) Urine Microscopic WBC Urine Bacteria [place] 06/22/18 06/22/18 06/22/18 10:30 10:38 12:20 WBC RBC Hgb Hct MCV MCH MCHC RDW Plt Count MPV Neut % (Auto) Lymph % (Auto) [place] % (Auto) Eos % (Auto) Baso % (Auto) Neut # (Auto) Lymph # (Auto) [place] # (Auto) Eos # (Auto) Baso # (Auto) PT 12.6 INR 1.1 APTT 32.3 pO2 47 VBG pH 7.43 VBG pCO2 37 L VBG HCO3 25.0 VBG Total CO2 25.7 VBG O2 Sat (Calc) 88.9 H VBG Base Excess 0.5 VBG Potassium 4.8 Glucose 113 H Lactate 0.8 FiO2 21.0 Sodium 142.0 Potassium Chloride 113.0 H Carbon Dioxide Anion Gap BUN Creatinine Est GFR ( Amer) Est GFR (Non-Af Amer) POC Glucose (mg/dL) Random Glucose Calcium Total Bilirubin AST ALT Alkaline Phosphatase Total Creatine Kinase Troponin I Total Protein Albumin Globulin Albumin/Globulin Ratio Venous Blood Potassium 4.8 Urine Color Urine Clarity Urine pH Ur Specific [place] Urine Protein Urine Glucose (UA) Urine Ketones Urine Blood Urine Nitrate Urine Bilirubin Urine Urobilinogen Ur Leukocyte Esterase Urine RBC (Auto) Urine Microscopic WBC Urine Bacteria [place] 1.3 H 06/22/18 12:59 WBC RBC Hgb Hct MCV MCH MCHC RDW Plt Count MPV Neut % (Auto) Lymph % (Auto) [place] % (Auto) Eos % (Auto) Baso % (Auto) Neut # (Auto) Lymph # (Auto) [place] # (Auto) Eos # (Auto) Baso # (Auto) PT INR APTT pO2 VBG pH VBG pCO2 VBG HCO3 VBG Total CO2 VBG O2 Sat (Calc) VBG Base Excess VBG Potassium Glucose Lactate FiO2 Sodium Potassium Chloride Carbon Dioxide Anion Gap BUN Creatinine Est GFR ( Amer) Est GFR (Non-Af Amer) POC Glucose (mg/dL) Random Glucose Calcium Total Bilirubin AST ALT Alkaline Phosphatase Total Creatine Kinase Troponin I Total Protein Albumin Globulin Albumin/Globulin Ratio Venous Blood Potassium Urine Color Yellow Urine Clarity Cloudy Urine pH 6.0 Ur Specific [place] 1.010 Urine Protein 100 Urine Glucose (UA) Neg Urine Ketones Negative Urine Blood Small Urine Nitrate Positive H Urine Bilirubin Negative Urine Urobilinogen 0.2-1.0 Ur Leukocyte Esterase Large Urine RBC (Auto) 8 H Urine Microscopic WBC 262 H Urine Bacteria Rare [place] Assessment & Plan - Assessment and Plan (Free Text) Assessment: 77 year old male with PMHx of vasovagal syncope, hypercholesterolemia, bipolar disorder, and TIA was brought to the ED by family for evaluation of weakness ongoing for 1 week. Patient was d/c from [facility] 2 weeks ago and family endorses he has been weak since after discharge, said he has been so weak that can not get up and walk. She drag him to the bathroom today and he collapses but she denies loss of consciousness or hit his head. Also she c/o mild dry cough for the past few days, chills and poor PO intake. Otherwise she denies any fever, nausea, vomiting, or diarrhea but report that patient is constipated and has been complaining of rectal pain and urinary incontinence. Patient admitted for evaluation and management of AMS, PNA, UTI and LEA. CXR: possible developing right middle lobe infiltrate, f/u official report Head CT: No acute intracranial hemorrhage. Mild moderate chronic white matter ischemic changes. Probable dilated perivascular spaces both inferior basal nuclei. Moderate generalized volume loss. Plan: Altered mental status - likely 2/2 due to dehydration and acute infection - head CT negative for acute intracranial changes - PT/OT eval - Elevate the head of the bed, aspiration precautions - labs in am R middle lobe PNA, CAP - admitt to tele - afebrile, WBC 11.9 - VSS though tachy - start IV Zythromax, zocyn and Rocephin - IVF 125 cc/hr - aspiration precautions - labs in am - f/u blood cx UTI - UA +nitrate, increased urine WBC - start IV Rocephin - f/u urine cx Acute kidney injury - BUN/cr 53/2.2 - IVF NS 125 cc/hr - f/u am bmp Hypercalcemia - likely secondary to dehydration - Ca 13.0 - PTH 119 (05/07/18) - IV fluids Hyperlipidemia - Lipid panel on 05/06/18: Total chol 276, trigly. 124, LDL 166, HDL 65 Bipolar disorder - stable - lithium 1.3 - hold lithium for now DVT prophylaxis - heparin 5000 sc BID Diet -regular diet Code status -Full code Plan discussed with Dr Rubén Hernandez PGY 2 <Elenita Montana - Last Filed: 06/23/18 11:20> Results - Vital Signs Recent Vital Signs: Last Vital Signs Temp 99.9 F H 06/23/18 08:24 Pulse 103 H 06/23/18 08:24 Resp 18 06/23/18 08:24 BP 97/59 L 06/23/18 08:24 Pulse Ox 95 06/23/18 08:24 - Labs Result Diagrams: 06/23/18 05:30 06/23/18 05:30 Labs: Laboratory Results - last 24 hr 06/22/18 06/22/18 06/22/18 10:30 10:30 10:30 WBC 11.9 H RBC 3.92 L Hgb 11.5 L Hct 35.3 MCV 90.0 D MCH 29.3 MCHC 32.5 L RDW 14.9 H Plt Count 254 MPV 8.5 Neut % (Auto) 87.0 H Lymph % (Auto) 5.3 L [place] % (Auto) 7.1 Eos % (Auto) 0.4 Baso % (Auto) 0.2 Neut # (Auto) 10.4 H Lymph # (Auto) 0.6 L [place] # (Auto) 0.8 Eos # (Auto) 0.0 Baso # (Auto) 0.0 Neutrophils % (Manual) 81 H Band Neutrophils % 1 Lymphocytes % (Manual) 10 L Monocytes % (Manual) 8 Toxic Granulation Present Platelet Estimate Normal Hypochromasia (manual) Slight Anisocytosis (manual) Slight Tear Drop Cells Slight Ovalocytes Slight PT INR APTT pO2 VBG pH VBG pCO2 VBG HCO3 VBG Total CO2 VBG O2 Sat (Calc) VBG Base Excess VBG Potassium Glucose Lactate FiO2 Sodium 144 Potassium 4.7 Chloride 108 H Carbon Dioxide 22 Anion Gap 19 BUN 53 H Creatinine 2.2 H Est GFR ( Amer) 35 Est GFR (Non-Af Amer) 29 POC Glucose (mg/dL) Random Glucose 110 Calcium 13.0 H* D Phosphorus 3.6 Magnesium 3.1 H Total Bilirubin 0.4 AST 27 ALT 61 Alkaline Phosphatase 113 Total Creatine Kinase 138 Troponin I 0.0380 Total Protein 7.8 Albumin 4.0 Globulin 3.8 Albumin/Globulin Ratio 1.1 Venous Blood Potassium Urine Color Urine Clarity Urine pH Ur Specific [place] Urine Protein Urine Glucose (UA) Urine Ketones Urine Blood Urine Nitrate Urine Bilirubin Urine Urobilinogen Ur Leukocyte Esterase Urine RBC (Auto) Urine Microscopic WBC Urine Bacteria [place] 1.3 H 06/22/18 06/22/18 06/22/18 10:38 12:20 12:59 WBC RBC Hgb Hct MCV MCH MCHC RDW Plt Count MPV Neut % (Auto) Lymph % (Auto) [place] % (Auto) Eos % (Auto) Baso % (Auto) Neut # (Auto) Lymph # (Auto) [place] # (Auto) Eos # (Auto) Baso # (Auto) Neutrophils % (Manual) Band Neutrophils % Lymphocytes % (Manual) Monocytes % (Manual) Toxic Granulation Platelet Estimate Hypochromasia (manual) Anisocytosis (manual) Tear Drop Cells Ovalocytes PT 12.6 INR 1.1 APTT 32.3 pO2 47 VBG pH 7.43 VBG pCO2 37 L VBG HCO3 25.0 VBG Total CO2 25.7 VBG O2 Sat (Calc) 88.9 H VBG Base Excess 0.5 VBG Potassium 4.8 Glucose 113 H Lactate 0.8 FiO2 21.0 Sodium 142.0 Potassium Chloride 113.0 H Carbon Dioxide Anion Gap BUN Creatinine Est GFR ( Amer) Est GFR (Non-Af Amer) POC Glucose (mg/dL) Random Glucose Calcium Phosphorus Magnesium Total Bilirubin AST ALT Alkaline Phosphatase Total Creatine Kinase Troponin I Total Protein Albumin Globulin Albumin/Globulin Ratio Venous Blood Potassium 4.8 Urine Color Yellow Urine Clarity Cloudy Urine pH 6.0 Ur Specific [place] 1.010 Urine Protein 100 Urine Glucose (UA) Neg Urine Ketones Negative Urine Blood Small Urine Nitrate Positive H Urine Bilirubin Negative Urine Urobilinogen 0.2-1.0 Ur Leukocyte Esterase Large Urine RBC (Auto) 8 H Urine Microscopic WBC 262 H Urine Bacteria Rare [place] 06/23/18 06/23/18 06/23/18 05:30 05:30 05:57 WBC 11.5 H RBC 3.49 L Hgb 10.1 L Hct 31.8 L MCV 91.3 MCH 29.1 MCHC 31.8 L RDW 15.1 H Plt Count 192 MPV 8.1 Neut % (Auto) 88.7 H Lymph % (Auto) 3.2 L [place] % (Auto) 7.9 Eos % (Auto) 0.1 Baso % (Auto) 0.1 Neut # (Auto) 10.2 H Lymph # (Auto) 0.4 L [place] # (Auto) 0.9 H Eos # (Auto) 0.0 Baso # (Auto) 0.0 Neutrophils % (Manual) Band Neutrophils % Lymphocytes % (Manual) Monocytes % (Manual) Toxic Granulation Platelet Estimate Hypochromasia (manual) Anisocytosis (manual) Tear Drop Cells Ovalocytes PT INR APTT pO2 VBG pH VBG pCO2 VBG HCO3 VBG Total CO2 VBG O2 Sat (Calc) VBG Base Excess VBG Potassium Glucose Lactate FiO2 Sodium 150 H Potassium 4.5 Chloride 123 H Carbon Dioxide 19 L Anion Gap 13 BUN 50 H Creatinine 2.6 H Est GFR ( Amer) 29 Est GFR (Non-Af Amer) 24 POC Glucose (mg/dL) 100 Random Glucose 99 Calcium 11.6 H Phosphorus Magnesium Total Bilirubin 0.3 AST 22 ALT 37 Alkaline Phosphatase 77 Total Creatine Kinase Troponin I Total Protein 6.2 L Albumin 2.8 L D Globulin 3.5 Albumin/Globulin Ratio 0.8 L Venous Blood Potassium Urine Color Urine Clarity Urine pH Ur Specific [place] Urine Protein Urine Glucose (UA) Urine Ketones Urine Blood Urine Nitrate Urine Bilirubin Urine Urobilinogen Ur Leukocyte Esterase Urine RBC (Auto) Urine Microscopic WBC Urine Bacteria [place] Attending/Attestation - Attestation I have personally seen and examined this patient.: Yes I have fully participated in the care of the patient.: Yes I have reviewed all pertinent clinical information: Yes Notes (Text): 06/23/18 11:20 Agree with findings and plan as above
[2018-06-22] MEDS ORDERED: Azithromycin 500 MG in Sodium Chloride 0.9% 250 ML IVPB STA (14:16)
[2018-06-22] MEDS ORDERED: Azithromycin 500 MG in Sodium Chloride 0.9% 250 ML IVPB SCH (14:30)
[2018-06-22 14:45] LABS: ANISOCYTOSIS SLIGHT; BANDS 1 % (0-2); HYPOCHROMIC SLIGHT; LYMPHOCYTE 10 % (20-50); MONOCYTE 8 % (0-10); NEUTROPHIL 81 % (42-75); OVALOCYTES SLIGHT; PLATELET ESTIMATE NORMAL (NORMAL); TEARDROP CELLS SLIGHT; TOTAL CELLS COUNTED 100; TOXIC GRANULATION PRESENT
--- NOTE | 2018-06-22 15:38 | RAD ---
Date of service: 06/22/2018 HISTORY: weakness COMPARISON: Comparison chest dated 05/06/2018 FINDINGS: Note that the left lung apex is partially obscured by overlying facial soft tissue and mandible artifact. LUNGS: No active pulmonary disease. Small elliptical shaped sclerotic densities seen overlying the right anterior 3rd rib-scapula. This could represent artifact however bone island or osteoma or possibly pleural-based or parenchymal calcification to be considered.. A 2nd adjacent small sclerotic density suspected. Similar focus seen overlying the left anterolateral 3rd rib. PLEURA: No significant pleural effusion identified, no pneumothorax apparent. CARDIOVASCULAR: Mild moderate aortic atherosclerotic calcification present. Normal cardiac size. No pulmonary vascular congestion. OSSEOUS STRUCTURES: No significant abnormalities. VISUALIZED UPPER ABDOMEN: Normal. OTHER FINDINGS: None. IMPRESSION: Slightly limited study demonstrating no active disease Small elliptical shaped sclerotic densities seen overlying the right anterior 3rd rib-scapula. This could represent artifact however bone island or osteoma or possibly pleural-based or parenchymal calcification to be considered.. A 2nd adjacent small sclerotic density suspected. Similar focus seen overlying the left anterolateral 3rd rib.
[2018-06-22] MEDS ORDERED: Azithromycin 500 MG IV IVPB ONE (15:40)
[2018-06-22] MEDS: Sodium Chloride 0.9% 1,000 ML IV SCH (15:42)
--- NOTE | 2018-06-22 17:33 | CARD ---
APPROVED REPORT Date of service: 06/22/2018 EKG Measurement Heart [id number] <Conclusion> Sinus rhythm with 1st degree AV block Left axis deviation Anterior infarct, age undetermined Abnormal ECG
[2018-06-23] MEDS: Sodium Chloride 0.9% 1,000 ML IV SCH ×2 (00:48→07:58)
[2018-06-23 06:21] LABS: BASO % 0.1 % (0.0-2.0); EOS % 0.1 % (0.0-4.0); HEMOGLOBIN 10.1 g/dL (12.0-18.0); LYMPH # 0.4 K/uL (1.0-4.3); LYMPH % 3.2 % (20.0-40.0); MEAN CELL VOLUME 91.3 fl (80.0-94.0); MEAN CORPUSCULAR HEMOGLOBIN 29.1 pg (27.0-31.0); MEAN CORPUSCULAR HGB CONC 31.8 g/dL (33.0-37.0); MEAN PLATELET VOLUME 8.1 fl (7.2-11.7); MONO # 0.9 K/uL (0.0-0.8); MONO % 7.9 % (0.0-10.0); NEUT # 10.2 K/uL (1.8-7.0); NEUT % 88.7 % (50.0-75.0); RBC 3.49 Mil/uL (4.40-5.90); RED CELL DISTRIBUTION WIDTH 15.1 % (11.5-14.5); WHITE BLOOD COUNT 11.5 K/uL (4.8-10.8)
[2018-06-23 06:41] LABS: ALB/GLOB RATIO 0.8 (1.0-2.1); ALBUMIN 2.8 g/dL (3.5-5.0); CALCIUM 11.6 mg/dL (8.4-10.2)
[2018-06-23] MEDS ORDERED: POLYETHYLENE GLYCOL 3350 17 GM/Dose PACKET PO SCH (09:00)
--- NOTE | 2018-06-23 10:51 | CP.PCM.CON ---
History of Present Illness - History of Present Illness History of Present Illness: The patient was seen at the request of hospitalist who have admitted him. The patient was brought to the emergency room when his summoned emergency director biomedical engineering. She was attempting to take him to the bathroom and he was so weak that he collapsed and his could not pick him up. Over the last 4-5 months patient has steadily declined and at this point is extremely weak and frail. Last month he was hospitalized with a syncopal episode and was found to have urinary retention and briefly had a Tse catheter. The patient does have benign prostatic hypertrophy. He has had a long history of depression and anxiety and was institutionalized for this number of times. The patient also has severe cervical stenosis and radiculopathy. He has had a chronic left bundle branch block on his electrocardiogram. On physical examination this is an extremely frail man with severe emaciation. He is difficult to arouse and cannot engage in conversation and does not appear to be aware of his surroundings. He was mildly febrile with a temperature of 100.2 F. His telemetry shows sinus rhythm with frequent premature atrial beats and a broad varus complexes. His jugular venous pressure was not elevated and there was no pedal or sacral edema. His extremities were warm and his nailbeds were pink. There was no central or peripheral cyanosis. His blood pressure was 110/70 mmHg. The apex was not palpable. The first and second heart sounds were distant no gallop or murmur were audible. The inspiratory effort was poor but few rales were audible at left base. His abdomen was soft liver and spleen were not palpable. His electrocardiogram showed sinus rhythm with APCs and a pattern of left bundle branch block. Chest x-ray and CT of the head were noted. Lab data was noted. Impression: Possible urinary tract infection in an extremely frail and emaciated and malnourished man who is virtually bedridden. Long history of depression and anxiety. The patient at this juncture is mostly bedridden individual with very little hope of recovering his strength to be independent again. I have strongly urged his to consider comfort care. She agrees. Past Patient History - Infectious Disease Hx of Infectious Diseases: None - Past Medical History & Family History Past Medical History?: Yes - Past Social History Smoking Status: Never Smoked - CARDIAC Hx Cardiac Disorders: Yes - PULMONARY Hx Respiratory Disorders: No - NEUROLOGICAL Hx Neurological Disorder: Yes - HEENT Hx HEENT Problems: Yes - RENAL Hx Chronic Kidney Disease: No - ENDOCRINE/METABOLIC Hx Endocrine Disorders: No - HEMATOLOGICAL/ONCOLOGICAL Hx Human Immunodeficiency Virus (HIV): No - INTEGUMENTARY Hx Dermatological Problems: No - MUSCULOSKELETAL/RHEUMATOLOGICAL Hx Arthritis: Yes Hx Falls: Yes - GASTROINTESTINAL Hx Gastrointestinal Disorders: No Other/Comment: Spleen aneurysm - GENITOURINARY/GYNECOLOGICAL Hx Genitourinary Disorders: Yes - PSYCHIATRIC Hx Psychophysiologic Disorder: Yes Hx Substance Use: No - SURGICAL HISTORY Hx Surgeries: Yes Hx Herniorrhaphy: Yes Other/Comment: TURP X2, small spleen aneurysm. Feet surgery(Bunnion and hammer toes sx) - ANESTHESIA Hx Anesthesia: Yes Hx Anesthesia Reactions: No Hx Malignant Hyperthermia: No Meds Allergies/Adverse Reactions: Allergies Allergy/AdvReac Type Severity Reaction Status Date / Time meperidine Allergy Mild RASH Verified 06/22/18 10:01 - Medications Medications: Current Medications Acetaminophen (Tylenol 325mg Tab) 650 mg PO Q4 PRN PRN Reason: Fever >100.4 F Last Admin: 06/23/18 05:49 Dose: 650 mg Cyanocobalamin (Vitamin B12 1000 Mcg Tab) 1,000 mcg PO DAILY [facility] Last Admin: 06/23/18 09:20 Dose: 1,000 mcg Docusate Sodium (Colace) 100 mg PO BID [facility] Last Admin: 06/23/18 09:20 Dose: 100 mg Finasteride (Proscar) 5 mg PO DAILY [facility] Heparin Sodium (Porcine) (Heparin) 5,000 units SC Q12 JENNIE; Protocol Last Admin: 06/23/18 09:21 Dose: 5,000 units Piperacillin Sod/Tazobactam (Sod 2.25 gm/ Sodium Chloride) 100 mls @ 100 mls/hr IVPB Q6 [facility]; Protocol Last Admin: 06/23/18 09:16 Dose: 100 mls/hr Dextrose (Dextrose 5% In Water 1000 Ml) 1,000 mls @ 125 mls/hr IV .Q8H [facility] Stop: 06/24/18 08:12 Last Admin: 06/23/18 09:25 Dose: 125 mls/hr Polyethylene Glycol (Miralax) 17 gm PO DAILY JENNIE Last Admin: 06/23/18 09:21 Dose: 17 gm Risperidone (Risperdal Tab) 0.25 mg PO Q12 JENNIE Last Admin: 06/23/18 09:19 Dose: 0.25 mg Tamsulosin HCl (Flomax) 0.4 mg PO DAILY [facility] Results - Vital Signs Recent Vital Signs: Last Vital Signs Temp 99.9 F H 06/23/18 08:24 Pulse 103 H 06/23/18 08:24 Resp 18 06/23/18 08:24 BP 97/59 L 06/23/18 08:24 Pulse Ox 95 06/23/18 08:24 - Labs Result Diagrams: 06/23/18 05:30 06/23/18 05:30 Labs: Laboratory Results - last 24 hr 06/22/18 06/22/18 06/22/18 10:30 10:30 10:30 WBC 11.9 H RBC 3.92 L Hgb 11.5 L Hct 35.3 MCV 90.0 D MCH 29.3 MCHC 32.5 L RDW 14.9 H Plt Count 254 MPV 8.5 Neut % (Auto) 87.0 H Lymph % (Auto) 5.3 L [place] % (Auto) 7.1 Eos % (Auto) 0.4 Baso % (Auto) 0.2 Neut # (Auto) 10.4 H Lymph # (Auto) 0.6 L [place] # (Auto) 0.8 Eos # (Auto) 0.0 Baso # (Auto) 0.0 Neutrophils % (Manual) 81 H Band Neutrophils % 1 Lymphocytes % (Manual) 10 L Monocytes % (Manual) 8 Toxic Granulation Present Platelet Estimate Normal Hypochromasia (manual) Slight Anisocytosis (manual) Slight Tear Drop Cells Slight Ovalocytes Slight PT INR APTT pO2 VBG pH VBG pCO2 VBG HCO3 VBG Total CO2 VBG O2 Sat (Calc) VBG Base Excess VBG Potassium Glucose Lactate FiO2 Sodium 144 Potassium 4.7 Chloride 108 H Carbon Dioxide 22 Anion Gap 19 BUN 53 H Creatinine 2.2 H Est GFR ( Amer) 35 Est GFR (Non-Af Amer) 29 POC Glucose (mg/dL) Random Glucose 110 Calcium 13.0 H* D Phosphorus 3.6 Magnesium 3.1 H Total Bilirubin 0.4 AST 27 ALT 61 Alkaline Phosphatase 113 Total Creatine Kinase 138 Troponin I 0.0380 Total Protein 7.8 Albumin 4.0 Globulin 3.8 Albumin/Globulin Ratio 1.1 Venous Blood Potassium Urine Color Urine Clarity Urine pH Ur Specific [place] Urine Protein Urine Glucose (UA) Urine Ketones Urine Blood Urine Nitrate Urine Bilirubin Urine Urobilinogen Ur Leukocyte Esterase Urine RBC (Auto) Urine Microscopic WBC Urine Bacteria [place] 1.3 H 06/22/18 06/22/18 06/22/18 10:38 12:20 12:59 WBC RBC Hgb Hct MCV MCH MCHC RDW Plt Count MPV Neut % (Auto) Lymph % (Auto) [place] % (Auto) Eos % (Auto) Baso % (Auto) Neut # (Auto) Lymph # (Auto) [place] # (Auto) Eos # (Auto) Baso # (Auto) Neutrophils % (Manual) Band Neutrophils % Lymphocytes % (Manual) Monocytes % (Manual) Toxic Granulation Platelet Estimate Hypochromasia (manual) Anisocytosis (manual) Tear Drop Cells Ovalocytes PT 12.6 INR 1.1 APTT 32.3 pO2 47 VBG pH 7.43 VBG pCO2 37 L VBG HCO3 25.0 VBG Total CO2 25.7 VBG O2 Sat (Calc) 88.9 H VBG Base Excess 0.5 VBG Potassium 4.8 Glucose 113 H Lactate 0.8 FiO2 21.0 Sodium 142.0 Potassium Chloride 113.0 H Carbon Dioxide Anion Gap BUN Creatinine Est GFR ( Amer) Est GFR (Non-Af Amer) POC Glucose (mg/dL) Random Glucose Calcium Phosphorus Magnesium Total Bilirubin AST ALT Alkaline Phosphatase Total Creatine Kinase Troponin I Total Protein Albumin Globulin Albumin/Globulin Ratio Venous Blood Potassium 4.8 Urine Color Yellow Urine Clarity Cloudy Urine pH 6.0 Ur Specific [place] 1.010 Urine Protein 100 Urine Glucose (UA) Neg Urine Ketones Negative Urine Blood Small Urine Nitrate Positive H Urine Bilirubin Negative Urine Urobilinogen 0.2-1.0 Ur Leukocyte Esterase Large Urine RBC (Auto) 8 H Urine Microscopic WBC 262 H Urine Bacteria Rare [place] 06/23/18 06/23/18 06/23/18 05:30 05:30 05:57 WBC 11.5 H RBC 3.49 L Hgb 10.1 L Hct 31.8 L MCV 91.3 MCH 29.1 MCHC 31.8 L RDW 15.1 H Plt Count 192 MPV 8.1 Neut % (Auto) 88.7 H Lymph % (Auto) 3.2 L [place] % (Auto) 7.9 Eos % (Auto) 0.1 Baso % (Auto) 0.1 Neut # (Auto) 10.2 H Lymph # (Auto) 0.4 L [place] # (Auto) 0.9 H Eos # (Auto) 0.0 Baso # (Auto) 0.0 Neutrophils % (Manual) Band Neutrophils % Lymphocytes % (Manual) Monocytes % (Manual) Toxic Granulation Platelet Estimate Hypochromasia (manual) Anisocytosis (manual) Tear Drop Cells Ovalocytes PT INR APTT pO2 VBG pH VBG pCO2 VBG HCO3 VBG Total CO2 VBG O2 Sat (Calc) VBG Base Excess VBG Potassium Glucose Lactate FiO2 Sodium 150 H Potassium 4.5 Chloride 123 H Carbon Dioxide 19 L Anion Gap 13 BUN 50 H Creatinine 2.6 H Est GFR ( Amer) 29 Est GFR (Non-Af Amer) 24 POC Glucose (mg/dL) 100 Random Glucose 99 Calcium 11.6 H Phosphorus Magnesium Total Bilirubin 0.3 AST 22 ALT 37 Alkaline Phosphatase 77 Total Creatine Kinase Troponin I Total Protein 6.2 L Albumin 2.8 L D Globulin 3.5 Albumin/Globulin Ratio 0.8 L Venous Blood Potassium Urine Color Urine Clarity Urine pH Ur Specific [place] Urine Protein Urine Glucose (UA) Urine Ketones Urine Blood Urine Nitrate Urine Bilirubin Urine Urobilinogen Ur Leukocyte Esterase Urine RBC (Auto) Urine Microscopic WBC Urine Bacteria [place]
--- NOTE | 2018-06-23 15:14 | CP.PCM.DIS ---
Provider - Provider Date of Admission: 06/22/18 13:17 Attending physician: Elenita Montana DO Consults: 06/23/18 02:25 Nursing Referral for Wound Care Routine Comment: Physician Instructions: Reason For Exam: low stella scale Time Spent in preparation of Discharge (in minutes): 20 Diagnosis - Discharge Diagnosis (1) Deterioration in ability to communicate Status: Chronic Hospital Course - Lab Results Lab Results: Micro Results 06/22/18 11:00 Blood Blood Culture - Preliminary NO GROWTH AFTER 24 HOURS 06/22/18 10:30 Blood Blood Culture - Preliminary NO GROWTH AFTER 24 HOURS Most Recent Lab Values WBC 11.5 K/uL (4.8-10.8) H 06/23/18 05:30 RBC 3.49 Mil/uL (4.40-5.90) L 06/23/18 05:30 Hgb 10.1 g/dL (12.0-18.0) L 06/23/18 05:30 Hct 31.8 % (35.0-51.0) L 06/23/18 05:30 MCV 91.3 fl (80.0-94.0) 06/23/18 05:30 MCH 29.1 pg (27.0-31.0) 06/23/18 05:30 MCHC 31.8 g/dL (33.0-37.0) L 06/23/18 05:30 RDW 15.1 % (11.5-14.5) H 06/23/18 05:30 Plt Count 192 K/uL (130-400) 06/23/18 05:30 MPV 8.1 fl (7.2-11.7) 06/23/18 05:30 Neut % (Auto) 88.7 % (50.0-75.0) H 06/23/18 05:30 Lymph % (Auto) 3.2 % (20.0-40.0) L 06/23/18 05:30 [place] % (Auto) 7.9 % (0.0-10.0) 06/23/18 05:30 Eos % (Auto) 0.1 % (0.0-4.0) 06/23/18 05:30 Baso % (Auto) 0.1 % (0.0-2.0) 06/23/18 05:30 Neut # (Auto) 10.2 K/uL (1.8-7.0) H 06/23/18 05:30 Lymph # (Auto) 0.4 K/uL (1.0-4.3) L 06/23/18 05:30 [place] # (Auto) 0.9 K/uL (0.0-0.8) H 06/23/18 05:30 Eos # (Auto) 0.0 K/uL (0.0-0.7) 06/23/18 05:30 Baso # (Auto) 0.0 K/uL (0.0-0.2) 06/23/18 05:30 Neutrophils % (Manual) 81 % (42-75) H 06/22/18 10:30 Band Neutrophils % 1 % (0-2) 06/22/18 10:30 Lymphocytes % (Manual) 10 % (20-50) L 06/22/18 10:30 Monocytes % (Manual) 8 % (0-10) 06/22/18 10:30 Toxic Granulation Present 06/22/18 10:30 Platelet Estimate Normal (NORMAL) 06/22/18 10:30 Hypochromasia (manual) Slight 06/22/18 10:30 Anisocytosis (manual) Slight 06/22/18 10:30 Tear Drop Cells Slight 06/22/18 10:30 Ovalocytes Slight 06/22/18 10:30 PT 12.6 Seconds (9.8-13.1) 06/22/18 12:20 INR 1.1 06/22/18 12:20 APTT 32.3 Seconds (25.6-37.1) 06/22/18 12:20 pO2 47 mm/Hg (30-55) 06/22/18 10:38 VBG pH 7.43 (7.32-7.43) 06/22/18 10:38 VBG pCO2 37 mmHg (40-60) L 06/22/18 10:38 VBG HCO3 25.0 mmol/L 06/22/18 10:38 VBG Total CO2 25.7 mmol/L (22-28) 06/22/18 10:38 VBG O2 Sat (Calc) 88.9 % (40-65) H 06/22/18 10:38 VBG Base Excess 0.5 mmol/L (0.0-2.0) 06/22/18 10:38 VBG Potassium 4.8 mmol/L (3.6-5.2) 06/22/18 10:38 Sodium 142.0 mmol/L (132-148) 06/22/18 10:38 Chloride 113.0 mmol/L (98-107) H 06/22/18 10:38 Glucose 113 mg/dL (75-110) H 06/22/18 10:38 Lactate 0.8 mmol/L (0.7-2.1) 06/22/18 10:38 FiO2 21.0 % 06/22/18 10:38 Sodium 150 mmol/l (132-148) H 06/23/18 05:30 Potassium 4.5 MMOL/L (3.6-5.0) 06/23/18 05:30 Chloride 123 mmol/L (98-107) H 06/23/18 05:30 Carbon Dioxide 19 mmol/L (22-30) L 06/23/18 05:30 Anion Gap 13 (10-20) 06/23/18 05:30 BUN 50 mg/dl (9-20) H 06/23/18 05:30 Creatinine 2.6 mg/dl (0.8-1.5) H 06/23/18 05:30 Est GFR ( Amer) 29 06/23/18 05:30 Est GFR (Non-Af Amer) 24 06/23/18 05:30 POC Glucose (mg/dL) 100 mg/dL (65-110) 06/23/18 05:57 Random Glucose 99 mg/dL (75-110) 06/23/18 05:30 Calcium 11.6 mg/dL (8.4-10.2) H 06/23/18 05:30 Phosphorus 3.6 mg/dl (2.5-4.5) 06/22/18 10:30 Magnesium 3.1 MG/DL (1.6-2.3) H 06/22/18 10:30 Total Bilirubin 0.3 mg/dl (0.2-1.3) 06/23/18 05:30 AST 22 U/L (17-59) 06/23/18 05:30 ALT 37 U/L (21-72) 06/23/18 05:30 Alkaline Phosphatase 77 U/L (38-126) 06/23/18 05:30 Total Creatine Kinase 138 U/L (55-170) 06/22/18 10:30 Troponin I 0.0380 ng/mL (0.00-0.120) 06/22/18 10:30 Total Protein 6.2 G/DL (6.3-8.2) L 06/23/18 05:30 Albumin 2.8 g/dL (3.5-5.0) L D 06/23/18 05:30 Globulin 3.5 gm/dL (2.2-3.9) 06/23/18 05:30 Albumin/Globulin Ratio 0.8 (1.0-2.1) L 06/23/18 05:30 25-OH Vitamin D Total 43.2 NG/ML (30.0-100.0) 06/22/18 13:17 Venous Blood Potassium 4.8 mmol/L (3.6-5.2) 06/22/18 10:38 Urine Color Yellow (YELLOW) 06/22/18 12:59 Urine Clarity Cloudy (Clear) 06/22/18 12:59 Urine pH 6.0 (5.0-8.0) 06/22/18 12:59 Ur Specific [place] 1.010 (1.003-1.030) 06/22/18 12:59 Urine Protein 100 mg/dL (NEGATIVE) 06/22/18 12:59 Urine Glucose (UA) Neg mg/dL (NEGATIVE) 06/22/18 12:59 Urine Ketones Negative mg/dL (NEGATIVE) 06/22/18 12:59 Urine Blood Small (NEGATIVE) 06/22/18 12:59 Urine Nitrate Positive (NEGATIVE) H 06/22/18 12:59 Urine Bilirubin Negative (NEGATIVE) 06/22/18 12:59 Urine Urobilinogen 0.2-1.0 mg/dL (0.2-1.0) 06/22/18 12:59 Ur Leukocyte Esterase Large [place]/uL (Negative) 06/22/18 12:59 Urine RBC (Auto) 8 /hpf (0-3) H 06/22/18 12:59 Urine Microscopic WBC 262 /hpf (0-5) H 06/22/18 12:59 Urine Bacteria Rare (<OCC) 06/22/18 12:59 [place] 1.3 MMOL/L (0.6-1.2) H 06/22/18 10:30 - Hospital Course Hospital Course: History taken by and chart review, pt is poor historian due to AMS. 77 year old male with PMHx of vasovagal syncope, hypercholesterolemia, bipolar disorder, and TIA was brought to the ED by family for evaluation of weakness ongoing for 1 week. Patient admitted for treatment and evaluation of sepsis/ pneumonia, UTI LEA. Patient was seen by relief man, due to deteriorating condition, bedridden, lack of independent, dementia , Business Services Specialist Sales recommend patient should be admitted for Comfort care/hospice. informed, and discussed about patient diagnosis. agree with the plan. Case discussed with Hospice, they agree. Patient will be discharge to hospice care. Diagnostic test CXR: NO acute disease Head CT: No acute intracranial hemorrhage. Mild moderate chronic white matter ischemic changes. Probable dilated perivascular spaces both inferior basal nuclei. Moderate generalized volume loss. Discharge Exam - Head Exam Head Exam: NORMAL INSPECTION - Respiratory Exam Respiratory Exam: Clear to PA & Lateral, NORMAL BREATHING PATTERN - Cardiovascular Exam Cardiovascular Exam: REGULAR RHYTHM - GI/Abdominal Exam GI & Abdominal Exam: Normal Bowel Sounds, Unremarkable - Neurological Exam Neurological exam: Altered - Psychiatric Exam Psychiatric exam: Anxious - Skin Skin Exam: Dry, Intact, Normal Color, Warm Discharge Plan - Follow Up Plan Condition: STABLE Disposition: HOSPICE - MEDICAL FACILITY
[2018-06-23 16:19] VITALS: BP 107/60; RESP 20; TEMP 98.5
[2018-06-23 22:23] VITALS: PULSE 100; O2SAT 99
== END 2018-06-23 16:25 | disposition hospice, inpatient (51) | DRG 871 ==
LOC: H.ER 09:53 → H.ERHOLD 13:17 → H.TEL 18:36
PROVIDERS: ADMIT Student in an Organized Health Care Education/Training Program; ATTEND Student in an Organized Health Care Education/Training Program
DX: A41.9 Sepsis, unspecified organism (principal); J18.1 Lobar pneumonia, unspecified organism; N39.0 Urinary tract infection, site not specified; N17.9 Acute kidney failure, unspecified; R64 Cachexia; F31.9 Bipolar disorder, unspecified; E86.0 Dehydration; I44.7 Left bundle-branch block, unspecified; R65.20 Severe sepsis without septic shock; E78.00 Pure hypercholesterolemia, unspecified; Z86.73 Personal history of transient ischemic attack (TIA), and cerebral infarction without residual deficits; M48.02 Spinal stenosis, cervical region; M54.12 Radiculopathy, cervical region; Z74.01 Bed confinement status; F03.90 Unspecified dementia, unspecified severity, without behavioral disturbance, psychotic disturbance, mood disturbance, and anxiety; E78.5 Hyperlipidemia, unspecified; N40.1 Benign prostatic hyperplasia with lower urinary tract symptoms; N39.498 Other specified urinary incontinence; R33.8 Other retention of urine; F41.9 Anxiety disorder, unspecified; R54 Age-related physical debility; Z68.21 Body mass index [BMI] 21.0-21.9, adult; K59.00 Constipation, unspecified; E83.52 Hypercalcemia

== ENCOUNTER 2018-06-23 15:42 | Inpatient (IN) | payer OTHER ==
[2018-06-22 09:54] VITALS: BMI 21.2
[2018-06-23] MEDS ORDERED: Morphine 100 MG in Sodium Chloride 0.9% 100 ML IV SCH (17:00)
--- NOTE | 2018-06-24 12:03 | CP.PCM.HP ---
<Oseas Johnson - Last Filed: 06/24/18 16:20> History of Present Illness - History of Present Illness History of Present Illness: History taken by and chart review, pt is poor historian due to AMS. 77 year old male with PMHx of vasovagal syncope, hypercholesterolemia, bipolar disorder, and TIA was brought to the ED by family for evaluation of weakness ongoing for 1 week. Patient admitted for treatment and evaluation of sepsis/ pneumonia, UTI LEA. Patient was seen by certified surgical technician, and due to his deterioration, bedridden lack of independent, dementia. It was recommended for patient obe admitted to hospice for comfort care. Hospice was consulted, patient was seen by hospice, and agreed for plan. Patient have been admitted for hospice care. PCP: Dr. Renaldo Pablo Psych: Dr Campbell PMH: vasovagal syncope, Dementia, HLD, TIA and bipolar disorder PSH: hernia repair, foot surgery Family hx: no signicant family hx Meds: risperdal, lithuim, meclizine, multivitamin, colace Allergies: meperidine Present on Admission - Present on Admission Any Indicators Present on Admission: No Past Patient History - Infectious Disease Hx of Infectious Diseases: None - Past Medical History & Family History Past Medical History?: Yes - Past Social History Smoking Status: Unknown If Ever Smoked - CARDIAC Hx Cardiac Disorders: Yes - PULMONARY Hx Respiratory Disorders: No - NEUROLOGICAL Hx Neurological Disorder: Yes - HEENT Hx HEENT Problems: Yes - RENAL Hx Chronic Kidney Disease: No - ENDOCRINE/METABOLIC Hx Endocrine Disorders: No - HEMATOLOGICAL/ONCOLOGICAL Hx Human Immunodeficiency Virus (HIV): No - INTEGUMENTARY Hx Dermatological Problems: No - MUSCULOSKELETAL/RHEUMATOLOGICAL Hx Falls: Yes (Hospice) - GASTROINTESTINAL Hx Gastrointestinal Disorders: No Other/Comment: Spleen aneurysm - GENITOURINARY/GYNECOLOGICAL Hx Genitourinary Disorders: Yes - PSYCHIATRIC Hx Psychophysiologic Disorder: Yes Hx Substance Use: No - SURGICAL HISTORY Hx Surgeries: Yes Hx Herniorrhaphy: Yes Other/Comment: TURP X2, small spleen aneurysm. Feet surgery(Bunnion and hammer toes sx) - ANESTHESIA Hx Anesthesia: Yes Hx Anesthesia Reactions: No Hx Malignant Hyperthermia: No Meds Allergies/Adverse Reactions: Allergies Allergy/AdvReac Type Severity Reaction Status Date / Time meperidine Allergy Mild RASH Verified 06/22/18 10:01 Physical Exam - Head Exam Head Exam: ATRAUMATIC, NORMAL INSPECTION - Eye Exam Eye Exam: EOMI, Normal appearance - Respiratory Exam Respiratory Exam: Clear to Auscultation Bilateral - Cardiovascular Exam Cardiovascular Exam: REGULAR RHYTHM - GI/Abdominal Exam GI & Abdominal Exam: Normal Bowel Sounds, Soft - Neurological Exam Neurological exam: Altered - Skin Skin Exam: Dry, Intact, Normal Color, Warm Results - Vital Signs Recent Vital Signs: Last Vital Signs Temp 98 F 06/24/18 08:00 Pulse 100 H 06/24/18 08:00 Resp 18 06/24/18 08:00 BP 122/74 06/24/18 08:00 Pulse Ox 94 L 06/24/18 08:00 Assessment & Plan - Assessment and Plan (Free Text) Assessment: 77 year old male with PMHx of vasovagal syncope, hypercholesterolemia, bipolar disorder, and TIA was brought to the ED by family for evaluation of weakness ongoing for 1 week. Patient admitted for treatment and evaluation of sepsis/ pneumonia, UTI LEA. Due to his deterioration and failure to thrive, patient is admitted for hospice care. CXR: possible developing right middle lobe infiltrate, f/u official report Head CT: No acute intracranial hemorrhage. Mild moderate chronic white matter ischemic changes. Probable dilated perivascular spaces both inferior basal nuclei. Moderate generalized volume loss. Plan: Failure to thrive Hospice care keep comfort Morphine drip and Ativan PRN for agitation Code status DNI/DNR <Jose Butler - Last Filed: 06/24/18 17:09> Results - Vital Signs Recent Vital Signs: Last Vital Signs Temp 98.8 F 06/24/18 16:59 Pulse 103 H 06/24/18 16:59 Resp 19 06/24/18 16:59 BP 106/70 06/24/18 16:59 Pulse Ox 95 06/24/18 16:59 Attending/Attestation - Attestation I have personally seen and examined this patient.: Yes I have fully participated in the care of the patient.: Yes I have reviewed all pertinent clinical information: Yes Notes (Text): 06/24/18 17:08 Patient seen and examined with resident. Case discussed and agreed with assessment. Patient placed in comfort care.
[2018-06-26] MEDS ORDERED: Morphine 100 MG in Sodium Chloride 0.9% 100 ML IV SCH (12:15)
[2018-06-26 23:55] VITALS: TEMP 97.4
[2018-06-27 08:37] VITALS: RESP 12; O2SAT 70
[2018-06-27 08:38] VITALS: BP 93/55; PULSE 118
--- NOTE | 2018-06-27 08:41 | CP.PCM.PN ---
Subjective - Date & Time of Evaluation Date of Evaluation: 06/27/18 Time of Evaluation: 07:00 - Subjective Subjective: Pt seen and examined at bedside today. No acute event overnight. Patient in room, she report patient have no eaten in days, his breathing is labored. Patient does not communicate. Patient blood pressure is 93/55 HR 70ox HR 118 Objective - Vital Signs/Intake and Output Vital Signs (last 24 hours): Temp Pulse Resp BP Pulse Ox 97.4 F L 118 H 12 93/55 L 70 L 06/26/18 23:55 06/27/18 06:30 06/27/18 06:30 06/27/18 06:30 06/27/18 06:30 - Medications Medications: Current Medications Acetaminophen (Tylenol 650 Mg Supp) 650 mg DC Q6 PRN PRN Reason: Fever >100.4 F Morphine Sulfate 100 mg/ (Sodium Chloride) 104 mls @ 2.08 mls/hr IV .Q24H JENNIE; Protocol Last Admin: 06/26/18 14:48 Dose: 2 mg/hr, 2.08 mls/hr Lorazepam (Ativan) 1 mg IVP Q4 PRN PRN Reason: Agitation Last Admin: 06/26/18 10:21 Dose: 1 mg Scopolamine (Transderm-Scop) 1 patch TD Q3D PRN PRN Reason: Nausea/Vomiting - Constitutional Appears: Non-toxic, Other - Head Exam Head Exam: ATRAUMATIC, NORMAL INSPECTION, NORMOCEPHALIC - Eye Exam Eye Exam: Normal appearance - ENT Exam ENT Exam: Mucous Membranes Moist, Normal Exam - Neck Exam Neck Exam: Full ROM, Normal Inspection - Respiratory Exam Respiratory Exam: Clear to Ausculation Bilateral, NORMAL BREATHING PATTERN - Cardiovascular Exam Cardiovascular Exam: REGULAR RHYTHM - GI/Abdominal Exam GI & Abdominal Exam: Soft, Normal Bowel Sounds - Skin Skin Exam: Dry, Intact, Normal Color, Warm Assessment and Plan - Assessment and Plan (Free Text) Assessment: 77 year old male with PMHx of vasovagal syncope, hypercholesterolemia, bipolar disorder, and TIA was brought to the ED by family for evaluation of weakness ongoing for 1 week. Patient admitted for treatment and evaluation of sepsis/ pneumonia, UTI LEA. Due to his deterioration and failure to thrive, patient is admitted for hospice care. CXR: possible developing right middle lobe infiltrate. Head CT: No acute intracranial hemorrhage. Mild moderate chronic white matter ischemic changes. Probable dilated perivascular spaces both inferior basal nuclei. Moderate generalized volume loss. Plan: Failure to thrive BP trending down, tackycardia, oxygen sat 70 Hospice care Acetaminophen Lorazepam Morphine sulfate drip Scopolamine TD Q3D keep comfort Code status DNI/DNR
--- NOTE | 2018-06-27 16:57 | CP.PCM.PRO ---
Pronouncement of Note - Clinical Findings Physical Exam: No Response Verbal/Painful Stimuli, Absent Peripheral Puls es{Carotid & Femoral}, Absent Heart & Breath Sounds, No Pupillary Light Reflex, No Corneal Reflex, Pupils Fixed & Dilated, Absence of Vital Signs - Pronouncement Time Time of Pronouncement of : 15:16 - Notifications Pronouncement Notifications: Family Notified, Atending Notified Dehydrogenation Converter Helper Notified: No - Autopsy Autopsy Requested: No - [place] [id number]
--- NOTE | 2018-06-27 17:15 | CP.PCM.DIS ---
Provider - Provider Date of Admission: 06/23/18 16:26 Attending physician: Elenita Montana DO Time Spent in preparation of Discharge (in minutes): 20 Diagnosis - Discharge Diagnosis (1) Failure to thrive Status: Chronic Hospital Course - Hospital Course Hospital Course: 77 year old male with PMHx of vasovagal syncope, hypercholesterolemia, bipolar disorder, and TIA was brought to the ED by family for evaluation of weakness ongoing for 1 week. Patient admitted for treatment and evaluation of sepsis/ pneumonia, UTI LEA. Due to his deterioration and failure to thrive, patient is admitted for hospice care. Patient was placed on comfort measure only, pain medication, and agitation, patient family was on side on all time. During his stay patient vitals deteriorating, patient continue to be confused and failure to thrive. Blood pressure was in the low 90, with tackycardia, and oxygen in the 70. On 06/27/18 at 15:16 Jonathan Patel have . Family on the side, Patient was pronounced by Dr Tipton Discharge Exam - Additional Findings Additional findings: no Response Verbal/Painful Stimuli, Absent Peripheral Pulses Carotid & Femoral, Absent Heart & Breath Sounds, No Pupillary Light Reflex, No Corneal Reflex, Pupils Fixed & Dilated, Absence of Vital Signs Discharge Plan - Follow Up Plan Condition:
== END 2018-06-27 20:09 | DRG 871 ==
LOC: H.TEL 16:26 → H.MEDSURG1 18:18
PROVIDERS: ADMIT Student in an Organized Health Care Education/Training Program; ATTEND Student in an Organized Health Care Education/Training Program
DX: A41.9 Sepsis, unspecified organism (principal); J18.9 Pneumonia, unspecified organism; N39.0 Urinary tract infection, site not specified; R62.7 Adult failure to thrive; Z51.5 Encounter for palliative care; Z66 Do not resuscitate; E78.5 Hyperlipidemia, unspecified; F03.90 Unspecified dementia, unspecified severity, without behavioral disturbance, psychotic disturbance, mood disturbance, and anxiety; E78.00 Pure hypercholesterolemia, unspecified; F31.9 Bipolar disorder, unspecified; Z74.01 Bed confinement status; Z86.73 Personal history of transient ischemic attack (TIA), and cerebral infarction without residual deficits